=== PATIENT | female | born 1930 | race Caucasian/White ===

== ENCOUNTER 2017-12-13 14:42 | Inpatient (IN) | payer MEDICARE, OTHER ==
[2017-12-13 15:37] LABS: BASO % 0.2 % (0.0-2.0); EOS % 0.1 % (0.0-4.0); LYMPH # 0.7 K/uL (1.0-4.3); LYMPH % 7.9 % (20.0-40.0); MEAN CELL VOLUME 91.7 fL (81.0-99.0); MEAN CORPUSCULAR HGB CONC 33.8 g/dL (33.0-37.0); MEAN PLATELET VOLUME 10.2 fL (7.2-11.7); MONO # 0.4 K/uL (0.0-0.8); MONO % 4.3 % (0.0-10.0); NEUT # 7.2 K/uL (1.8-7.0); NEUT % 87.5 % (50.0-75.0); RBC 5.04 Mil/uL (3.80-5.20); RED CELL DISTRIBUTION WIDTH 15.4 % (11.5-14.5)
[2017-12-13 15:42] LABS: HEMOGLOBIN 15.6 g/dL (11.0-16.0); PLATELET COUNT 162 K/uL (130-400); WHITE BLOOD COUNT 8.3 K/uL (4.8-10.8)
[2017-12-13 16:01] LABS: ALB/GLOB RATIO 1.1 (1.0-2.1); ALBUMIN 4.6 g/dL (3.5-5.0); CALCIUM 11.2 mg/dl (8.6-10.4)
[2017-12-13 16:09] LABS: SQUAMOUS EPITHIAL 11 /hpf (0-5); URINE BACTERIA RARE (<OCC); URINE BILIRUBIN 1+ (NEGATIVE); URINE CLARITY Hazy (Clear); URINE COLOR Amber (YELLOW); URINE GLUCOSE (UA) NORMAL (Normal); URINE HYALINE CAST >20 /lpf (0-2); URINE LEUKOCYTE ESTERASE 3+ Leu/uL (Negative); URINE PROTEIN 1+ mg/dL (NEGATIVE)
[2017-12-13 16:10] LABS: URINE BLOOD 1+ (NEGATIVE)
--- NOTE | 2017-12-13 16:37 | C.PDOC ---
History Of Present Illness 87 y/o female presents to ED c/o abdominal pain, distention, nausea, and vomiting since last night. Notes she is not passing stool or gas. Denies fever or other complaints. Time Seen by Provider: 12/13/17 15:16 Chief Complaint (Nursing): Abdominal Pain History Per: Patient History/Exam Limitations: no limitations Past Medical History Reviewed: Historical Data, Nursing Documentation, Vital Signs Vital Signs: Last Vital Signs Temp 97.7 F 12/13/17 14:47 Pulse 80 12/13/17 14:47 Resp 20 12/13/17 14:47 BP 121/70 12/13/17 14:47 Pulse Ox 96 12/13/17 14:47 - Medical History PMH: Arthritis, Osteoporosis Family History: States: Unknown Family Hx - Social History Hx Tobacco Use: No Hx Alcohol Use: No Hx Substance Use: No - Immunization History Hx Tetanus Toxoid Vaccination: No Hx Influenza Vaccination: Yes Hx Pneumococcal Vaccination: Yes Review Of Systems Except As Marked, All Systems Reviewed And Found Negative. Constitutional: Negative for: Fever, Chills Gastrointestinal: Positive for: Nausea, Vomiting, Abdominal Pain. Negative for: Diarrhea Genitourinary: Negative for: Dysuria, Frequency, Hematuria Musculoskeletal: Negative for: Back Pain Physical Exam - Physical Exam Appears: Non-toxic, No Acute Distress Skin: Normal Color, Warm, Dry Head: Atraumatic, Normacephalic Eye(s): bilateral: Normal Inspection Oral Mucosa: Moist Neck: Supple Cardiovascular: Rhythm Regular Respiratory: Normal Breath Sounds, No Rales, No Rhonchi, No Wheezing Gastrointestinal/Abdominal: Soft, Tenderness (mild lower abdomen), Distention, No Guarding, No Rebound Back: No CVA Tenderness Extremity: Normal ROM, No Pedal Edema Neurological/Psych: Oriented x3, Normal Speech ED Course And Treatment - Laboratory Results Result Diagrams: 12/13/17 15:28 12/13/17 15:28 Lab Interpretation: Abnormal (UA 70 wbc's (dirty catch) increased creat) ECG: Interpreted By Me ECG Rhythm: Sinus Rhythm O2 Sat by Pulse Oximetry: 96 (RA) Pulse Ox Interpretation: Normal - Radiology CXR: Interpreted by Me CXR Interpretation: Yes: No Acute Disease - Other Rad abd x 2 X-Ray: Interpreted by Me (+ distended abd colonic loops) Interpretation: IMPRESSION: No evidence of mechanical bowel obstruction. - CT Scan/US CT A/P Other Rad Studies (CT/US): Read By Radiologist, Radiology Report Reviewed CT/US Interpretation: IMPRESSION: 1. Findings suggest mechanical distal small bowel obstruction with possible transition in the right lower quadrant from adhesion. Postoperative change identified involving bowel loops in the central and right lower quadrant abdomen. Limited pelvic ascites. No definite CT pattern to suggest bowel perforation at this time. 2. Left colonic diverticulosis without diverticulitis. 3. Possible complex cyst or soft tissue lesion exophytic at the upper midpole right kidney 1.6 cm. Follow-up right renal ultrasound advised as this may represent a mildly enlarging now complex cyst. 4. Questionable thickening of the distal esophagus may represent esophagitis or mass. Further clinical correlation advised. Other lesser findings as discussed above. Progress Note: Case discussed with Dr. George at 20:00. Understands CT A/P finding of small bowel obstruction. Case discussed with Dr. Choudhary in the ED at 18:00. Reevaluation Time: 17:22 Reassessment Condition: Improved (NGT placed by Gen Surg) Medical Decision Making Medical Decision Making: prob recurrent bowel obst- h/o same with bowel resection Disposition Doctor Will See Patient In The: Hospital Counseled Patient/Family Regarding: Studies Performed, Diagnosis - Disposition Disposition: HOSPITALIZED Disposition Time: 17:23 Condition: FAIR Forms: [facility] (Iranian) - Clinical Impression Clinical Impression: Bowel obstruction - Scribe Statement The provider has reviewed the documentation as recorded by the Scribe KP All medical record entries made by the Scribe were at my direction and personally dictated by me. I have reviewed the chart and agree that the record accurately reflects my personal performance of the history, physical exam, medical decision making, and the department course for this patient. I have also personally directed, reviewed, and agree with the discharge instructions and disposition.
[2017-12-13 17:18] LABS: BANDS 18 % (0-2); LYMPHOCYTE 5 % (20-40); MONOCYTE 7 % (0-10); NEUTROPHIL 70 % (50-75); PLATELET ESTIMATE NORMAL (NORMAL); TOTAL CELLS COUNTED 100
[2017-12-13] MEDS ORDERED: Sodium Chloride 0.9% 1,000 ML IV ONE (17:18)
[2017-12-13] MEDS ORDERED: Dextrose 5%/0.9% NS 1,000 ML IV STA (17:19)
--- NOTE | 2017-12-13 17:34 | CP.PCM.CON ---
History of Present Illness - History of Present Illness History of Present Illness: Surgery consult - Dr. Choudhary 87 y/o female with PSH of Exp lap for SBO and appendectomy and PMH of SBO, arthritis and osteoporosis, presented to the ED with nausea/vomiting, epigastric pain and abdominal distention. As per pt, the pain began last night and was followed by continuous episodes of vomiting throughout the night. The vomit was "dark green" in color. The pain is localized to the epigastric area and pt describes the pain as sharp, constant, and denies any radiation. She rates the pain today at a 10/10. Pt states that food aggravates the pain and denies that anything has helped relieve the pain. In addition to nausea, vomiting, and abdominal pain, she reports constipation (3 days since last BM). She denies fever, diarrhea, chest pain, palpitations, cough, SOB, dysuria, or headache. Reports this is 2nd time having these sxs. NGT placed in ED. 1 L bilious output. PMH: osteoporosis, arthritis PSH: appendectomy, ex-lap for SBO social: denies tobacco or alcohol use All: nkda Review of Systems - Constitutional Constitutional: absent: Fever - Cardiovascular Cardiovascular: Dyspnea. absent: Chest Pain, Palpitations - Respiratory Respiratory: absent: Cough, Dyspnea - Gastrointestinal Gastrointestinal: Constipation, Nausea, Vomiting. absent: Diarrhea - Genitourinary Genitourinary: absent: Dysuria - Musculoskeletal Musculoskeletal: Arthralgias - Neurological Neurological: absent: Headaches Past Patient History - Past Social History Smoking Status: Never Smoked - MUSCULOSKELETAL/RHEUMATOLOGICAL Hx Arthritis: Yes Hx Osteoporosis: Yes - PSYCHIATRIC Hx Substance Use: No Meds Allergies/Adverse Reactions: Allergies Allergy/AdvReac Type Severity Reaction Status Date / Time No Known Allergies Allergy Unverified 12/13/17 14:49 - Medications Medications: Current Medications Glycerin (Glycerin Adult Suppository) 1 sup AK ONCE ONE Stop: 12/13/17 17:26 Sodium Chloride (Sodium Chloride 0.9%) 1,000 mls @ 1,000 mls/hr IV .Q1H ONE Stop: 12/13/17 18:17 Dextrose/Sodium Chloride (Dextrose 5%/0.9% Ns 1000 Ml) 1,000 mls @ 100 mls/hr IV .Q10H STA Stop: 12/14/17 03:18 Sodium Chloride (Sodium Chloride 0.9%) 1,000 mls @ 110 mls/hr IV .Q9H6M [facility] Morphine Sulfate (Morphine) 2 mg IVP Q4 PRN PRN Reason: Pain, moderate (4-7) Ondansetron HCl (Zofran Inj) 4 mg IVP Q4 PRN PRN Reason: Nausea/Vomiting Physical Exam - Constitutional Appears: Non-toxic - Head Exam Head Exam: ATRAUMATIC, NORMAL INSPECTION, NORMOCEPHALIC - Eye Exam Eye Exam: EOMI, PERRL - ENT Exam ENT Exam: Mucous Membranes Dry - Respiratory Exam Respiratory Exam: NORMAL BREATHING PATTERN - Cardiovascular Exam Cardiovascular Exam: REGULAR RHYTHM, +S1, +S2 - GI/Abdominal Exam GI & Abdominal Exam: Distended, Guarding, Hyperactive Bowel Sounds, Soft, Tenderness Additional comments: large midline incisions x2. RLQ incision. well healed. - Rectal Exam Rectal Exam: Fecal Impaction. absent: Black Stool, Bloody Stool Additional comments: normal tone, no bleeding, hard stool in rectal vault - Exam Exam: NORMAL INSPECTION - Extremities Exam Extremities exam: Positive for: normal capillary refill. Negative for: pedal edema Additional comments: ulnar deviation - Neurological Exam Neurological exam: Alert, CN II-XII Intact, Oriented x3 - Psychiatric Exam Psychiatric exam: Normal Affect, Normal Mood - Skin Skin Exam: Dry, Intact, Normal Color, Warm Results - Vital Signs Recent Vital Signs: Last Vital Signs Temp 97.7 F 12/13/17 14:47 Pulse 80 12/13/17 14:47 Resp 20 12/13/17 14:47 BP 121/70 12/13/17 14:47 Pulse Ox 96 12/13/17 17:23 - Labs Result Diagrams: 12/13/17 15:28 12/13/17 15:28 Labs: Laboratory Results - last 24 hr 12/13/17 12/13/17 12/13/17 15:28 15:28 15:54 WBC 8.3 D RBC 5.04 Hgb 15.6 D Hct 46.2 MCV 91.7 MCH 31.0 MCHC 33.8 RDW 15.4 H Plt Count 162 D MPV 10.2 Neut % (Auto) 87.5 H Lymph % (Auto) 7.9 L [place] % (Auto) 4.3 Eos % (Auto) 0.1 Baso % (Auto) 0.2 Neut # (Auto) 7.2 H Lymph # (Auto) 0.7 L [place] # (Auto) 0.4 Eos # (Auto) 0.0 Baso # (Auto) 0.0 Neutrophils % (Manual) 70 Band Neutrophils % 18 H* Lymphocytes % (Manual) 5 L Monocytes % (Manual) 7 Platelet Estimate Normal Sodium 138 Potassium 4.2 Chloride 89 L Carbon Dioxide 33 H Anion Gap 20 BUN 31 H Creatinine 2.0 H Est GFR ( Amer) 28 Est GFR (Non-Af Amer) 23 Random Glucose 140 H Calcium 11.2 H Total Bilirubin 1.1 AST 41 H ALT 21 Alkaline Phosphatase 91 Total Protein 8.9 H Albumin 4.6 Globulin 4.2 H Albumin/Globulin Ratio 1.1 Lipase 41 Urine Color Archana Urine Clarity Hazy Urine pH 5.0 Ur Specific [place] 1.023 Urine Protein 1+ H Urine Glucose (UA) Normal Urine Ketones Trace Urine Blood 1+ H Urine Nitrate Negative Urine Bilirubin 1+ H Urine Urobilinogen 2.0 H Ur Leukocyte Esterase 3+ H Urine WBC (Auto) 70 H Urine RBC (Auto) 22 H Ur Squamous Epith Cells 11 H Urine Bacteria Rare Hyaline Casts >20 H Assessment & Plan - Assessment and Plan (Free Text) Assessment: 87 y/o female with acute SBO. Plan: - f/u CT abdomen with PO contrast - NPO - IVF - pain medications - anti-nausea medications - enema for constipation relief - if no improvement of symptoms or bowel becomes strangulated, possible surgical rescection small bowel with Dr. Choudhary Case discussed with Dr. Choudhary
[2017-12-13] MEDS ORDERED: Iohexol 240 (50 ml) ONE (17:41)
[2017-12-13] MEDS ORDERED: Iohexol 240 (50 ml) PO ONE (17:44)
[2017-12-13] MEDS ORDERED: Sodium Chloride 0.9% 1,000 ML ONE (18:39)
--- NOTE | 2017-12-13 18:50 | RAD ---
Date of service: 12/13/2017 PROCEDURE: Radiographs of the chest and abdomen (obstructive series) HISTORY: Abdominal pain COMPARISON: No prior. TECHNIQUE: AP radiograph of the chest, with upright and supine radiographs of the abdomen. FINDINGS: CHEST: Lungs: Clear. Cardiovascular: Normal size heart. No pulmonary vascular congestion. Pleura: No pleural fluid. No pneumothorax. Other findings: None. ABDOMEN AND PELVIS: Bowel: Dilated stomach with air-fluid level. No evidence of mechanical obstruction or free air. Free air: None. Bones: Unremarkable. Other findings: None. IMPRESSION: . No evidence of mechanical bowel obstruction.
--- NOTE | 2017-12-13 19:10 | CT ---
Date of service: 12/13/2017 PROCEDURE: CT Abdomen and Pelvis with contrast HISTORY: SBO COMPARISON: Abdomen obstructive series 12/13/2017. TECHNIQUE: Helical CT of the abdomen and pelvis was performed following oral contrast administration only. Intravenous contrast was not administered as per referring physician request. Coronal and sagittal reformats were generated. contrast dose: None Radiation dose: Total exam DLP = 342.07 mGy-cm. This CT exam was performed using one or more of the following dose reduction techniques: Automated exposure control, adjustment of the mA and/or kV according to patient size, and/or use of iterative reconstruction technique. FINDINGS: LOWER THORAX: Fibrotic changes are favored over linear atelectasis at the bilateral bases as volume loss at the left lower lobe is identified. Dense pleural plaque calcification is identified at the left lower lobe pleura posteriorly. Cardiomegaly is noted with nasogastric tube identified terminating in the stomach. Hiatal hernia is identified versus thickened distal esophagus. Clinically correlate. LIVER: Unremarkable. No gross lesion or ductal dilatation. GALLBLADDER AND BILE DUCTS: Unremarkable. PANCREAS: Unremarkable. No gross lesion or ductal dilatation. SPLEEN: Unremarkable. ADRENALS: Unremarkable. No mass. KIDNEYS AND URETERS: 1.6 cm lesion is exophytic related to the upper to mid pole right kidney potentially corresponding to previously demonstrated in ultrasound exam 03/14/2015 as a simple cyst. This may represent interval increase in size of a now complex right renal cyst may however follow-up renal ultrasound is advised electively to further evaluate. No obstructive uropathy bilaterally. Nonspecific bilateral streaky perinephric changes are identified bilaterally. VASCULATURE: Aneurysmal atherosclerotic abdominal aorta identified with limited dilatation identified distally without significant aneurysm. Similar dilatation is identified at the right common iliac artery with bilateral heavy atherosclerosis affecting the bilateral iliac arterial systems. BOWEL: Oral contrast distends the stomach with distention of numerous small bowel loops identified with oral contrast retained fluid and air transitioning to collapsed small bowel at the right lower quadrant region suggesting mechanical distal small bowel obstruction. Multiple chain sutures are identified involving mid and distal small bowel and an adhesion is a possible etiology. Clinically correlate further. No CT evidence of bowel perforation at this time. Moderate fecal loading is seen at the right hemicolon and distal rectosigmoid. Left colonic diverticular changes are appreciated without definite diverticulitis pattern. APPENDIX: No CT evidence to suggest appendicitis at this time. PERITONEUM: Limited pelvic ascites. LYMPH NODES: Unremarkable. No enlarged lymph nodes. BLADDER: Unremarkable. REPRODUCTIVE: Unremarkable. BONES: No acute fracture. OTHER FINDINGS: None. IMPRESSION: 1. Findings suggest mechanical distal small bowel obstruction with possible transition in the right lower quadrant from adhesion. Postoperative change identified involving bowel loops in the central and right lower quadrant abdomen. Limited pelvic ascites. No definite CT pattern to suggest bowel perforation at this time. 2. Left colonic diverticulosis without diverticulitis. 3. Possible complex cyst or soft tissue lesion exophytic at the upper midpole right kidney 1.6 cm. Follow-up right renal ultrasound advised as this may represent a mildly enlarging now complex cyst. 4. Questionable thickening of the distal esophagus may represent esophagitis or mass. Further clinical correlation advised. Other lesser findings as discussed above.
[2017-12-13] MEDS: Sodium Chloride 0.9% 1,000 ML IV SCH (19:28)
--- NOTE | 2017-12-13 22:37 | CP.PCM.HP ---
History of Present Illness - History of Present Illness History of Present Illness: 87 year old female with abdominal pain, abdominal sistension, nausea, and vomiting for the past 24 hours, comes to the [facility] ER for evaluation. CT scan of the abdomen reveals small bowel obstruction. Admission advised and consultation requested with Dr Choudhary requested. Present on Admission - Present on Admission Any Indicators Present on Admission: No History of DVT/PE: No History of Uncontrolled Diabetes: No Urinary Catheter: No Decubitus Ulcer Present: No History Surgical Site Infection Following: None Review of Systems - Constitutional Constitutional: Weakness - Gastrointestinal Gastrointestinal: Abdominal Pain, Nausea, Vomiting - Reproductive: Female Reproductive:Female: Post Menopausal - Musculoskeletal Musculoskeletal: Arthralgias - Integumentary Integumentary: Dry Skin Past Patient History - Tetanus Immunizations Tetanus Immunization: Up to Date - Past Medical History & Family History Past Medical History?: Yes - Past Social History Smoking Status: Never Smoked Chewing Tobacco Use: No Cigar Use: No Alcohol: None Drugs: Denies Home Situation {Lives}: Alone Domestic Violence: Negative - CARDIAC Hx Hypertension: Yes - HEMATOLOGICAL/ONCOLOGICAL Hx Anemia: Yes - MUSCULOSKELETAL/RHEUMATOLOGICAL Hx Arthritis: Yes Hx Osteoporosis: Yes - GENITOURINARY/GYNECOLOGICAL Hx Hematuria: No Hx Incontinence: No Hx Ovarian Cancer: No Hx Postmenopausal Bleeding: No - PSYCHIATRIC Hx Substance Use: No Meds Allergies/Adverse Reactions: Allergies Allergy/AdvReac Type Severity Reaction Status Date / Time No Known Allergies Allergy Unverified 12/13/17 14:49 Physical Exam - Constitutional Appears: No Acute Distress - Head Exam Head Exam: NORMOCEPHALIC - Eye Exam Pupil Exam: NORMAL ACCOMODATION - ENT Exam ENT Exam: Normal Exam - Neck Exam Neck exam: Positive for: Normal Inspection - Respiratory Exam Respiratory Exam: NORMAL BREATHING PATTERN - Cardiovascular Exam Cardiovascular Exam: REGULAR RHYTHM - GI/Abdominal Exam GI & Abdominal Exam: Distended, Tenderness - Exam External exam: NORMAL EXTERNAL EXAM - Back Exam Back exam: NORMAL INSPECTION - Neurological Exam Neurological exam: Oriented x3 - Psychiatric Exam Psychiatric exam: Anxious - Skin Skin Exam: Dry Results - Vital Signs Recent Vital Signs: Last Vital Signs Temp 97.5 F L 12/13/17 22:21 Pulse 88 12/13/17 22:21 Resp 20 12/13/17 22:21 BP 144/75 12/13/17 22:21 Pulse Ox 96 12/13/17 22:21 - Labs Result Diagrams: 12/13/17 15:28 12/13/17 15:28 Labs: Laboratory Results - last 24 hr 12/13/17 12/13/17 12/13/17 15:28 15:28 15:54 WBC 8.3 D RBC 5.04 Hgb 15.6 D Hct 46.2 MCV 91.7 MCH 31.0 MCHC 33.8 RDW 15.4 H Plt Count 162 D MPV 10.2 Neut % (Auto) 87.5 H Lymph % (Auto) 7.9 L [place] % (Auto) 4.3 Eos % (Auto) 0.1 Baso % (Auto) 0.2 Neut # (Auto) 7.2 H Lymph # (Auto) 0.7 L [place] # (Auto) 0.4 Eos # (Auto) 0.0 Baso # (Auto) 0.0 Neutrophils % (Manual) 70 Band Neutrophils % 18 H* Lymphocytes % (Manual) 5 L Monocytes % (Manual) 7 Platelet Estimate Normal Sodium 138 Potassium 4.2 Chloride 89 L Carbon Dioxide 33 H Anion Gap 20 BUN 31 H Creatinine 2.0 H Est GFR ( Amer) 28 Est GFR (Non-Af Amer) 23 Random Glucose 140 H Calcium 11.2 H Total Bilirubin 1.1 AST 41 H ALT 21 Alkaline Phosphatase 91 Total Protein 8.9 H Albumin 4.6 Globulin 4.2 H Albumin/Globulin Ratio 1.1 Lipase 41 Urine Color Archana Urine Clarity Hazy Urine pH 5.0 Ur Specific [place] 1.023 Urine Protein 1+ H Urine Glucose (UA) Normal Urine Ketones Trace Urine Blood 1+ H Urine Nitrate Negative Urine Bilirubin 1+ H Urine Urobilinogen 2.0 H Ur Leukocyte Esterase 3+ H Urine WBC (Auto) 70 H Urine RBC (Auto) 22 H Ur Squamous Epith Cells 11 H Urine Bacteria Rare Hyaline Casts >20 H Assessment & Plan (1) Small bowel obstruction Status: Acute (2) Rheumatoid arthritis Status: Acute (3) Vomiting Status: Acute
[2017-12-14] MEDS: Sodium Chloride 0.9% 1,000 ML IV SCH ×2 (03:00→12:18)
[2017-12-14 07:45] LABS: INR 1.1
--- NOTE | 2017-12-14 11:05 | CP.PCM.PN ---
Subjective - Date & Time of Evaluation Date of Evaluation: 12/14/17 Time of Evaluation: 07:20 - Subjective Subjective: General surgery progress note for Dr. Choudhary Pt seen and examined at bedside. pt had 1250cc's of bilious fluid since NGT insertion. patient denies any nausea at this time, and states abdominal pain is improved. Objective - Vital Signs/Intake and Output Vital Signs (last 24 hours): Temp Pulse Resp BP Pulse Ox 97.4 F L 68 20 145/73 95 12/14/17 08:03 12/14/17 08:03 12/14/17 08:03 12/14/17 08:03 12/14/17 08:03 Intake and Output: 12/14/17 12/14/17 06:59 18:59 Intake Total 930 Output Total 550 Balance 380 - Medications Medications: Current Medications Sodium Chloride (Sodium Chloride 0.9%) 1,000 mls @ 110 mls/hr IV .Q9H6M [facility] Last Admin: 12/14/17 03:00 Dose: Not Given Morphine Sulfate (Morphine) 2 mg IVP Q4 PRN PRN Reason: Pain, moderate (4-7) Ondansetron HCl (Zofran Inj) 4 mg IVP Q4 PRN PRN Reason: Nausea/Vomiting - Labs Labs: 12/13/17 15:28 12/13/17 15:28 PT 12.0 SECONDS (9.7-12.2) 12/14/17 07:32 INR 1.1 12/14/17 07:32 - Constitutional Appears: Well, Non-toxic, No Acute Distress - Head Exam Head Exam: ATRAUMATIC, NORMOCEPHALIC - Eye Exam Eye Exam: Normal appearance. absent: Conjunctival injection, Scleral icterus - ENT Exam ENT Exam: Mucous Membranes Moist Additional comments: NGT in place - Respiratory Exam Respiratory Exam: NORMAL BREATHING PATTERN. absent: Accessory Muscle Use, Respiratory Distress - Cardiovascular Exam Cardiovascular Exam: RRR - GI/Abdominal Exam GI & Abdominal Exam: Distended (mild), Soft. absent: Tenderness, Rebound - Extremities Exam Extremities Exam: absent: Calf Tenderness, Pedal Edema, Tenderness - Neurological Exam Neurological Exam: Alert, Awake, Oriented x3 - Psychiatric Exam Psychiatric exam: Normal Affect, Normal Mood - Skin Skin Exam: Dry, Normal Color, Warm Assessment and Plan - Assessment and Plan (Free Text) Assessment: 87F with SBO vs obstipation with small bowel ileus Plan: Continue NGT to wall suction Monitor NGT output and urine output NPO IVF PRN pain and nausea medication Encourage activity as tolerated Continue conservative management at this time--may consider OR only if patient worsens Discussed and examined with Dr. Funmi Jimenez PGY2
[2017-12-14 11:47] LABS: BASO % 0.3 % (0.0-2.0); EOS # 0.1 K/uL (0.0-0.7); EOS % 1.2 % (0.0-4.0); LYMPH # 1.3 K/uL (1.0-4.3); LYMPH % 19.3 % (20.0-40.0); MEAN CELL VOLUME 92.3 fL (81.0-99.0); MEAN CORPUSCULAR HEMOGLOBIN 30.6 pg (27.0-31.0); MEAN CORPUSCULAR HGB CONC 33.2 g/dL (33.0-37.0); MEAN PLATELET VOLUME 10.1 fL (7.2-11.7); MONO # 0.5 K/uL (0.0-0.8); MONO % 7.7 % (0.0-10.0); NEUT # 4.8 K/uL (1.8-7.0); NEUT % 71.5 % (50.0-75.0); NRBC % 0.1 % (0.0-2.0); RBC 4.33 Mil/uL (3.80-5.20); RED CELL DISTRIBUTION WIDTH 15.6 % (11.5-14.5); WHITE BLOOD COUNT 6.7 K/uL (4.8-10.8)
[2017-12-14 11:56] LABS: HEMOGLOBIN 13.3 g/dL (11.0-16.0)
[2017-12-14 12:00] LABS: CALCIUM 8.7 mg/dl (8.6-10.4)
[2017-12-14 17:34] LABS: HEMOGLOBIN 13.2 g/dL (11.0-16.0); MEAN CELL VOLUME 92.5 fL (81.0-99.0); MEAN CORPUSCULAR HEMOGLOBIN 31.4 pg (27.0-31.0); MEAN CORPUSCULAR HGB CONC 33.9 g/dL (33.0-37.0); MEAN PLATELET VOLUME 10.2 fL (7.2-11.7); RBC 4.22 Mil/uL (3.80-5.20); RED CELL DISTRIBUTION WIDTH 15.1 % (11.5-14.5); WHITE BLOOD COUNT 7.1 K/uL (4.8-10.8)
--- NOTE | 2017-12-14 19:42 | CP.PCM.PN ---
Subjective - Date & Time of Evaluation Date of Evaluation: 12/14/17 Time of Evaluation: 16:20 - Subjective Subjective: Patient is alert and responsive. Abdomen less distended and less tender. Patient was evaluated by neurosurgical nurse. Continue all present supportive measures. Objective - Vital Signs/Intake and Output Vital Signs (last 24 hours): Temp Pulse Resp BP Pulse Ox 98.1 F 65 20 149/63 95 12/14/17 15:00 12/14/17 18:11 12/14/17 15:00 12/14/17 18:11 12/14/17 15:00 Intake and Output: 12/14/17 12/15/17 18:59 06:59 Intake Total 880 Output Total 620 Balance 260 - Medications Medications: Current Medications Sodium Chloride (Sodium Chloride 0.9%) 1,000 mls @ 110 mls/hr IV .Q9H6M [facility] Last Admin: 12/14/17 12:18 Dose: Not Given Morphine Sulfate (Morphine) 2 mg IVP Q4 PRN PRN Reason: Pain, moderate (4-7) Ondansetron HCl (Zofran Inj) 4 mg IVP Q4 PRN PRN Reason: Nausea/Vomiting - Labs Labs: 12/14/17 17:10 12/14/17 11:37 PT 12.0 SECONDS (9.7-12.2) 12/14/17 07:32 INR 1.1 12/14/17 07:32 - Constitutional Appears: No Acute Distress - Head Exam Head Exam: ATRAUMATIC - Eye Exam Eye Exam: Normal appearance Pupil Exam: NORMAL ACCOMODATION - ENT Exam ENT Exam: Normal Exam - Neck Exam Neck Exam: Normal Inspection - Respiratory Exam Respiratory Exam: NORMAL BREATHING PATTERN - Cardiovascular Exam Cardiovascular Exam: RRR - GI/Abdominal Exam GI & Abdominal Exam: Tenderness - Rectal Exam Rectal Exam: Deferred - Exam External exam: NORMAL EXTERNAL EXAM - Extremities Exam Extremities Exam: Normal Inspection - Back Exam Back Exam: NORMAL INSPECTION - Neurological Exam Neurological Exam: Oriented x3 - Psychiatric Exam Psychiatric exam: Normal Affect - Skin Skin Exam: Dry Assessment and Plan (1) Small bowel obstruction Status: Acute (2) Rheumatoid arthritis Status: Acute (3) Vomiting Status: Acute
[2017-12-15] MEDS: Sodium Chloride 0.9% 1,000 ML IV SCH ×3 (01:35→14:33)
[2017-12-15 08:00] LABS: HEMOGLOBIN 13.4 g/dL (11.0-16.0); MEAN CELL VOLUME 93.9 fL (81.0-99.0); MEAN CORPUSCULAR HEMOGLOBIN 31.4 pg (27.0-31.0); MEAN CORPUSCULAR HGB CONC 33.5 g/dL (33.0-37.0); RBC 4.25 Mil/uL (3.80-5.20); RED CELL DISTRIBUTION WIDTH 15.3 % (11.5-14.5); WHITE BLOOD COUNT 6.4 K/uL (4.8-10.8)
[2017-12-15 08:01] LABS: BASO % 0.5 % (0.0-2.0); EOS # 0.1 K/uL (0.0-0.7); EOS % 0.9 % (0.0-4.0); MONO # 0.5 K/uL (0.0-0.8); MONO % 7.6 % (0.0-10.0); NEUT # 4.8 K/uL (1.8-7.0)
[2017-12-15 08:26] LABS: ALB/GLOB RATIO 1.1 (1.0-2.1); ALBUMIN 3.6 g/dL (3.5-5.0); ALT/SGPT 30 U/L (9-52); AST/SGOT 31 U/L (14-36); BLOOD UREA NITROGEN 21 mg/dL (7-17); CALCIUM 8.5 mg/dl (8.6-10.4); GFR NON-AFRICAN AMERICAN 59
--- NOTE | 2017-12-15 10:00 | CP.PCM.PN ---
Subjective - Date & Time of Evaluation Date of Evaluation: 12/15/17 Time of Evaluation: 07:10 - Subjective Subjective: general surgery progress note for Dr. Choudhary Pt seen and examined at bedside. Patient states pain is improved with no nausea, but has not had any flatus or bowel movement. 1800cc's like green gastric/bilious output in NGT/24 hours. Objective - Vital Signs/Intake and Output Vital Signs (last 24 hours): Temp Pulse Resp BP Pulse Ox 98.1 F 65 20 178/78 H 95 12/15/17 07:43 12/15/17 07:43 12/15/17 07:43 12/15/17 07:43 12/15/17 07:43 Intake and Output: 12/15/17 12/15/17 06:59 18:59 Intake Total 880 800 Output Total 650 900 Balance 230 -100 - Medications Medications: Current Medications Sodium Chloride (Sodium Chloride 0.9%) 1,000 mls @ 110 mls/hr IV .Q9H6M [facility] Last Admin: 12/15/17 06:23 Dose: Not Given Mineral Oil (Fleet Mineral Oil Enema) 135 ml RC ONCE ONE Stop: 12/15/17 12:01 Morphine Sulfate (Morphine) 2 mg IVP Q4 PRN PRN Reason: Pain, moderate (4-7) Ondansetron HCl (Zofran Inj) 4 mg IVP Q4 PRN PRN Reason: Nausea/Vomiting - Labs Labs: 12/15/17 07:48 12/15/17 07:48 PT 12.0 SECONDS (9.7-12.2) 12/14/17 07:32 INR 1.1 12/14/17 07:32 - Constitutional Appears: Well, Non-toxic, No Acute Distress - Head Exam Head Exam: ATRAUMATIC, NORMOCEPHALIC - Eye Exam Eye Exam: Normal appearance. absent: Conjunctival injection, Scleral icterus - ENT Exam ENT Exam: Mucous Membranes Moist, Normal Oropharynx - Respiratory Exam Respiratory Exam: NORMAL BREATHING PATTERN. absent: Accessory Muscle Use, Respiratory Distress - Cardiovascular Exam Cardiovascular Exam: RRR - GI/Abdominal Exam GI & Abdominal Exam: Distended (mild), Soft, Tenderness (mild epigastric tenderness) - Extremities Exam Extremities Exam: absent: Calf Tenderness, Pedal Edema, Tenderness - Neurological Exam Neurological Exam: Alert, Awake, Oriented x3 - Psychiatric Exam Psychiatric exam: Normal Affect, Normal Mood - Skin Skin Exam: Dry, Intact, Normal Color, Warm Assessment and Plan - Assessment and Plan (Free Text) Assessment: 87F with SBO vs ileus/obstipation Plan: Continue NGT to wall suction, monitor output Continue IVF Continue PRN nausea and pain medication Administer enema Continue to trend CBC/bmp/MG/Phos--replete electrolytes as needed out of bed to chair and ambulate--may clamp tube to ambulate Possible OR if not having return of bowel function Discussed withDr. Choudhary--further recs per him Arlen Jimenez, PGY2
[2017-12-15] MEDS ORDERED: Sodium Chloride 0.9% 1,000 ML IV SCH (10:29)
[2017-12-15] MEDS ORDERED: Phenol Topical 1.4% Throat Spray (180 ml) MT PRN (10:36)
[2017-12-15] MEDS ORDERED: Nitroglycerin 2% Ointment Foilpak UD TOP SCH (12:00)
[2017-12-15] MEDS ORDERED: Nitroglycerin 2% Ointment Foilpak UD TOP PRN (12:00)
[2017-12-15] MEDS ORDERED: Mineral Oil Enema 135 ml RC ONE ×2 (12:00→21:28)
[2017-12-15] MEDS: Nitroglycerin 2% Ointment Foilpak UD TOP PRN ×2 (12:02→19:08)
[2017-12-15] MEDS ORDERED: Albuterol-Ipratrop 3 mg / 0.5 (3 ml) UD INH STA (14:06)
[2017-12-15 14:39] LABS: ABG ALLEN TEST POS; ARTERIAL BLOOD GAS HCO3 25.3 mmol/L (21-28); ARTERIAL BLOOD GAS O2 SAT 99.1 % (95-98); ARTERIAL BLOOD GAS PCO2 37 mm/Hg (35-45); ARTERIAL BLOOD GAS PH 7.43 (7.35-7.45); ARTERIAL BLOOD GAS PO2 102 mm/Hg (80-100); ARTERIAL BLOOD GAS TCO2 25.7 mmol/L (22-28)
--- NOTE | 2017-12-15 14:44 | RAD ---
Date of service: 12/15/2017 PROCEDURE: Radiographs of the chest and abdomen (obstructive series) HISTORY: upright. SBO, SOB COMPARISON: Comparison made with CT scan abdomen and pelvis dated 12/13/2017 TECHNIQUE: AP radiograph of the chest, with upright and supine radiographs of the abdomen. FINDINGS: In situ NGT the the, tip of which lies just to the right of midline upper abdomen likely within the distal stomach. CHEST: Lungs: Pleural based calcification and parenchymal scarring left mid to lower lung field of. The minor scarring changes right medial lung base. Note that these findings are seen to better advantage on prior CT scan of the abdomen which image both lung bases. Cardiovascular: Cardiomegaly.. No pulmonary vascular congestion. Pleura: As above. No effusion or pneumothorax. Other findings: None. ABDOMEN AND PELVIS: Bowel: Unremarkable bowel gas pattern. No evidence of mechanical obstruction with oral contrast material from prior CT scan now opacifying the large bowel.. Free air: None. Bones: Unremarkable. Other findings: None. IMPRESSION: Chronic scarring/fibrotic changes and pleural based calcifications left lung base. Minor atelectasis or scarring right lung base. Cardiomegaly. In situ NGT.. No evidence of free intraperitoneal air. No evidence of acute mechanical bowel obstruction.
[2017-12-15] MEDS: Albuterol-Ipratrop 3 mg / 0.5 (3 ml) UD INH SCH (20:44)
--- NOTE | 2017-12-15 22:08 | CP.PCM.PN ---
Subjective - Date & Time of Evaluation Date of Evaluation: 12/15/17 Time of Evaluation: 17:25 - Subjective Subjective: Patient in no distress. Oriented in all 3 spheres. Abdomen less distended and tender. K level 3.1. Supplemental K ordered. Patient given lasix IV for an episode of shortness of breath. Objective - Vital Signs/Intake and Output Vital Signs (last 24 hours): Temp Pulse Resp BP Pulse Ox 98.4 F 74 18 159/69 H 97 12/15/17 16:51 12/15/17 16:51 12/15/17 16:51 12/15/17 19:03 12/15/17 16:51 Intake and Output: 12/15/17 12/16/17 18:59 06:59 Intake Total 1250 400 Output Total 1500 200 Balance -250 200 - Medications Medications: Current Medications Albuterol/Ipratropium (Duoneb 3 Mg/0.5 Mg (3 Ml) Ud) 3 ml INH RBID [facility] Last Admin: 12/15/17 20:44 Dose: 3 ml Sodium Chloride (Sodium Chloride 0.9%) 1,000 mls @ 30 mls/hr IV .Q24H [facility] Last Admin: 12/15/17 14:33 Dose: 30 mls/hr Ceftriaxone Sodium 1 gm/ (Sodium Chloride) 100 mls @ 100 mls/hr IVPB DAILY [facility]; Protocol Last Admin: 12/15/17 18:37 Dose: 100 mls/hr Morphine Sulfate (Morphine) 2 mg IVP Q4 PRN PRN Reason: Pain, moderate (4-7) Last Admin: 12/15/17 10:48 Dose: 2 mg Nitroglycerin (Nitro-Bid 2% Oint) 1 ea TOP Q6H PRN Last Admin: 12/15/17 19:08 Dose: 1 ea Ondansetron HCl (Zofran Inj) 4 mg IVP Q4 PRN PRN Reason: Nausea/Vomiting Pantoprazole Sodium (Protonix Inj) 40 mg IVP DAILY [facility] Last Admin: 12/15/17 14:32 Dose: 40 mg Phenol/Menthol (Phenaseptic 1.4% Throat [place]) 1 ml MT Q4H PRN PRN Reason: Pain, moderate (4-7) - Labs Labs: 12/15/17 07:48 12/15/17 07:48 PT 12.0 SECONDS (9.7-12.2) 12/14/17 07:32 INR 1.1 12/14/17 07:32 - Constitutional Appears: No Acute Distress - Head Exam Head Exam: NORMOCEPHALIC - Eye Exam Eye Exam: Normal appearance Pupil Exam: NORMAL ACCOMODATION - ENT Exam ENT Exam: Normal Exam - Neck Exam Neck Exam: Normal Inspection - Respiratory Exam Respiratory Exam: Decreased Breath Sounds - Cardiovascular Exam Cardiovascular Exam: REGULAR RHYTHM - GI/Abdominal Exam GI & Abdominal Exam: Hypoactive Bowel Sounds - Rectal Exam Rectal Exam: Deferred - Exam External exam: NORMAL EXTERNAL EXAM - Extremities Exam Extremities Exam: Normal Inspection - Neurological Exam Neurological Exam: Oriented x3 - Psychiatric Exam Psychiatric exam: Normal Affect - Skin Skin Exam: Dry Assessment and Plan (1) Small bowel obstruction Status: Acute (2) Rheumatoid arthritis Status: Acute (3) Vomiting Status: Acute (4) Hypokalemia Status: Acute
[2017-12-15 23:06] LABS: CALCIUM 8.4 mg/dl (8.6-10.4)
[2017-12-16] MEDS: Nitroglycerin 2% Ointment Foilpak UD TOP PRN ×2 (00:59→10:08)
[2017-12-16 07:16] LABS: BASO % 0.4 % (0.0-2.0); EOS % 0.7 % (0.0-4.0); HEMOGLOBIN 12.6 g/dL (11.0-16.0); LYMPH # 0.9 K/uL (1.0-4.3); LYMPH % 14.9 % (20.0-40.0); MEAN CELL VOLUME 94.2 fL (81.0-99.0); MEAN CORPUSCULAR HEMOGLOBIN 31.4 pg (27.0-31.0); MEAN CORPUSCULAR HGB CONC 33.4 g/dL (33.0-37.0); MONO # 0.5 K/uL (0.0-0.8); MONO % 8.7 % (0.0-10.0); NEUT # 4.7 K/uL (1.8-7.0); NEUT % 75.3 % (50.0-75.0); NRBC % 0.1 % (0.0-2.0); RBC 4.01 Mil/uL (3.80-5.20); RED CELL DISTRIBUTION WIDTH 15.5 % (11.5-14.5); WHITE BLOOD COUNT 6.2 K/uL (4.8-10.8)
--- NOTE | 2017-12-16 07:29 | CP.PCM.PN ---
Subjective - Date & Time of Evaluation Date of Evaluation: 12/16/17 Time of Evaluation: 07:00 - Subjective Subjective: General surgery progress note for Dr. Choudhary Pt seen and examined at bedside. patient denies any pain, nausea or vomiting Objective - Vital Signs/Intake and Output Vital Signs (last 24 hours): Temp Pulse Resp BP Pulse Ox 98.6 F 64 20 171/68 H 96 12/16/17 00:00 12/16/17 00:00 12/16/17 00:00 12/16/17 05:00 12/16/17 00:00 Intake and Output: 12/16/17 12/16/17 06:59 18:59 Intake Total 400 Output Total 400 Balance 0 - Medications Medications: Current Medications Albuterol/Ipratropium (Duoneb 3 Mg/0.5 Mg (3 Ml) Ud) 3 ml INH RBID [facility] Last Admin: 12/15/17 20:44 Dose: 3 ml Sodium Chloride (Sodium Chloride 0.9%) 1,000 mls @ 30 mls/hr IV .Q24H [facility] Last Admin: 12/15/17 14:33 Dose: 30 mls/hr Ceftriaxone Sodium 1 gm/ (Sodium Chloride) 100 mls @ 100 mls/hr IVPB DAILY [facility]; Protocol Last Admin: 12/15/17 18:37 Dose: 100 mls/hr Morphine Sulfate (Morphine) 2 mg IVP Q4 PRN PRN Reason: Pain, moderate (4-7) Last Admin: 12/16/17 05:38 Dose: 2 mg Nitroglycerin (Nitro-Bid 2% Oint) 1 ea TOP Q6H PRN Last Admin: 12/16/17 00:59 Dose: 1 ea Ondansetron HCl (Zofran Inj) 4 mg IVP Q4 PRN PRN Reason: Nausea/Vomiting Pantoprazole Sodium (Protonix Inj) 40 mg IVP DAILY [facility] Last Admin: 12/15/17 14:32 Dose: 40 mg Phenol/Menthol (Phenaseptic 1.4% Throat [place]) 1 ml MT Q4H PRN PRN Reason: Pain, moderate (4-7) - Labs Labs: 12/15/17 07:48 12/15/17 22:51 PT 12.0 SECONDS (9.7-12.2) 12/14/17 07:32 INR 1.1 12/14/17 07:32
[2017-12-16 07:37] LABS: B-TYPE NATRIURETIC PEPTIDE 878 pg/mL (0-900); BLOOD UREA NITROGEN 22 mg/dL (7-17); CALCIUM 8.6 mg/dl (8.6-10.4); GFR NON-AFRICAN AMERICAN 59
[2017-12-16] MEDS: Albuterol-Ipratrop 3 mg / 0.5 (3 ml) UD INH SCH ×2 (08:08→20:19)
[2017-12-16] MEDS ORDERED: Succinylcholine Chloride 20 mg/ml Syr (5 ml) IV ONE (10:24)
[2017-12-16] MEDS ORDERED: Propofol 10 mg/ml Inj (20 ML) ONE (10:24)
[2017-12-16] MEDS ORDERED: Rocuronium 10 mg/ml (10 ml) ONE (10:24)
[2017-12-16] MEDS ORDERED: ePHEDrine 50 mg/ml Inj ONE ×2 (10:25→15:12)
[2017-12-16] MEDS ORDERED: Phenylephrine 10 mg/ml Inj ONE (10:25)
[2017-12-16] MEDS ORDERED: Rocuronium 10 mg/ml (5 ml) ONE (10:27)
[2017-12-16] MEDS ORDERED: metroNIDAZOLE IV 500 mg/100 ml 500 MG/100 ML BAG ONE (10:28)
[2017-12-16] MEDS: Sodium Chloride 0.9% 1,000 ML IV SCH (14:47)
[2017-12-16] MEDS ORDERED: Neostigmine Methylsulfate 3mg/3ml Syringe IV ONE (15:33)
[2017-12-16] MEDS ORDERED: HYDROmorphone 0.5 mg/0.5 ml ISec IVP PRN (15:53)
[2017-12-16] MEDS ORDERED: Dexamethasone 4 mg/1 ml IVP PRN (15:53)
--- NOTE | 2017-12-16 15:55 | PCM.SURG1 ---
Surgeon's Initial Post Op Note - Surgeon's Notes Surgeon: Dr Choudhary Doors Prefitter: Dr Landeros PGY4, Cecille MS3 Type of Anesthesia: General Endo Pre-Operative Diagnosis: small bowel obstruction Operative Findings: extensive adhesions. inspisated stool in rectum and sigmoid colon Post-Operative Diagnosis: as above Operation Performed: exploratory laparotomy. lysis of adhesions. small bowel resection w/ primary anastamosis Specimen/Specimens Removed: small bowel Estimated Blood Loss: EBL {In ML}: 300 Blood Products Given: N/A Drains Used: Anselmo Post-Op Condition: Good Date of Surgery/Procedure: 12/16/17 Time of Surgery/Procedure: 15:55
[2017-12-16] MEDS ORDERED: Sodium Chloride 0.9% 1,000 ML IV SCH ×2 (16:00→22:40)
--- NOTE | 2017-12-16 18:59 | CP.PCM.PN ---
Subjective - Date & Time of Evaluation Date of Evaluation: 12/16/17 Time of Evaluation: 16:35 - Subjective Subjective: patient underwent laparotomy for adhesions and bowel resection. She tolerated the procedure well. Follow-up lab studies were requested. Objective - Vital Signs/Intake and Output Vital Signs (last 24 hours): Temp Pulse Resp BP Pulse Ox 97.6 F 95 H 18 104/69 96 12/16/17 18:06 12/16/17 18:06 12/16/17 18:06 12/16/17 18:06 12/16/17 18:06 Intake and Output: 12/16/17 12/16/17 06:59 18:59 Intake Total 400 3490 Output Total 400 730 Balance 0 2760 - Medications Medications: Current Medications Albuterol/Ipratropium (Duoneb 3 Mg/0.5 Mg (3 Ml) Ud) 3 ml INH RBID [facility] Last Admin: 12/16/17 08:08 Dose: Not Given Ceftriaxone Sodium 1 gm/ (Sodium Chloride) 100 mls @ 100 mls/hr IVPB DAILY [facility]; Protocol Last Admin: 12/16/17 10:30 Dose: Not Given Sodium Chloride (Sodium Chloride 0.9%) 1,000 mls @ 100 mls/hr IV .Q10H [facility] Morphine Sulfate (Morphine) 2 mg IVP Q4 PRN PRN Reason: Pain, moderate (4-7) Last Admin: 12/16/17 05:38 Dose: 2 mg Nitroglycerin (Nitro-Bid 2% Oint) 1 ea TOP Q6H PRN Last Admin: 12/16/17 10:08 Dose: 1 ea Ondansetron HCl (Zofran Inj) 4 mg IVP Q4 PRN PRN Reason: Nausea/Vomiting Pantoprazole Sodium (Protonix Inj) 40 mg IVP DAILY [facility] Last Admin: 12/16/17 10:08 Dose: 40 mg Phenol/Menthol (Phenaseptic 1.4% Throat [place]) 1 ml MT Q4H PRN PRN Reason: Pain, moderate (4-7) - Labs Labs: 12/16/17 06:59 12/16/17 06:59 PT 12.0 SECONDS (9.7-12.2) 12/14/17 07:32 INR 1.1 12/14/17 07:32 - Constitutional Appears: Chronically Ill - Head Exam Head Exam: NORMOCEPHALIC - Eye Exam Eye Exam: Normal appearance Pupil Exam: NORMAL ACCOMODATION - ENT Exam ENT Exam: Normal Exam - Neck Exam Neck Exam: Normal Inspection - Respiratory Exam Respiratory Exam: Decreased Breath Sounds - Cardiovascular Exam Cardiovascular Exam: REGULAR RHYTHM - Exam External exam: NORMAL EXTERNAL EXAM - Extremities Exam Extremities Exam: Normal Inspection - Back Exam Back Exam: NORMAL INSPECTION - Skin Skin Exam: Dry Assessment and Plan (1) Small bowel obstruction Status: Acute (2) Rheumatoid arthritis Status: Acute (3) Vomiting Status: Acute (4) Hypokalemia Status: Acute
--- NOTE | 2017-12-16 21:06 | CARD ---
APPROVED REPORT Date of service: 12/14/2017 EKG Measurement Heart [id number] <Conclusion> Normal sinus rhythm ST & T wave abnormality, consider anterolateral ischemia Abnormal ECG
[2017-12-16] MEDS: metroNIDAZOLE IV 500 mg/100 ml 500 MG/100 ML BAG IVPB SCH (21:56)
--- NOTE | 2017-12-17 02:32 | OP ---
PROCEDURE DATE: 12/16/2017 PREOPERATIVE DIAGNOSIS: Intestinal obstruction. POSTOPERATIVE DIAGNOSIS: Intestinal obstruction. PROCEDURE: Exploratory laparotomy, lysis of adhesions, and small bowel resection with anastomosis. SURGEON: Igor Choudhary Jr., MD CANDY COUNTER CLERK: Dr. Landeros. ANESTHESIOLOGIST: Dr. Patino. INDICATIONS: The patient is an 87-year-old woman with a history of previous appendectomy, two previous laparotomies for intestinal obstruction. OPERATIVE FINDINGS: This is a frozen abdomen. On entering the abdomen, we were in the bowel and there were numerous rents in the midsection of small bowel. At the end of the procedure, we had approximately 22 to 24 inches of viable small bowel that was left. The entire colon was left and was intact. The operation was much more difficult than usual due to the frozen abdomen. DESCRIPTION OF PROCEDURE: The patient was given general anesthesia, intravenous antibiotics, Venodyne boots were applied. The right paramedian incision was previously placed and this was open. There were extensive adhesions throughout the abdomen which made entry into the abdomen difficult. After we had finally obtained access and traced out the entire small bowel, which took hours, we then resected the area which had multiple holes in it and was non-salvageable. We then created a stapled [id number] anastomosis using a ADEOLA device. We left it to drain in the right lower quadrant. We then closed the abdomen with running suture of Novafil and PDS. We washed out the abdomen appropriately with the appropriate irrigant solution. The major difficulty during the operation was that all the bowel were simply melted together and it was difficult to dissect this way. This took hours and hours. After it had been done, as I said, we carefully inspected the bowel before above and every segment and no additional rents were left behind and then we carried out the anastomosis as mentioned. Blood loss to the procedure was 300 mL. Operation carried out, exploratory laparotomy, lysis of adhesions which was exceptionally difficult and small bowel resection with anastomosis. Igor Choudhary Jr., MD
[2017-12-17] MEDS: metroNIDAZOLE IV 500 mg/100 ml 500 MG/100 ML BAG IVPB SCH ×3 (05:04→20:45)
[2017-12-17 08:11] LABS: BASO % 0.1 % (0.0-2.0); LYMPH # 0.8 K/uL (1.0-4.3); LYMPH % 9.7 % (20.0-40.0); MEAN CELL VOLUME 94.8 fL (81.0-99.0); MEAN CORPUSCULAR HEMOGLOBIN 31.3 pg (27.0-31.0); MEAN PLATELET VOLUME 10.6 fL (7.2-11.7); MONO # 0.9 K/uL (0.0-0.8); MONO % 10.5 % (0.0-10.0); NEUT # 6.5 K/uL (1.8-7.0); NEUT % 79.7 % (50.0-75.0); NRBC % 0.1 % (0.0-2.0); PLATELET COUNT 97 K/uL (130-400); RBC 3.37 Mil/uL (3.80-5.20); RED CELL DISTRIBUTION WIDTH 15.2 % (11.5-14.5); WHITE BLOOD COUNT 8.1 K/uL (4.8-10.8)
[2017-12-17 08:25] LABS: HEMOGLOBIN 10.6 g/dL (11.0-16.0)
[2017-12-17 08:32] LABS: ALB/GLOB RATIO 0.9 (1.0-2.1); ALBUMIN 2.6 g/dL (3.5-5.0); ALT/SGPT 22 U/L (9-52); AST/SGOT 39 U/L (14-36); BLOOD UREA NITROGEN 23 mg/dL (7-17); CALCIUM 7.5 mg/dl (8.6-10.4); GFR NON-AFRICAN AMERICAN 52
[2017-12-17] MEDS: Albuterol-Ipratrop 3 mg / 0.5 (3 ml) UD INH SCH ×3 (08:39→16:35)
--- NOTE | 2017-12-17 08:51 | CP.PCM.PN ---
Subjective - Date & Time of Evaluation Date of Evaluation: 12/17/17 Time of Evaluation: 08:49 - Subjective Subjective: General Surgery: Dr Choudhary Pt S&E. POD#1 s/p ex-lap w/ lysis of adhesions. Passing flatus. NGT in place w. 105cc output non-billous. Not yet OOB,. Using IS. Denies pain Objective - Vital Signs/Intake and Output Vital Signs (last 24 hours): Temp Pulse Resp BP Pulse Ox 98.6 F 91 H 20 147/77 99 12/17/17 07:50 12/17/17 07:50 12/17/17 07:50 12/17/17 07:50 12/17/17 07:50 Intake and Output: 12/17/17 12/17/17 06:59 18:59 Intake Total 400 Output Total 385 Balance 15 - Medications Medications: Current Medications Albuterol/Ipratropium (Duoneb 3 Mg/0.5 Mg (3 Ml) Ud) 3 ml INH RBID [facility] Last Admin: 12/17/17 08:39 Dose: Not Given Ceftriaxone Sodium 1 gm/ (Sodium Chloride) 100 mls @ 100 mls/hr IVPB DAILY [facility]; Protocol Last Admin: 12/16/17 10:30 Dose: Not Given Metronidazole (Flagyl) 500 mg in 100 mls @ 100 mls/hr IVPB Q8H [facility]; Protocol Last Admin: 12/17/17 05:04 Dose: 100 mls/hr Sodium Chloride (Sodium Chloride 0.9%) 1,000 mls @ 75 mls/hr IV .[id number] [facility] Morphine Sulfate (Morphine) 2 mg IVP Q4 PRN PRN Reason: Pain, moderate (4-7) Last Admin: 12/16/17 23:56 Dose: 2 mg Nitroglycerin (Nitro-Bid 2% Oint) 1 ea TOP Q6H PRN Last Admin: 12/16/17 10:08 Dose: 1 ea Ondansetron HCl (Zofran Inj) 4 mg IVP Q4 PRN PRN Reason: Nausea/Vomiting Pantoprazole Sodium (Protonix Inj) 40 mg IVP DAILY [facility] Last Admin: 12/16/17 10:08 Dose: 40 mg Phenol/Menthol (Phenaseptic 1.4% Throat [place]) 1 ml MT Q4H PRN PRN Reason: Pain, moderate (4-7) - Labs Labs: 12/17/17 08:01 12/17/17 08:01 PT 12.0 SECONDS (9.7-12.2) 12/14/17 07:32 INR 1.1 12/14/17 07:32 - Constitutional Appears: Non-toxic, No Acute Distress - ENT Exam ENT Exam: Mucous Membranes Dry - Respiratory Exam Respiratory Exam: absent: Accessory Muscle Use, Respiratory Distress - Cardiovascular Exam Cardiovascular Exam: REGULAR RHYTHM. absent: Tachycardia - GI/Abdominal Exam GI & Abdominal Exam: Soft, Tenderness (midline but appropriate). absent: Disten ded, Firm Additional comments: incision c/d/i - Neurological Exam Neurological Exam: Alert, Awake, Oriented x3 Assessment and Plan - Assessment and Plan (Free Text) Assessment: 87F POD#1 s/p ex lap w/ lysis of adhesions Plan: cont NGt cont abx cont NPO reduced IVF to 75/hr OOB and ambulate w/ PT d/w Dr Funmi Landeros PGY4
[2017-12-17] MEDS: Sodium Chloride 0.9% 1,000 ML IV SCH ×2 (08:58→21:21)
[2017-12-17 09:55] LABS: BANDS 5 % (0-2); MONOCYTE 9 % (0-10); TOTAL CELLS COUNTED 100
[2017-12-17 09:56] LABS: ANISOCYTOSIS SLIGHT; HYPOCHROMIC SLIGHT; LYMPHOCYTE 10 % (20-40); NEUTROPHIL 76 % (50-75); PLATELET ESTIMATE DECREASED (NORMAL); POIKILOCYTOSIS SLIGHT; TARGET CELLS SLIGHT
[2017-12-17] MEDS ORDERED: Potassium Phosphate 30 MMOLE in Sodium Chloride 0.9% 250 ML IV ONE (11:30)
[2017-12-17] MEDS: Piperacillin/Tazobact 3.375 GM in Sodium Chloride 100 ML IVPB SCH ×2 (16:40→23:44)
--- NOTE | 2017-12-17 20:29 | CON ---
DATE: 12/17/2017 HISTORY OF PRESENT ILLNESS: This 87-year-old lady, a nonsmoker with a history of diabetes, chronic arthritis, osteoporosis and aches and pains. She was now admitted with abdominal pain, constipation, not passing gas. She also had vomiting, but no hemoptysis. She felt weak. She also had cough without any phlegm coming up and there was no hemoptysis. There was no vomiting of blood. She did not complain of fever or seizures. PAST MEDICAL HISTORY: Significant for arthritis, diabetes mellitus, osteoporosis, bronchitis. SOCIAL HISTORY: She is a nonsmoker, does not drink alcohol. ALLERGIES: THERE IS NO REPORTED ALLERGIES. SYSTEMIC REVIEW: As reported above. CENTRAL NERVOUS SYSTEM: No seizures. CARDIORESPIRATORY: Cough. No chest pain. GASTROINTESTINAL: Abdominal pain and vomiting, constipation and not being able to pass gas.. RENAL: Unremarkable. MUSCULOSKELETAL: Arthritic pains and general body aches and pains. PHYSICAL EXAMINATION: GENERAL: She was seen by surgeon on admission, and yesterday she was operated upon for intestinal obstruction and she had bowel resection and lysis of adhesions. She is now alert, oriented. She is not in acute distress. She is lying in bed with abdominal dressing. VITAL SIGNS: Afebrile, blood pressure 146/76, pulse 90, respirations 20, hemoglobin oxygen saturation of 99% on O2 via nasal cannula at 2 L per minute. HEART: Regular. No gallop rhythm. ABDOMEN: Status postop. EXTREMITIES: Legs, no edema. LABORATORY DATA: Her white count now is 8100, hemoglobin 10.6, platelet count 97,000. Sodium 145, potassium 3.9, chloride 111, BUN 23, creatinine 1. Blood sugar 129. ABGs on FiO2 of 32% showed pH of 7.43, pCO2 of 37, pO2 102, bicarb 25 and hemoglobin oxygen saturation of 99%. Chest x-ray shows pleural calcification more on the left side with dominant reticular markings bilaterally with hyperinflation. IMPRESSION: Respiratory insufficiency, bronchitis, bowel obstruction now status postoperative, history of rheumatoid arthritis for a long time, osteoporosis, diabetes mellitus. PLAN: To continue with the current management. Discussed with the surgeon and MD. The patient is currently on oxygen, bronchodilator, incentive spirometry and . Postoperatively, she is doing fine at this stage, to continue with current measures. Faisal MD Donnie Robley [facility] # [id number]
--- NOTE | 2017-12-17 22:44 | CP.PCM.PN ---
Subjective - Date & Time of Evaluation Date of Evaluation: 12/17/17 Time of Evaluation: 13:35 - Subjective Subjective: patient is alert and responsive. Denies pain. Abdomen much less distended and lung rodas clear. Patient scheduled for physical therapy at the bedside. Continue supportive measures. Objective - Vital Signs/Intake and Output Vital Signs (last 24 hours): Temp Pulse Resp BP Pulse Ox 99.1 F 87 20 162/74 H 97 12/17/17 20:21 12/17/17 20:21 12/17/17 20:21 12/17/17 20:21 12/17/17 20:21 Intake and Output: 12/17/17 12/18/17 18:59 06:59 Intake Total 600 Output Total 610 Balance -10 - Medications Medications: Current Medications Albuterol/Ipratropium (Duoneb 3 Mg/0.5 Mg (3 Ml) Ud) 3 ml INH RQ8 [facility] Last Admin: 12/17/17 16:35 Dose: 3 ml Metronidazole (Flagyl) 500 mg in 100 mls @ 100 mls/hr IVPB Q8H [facility]; Protocol Last Admin: 12/17/17 20:45 Dose: 100 mls/hr Sodium Chloride (Sodium Chloride 0.9%) 1,000 mls @ 75 mls/hr IV .[id number] [facility] Last Admin: 12/17/17 21:21 Dose: Not Given Piperacillin Sod/Tazobactam (Sod 3.375 gm/ Sodium Chloride) 100 mls @ 200 mls/hr IVPB Q8H [facility]; Protocol Last Admin: 12/17/17 16:40 Dose: 200 mls/hr Morphine Sulfate (Morphine) 2 mg IVP Q4 PRN PRN Reason: Pain, moderate (4-7) Last Admin: 12/16/17 23:56 Dose: 2 mg Nitroglycerin (Nitro-Bid 2% Oint) 1 ea TOP Q6H [facility]N Last Admin: 12/16/17 10:08 Dose: 1 ea Ondansetron HCl (Zofran Inj) 4 mg IVP Q4 PRN PRN Reason: Nausea/Vomiting Pantoprazole Sodium (Protonix Inj) 40 mg IVP DAILY [facility] Last Admin: 12/17/17 10:38 Dose: 40 mg Phenol/Menthol (Phenaseptic 1.4% Throat [place]) 1 ml MT Q4H PRN PRN Reason: Pain, moderate (4-7) - Labs Labs: 12/17/17 08:01 12/17/17 08:01 PT 12.0 SECONDS (9.7-12.2) 12/14/17 07:32 INR 1.1 12/14/17 07:32 - Constitutional Appears: Chronically Ill - Head Exam Head Exam: NORMOCEPHALIC - Eye Exam Eye Exam: Normal appearance Pupil Exam: NORMAL ACCOMODATION - ENT Exam ENT Exam: Normal Exam - Neck Exam Neck Exam: Normal Inspection - Respiratory Exam Respiratory Exam: Clear to Ausculation Bilateral - Cardiovascular Exam Cardiovascular Exam: REGULAR RHYTHM - GI/Abdominal Exam GI & Abdominal Exam: Normal Bowel Sounds - Rectal Exam Rectal Exam: Deferred - Exam External exam: NORMAL EXTERNAL EXAM - Extremities Exam Extremities Exam: Normal Inspection - Back Exam Back Exam: NORMAL INSPECTION - Neurological Exam Neurological Exam: Oriented x3 - Psychiatric Exam Psychiatric exam: Normal Affect - Skin Skin Exam: Dry Assessment and Plan (1) Small bowel obstruction Status: Acute (2) Rheumatoid arthritis Status: Acute (3) Vomiting Status: Acute (4) Hypokalemia Status: Acute
[2017-12-18] MEDS: metroNIDAZOLE IV 500 mg/100 ml 500 MG/100 ML BAG IVPB SCH ×3 (05:54→21:47)
[2017-12-18 07:05] LABS: BASO % 0.2 % (0.0-2.0); HEMOGLOBIN 9.5 g/dL (11.0-16.0); LYMPH # 0.7 K/uL (1.0-4.3); LYMPH % 7.6 % (20.0-40.0); MEAN CELL VOLUME 94.6 fL (81.0-99.0); MEAN CORPUSCULAR HEMOGLOBIN 31.4 pg (27.0-31.0); MEAN CORPUSCULAR HGB CONC 33.3 g/dL (33.0-37.0); MEAN PLATELET VOLUME 10.2 fL (7.2-11.7); MONO % 10.1 % (0.0-10.0); NEUT # 7.9 K/uL (1.8-7.0); NEUT % 82.1 % (50.0-75.0); PLATELET COUNT 82 K/uL (130-400); RBC 3.03 Mil/uL (3.80-5.20); RED CELL DISTRIBUTION WIDTH 15.6 % (11.5-14.5); WHITE BLOOD COUNT 9.6 K/uL (4.8-10.8)
[2017-12-18 07:30] LABS: ALB/GLOB RATIO 0.9 (1.0-2.1); ALBUMIN 2.7 g/dL (3.5-5.0); ALT/SGPT 28 U/L (9-52); AST/SGOT 39 U/L (14-36); BLOOD UREA NITROGEN 16 mg/dL (7-17); CALCIUM 7.8 mg/dl (8.6-10.4); GFR NON-AFRICAN AMERICAN 59
[2017-12-18] MEDS: Albuterol-Ipratrop 3 mg / 0.5 (3 ml) UD INH SCH ×2 (07:40→15:58)
[2017-12-18 09:08] LABS: ANISOCYTOSIS SLIGHT; BANDS 3 % (0-2); HYPOCHROMIC SLIGHT; LYMPHOCYTE 4 % (20-40); MONOCYTE 4 % (0-10); NEUTROPHIL 89 % (50-75); PLATELET ESTIMATE DECREASED (NORMAL); TOTAL CELLS COUNTED 100
[2017-12-18 09:09] LABS: POLYCHROMIC SLIGHT
[2017-12-18] MEDS: Nitroglycerin 2% Ointment Foilpak UD TOP PRN (10:54)
[2017-12-18] MEDS: Piperacillin/Tazobact 3.375 GM in Sodium Chloride 100 ML IVPB SCH ×3 (10:55→23:58)
--- NOTE | 2017-12-18 11:39 | CP.PCM.PN ---
Subjective - Date & Time of Evaluation Date of Evaluation: 12/18/17 Time of Evaluation: 11:36 - Subjective Subjective: General Surgery: Dr Choudhary Pt S&E. NAEO. Resting comfortably. NGT with 180cc output over 24 hours. Making adequate urine. HAs been OOB to chair. Using incentive spirometer. Objective - Vital Signs/Intake and Output Vital Signs (last 24 hours): Temp Pulse Resp BP Pulse Ox 98.1 F 83 20 177/75 H 96 12/18/17 08:00 12/18/17 08:00 12/18/17 08:00 12/18/17 08:00 12/18/17 08:00 Intake and Output: 12/18/17 12/18/17 06:59 18:59 Intake Total 600 700 Output Total 710 200 Balance -110 500 - Medications Medications: Current Medications Albuterol/Ipratropium (Duoneb 3 Mg/0.5 Mg (3 Ml) Ud) 3 ml INH RQ8 [facility] Last Admin: 12/18/17 07:40 Dose: Not Given Metronidazole (Flagyl) 500 mg in 100 mls @ 100 mls/hr IVPB Q8H [facility]; Protocol Last Admin: 12/18/17 05:54 Dose: 100 mls/hr Sodium Chloride (Sodium Chloride 0.9%) 1,000 mls @ 75 mls/hr IV .[id number] [facility] Last Admin: 12/17/17 21:21 Dose: Not Given Piperacillin Sod/Tazobactam (Sod 3.375 gm/ Sodium Chloride) 100 mls @ 200 mls/hr IVPB Q8H [facility]; Protocol Last Admin: 12/18/17 10:55 Dose: 200 mls/hr Potassium Chloride (Potassium Chloride 20 Meq/100 Ml) 20 meq in 100 mls @ 50 mls/hr IVPB Q2 [facility] Stop: 12/18/17 15:59 Morphine Sulfate (Morphine) 2 mg IVP Q4 PRN PRN Reason: Pain, moderate (4-7) Last Admin: 12/16/17 23:56 Dose: 2 mg Nitroglycerin (Nitro-Bid 2% Oint) 1 ea TOP Q6H PRN Last Admin: 12/18/17 10:54 Dose: 1 ea Ondansetron HCl (Zofran Inj) 4 mg IVP Q4 PRN PRN Reason: Nausea/Vomiting Pantoprazole Sodium (Protonix Inj) 40 mg IVP DAILY [facility] Last Admin: 12/18/17 09:41 Dose: 40 mg Phenol/Menthol (Phenaseptic 1.4% Throat [place]) 1 ml MT Q4H PRN PRN Reason: Pain, moderate (4-7) - Labs Labs: 12/18/17 06:27 12/18/17 06:27 PT 12.0 SECONDS (9.7-12.2) 12/14/17 07:32 INR 1.1 12/14/17 07:32 - Constitutional Appears: Non-toxic - ENT Exam ENT Exam: Mucous Membranes Dry - Respiratory Exam Respiratory Exam: NORMAL BREATHING PATTERN. absent: Accessory Muscle Use, Respiratory Distress - Cardiovascular Exam Cardiovascular Exam: REGULAR RHYTHM. absent: Tachycardia - GI/Abdominal Exam GI & Abdominal Exam: Soft. absent: Distended, Firm, Tenderness Additional comments: incision c/d/i drain with minimal output - serosanguinous - Rectal Exam Rectal Exam: Deferred - Extremities Exam Extremities Exam: absent: Pedal Edema - Neurological Exam Neurological Exam: Alert, Awake, Oriented x3 Assessment and Plan - Assessment and Plan (Free Text) Assessment: 87F POD#2 s/p ex-lap w/ ADELINE and SBR for SBO Plan: d/c bales d/c NGT OOB AND AMBULATE cont incentive spirometer electrolytes replaced ok for ice chips - await flatus for CLD will d/w Dr Funmi Landeros, PGY4
[2017-12-18] MEDS: Sodium Chloride 0.9% 1,000 ML IV SCH (12:49)
--- NOTE | 2017-12-18 22:02 | CP.PCM.PN ---
Subjective - Date & Time of Evaluation Date of Evaluation: 12/18/17 Time of Evaluation: 13:30 - Subjective Subjective: patient alert and responsive. Denies having any pain.She has been out of and in a chair. Continue supportive measures Objective - Vital Signs/Intake and Output Vital Signs (last 24 hours): Temp Pulse Resp BP Pulse Ox 98.6 F 77 20 160/70 H 96 12/18/17 16:38 12/18/17 16:38 12/18/17 16:38 12/18/17 16:38 12/18/17 16:38 Intake and Output: 12/18/17 12/19/17 18:59 06:59 Intake Total 700 Output Total 200 Balance 500 - Medications Medications: Current Medications Acetaminophen (Tylenol 325mg Tab) 650 mg PO Q6 PRN PRN Reason: Pain, moderate (4-7) Albuterol/Ipratropium (Duoneb 3 Mg/0.5 Mg (3 Ml) Ud) 3 ml INH RQ8 [facility] Last Admin: 12/18/17 15:58 Dose: 3 ml Metronidazole (Flagyl) 500 mg in 100 mls @ 100 mls/hr IVPB Q8H [facility]; Protocol Last Admin: 12/18/17 21:47 Dose: 100 mls/hr Piperacillin Sod/Tazobactam (Sod 3.375 gm/ Sodium Chloride) 100 mls @ 200 mls/hr IVPB Q8H [facility]; Protocol Last Admin: 12/18/17 17:25 Dose: 200 mls/hr Nitroglycerin (Nitro-Bid 2% Oint) 1 ea TOP Q6H PRN Last Admin: 12/18/17 10:54 Dose: 1 ea Ondansetron HCl (Zofran Inj) 4 mg IVP Q4 PRN PRN Reason: Nausea/Vomiting Pantoprazole Sodium (Protonix Inj) 40 mg IVP DAILY [facility] Last Admin: 12/18/17 09:41 Dose: 40 mg Phenol/Menthol (Phenaseptic 1.4% Throat [place]) 1 ml MT Q4H PRN PRN Reason: Pain, moderate (4-7) - Labs Labs: 12/18/17 06:27 12/18/17 06:27 PT 12.0 SECONDS (9.7-12.2) 12/14/17 07:32 INR 1.1 12/14/17 07:32 - Constitutional Appears: No Acute Distress - Head Exam Head Exam: NORMOCEPHALIC - Eye Exam Eye Exam: Normal appearance Pupil Exam: NORMAL ACCOMODATION - ENT Exam ENT Exam: Normal Exam - Neck Exam Neck Exam: Normal Inspection - Respiratory Exam Respiratory Exam: Decreased Breath Sounds - Cardiovascular Exam Cardiovascular Exam: REGULAR RHYTHM - GI/Abdominal Exam GI & Abdominal Exam: Soft - Rectal Exam Rectal Exam: Deferred - Exam External exam: NORMAL EXTERNAL EXAM - Extremities Exam Extremities Exam: Tenderness - Back Exam Back Exam: NORMAL INSPECTION - Neurological Exam Neurological Exam: Oriented x3 - Psychiatric Exam Psychiatric exam: Normal Mood - Skin Skin Exam: Dry Assessment and Plan (1) Small bowel obstruction Status: Acute (2) Rheumatoid arthritis Status: Acute (3) Vomiting Status: Acute (4) Hypokalemia Status: Acute
[2017-12-18 22:40] LABS: BLOOD UREA NITROGEN 18 mg/dL (7-17); CALCIUM 8.1 mg/dl (8.6-10.4); GFR NON-AFRICAN AMERICAN 59
[2017-12-19] MEDS: Albuterol-Ipratrop 3 mg / 0.5 (3 ml) UD INH SCH ×4 (00:05→23:58)
[2017-12-19] MEDS: Nitroglycerin 2% Ointment Foilpak UD TOP PRN ×2 (01:30→09:17)
[2017-12-19] MEDS: metroNIDAZOLE IV 500 mg/100 ml 500 MG/100 ML BAG IVPB SCH ×3 (05:50→21:51)
--- NOTE | 2017-12-19 06:49 | PN ---
DATE: 12/18/2017 SUBJECTIVE: The patient is alert, oriented, She is sitting in the chair. Family is by her bedside. PHYSICAL EXAMINATION: VITAL SIGNS: The patient is afebrile. Her blood pressure is 176/74, pulse 83, respirations 20, hemoglobin-oxygen saturation of 96%, oxygen of 2 liters via nasal cannula. GENERAL: The patient is not in distress, but feels uncomfortable since she has abdominal ascites yesterday and is not sitting up in the chair. HEART: Regular. There is no gallop present. LUNGS: Diminished breath sounds over the lung bases. Rhonchi occasional. ABDOMEN: Status post soft. EXTREMITIES: Legs, no edema. LABORATORY DATA: White count is 9600, hemoglobin 9.5, and platelet count 82,000. Sodium 148, potassium 3.4, chloride 115, BUN 16, creatinine 0.9, blood sugar 99. IMPRESSION: Respiratory insufficiency, bronchitis, intestinal obstruction status post postop day 2, osteoporosis, and rheumatoid arthritis of longstanding duration. PLAN: To continue with her current medication and . Faisal Fields MD
[2017-12-19] MEDS: Piperacillin/Tazobact 3.375 GM in Sodium Chloride 100 ML IVPB SCH ×3 (09:17→23:54)
[2017-12-19 11:03] LABS: BASO % 0.3 % (0.0-2.0); EOS % 0.2 % (0.0-4.0); HEMOGLOBIN 9.6 g/dL (11.0-16.0); LYMPH # 0.7 K/uL (1.0-4.3); LYMPH % 8.5 % (20.0-40.0); MEAN CELL VOLUME 94.8 fL (81.0-99.0); MEAN CORPUSCULAR HEMOGLOBIN 31.3 pg (27.0-31.0); MEAN CORPUSCULAR HGB CONC 33.1 g/dL (33.0-37.0); MEAN PLATELET VOLUME 10.3 fL (7.2-11.7); MONO # 0.6 K/uL (0.0-0.8); PLATELET COUNT 108 K/uL (130-400); RBC 3.07 Mil/uL (3.80-5.20); RED CELL DISTRIBUTION WIDTH 15.6 % (11.5-14.5); WHITE BLOOD COUNT 8.4 K/uL (4.8-10.8)
[2017-12-19 11:18] LABS: BLOOD UREA NITROGEN 15 mg/dL (7-17); CALCIUM 8.3 mg/dl (8.6-10.4); GFR NON-AFRICAN AMERICAN 59
[2017-12-19] MEDS ORDERED: Potassium Chloride 20 mEq/15 ml LIQ UD PO ONE (11:45)
[2017-12-19 11:53] LABS: ANISOCYTOSIS SLIGHT; HYPOCHROMIC SLIGHT; LYMPHOCYTE 10 % (20-40); MONOCYTE 4 % (0-10); NEUTROPHIL 86 % (50-75); PLATELET ESTIMATE SLIGHTLY DECREASED (NORMAL); POIKILOCYTOSIS SLIGHT; TOTAL CELLS COUNTED 100
[2017-12-19 11:54] LABS: LARGE PLATELETS PRESENT; TARGET CELLS SLIGHT
[2017-12-19 13:35] LABS: BASO % 0.2 % (0.0-2.0); EOS % 0.2 % (0.0-4.0); HEMOGLOBIN 9.3 g/dL (11.0-16.0); LYMPH # 0.8 K/uL (1.0-4.3); LYMPH % 9.9 % (20.0-40.0); MEAN CELL VOLUME 94.1 fL (81.0-99.0); MEAN CORPUSCULAR HEMOGLOBIN 31.4 pg (27.0-31.0); MEAN CORPUSCULAR HGB CONC 33.4 g/dL (33.0-37.0); MEAN PLATELET VOLUME 9.5 fL (7.2-11.7); MONO # 0.6 K/uL (0.0-0.8); NEUT # 6.9 K/uL (1.8-7.0); NEUT % 82.7 % (50.0-75.0); RBC 2.97 Mil/uL (3.80-5.20); RED CELL DISTRIBUTION WIDTH 15.6 % (11.5-14.5); WHITE BLOOD COUNT 8.3 K/uL (4.8-10.8)
[2017-12-19 13:47] LABS: ALT/SGPT 26 U/L (9-52); AST/SGOT 34 U/L (14-36); BLOOD UREA NITROGEN 17 mg/dL (7-17); CALCIUM 8.4 mg/dl (8.6-10.4); GFR NON-AFRICAN AMERICAN 59
[2017-12-19 13:51] LABS: ABG ALLEN TEST POS; ARTERIAL BLOOD GAS HCO3 24.5 mmol/L (21-28); ARTERIAL BLOOD GAS O2 SAT 99.3 % (95-98); ARTERIAL BLOOD GAS PCO2 35 mm/Hg (35-45); ARTERIAL BLOOD GAS PH 7.43 (7.35-7.45); ARTERIAL BLOOD GAS PO2 111 mm/Hg (80-100); ARTERIAL BLOOD GAS TCO2 24.3 mmol/L (22-28)
[2017-12-19] MEDS: Enoxaparin 30 mg Syringe SC SCH (14:17)
--- NOTE | 2017-12-19 14:22 | RAD ---
Date of service: 12/19/2017 HISTORY: Shortness of breath COMPARISON: CT chest without contrast from 02/17/2013 FINDINGS: LUNGS: The lungs are clear. PLEURA: No significant pleural effusion identified, no pneumothorax apparent. There is a large curvilinear calcified pleural plaque in mid left pleura. CARDIOVASCULAR: The heart is normal in size. Macro arge OSSEOUS STRUCTURES: Within normal limits for the patient's age. VISUALIZED UPPER ABDOMEN: Normal. OTHER FINDINGS: None. IMPRESSION: No active pulmonary disease. No change.
[2017-12-19] MEDS ORDERED: Iodixanol 320 mg/ml 150 ml Bottle IV ONE (14:52)
--- NOTE | 2017-12-19 14:52 | CP.PCM.PN ---
Subjective - Date & Time of Evaluation Date of Evaluation: 12/19/17 Time of Evaluation: 06:55 - Subjective Subjective: General Surgery Pt seen and examined, did well overnight. No BM/flatus, tolerated minimal CLD. 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 Awaiting, CT chest. Pulling 750cc on IS. Working with PT, getting OOB. Objective - Vital Signs/Intake and Output Vital Signs (last 24 hours): Temp Pulse Resp BP Pulse Ox 98.4 F 73 20 137/80 97 12/19/17 08:00 12/19/17 08:00 12/19/17 08:00 12/19/17 10:55 12/19/17 08:00 Intake and Output: 12/19/17 12/19/17 06:59 18:59 Intake Total 250 Output Total 20 Balance 230 - Medications Medications: Current Medications Acetaminophen (Tylenol 325mg Tab) 650 mg PO Q6 PRN PRN Reason: Pain, moderate (4-7) Albuterol/Ipratropium (Duoneb 3 Mg/0.5 Mg (3 Ml) Ud) 3 ml INH RQ8 [facility] Last Admin: 12/19/17 08:36 Dose: 3 ml Enoxaparin Sodium (Lovenox) 30 mg SC DAILY [facility] Last Admin: 12/19/17 14:17 Dose: 30 mg Metronidazole (Flagyl) 500 mg in 100 mls @ 100 mls/hr IVPB Q8H [facility]; Protocol Last Admin: 12/19/17 13:44 Dose: 100 mls/hr Piperacillin Sod/Tazobactam (Sod 3.375 gm/ Sodium Chloride) 100 mls @ 200 mls/hr IVPB Q8H [facility]; Protocol Last Admin: 12/19/17 09:17 Dose: 200 mls/hr Nitroglycerin (Nitro-Bid 2% Oint) 1 ea TOP Q6H PRN Last Admin: 12/19/17 09:17 Dose: 1 ea Ondansetron HCl (Zofran Inj) 4 mg IVP Q4 PRN PRN Reason: Nausea/Vomiting Pantoprazole Sodium (Protonix Inj) 40 mg IVP DAILY [facility] Last Admin: 12/19/17 09:17 Dose: 40 mg Phenol/Menthol (Phenaseptic 1.4% Throat [place]) 1 ml MT Q4H PRN PRN Reason: Pain, moderate (4-7) - Labs Labs: 12/19/17 13:27 12/19/17 13:27 PT 12.0 SECONDS (9.7-12.2) 12/14/17 07:32 INR 1.1 12/14/17 07:32 - Constitutional Appears: Non-toxic, No Acute Distress - Head Exam Head Exam: ATRAUMATIC, NORMOCEPHALIC - Eye Exam Eye Exam: EOMI. absent: Scleral icterus - Respiratory Exam Respiratory Exam: NORMAL BREATHING PATTERN. absent: Respiratory Distress - GI/Abdominal Exam GI & Abdominal Exam: Distended (mild), Soft. absent: Firm, Guarding, Rigid, [place] derness, Rebound Additional comments: dressings C/D/I - Neurological Exam Neurological Exam: Alert, Awake, Oriented x3 - Skin Skin Exam: Dry, Warm Assessment and Plan - Assessment and Plan (Free Text) Assessment: 87F POD#3 s/p ex-lap w/ ADELINE and SBR for SBO Plan: OOB AND AMBULATE F/U CTA cont incentive spirometer electrolytes replaced Continue CLD D/W Dr Funmi Delatorre PGY4
--- NOTE | 2017-12-19 15:56 | PCM.RRT ---
<Artur Caraballo - Last Filed: 12/19/17 23:24> SURGICAL SERVICES DIRECTOR Nurses Assessment - Situation Date: 12/19/17 Time SURGICAL SERVICES DIRECTOR was called: 13:02 SURGICAL SERVICES DIRECTOR Responder Arrival Time:: 13:05 SURGICAL SERVICES DIRECTOR Location:: Med/Surg Room Number: 563 B SURGICAL SERVICES DIRECTOR Reason for Call: O2 Saturation below 90% (Pt was transferring from seat to bed, when pt complained of lower energy than usual. Pt was given KCL 10 meq IV and KDur 40 meq PO, when she developed sob, diaphoresis and reported that she couldn't breathe.) SURGICAL SERVICES DIRECTOR Called By: RN - IV IV Inserted during SURGICAL SERVICES DIRECTOR?: No - Respiratory SURGICAL SERVICES DIRECTOR Delivery Method: Nasal Cannula @L/min Oxygen Flow Rate: 4 Received Nebulizer Treatments: No Was the Patient Ventilated with Bag/Mask 100% O2?: No Secretions Suctioned?: No Was the Patient Intubated?: No Was the Patient Placed on a Ventilator?: No - Medication Medications Administered During SURGICAL SERVICES DIRECTOR: MOTRIN 600 MG PO - Diagnostic Test Ordered EKG: Yes (NSR) Chest X-Ray: Yes CT Scan: Yes - Stat Labs Ordered SURGICAL SERVICES DIRECTOR Stat Labs Ordered: CBC, BMP, TROPONIN, ABG CPR started during SURGICAL SERVICES DIRECTOR?: No - Vital Signs Vital Signs: Rapid Response Vital Sign Blood Pressure 106/57 Pulse Rate 64 Respiratory Rate 22 Temperature 97.7 F Oxygen Saturation 80 - Jamarcus Coma Scale Coma Scale Eye Opening: Spontaneous Coma Scale Motor: Obeys Commands Movement Coma Scale Verbal: Oriented Coma Scale Total: 15 - Time SURGICAL SERVICES DIRECTOR Ended Time SURGICAL SERVICES DIRECTOR Ended: 13:32 - Vital Signs at end of SURGICAL SERVICES DIRECTOR Vital Signs at end of SURGICAL SERVICES DIRECTOR: Rapid Response End Vital Sign Blood Pressure 129/67 Pulse Rate 68 Respiratory Rate 22 Temperature 97.7 F O2 Sat by Pulse Oximetry 98 - Recommendations 5) SURGICAL SERVICES DIRECTOR Level of Care Recommendations: Remain in current setting Notifications: Attending Physician - Respiratory Oxygen Delivery Method: Nasal Cannula @L/min Oxygen Flow Rate: 4 <Dorian Amezquita - Last Filed: 12/20/17 07:32> SURGICAL SERVICES DIRECTOR Nurses Assessment - Vital Signs Vital Signs: Rapid Response Vital Sign Blood Pressure 106/57 Pulse Rate 64 Respiratory Rate 22 Temperature 97.7 F Oxygen Saturation 80 - Vital Signs at end of SURGICAL SERVICES DIRECTOR Vital Signs at end of SURGICAL SERVICES DIRECTOR: Rapid Response End Vital Sign Blood Pressure 129/67 Pulse Rate 68 Respiratory Rate 22 Temperature 97.7 F O2 Sat by Pulse Oximetry 98 Attending/Attestation - Attestation I have personally seen and examined this patient.: Yes I have fully participated in the care of the patient.: Yes I have reviewed all pertinent clinical information, including history, physical exam and plan: Yes Notes (Text): Seen and examined 12/20/17 07:31
--- NOTE | 2017-12-19 15:56 | CT ---
Date of service: 12/19/2017 CTA chest PE protocol Indication: Dyspnea, rule out PE Technique: Contiguous axial images were obtained through the chest with intravenous contrast enhancement. Sagittal and coronal reconstructions were generated and reviewed. This CT exam was performed using 1 or more of the following dose reduction techniques: Automated exposure control, adjustment of the MAA and/or kV according to patient size, and/or use of iterative reconstruction technique. IV contrast: 100 mL Visipaque 320 Radiation dose (DLP): 445.07 MGy-cm. Comparison: Chest x-ray performed 12/19/17, CT chest without contrast performed 02/17/13 Findings: Visualized portions of the inferior thyroid gland appear heterogeneous. The mediastinal and hilar vascular structures appear within normal limits. Cardiomegaly. Sub cm prevascular lymph nodes. Atherosclerotic calcifications of the aorta and branches. No large central or segmental pulmonary embolus evident. Bibasilar atelectasis. Trace bilateral pleural effusions. No pneumothorax. 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 No suspicious pulmonary nodules measuring greater than 5 mm. Fluid within the mid to distal esophagus consistent with gastroesophageal reflux. Small hiatal hernia. Limited visualized portions of the upper abdomen: Partially imaged gastric distension of the stomach. Osseous demineralization. Degenerative changes. Impression: No large central or segmental pulmonary embolus identified. 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 Bibasilar atelectasis. Trace pleural effusions bilaterally. Heterogeneous appearance of the included portions of the inferior thyroid gland. Fluid within the mid to distal esophagus consistent with gastroesophageal reflux. Small hiatal hernia. Partially imaged gastric distension of the stomach.
--- NOTE | 2017-12-19 16:33 | PN ---
DATE: 12/19/2017 SUBJECTIVE: The patient is alert and oriented, afebrile, sitting in a chair. PHYSICAL EXAMINATION: VITAL SIGNS: Her blood pressure is 186/80, pulse 72, respirations 20, and hemoglobin-oxygen saturation 97%. HEART: Regular. No gallop rhythm. LUNGS: Diminished breath sounds over the lung bases. Rhonchi decreased. ABDOMEN: Soft, status post . EXTREMITIES: Legs, no edema. LABORATORY DATA: Her white count is 8400, hemoglobin 9.6, and platelet count 108,000. Serum sodium 148, potassium 3, chloride 111, BUN 15, creatinine 0.9, and blood glucose 164. IMPRESSION: Respiratory insufficiency, bronchitis, arthritis, abdominal pain, bowel obstruction, status post surgery. PLAN: To continue with the current measures and surgical followup. Continue with the medications including bronchodilators, vasodilators and oxygen therapy. Faisal Fields MD
--- NOTE | 2017-12-19 22:27 | CP.PCM.PN ---
Subjective - Date & Time of Evaluation Date of Evaluation: 12/19/17 Time of Evaluation: 17:40 - Subjective Subjective: patient is presently alert and responsive. About one p.m. today patient had a rapid response called because of sudden shortness of breath caused by desaturation. patient recovered quickly with oxygen. A CT scan of the chest was ordered to rule out pulmonary embolus. The study was negative. Objective - Vital Signs/Intake and Output Vital Signs (last 24 hours): Temp Pulse Resp BP Pulse Ox 97.3 F L 69 62 H 137/89 100 12/19/17 15:22 12/19/17 16:00 12/19/17 16:20 12/19/17 16:20 12/19/17 15:22 Intake and Output: 12/19/17 12/20/17 18:59 06:59 Intake Total 650 Output Total 10 Balance 640 - Medications Medications: Current Medications Acetaminophen (Tylenol 325mg Tab) 650 mg PO Q6 PRN PRN Reason: Pain, moderate (4-7) Albuterol/Ipratropium (Duoneb 3 Mg/0.5 Mg (3 Ml) Ud) 3 ml INH RQ8 [facility] Last Admin: 12/19/17 19:46 Dose: Not Given Enoxaparin Sodium (Lovenox) 30 mg SC DAILY [facility] Last Admin: 12/19/17 14:17 Dose: 30 mg Metronidazole (Flagyl) 500 mg in 100 mls @ 100 mls/hr IVPB Q8H [facility]; Protocol Last Admin: 12/19/17 21:51 Dose: 100 mls/hr Piperacillin Sod/Tazobactam (Sod 3.375 gm/ Sodium Chloride) 100 mls @ 200 mls/hr IVPB Q8H [facility]; Protocol Last Admin: 12/19/17 17:00 Dose: 200 mls/hr Nitroglycerin (Nitro-Bid 2% Oint) 1 ea TOP Q6H PRN Last Admin: 12/19/17 09:17 Dose: 1 ea Ondansetron HCl (Zofran Inj) 4 mg IVP Q4 PRN PRN Reason: Nausea/Vomiting Pantoprazole Sodium (Protonix Inj) 40 mg IVP DAILY [facility] Last Admin: 12/19/17 09:17 Dose: 40 mg Phenol/Menthol (Phenaseptic 1.4% Throat [place]) 1 ml MT Q4H PRN PRN Reason: Pain, moderate (4-7) Potassium Phos/Sodium Phos (Neutra-Phos) 1 pkt PO DAILY [facility] - Labs Labs: 12/19/17 13:27 12/19/17 13:27 PT 12.0 SECONDS (9.7-12.2) 12/14/17 07:32 INR 1.1 12/14/17 07:32 - Constitutional Appears: Chronically Ill - Head Exam Head Exam: NORMOCEPHALIC - Eye Exam Eye Exam: Nystagmus Pupil Exam: NORMAL ACCOMODATION - ENT Exam ENT Exam: Normal Oropharynx - Neck Exam Neck Exam: Normal Inspection - Respiratory Exam Respiratory Exam: Decreased Breath Sounds - Cardiovascular Exam Cardiovascular Exam: REGULAR RHYTHM - GI/Abdominal Exam GI & Abdominal Exam: Normal Bowel Sounds - Rectal Exam Rectal Exam: Deferred - Exam External exam: NORMAL EXTERNAL EXAM - Extremities Exam Extremities Exam: Normal Inspection - Back Exam Back Exam: NORMAL INSPECTION - Neurological Exam Neurological Exam: Oriented x3 - Psychiatric Exam Psychiatric exam: Anxious - Skin Skin Exam: Dry Assessment and Plan (1) Small bowel obstruction Status: Acute (2) Rheumatoid arthritis Status: Acute (3) Vomiting Status: Acute (4) Hypokalemia Status: Acute
[2017-12-20] MEDS: Nitroglycerin 2% Ointment Foilpak UD TOP PRN ×3 (01:20→17:23)
[2017-12-20] MEDS: metroNIDAZOLE IV 500 mg/100 ml 500 MG/100 ML BAG IVPB SCH ×3 (06:04→21:51)
[2017-12-20] MEDS: Albuterol-Ipratrop 3 mg / 0.5 (3 ml) UD INH SCH ×2 (07:12→18:55)
--- NOTE | 2017-12-20 08:13 | CP.PCM.PN ---
Subjective - Date & Time of Evaluation Date of Evaluation: 12/20/17 Time of Evaluation: 08:11 - Subjective Subjective: General Surgery: Dr Choudhary Pt S&E. 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 CT chest shows no PE. 100% O2 sat throughout the night on 4L NC. Tolerating liquids. Still no flatus or BM. Has been OOB to chair, but with minimal ambulation. Denies N/V, F/C, SOB or chest pain. Objective - Vital Signs/Intake and Output Vital Signs (last 24 hours): Temp Pulse Resp BP Pulse Ox 97.8 F 66 20 150/73 98 12/20/17 08:01 12/20/17 08:01 12/20/17 08:01 12/20/17 08:01 12/20/17 08:01 Intake and Output: 12/20/17 12/20/17 06:59 18:59 Output Total 20 Balance -20 - Medications Medications: Current Medications Acetaminophen (Tylenol 325mg Tab) 650 mg PO Q6 PRN PRN Reason: Pain, moderate (4-7) Albuterol/Ipratropium (Duoneb 3 Mg/0.5 Mg (3 Ml) Ud) 3 ml INH RQ8 [facility] Last Admin: 12/20/17 07:12 Dose: 3 ml Enoxaparin Sodium (Lovenox) 30 mg SC DAILY [facility] Last Admin: 12/19/17 14:17 Dose: 30 mg Metronidazole (Flagyl) 500 mg in 100 mls @ 100 mls/hr IVPB Q8H [facility]; Protocol Last Admin: 12/20/17 06:04 Dose: 100 mls/hr Piperacillin Sod/Tazobactam (Sod 3.375 gm/ Sodium Chloride) 100 mls @ 200 mls/hr IVPB Q8H [facility]; Protocol Last Admin: 12/19/17 23:54 Dose: 200 mls/hr Nitroglycerin (Nitro-Bid 2% Oint) 1 ea TOP Q6H PRN Last Admin: 12/20/17 01:20 Dose: 1 ea Ondansetron HCl (Zofran Inj) 4 mg IVP Q4 PRN PRN Reason: Nausea/Vomiting Pantoprazole Sodium (Protonix Inj) 40 mg IVP DAILY [facility] Last Admin: 12/19/17 09:17 Dose: 40 mg Phenol/Menthol (Phenaseptic 1.4% Throat [place]) 1 ml MT Q4H PRN PRN Reason: Pain, moderate (4-7) Potassium Phos/Sodium Phos (Neutra-Phos) 1 pkt PO DAILY [facility] - Labs Labs: 12/19/17 13:27 12/19/17 13:27 PT 12.0 SECONDS (9.7-12.2) 12/14/17 07:32 INR 1.1 12/14/17 07:32 - Constitutional Appears: Non-toxic, No Acute Distress - ENT Exam ENT Exam: Mucous Membranes Moist - Respiratory Exam Respiratory Exam: Rhonchi (RLL). absent: Accessory Muscle Use, Respiratory Distress - Cardiovascular Exam Cardiovascular Exam: REGULAR RHYTHM. absent: Tachycardia - GI/Abdominal Exam GI & Abdominal Exam: Distended, Soft. absent: Firm, Guarding, Tenderness Additional comments: tympanic, midline incision c/d/i - Extremities Exam Extremities Exam: absent: Pedal Edema - Neurological Exam Neurological Exam: Alert, Awake, Oriented x3 - Psychiatric Exam Psychiatric exam: Normal Affect, Normal Mood - Skin Skin Exam: Normal Color, Warm Assessment and Plan - Assessment and Plan (Free Text) Assessment: 87F POD#4 s/p exlap with extensive ADELINE Plan: continue to monitor for bowel function oob and AMBULATE pt should remain out of bed as much as possible will await flatus before advancing diet labs ordered for today - replace electrolytes PRN will d/w Dr Funmi Landeros, PGY4
[2017-12-20] MEDS: Piperacillin/Tazobact 3.375 GM in Sodium Chloride 100 ML IVPB SCH ×3 (08:30→23:51)
[2017-12-20 10:09] LABS: HEMOGLOBIN 8.7 g/dL (11.0-16.0); MEAN CELL VOLUME 94.3 fL (81.0-99.0); MEAN CORPUSCULAR HEMOGLOBIN 31.2 pg (27.0-31.0); MEAN CORPUSCULAR HGB CONC 33.1 g/dL (33.0-37.0); MEAN PLATELET VOLUME 10.7 fL (7.2-11.7); RBC 2.8 Mil/uL (3.80-5.20); RED CELL DISTRIBUTION WIDTH 15.4 % (11.5-14.5); WHITE BLOOD COUNT 5.4 K/uL (4.8-10.8)
[2017-12-20 10:19] LABS: BLOOD UREA NITROGEN 15 mg/dL (7-17); CALCIUM 7.7 mg/dl (8.6-10.4); GFR NON-AFRICAN AMERICAN > 60
[2017-12-20] MEDS: Vitamins A & D Oint UD Foilpak TOP PRN (10:51)
[2017-12-20] MEDS: Potassium & Sodium Phosphate PO SCH (10:52)
[2017-12-20] MEDS: Enoxaparin 30 mg Syringe SC SCH (10:53)
--- NOTE | 2017-12-20 15:44 | CARD ---
APPROVED REPORT Date of service: 12/19/2017 EKG Measurement Heart [id number] <Conclusion> Normal sinus rhythm Normal ECG
--- NOTE | 2017-12-20 22:49 | CP.PCM.PN ---
Subjective - Date & Time of Evaluation Date of Evaluation: 12/20/17 Time of Evaluation: 19:30 - Subjective Subjective: patient had an episode of vomiting at about 7 PM. She was also found to be hypertensive. she denies chest pain or abdominal pain. Patient given Lasix 20 mg IV . We'll repeat laboratory studies in a.m. Objective - Vital Signs/Intake and Output Vital Signs (last 24 hours): Temp Pulse Resp BP Pulse Ox 97.7 F 71 20 162/73 H 100 12/20/17 16:00 12/20/17 18:58 12/20/17 18:58 12/20/17 19:30 12/20/17 16:00 Intake and Output: 12/20/17 12/21/17 18:59 06:59 Output Total 10 Balance -10 - Medications Medications: Current Medications Acetaminophen (Tylenol 325mg Tab) 650 mg PO Q6 PRN PRN Reason: Pain, moderate (4-7) Albuterol/Ipratropium (Duoneb 3 Mg/0.5 Mg (3 Ml) Ud) 3 ml INH RQ8 [facility] Last Admin: 12/20/17 18:55 Dose: Not Given Enoxaparin Sodium (Lovenox) 30 mg SC DAILY [facility] Last Admin: 12/20/17 10:53 Dose: 30 mg Metronidazole (Flagyl) 500 mg in 100 mls @ 100 mls/hr IVPB Q8H [facility]; Protocol Last Admin: 12/20/17 21:51 Dose: 100 mls/hr Piperacillin Sod/Tazobactam (Sod 3.375 gm/ Sodium Chloride) 100 mls @ 200 mls/hr IVPB Q8H [facility]; Protocol Last Admin: 12/20/17 17:23 Dose: 200 mls/hr Nitroglycerin (Nitro-Bid 2% Oint) 1 ea TOP Q6H PRN Last Admin: 12/20/17 17:23 Dose: 1 ea Ondansetron HCl (Zofran Inj) 4 mg IVP Q4 PRN PRN Reason: Nausea/Vomiting Last Admin: 12/20/17 19:46 Dose: 4 mg Pantoprazole Sodium (Protonix Inj) 40 mg IVP DAILY [facility] Last Admin: 12/20/17 10:52 Dose: 40 mg Phenol/Menthol (Phenaseptic 1.4% Throat [place]) 1 ml MT Q4H PRN PRN Reason: Pain, moderate (4-7) Potassium Phos/Sodium Phos (Neutra-Phos) 1 pkt PO DAILY [facility] Last Admin: 12/20/17 10:52 Dose: 1 pkt Vitamin A (Vitamin A & D Oint Ud Foilpak) 1 ea TOP DAILY PRN PRN Reason: Other Last Admin: 12/20/17 10:51 Dose: 1 ea - Labs Labs: 12/20/17 10:03 12/20/17 10:03 PT 12.0 SECONDS (9.7-12.2) 12/14/17 07:32 INR 1.1 12/14/17 07:32 - Constitutional Appears: No Acute Distress - Head Exam Head Exam: NORMOCEPHALIC - Eye Exam Eye Exam: Normal appearance Pupil Exam: NORMAL ACCOMODATION - ENT Exam ENT Exam: Normal Oropharynx - Neck Exam Neck Exam: Normal Inspection - Respiratory Exam Respiratory Exam: Decreased Breath Sounds - Cardiovascular Exam Cardiovascular Exam: REGULAR RHYTHM - Rectal Exam Rectal Exam: Deferred - Exam External exam: NORMAL EXTERNAL EXAM - Extremities Exam Extremities Exam: Normal Inspection - Back Exam Back Exam: NORMAL INSPECTION - Neurological Exam Neurological Exam: Oriented x3 - Psychiatric Exam Psychiatric exam: Anxious - Skin Skin Exam: Dry Assessment and Plan (1) Small bowel obstruction Status: Acute (2) Rheumatoid arthritis Status: Acute (3) Vomiting Status: Acute (4) Hypokalemia Status: Acute
[2017-12-21] MEDS: Albuterol-Ipratrop 3 mg / 0.5 (3 ml) UD INH SCH ×3 (00:04→18:17)
[2017-12-21] MEDS: Nitroglycerin 2% Ointment Foilpak UD TOP PRN ×2 (00:56→08:17)
[2017-12-21] MEDS: metroNIDAZOLE IV 500 mg/100 ml 500 MG/100 ML BAG IVPB SCH ×3 (05:23→21:24)
[2017-12-21] MEDS: Piperacillin/Tazobact 3.375 GM in Sodium Chloride 100 ML IVPB SCH ×3 (08:15→23:28)
[2017-12-21 08:32] LABS: BASO % 0.3 % (0.0-2.0); EOS # 0.1 K/uL (0.0-0.7); EOS % 1.5 % (0.0-4.0); HEMOGLOBIN 9.1 g/dL (11.0-16.0); LYMPH # 0.6 K/uL (1.0-4.3); LYMPH % 11.4 % (20.0-40.0); MEAN CELL VOLUME 92.8 fL (81.0-99.0); MEAN CORPUSCULAR HEMOGLOBIN 31.7 pg (27.0-31.0); MEAN CORPUSCULAR HGB CONC 34.2 g/dL (33.0-37.0); MEAN PLATELET VOLUME 10.5 fL (7.2-11.7); MONO # 0.4 K/uL (0.0-0.8); MONO % 6.8 % (0.0-10.0); NEUT # 4.5 K/uL (1.8-7.0); NRBC % 0.1 % (0.0-2.0); RBC 2.86 Mil/uL (3.80-5.20); RED CELL DISTRIBUTION WIDTH 15.3 % (11.5-14.5); WHITE BLOOD COUNT 5.6 K/uL (4.8-10.8)
[2017-12-21] MEDS: Enoxaparin 30 mg Syringe SC SCH (11:00)
[2017-12-21] MEDS: Potassium & Sodium Phosphate PO SCH (11:01)
[2017-12-21] MEDS ORDERED: Oxycodone/Acetaminophen 5/325 mg Tab PO PRN (15:21)
--- NOTE | 2017-12-21 15:34 | CP.PCM.PN ---
Subjective - Date & Time of Evaluation Date of Evaluation: 12/21/17 Time of Evaluation: 15:32 - Subjective Subjective: Surgery Pt seen and examined w Dr. Nayak . No acute events. Denies fever, vomiting. TOlerating CLD. Had BM. AMbulating. Objective - Vital Signs/Intake and Output Vital Signs (last 24 hours): Temp Pulse Resp BP Pulse Ox 97.9 F 68 20 168/69 H 100 12/21/17 08:08 12/21/17 08:16 12/21/17 08:08 12/21/17 08:16 12/21/17 08:08 Intake and Output: 12/21/17 12/21/17 06:59 18:59 Output Total 10 Balance -10 - Medications Medications: Current Medications Acetaminophen (Tylenol 325mg Tab) 650 mg PO Q6 PRN PRN Reason: Pain, moderate (4-7) Albuterol/Ipratropium (Duoneb 3 Mg/0.5 Mg (3 Ml) Ud) 3 ml INH RQ8 [facility] Last Admin: 12/21/17 09:19 Dose: 3 ml Enoxaparin Sodium (Lovenox) 30 mg SC DAILY [facility] Last Admin: 12/21/17 11:00 Dose: 30 mg Metronidazole (Flagyl) 500 mg in 100 mls @ 100 mls/hr IVPB Q8H [facility]; Protocol Last Admin: 12/21/17 12:54 Dose: 100 mls/hr Piperacillin Sod/Tazobactam (Sod 3.375 gm/ Sodium Chloride) 100 mls @ 200 mls/hr IVPB Q8H [facility]; Protocol Last Admin: 12/21/17 08:15 Dose: 200 mls/hr Ketorolac Tromethamine (Toradol) 15 mg IVP Q6 PRN PRN Reason: Pain, severe (8-10) Nitroglycerin (Nitro-Bid 2% Oint) 1 ea TOP Q6H PRN Last Admin: 12/21/17 08:17 Dose: 1 ea Ondansetron HCl (Zofran Inj) 4 mg IVP Q4 PRN PRN Reason: Nausea/Vomiting Last Admin: 12/20/17 19:46 Dose: 4 mg Oxycodone/Acetaminophen (Percocet 5/325 Mg Tab) 2 tab PO Q4H PRN PRN Reason: Pain, moderate (4-7) Stop: 12/24/17 15:22 Pantoprazole Sodium (Protonix Inj) 40 mg IVP DAILY [facility] Last Admin: 12/21/17 11:00 Dose: 40 mg Phenol/Menthol (Phenaseptic 1.4% Throat [place]) 1 ml MT Q4H PRN PRN Reason: Pain, moderate (4-7) Potassium Phos/Sodium Phos (Neutra-Phos) 1 pkt PO DAILY [facility] Last Admin: 12/21/17 11:01 Dose: 1 pkt Vitamin A (Vitamin A & D Oint Ud Foilpak) 1 ea TOP DAILY PRN PRN Reason: Other Last Admin: 12/20/17 10:51 Dose: 1 ea - Labs Labs: 12/21/17 08:27 12/21/17 08:27 PT 12.0 SECONDS (9.7-12.2) 12/14/17 07:32 INR 1.1 12/14/17 07:32 - Constitutional Appears: No Acute Distress - Head Exam Head Exam: ATRAUMATIC, NORMAL INSPECTION, NORMOCEPHALIC - Eye Exam Eye Exam: EOMI, Normal appearance, PERRL Pupil Exam: NORMAL ACCOMODATION, PERRL - ENT Exam ENT Exam: Mucous Membranes Moist, Normal Exam - Neck Exam Neck Exam: Full ROM, Normal Inspection. absent: Lymphadenopathy - Respiratory Exam Respiratory Exam: NORMAL BREATHING PATTERN - Cardiovascular Exam Cardiovascular Exam: REGULAR RHYTHM, +S1, +S2. absent: Murmur - GI/Abdominal Exam GI & Abdominal Exam: Soft. absent: Distended, Tenderness Additional comments: Incision C/D/I. - Extremities Exam Extremities Exam: Full ROM, Normal Capillary Refill, Normal Inspection. absent: Joint Swelling, Pedal Edema - Back Exam Back Exam: NORMAL INSPECTION - Neurological Exam Neurological Exam: Alert, Awake, CN II-XII Intact, Normal Gait, Oriented x3 - Psychiatric Exam Psychiatric exam: Normal Affect, Normal Mood - Skin Skin Exam: Dry, Intact, Normal Color, Warm Assessment and Plan - Assessment and Plan (Free Text) Assessment: 87F POD#5 s/p exlap with extensive ADELINE Plan: oob and AMBULATE pt should remain out of bed as much as possible Advance diet as tolerated replace electrolytes PRN d/w Dr Nayak
--- NOTE | 2017-12-21 20:02 | CP.PCM.PN ---
Subjective - Date & Time of Evaluation Date of Evaluation: 12/21/17 Time of Evaluation: 15:55 - Subjective Subjective: patient is alert and responsive. She still complain discomfort and recurrent nausea. Blood pressure is still elevated. Potassium level today is 3.7. Will begin oral hypertensive medication. patient encouraged to stay out of bed in a chair Objective - Vital Signs/Intake and Output Vital Signs (last 24 hours): Temp Pulse Resp BP Pulse Ox 97.7 F 68 20 190/80 H 100 12/21/17 15:00 12/21/17 15:00 12/21/17 15:00 12/21/17 15:00 12/21/17 15:00 Intake and Output: 12/21/17 12/22/17 18:59 06:59 Output Total 40 Balance -40 - Medications Medications: Current Medications Acetaminophen (Tylenol 325mg Tab) 650 mg PO Q6 PRN PRN Reason: Pain, moderate (4-7) Albuterol/Ipratropium (Duoneb 3 Mg/0.5 Mg (3 Ml) Ud) 3 ml INH RQ8 [facility] Last Admin: 12/21/17 18:17 Dose: 3 ml Enoxaparin Sodium (Lovenox) 30 mg SC DAILY [facility] Last Admin: 12/21/17 11:00 Dose: 30 mg Metronidazole (Flagyl) 500 mg in 100 mls @ 100 mls/hr IVPB Q8H [facility]; Protocol Last Admin: 12/21/17 12:54 Dose: 100 mls/hr Piperacillin Sod/Tazobactam (Sod 3.375 gm/ Sodium Chloride) 100 mls @ 200 mls/hr IVPB Q8H [facility]; Protocol Last Admin: 12/21/17 16:53 Dose: 200 mls/hr Ketorolac Tromethamine (Toradol) 15 mg IVP Q6 PRN PRN Reason: Pain, severe (8-10) Nitroglycerin (Nitro-Bid 2% Oint) 1 ea TOP Q6H PRN Last Admin: 12/21/17 08:17 Dose: 1 ea Ondansetron HCl (Zofran Inj) 4 mg IVP Q4 PRN PRN Reason: Nausea/Vomiting Last Admin: 12/20/17 19:46 Dose: 4 mg Oxycodone/Acetaminophen (Percocet 5/325 Mg Tab) 2 tab PO Q4H PRN PRN Reason: Pain, moderate (4-7) Stop: 12/24/17 15:22 Pantoprazole Sodium (Protonix Inj) 40 mg IVP DAILY [facility] Last Admin: 12/21/17 11:00 Dose: 40 mg Phenol/Menthol (Phenaseptic 1.4% Throat [place]) 1 ml MT Q4H PRN PRN Reason: Pain, moderate (4-7) Potassium Phos/Sodium Phos (Neutra-Phos) 1 pkt PO DAILY [facility] Last Admin: 12/21/17 11:01 Dose: 1 pkt Vitamin A (Vitamin A & D Oint Ud Foilpak) 1 ea TOP DAILY PRN PRN Reason: Other Last Admin: 12/20/17 10:51 Dose: 1 ea - Labs Labs: 12/21/17 08:27 12/21/17 08:27 PT 12.0 SECONDS (9.7-12.2) 12/14/17 07:32 INR 1.1 12/14/17 07:32 - Constitutional Appears: Chronically Ill - Head Exam Head Exam: NORMAL INSPECTION - Eye Exam Eye Exam: Normal appearance Pupil Exam: NORMAL ACCOMODATION - ENT Exam ENT Exam: Normal Exam - Neck Exam Neck Exam: Normal Inspection - Respiratory Exam Respiratory Exam: Decreased Breath Sounds - GI/Abdominal Exam GI & Abdominal Exam: Normal Bowel Sounds - Rectal Exam Rectal Exam: Deferred - Exam External exam: NORMAL EXTERNAL EXAM - Back Exam Back Exam: NORMAL INSPECTION - Neurological Exam Neurological Exam: Oriented x3 - Psychiatric Exam Psychiatric exam: Anxious - Skin Skin Exam: Dry Assessment and Plan (1) Small bowel obstruction Status: Acute (2) Rheumatoid arthritis Status: Acute (3) Vomiting Status: Acute (4) Hypokalemia Status: Acute
[2017-12-22] MEDS: Albuterol-Ipratrop 3 mg / 0.5 (3 ml) UD INH SCH ×3 (00:38→15:48)
[2017-12-22] MEDS: metroNIDAZOLE IV 500 mg/100 ml 500 MG/100 ML BAG IVPB SCH ×2 (05:35→13:31)
[2017-12-22] MEDS: Piperacillin/Tazobact 3.375 GM in Sodium Chloride 100 ML IVPB SCH ×2 (08:27→16:18)
[2017-12-22] MEDS: Enoxaparin 30 mg Syringe SC SCH (09:41)
[2017-12-22] MEDS: Potassium & Sodium Phosphate PO SCH (09:41)
--- NOTE | 2017-12-22 16:07 | CP.PCM.PN ---
Subjective - Date & Time of Evaluation Date of Evaluation: 12/22/17 Time of Evaluation: 16:06 - Subjective Subjective: General Surgery: Dr Choudhary Pt S&E. Resting comfortably. No complaints. Having BMs. OOB and ambulating. Tolerating FLD. DeniesN/v, F/c, sob Objective - Vital Signs/Intake and Output Vital Signs (last 24 hours): Temp Pulse Resp BP Pulse Ox 98.1 F 67 20 144/66 100 12/22/17 08:09 12/22/17 09:40 12/22/17 08:09 12/22/17 09:41 12/22/17 08:09 - Medications Medications: Current Medications Acetaminophen (Tylenol 325mg Tab) 650 mg PO Q6 PRN PRN Reason: Pain, moderate (4-7) Albuterol/Ipratropium (Duoneb 3 Mg/0.5 Mg (3 Ml) Ud) 3 ml INH RQ8 [facility] Last Admin: 12/22/17 15:48 Dose: 3 ml Enalapril Maleate (Vasotec) 5 mg PO DAILY [facility] Last Admin: 12/22/17 09:41 Dose: 5 mg Enoxaparin Sodium (Lovenox) 30 mg SC DAILY [facility] Last Admin: 12/22/17 09:41 Dose: 30 mg Metronidazole (Flagyl) 500 mg in 100 mls @ 100 mls/hr IVPB Q8H [facility]; Protocol Last Admin: 12/22/17 13:31 Dose: 100 mls/hr Piperacillin Sod/Tazobactam (Sod 3.375 gm/ Sodium Chloride) 100 mls @ 200 mls/hr IVPB Q8H [facility]; Protocol Last Admin: 12/22/17 08:27 Dose: 200 mls/hr Ketorolac Tromethamine (Toradol) 15 mg IVP Q6 PRN PRN Reason: Pain, severe (8-10) Nitroglycerin (Nitro-Bid 2% Oint) 1 ea TOP Q6H PRN Last Admin: 12/21/17 08:17 Dose: 1 ea Ondansetron HCl (Zofran Inj) 4 mg IVP Q4 PRN PRN Reason: Nausea/Vomiting Last Admin: 12/20/17 19:46 Dose: 4 mg Oxycodone/Acetaminophen (Percocet 5/325 Mg Tab) 2 tab PO Q4H PRN PRN Reason: Pain, moderate (4-7) Stop: 12/24/17 15:22 Pantoprazole Sodium (Protonix Inj) 40 mg IVP DAILY [facility] Last Admin: 12/22/17 09:41 Dose: 40 mg Phenol/Menthol (Phenaseptic 1.4% Throat [place]) 1 ml MT Q4H PRN PRN Reason: Pain, moderate (4-7) Potassium Phos/Sodium Phos (Neutra-Phos) 1 pkt PO DAILY [facility] Last Admin: 12/22/17 09:41 Dose: 1 pkt Vitamin A (Vitamin A & D Oint Ud Foilpak) 1 ea TOP DAILY PRN PRN Reason: Other Last Admin: 12/20/17 10:51 Dose: 1 ea - Labs Labs: 12/21/17 08:27 12/21/17 08:27 PT 12.0 SECONDS (9.7-12.2) 12/14/17 07:32 INR 1.1 12/14/17 07:32 - Constitutional Appears: Non-toxic, No Acute Distress - Respiratory Exam Respiratory Exam: absent: Respiratory Distress - Cardiovascular Exam Cardiovascular Exam: REGULAR RHYTHM - GI/Abdominal Exam GI & Abdominal Exam: Soft. absent: Distended, Tenderness Assessment and Plan - Assessment and Plan (Free Text) Assessment: 87F s/p Ex-lap w/ ADELINE Plan: adv to regular diet ok to being d/c planning - may need WILLIAM will remove drain prior to d/c d/w Dr Deborah Landeros, PGY4
[2017-12-23] MEDS: Albuterol-Ipratrop 3 mg / 0.5 (3 ml) UD INH SCH ×3 (00:28→19:23)
[2017-12-23] MEDS: Nitroglycerin 2% Ointment Foilpak UD TOP PRN ×2 (01:36→09:17)
--- NOTE | 2017-12-23 07:32 | PN ---
DATE: 12/20/2017 SUBJECTIVE: The patient is alert and oriented. The patient's family is by her bedside. The patient is not in acute distress at rest. PHYSICAL EXAMINATION: VITAL SIGNS: Afebrile. Her blood pressure is 130/78, pulse 64, respirations 20, hemoglobin-oxygen saturation of 99%. HEART: Regular. There is no gallop rhythm. LUNGS: Diminished breath sounds over the lung bases. Rhonchi decreased. ABDOMEN: Soft status postop. EXTREMITIES: Legs, no ankle edema. LABORATORY DATA: White count is 5400, hemoglobin 8.7, platelet count of 97,000. Serum sodium 145, potassium 3.7, chloride 113, BUN 15, creatinine 0.8, and blood glucose is 99. IMPRESSION: Respiratory insufficiency, bronchitis, abdominal pain, bowel obstruction, status postoperative bowel surgery. PLAN: To continue the current measures including antibiotics, bronchodilators, incentive spirometry, and surgical followup. Faisal Fields MD
[2017-12-23 07:36] LABS: BASO % 0.1 % (0.0-2.0); EOS # 0.1 K/uL (0.0-0.7); EOS % 1.3 % (0.0-4.0); HEMOGLOBIN 9.1 g/dL (11.0-16.0); LYMPH # 1.1 K/uL (1.0-4.3); LYMPH % 11.8 % (20.0-40.0); MEAN PLATELET VOLUME 10.5 fL (7.2-11.7); MONO # 0.5 K/uL (0.0-0.8); MONO % 5.9 % (0.0-10.0); NEUT # 7.2 K/uL (1.8-7.0); NEUT % 80.9 % (50.0-75.0); RBC 2.94 Mil/uL (3.80-5.20); RED CELL DISTRIBUTION WIDTH 15.4 % (11.5-14.5)
[2017-12-23 07:39] LABS: WHITE BLOOD COUNT 8.9 K/uL (4.8-10.8)
--- NOTE | 2017-12-23 07:46 | CP.PCM.PN ---
Subjective - Date & Time of Evaluation Date of Evaluation: 12/23/17 Time of Evaluation: 07:45 - Subjective Subjective: Surgery Pt seen and examined. Denies fever, nausa, vomiting. BM + . Toelrting diet. ambulating. voiding. Objective - Vital Signs/Intake and Output Vital Signs (last 24 hours): Temp Pulse Resp BP Pulse Ox 98.3 F 65 20 165/71 H 100 12/23/17 00:00 12/23/17 00:00 12/23/17 00:00 12/23/17 00:00 12/23/17 00:00 Intake and Output: 12/23/17 12/23/17 06:59 18:59 Output Total 5 Balance -5 - Medications Medications: Current Medications Acetaminophen (Tylenol 325mg Tab) 650 mg PO Q6 PRN PRN Reason: Pain, moderate (4-7) Last Admin: 12/23/17 00:23 Dose: 650 mg Albuterol/Ipratropium (Duoneb 3 Mg/0.5 Mg (3 Ml) Ud) 3 ml INH RQ8 [facility] Last Admin: 12/23/17 00:28 Dose: Not Given Enalapril Maleate (Vasotec) 5 mg PO DAILY [facility] Last Admin: 12/22/17 09:41 Dose: 5 mg Enoxaparin Sodium (Lovenox) 30 mg SC DAILY [facility] Last Admin: 12/22/17 09:41 Dose: 30 mg Metronidazole (Flagyl) 500 mg in 100 mls @ 100 mls/hr IVPB Q8H [facility]; Protocol Last Admin: 12/22/17 13:31 Dose: 100 mls/hr Piperacillin Sod/Tazobactam (Sod 3.375 gm/ Sodium Chloride) 100 mls @ 200 mls/hr IVPB Q8H [facility]; Protocol Last Admin: 12/22/17 16:18 Dose: Not Given Ketorolac Tromethamine (Toradol) 15 mg IVP Q6 PRN PRN Reason: Pain, severe (8-10) Ketorolac Tromethamine (Toradol) 10 mg PO Q6 PRN PRN Reason: Pain, Mild (1-3) Loperamide HCl (Imodium) 2 mg PO Q6H PRN PRN Reason: Diarrhea Nitroglycerin (Nitro-Bid 2% Oint) 1 ea TOP Q6H PRN Last Admin: 12/23/17 01:36 Dose: 1 ea Ondansetron HCl (Zofran Inj) 4 mg IVP Q4 PRN PRN Reason: Nausea/Vomiting Last Admin: 12/20/17 19:46 Dose: 4 mg Oxycodone/Acetaminophen (Percocet 5/325 Mg Tab) 2 tab PO Q4H PRN PRN Reason: Pain, moderate (4-7) Stop: 12/24/17 15:22 Pantoprazole Sodium (Protonix Inj) 40 mg IVP DAILY [facility] Last Admin: 12/22/17 09:41 Dose: 40 mg Phenol/Menthol (Phenaseptic 1.4% Throat [place]) 1 ml MT Q4H PRN PRN Reason: Pain, moderate (4-7) Potassium Phos/Sodium Phos (Neutra-Phos) 1 pkt PO DAILY [facility] Last Admin: 12/22/17 09:41 Dose: 1 pkt Vitamin A (Vitamin A & D Oint Ud Foilpak) 1 ea TOP DAILY PRN PRN Reason: Other Last Admin: 12/20/17 10:51 Dose: 1 ea - Labs Labs: 12/23/17 07:21 12/21/17 08:27 PT 12.0 SECONDS (9.7-12.2) 12/14/17 07:32 INR 1.1 12/14/17 07:32 - Constitutional Appears: No Acute Distress - Head Exam Head Exam: ATRAUMATIC, NORMAL INSPECTION, NORMOCEPHALIC - Eye Exam Eye Exam: EOMI, Normal appearance, PERRL Pupil Exam: NORMAL ACCOMODATION, PERRL - ENT Exam ENT Exam: Mucous Membranes Moist, Normal Exam - Neck Exam Neck Exam: Full ROM, Normal Inspection. absent: Lymphadenopathy - Respiratory Exam Respiratory Exam: NORMAL BREATHING PATTERN - Cardiovascular Exam Cardiovascular Exam: REGULAR RHYTHM - GI/Abdominal Exam GI & Abdominal Exam: Soft. absent: Distended, Tenderness Additional comments: Incision intact. stapled. - Exam Exam: NORMAL INSPECTION - Extremities Exam Extremities Exam: Full ROM, Normal Capillary Refill, Normal Inspection. absent: Joint Swelling, Pedal Edema - Back Exam Back Exam: NORMAL INSPECTION - Neurological Exam Neurological Exam: Alert, Awake, CN II-XII Intact, Normal Gait, Oriented x3 - Psychiatric Exam Psychiatric exam: Normal Affect, Normal Mood - Skin Skin Exam: Dry, Intact, Normal Color, Warm Assessment and Plan - Assessment and Plan (Free Text) Assessment: 87F s/p Ex-lap w/ ADELINE Plan: regular diet Clear for DC for surgical standpoint. Drain removed. Will d/w Dr Cabrera
[2017-12-23 08:08] LABS: ALB/GLOB RATIO 0.9 (1.0-2.1); ALBUMIN 2.6 g/dL (3.5-5.0); ALT/SGPT 29 U/L (9-52); AST/SGOT 28 U/L (14-36); BLOOD UREA NITROGEN 7 mg/dL (7-17); CALCIUM 8.2 mg/dl (8.6-10.4); GFR NON-AFRICAN AMERICAN > 60
[2017-12-23] MEDS: Enoxaparin 30 mg Syringe SC SCH (09:17)
[2017-12-23] MEDS: Potassium & Sodium Phosphate PO SCH (11:07)
[2017-12-23] MEDS ORDERED: Heparin25000 units/250ml 1/2NS 25,000 UNITS/250 ML BAG IV PRN (11:49)
[2017-12-23] MEDS ORDERED: Digoxin 500 mcg/2ml (0.5 mg/2ml) Inj IVP ONE (12:15)
[2017-12-23] MEDS ORDERED: Potassium Chloride 20 mEq ER Tab PO STA (12:50)
[2017-12-23 12:52] LABS: CK-MB 1.95 ng/mL (0.0-3.38); TROPONIN I 0.056 ng/mL (0.00-0.120)
[2017-12-23 13:09] VITALS: PULSE 132
[2017-12-23] MEDS: Sodium Chloride 0.9% 1,000 ML IV SCH (13:20)
--- NOTE | 2017-12-23 13:49 | PCM.RRT ---
<Aldair Thompson - Last Filed: 12/24/17 00:10> [facility] Nurses Assessment - Situation Date: 12/23/17 Time [facility] was called: 11:33 [facility] Responder Arrival Time:: 11:34 [facility] Location:: Med/Surg Room Number: 5[address] [facility] Reason for Call: Chest Pain [facility] Called By: RN - IV IV Inserted during [facility]?: No New IV Insertion Tolerance: Fair - Respiratory [facility] Delivery Method: Room Air Oxygen Flow Rate: 4 Received Nebulizer Treatments: No Was the Patient Ventilated with Bag/Mask 100% O2?: No Secretions Suctioned?: No Was the Patient Intubated?: No Was the Patient Placed on a Ventilator?: No - Medication Medications Administered During [facility]: Heparin drip, plavix 75 mg po, digozxin .25 IV, Cardizem 30mg PO BID, NS @100, potassium 40meq PO x 2 doses - Diagnostic Test Ordered EKG: Yes (afib with RVR) Chest X-Ray: Yes CT Scan: Yes - Stat Labs Ordered [facility] Stat Labs Ordered: CBC, BMP, TROPONIN CPR started during [facility]?: No - Vital Signs Vital Signs: Rapid Response Vital Sign Blood Pressure 96/60 Pulse Rate 132 Respiratory Rate 20 Temperature 97.5 F Oxygen Saturation 100 - [place] Coma Scale Coma Scale Eye Opening: Spontaneous Coma Scale Motor: Obeys Commands Movement Coma Scale Verbal: Oriented Coma Scale Total: 15 - Time [facility] Ended Time [facility] Ended: 12:30 - Vital Signs at end of [facility] Vital Signs at end of [facility]: Rapid Response End Vital Sign Blood Pressure 104/65 Pulse Rate 101 Respiratory Rate 20 Temperature 97.8 F O2 Sat by Pulse Oximetry 100 - Recommendations 5) [facility] Level of Care Recommendations: Remain in current setting Notifications: Attending Physician, Consultations I.Reason for [facility] - A) Acute Change in Patient: (Select all that apply): Staff member or family is worried about patient - Respiratory Oxygen Delivery Method: Room Air Oxygen Flow Rate: 4 - Constitutional Appears: Non-toxic, No Acute Distress - Head Head Exam: ATRAUMATIC, NORMOCEPHALIC - Eyes Eye Exam: EOMI, Normal appearance - Respiratory Exam Respiratory Exam: NORMAL BREATHING PATTERN. absent: Accessory Muscle Use, Respiratory Distress - Cardiovascular Exam Cardiovascular Exam: Irregular Rhythm - GI/Abdominal Exam GI & Abdominal Exam: Distended, Soft, Tenderness, Normal Bowel Sounds - Neurological Exam Neurological Exam: Alert, Awake, Oriented x3 - Extremities Exam Extremities Exam: Full ROM, Normal Inspection. absent: Tenderness Plan - Assessment of Findings&Treatment Plan [facility] note Rapid response was called at 11:33 am on room 563B, on Patient Yocasta Redman, 87 yo female who is admitted to the hospital for SBO s/p exlap with extensive ADELINE POD #7. Patient complained of chest pain. Upon arrival to rapid response, the vitals were the following T: 97.5, HR: 132, BP: 96/60, RR: 20, O2 sat 100%. Upon encounter, Patient complained of feeling bloated and generalized weakness, and headache. Patient stated she did not have too much of a chest pain, but complained of right sided pain, and having a dry mouth. On monitor, strip showed ST depression and Irregular rhythm. Stat 12 lead ECG and portable chest xray were ordered. 12 lead ecg showed new onset atrial fibrillation with RVR and ST and T wave abnormalities. chest xray was unremarkable. heparin drip and plavix were ordered. Digoxin .25 IV and Cardizem 30mg PO BID were ordered. Potassium was noted to be 2.9 this morning. Patient was placed on Potassium chloride 40 meq PO x 2 doses. Cardiology consult for Dr Rosales was initially placed. stat labs were ordered. ROMIx3 and repeat chest xray was ordered. Surgery team was also contacted for a need for central line access due to poor peripheral access. CT abdomen and pelvis PO and IV contrast was ordered. Dr George was contacted, and asked for a cardiology consult to be switched to Dr Edmondson. DR Edmondson ordered echo and thyroid panel. Critical care consult was placed for Dr Landrum to evaluate patient for possible transfer to ICU. Patient converted to normal sinus rhythm. as Per Dr Edmondson, will continue with cardizem. Patient will remain in telemetry floor. HASMUKH x 1 came negative. We will follow HASMUKH x 2, repeat chest xray and repeat vitals. <Neel Winter - Last Filed: 12/24/17 07:27> [facility] Nurses Assessment - Vital Signs Vital Signs: Rapid Response Vital Sign Blood Pressure 96/60 Pulse Rate 132 Respiratory Rate 20 Temperature 97.5 F Oxygen Saturation 98 - Vital Signs at end of [facility] Vital Signs at end of [facility]: Rapid Response End Vital Sign Blood Pressure 104/65 Pulse Rate 108 Respiratory Rate 20 Temperature 97.8 F O2 Sat by Pulse Oximetry 98 Attending/Attestation - Attestation I have personally seen and examined this patient.: Yes I have fully participated in the care of the patient.: Yes I have reviewed all pertinent clinical information, including history, physical exam and plan: Yes Notes (Text): 12/24/17 07:18 Hospitalist Note: the patient was seen and examined by me. Reviewed the above note by the resident. The patient is S/P surgery recently. The [facility] was called due to chest pain and when we came and examined she was AAOx3 - she reported the chest pain was in the right upper chest - it was also reproducible on exam as well. That being said the 12 lead EKG as well as the rthym strip was suggestive of atrial fibrillation and so we ordered cardiac enzymes as well as ordering digoxin x 1 dose. We were reluctant to order IV cardizem due to blood pressure systolic in the mid 100s and this was a patient whom I did not daniel know her medical history and EF. The patient first cardiac enzyme was negative and later was in NSR again. Intially we did start a heparin ggt (without bolus) for the time being until further lab work could be returned. Neel Winter
[2017-12-23] MEDS: Magnesium Sulfate 1 gm in D5W 1 GM/100 ML BAG IVPB SCH ×2 (14:10→16:05)
[2017-12-23] MEDS ORDERED: Potassium Chloride 20 mEq ER Tab PO ONE ×2 (14:30→16:00)
--- NOTE | 2017-12-23 14:54 | CP.PCM.CON ---
History of Present Illness - History of Present Illness History of Present Illness: 87 y/o female with PSH of Exp lap for SBO and appendectomy and PMH of SBO, arthritis and osteoporosis, presented to the ED with nausea/vomiting, epigastric pain and abdominal distention. Pt states that food aggravates the pain and de nies that anything has helped relieve the pain. Pt is s/p ex lap w/ Dr Choudhary on 12/16. showing lysis of adhesions with small bowel resection w/ primary anastamosis She denies fever, diarrhea, chest pain, palpitations, cough, SOB, dysuria, or headache. PMH: osteoporosis, arthritis PSH: appendectomy, ex-lap for SBO social: denies tobacco or alcohol use All: nkda Review of Systems - Review of Systems All systems: reviewed and no additional remarkable complaints except (as per HPI) Past Patient History - Tetanus Immunizations Tetanus Immunization: Up to Date - Past Medical History & Family History Past Medical History?: Yes - Past Social History Smoking Status: Never Smoked - CARDIAC Hx Cardiac Disorders: Yes Hx Hypertension: Yes - PULMONARY Hx Respiratory Disorders: No - NEUROLOGICAL Hx Neurological Disorder: No - HEENT Hx HEENT Problems: No - RENAL Hx Chronic Kidney Disease: No - ENDOCRINE/METABOLIC Hx Endocrine Disorders: No - HEMATOLOGICAL/ONCOLOGICAL Hx Blood Disorders: Yes Hx Anemia: Yes - INTEGUMENTARY Hx Dermatological Problems: No - MUSCULOSKELETAL/RHEUMATOLOGICAL Hx Arthritis: Yes - GASTROINTESTINAL Hx Gastrointestinal Disorders: No - GENITOURINARY/GYNECOLOGICAL Hx Genitourinary Disorders: No Hx Hematuria: No Hx Incontinence: No Hx Ovarian Cancer: No Hx Postmenopausal Bleeding: No - PSYCHIATRIC Hx Psychophysiologic Disorder: No Hx Substance Use: No - SURGICAL HISTORY Hx Surgeries: Yes Hx Appendectomy: Yes - ANESTHESIA Hx Anesthesia: Yes Hx Anesthesia Reactions: No Hx Malignant Hyperthermia: No Has any member of the family had a problem w/ anesthesia?: No Meds Allergies/Adverse Reactions: Allergies Allergy/AdvReac Type Severity Reaction Status Date / Time No Known Allergies Allergy Unverified 12/13/17 14:49 - Medications Medications: Current Medications Acetaminophen (Tylenol 325mg Tab) 650 mg PO Q6 PRN PRN Reason: Pain, moderate (4-7) Last Admin: 12/23/17 00:23 Dose: 650 mg Albuterol/Ipratropium (Duoneb 3 Mg/0.5 Mg (3 Ml) Ud) 3 ml INH RQ8 [facility] Last Admin: 12/23/17 07:40 Dose: 3 ml Diltiazem HCl (Cardizem) 30 mg PO BID [facility] Enalapril Maleate (Vasotec) 5 mg PO DAILY [facility] Last Admin: 12/23/17 09:16 Dose: 5 mg Enoxaparin Sodium (Lovenox) 30 mg SC DAILY [facility] Last Admin: 12/23/17 09:17 Dose: 30 mg Metronidazole (Flagyl) 500 mg in 100 mls @ 100 mls/hr IVPB Q8H [facility]; Protocol Last Admin: 12/22/17 13:31 Dose: 100 mls/hr Piperacillin Sod/Tazobactam (Sod 3.375 gm/ Sodium Chloride) 100 mls @ 200 mls/hr IVPB Q8H [facility]; Protocol Last Admin: 12/22/17 16:18 Dose: Not Given Heparin Sodium/Sodium Chloride (Heparin 32625 Units/250ml 1/2 Normal Saline) 25,000 units in 250 mls @ 7.62 mls/hr IV .Q24H PRN; Protocol PRN Reason: PROTOCOL Sodium Chloride (Sodium Chloride 0.9%) 1,000 mls @ 75 mls/hr IV .[id number] [facility] Last Admin: 12/23/17 13:20 Dose: 75 mls/hr Magnesium Sulfate/Dextrose (Magnesium Sulfate 1 Gm/100 Ml D5w) 1 gm in 100 mls @ 100 mls/hr IVPB Q1H [facility] Stop: 12/23/17 15:29 Last Admin: 12/23/17 14:10 Dose: 100 mls/hr Ketorolac Tromethamine (Toradol) 15 mg IVP Q6 PRN PRN Reason: Pain, severe (8-10) Ketorolac Tromethamine (Toradol) 10 mg PO Q6 PRN PRN Reason: Pain, Mild (1-3) Loperamide HCl (Imodium) 2 mg PO Q6H PRN PRN Reason: Diarrhea Nitroglycerin (Nitro-Bid 2% Oint) 1 ea TOP Q6H PRN Last Admin: 12/23/17 09:17 Dose: 1 ea Ondansetron HCl (Zofran Inj) 4 mg IVP Q4 PRN PRN Reason: Nausea/Vomiting Last Admin: 12/20/17 19:46 Dose: 4 mg Oxycodone/Acetaminophen (Percocet 5/325 Mg Tab) 2 tab PO Q4H PRN PRN Reason: Pain, moderate (4-7) Stop: 12/24/17 15:22 Pantoprazole Sodium (Protonix Inj) 40 mg IVP DAILY [facility] Last Admin: 12/23/17 09:16 Dose: 40 mg Phenol/Menthol (Phenaseptic 1.4% Throat [place]) 1 ml MT Q4H PRN PRN Reason: Pain, moderate (4-7) Potassium Phos/Sodium Phos (Neutra-Phos) 1 pkt PO DAILY [facility] Last Admin: 12/23/17 11:07 Dose: 1 pkt Vitamin A (Vitamin A & D Oint Ud Foilpak) 1 ea TOP DAILY PRN PRN Reason: Other Last Admin: 12/20/17 10:51 Dose: 1 ea Physical Exam - Constitutional Appears: Well, Non-toxic, No Acute Distress - Head Exam Head Exam: ATRAUMATIC, NORMOCEPHALIC - Eye Exam Eye Exam: EOMI, Normal appearance. absent: Scleral icterus Pupil Exam: NORMAL ACCOMODATION, PERRL - ENT Exam ENT Exam: Mucous Membranes Moist - Respiratory Exam Respiratory Exam: NORMAL BREATHING PATTERN. absent: Respiratory Distress - Cardiovascular Exam Cardiovascular Exam: RRR, +S1, +S2 - GI/Abdominal Exam GI & Abdominal Exam: Soft. absent: Tenderness - Neurological Exam Neurological exam: Alert, CN II-XII Intact, Oriented x3 - Psychiatric Exam Psychiatric exam: Normal Affect, Normal Mood - Skin Skin Exam: Normal Color Results - Vital Signs Recent Vital Signs: Last Vital Signs Temp 98.2 F 12/23/17 08:00 Pulse 70 12/23/17 08:00 Resp 20 12/23/17 08:00 BP 173/66 H 12/23/17 09:16 Pulse Ox 100 12/23/17 08:00 - Labs Result Diagrams: 12/23/17 07:21 12/23/17 07:21 Labs: Laboratory Results - last 24 hr 12/23/17 12/23/17 12/23/17 06:47 07:21 07:21 WBC 8.9 D RBC 2.94 L Hgb 9.1 L Hct 27.6 L MCV 94.0 MCH 31.0 MCHC 33.0 RDW 15.4 H Plt Count 187 MPV 10.5 Neut % (Auto) 80.9 H Lymph % (Auto) 11.8 L [place] % (Auto) 5.9 Eos % (Auto) 1.3 Baso % (Auto) 0.1 Neut # (Auto) 7.2 H Lymph # (Auto) 1.1 [place] # (Auto) 0.5 Eos # (Auto) 0.1 Baso # (Auto) 0.0 Sodium 142 Potassium 2.9 L Chloride 106 Carbon Dioxide 28 Anion Gap 12 BUN 7 Creatinine 0.7 Est GFR ( Amer) > 60 Est GFR (Non-Af Amer) > 60 POC Glucose (mg/dL) 118 H Random Glucose 126 H Calcium 8.2 L Magnesium Total Bilirubin 0.4 AST 28 ALT 29 Alkaline Phosphatase 53 Total Creatine Kinase CK-MB (Mass) Troponin I Total Protein 5.5 L Albumin 2.6 L Globulin 2.9 Albumin/Globulin Ratio 0.9 L 12/23/17 12/23/17 11:37 12:15 WBC RBC Hgb Hct MCV MCH MCHC RDW Plt Count MPV Neut % (Auto) Lymph % (Auto) [place] % (Auto) Eos % (Auto) Baso % (Auto) Neut # (Auto) Lymph # (Auto) [place] # (Auto) Eos # (Auto) Baso # (Auto) Sodium Potassium Chloride Carbon Dioxide Anion Gap BUN Creatinine Est GFR ( Amer) Est GFR (Non-Af Amer) POC Glucose (mg/dL) 125 H Random Glucose Calcium Magnesium 1.3 L Total Bilirubin AST ALT Alkaline Phosphatase Total Creatine Kinase 91 CK-MB (Mass) 1.95 Troponin I 0.0560 Total Protein Albumin Globulin Albumin/Globulin Ratio Assessment & Plan - Assessment and Plan (Free Text) Assessment: 87 yo F s/p ex lap 12/16 and [employer] called this morning 12 lead ecg showed new onset atrial fibrillation with RVR and ST and T wave abnormalities. chest xray was non significant. heparin drip and plavix were ordered. Digoxin .25 IV and Cardizem 30mg PO BID were ordered. Potassium was noted to be 2.9 this morning. Patient was placed on Potassium chloride 40 meq PO x 2 doses. Cardiology consult for Dr Rosales PLAN: Pt sitting comfortably in bed HR in 80s Normal sinus rhythm follow up with Cardiology recs maintain HR <120 consult again if condition worsens.
[2017-12-23 15:07] LABS: INR 1.2; PROTHROMBIN TIME 13.5 SECONDS (9.7-12.2)
[2017-12-23] MEDS ORDERED: Magnesium Sulfate 1 gm in D5W 1 GM/100 ML BAG IVPB SCH (16:00)
[2017-12-23] MEDS: Heparin25000 units/250ml 1/2NS 25,000 UNITS/250 ML BAG IV PRN (16:09)
--- NOTE | 2017-12-23 16:13 | RAD ---
Date of service: 12/23/2017 HISTORY: Chest pain. COMPARISON: 12/19/2017 single-view chest. 12/19/2017 CT pulmonary angiogram FINDINGS: LUNGS: Atelectatic changes/volume loss the lung bases PLEURA: No significant pleural effusion identified, no pneumothorax apparent. CARDIOVASCULAR: No radiographic findings to suggest acute or significant cardiovascular disease. OSSEOUS STRUCTURES: No significant abnormalities. VISUALIZED UPPER ABDOMEN: Normal. OTHER FINDINGS: None. IMPRESSION: No active disease. No significant interval change compared to the prior examination(s).
--- NOTE | 2017-12-23 17:18 | PN ---
DATE: 12/23/2017 SUBJECTIVE: The patient is in bed, feels tired and weak and complains of headache and general aches and chest pain with shortness of breath and has had frequent bowel movements earlier on. No vomiting, no hemoptysis, no cough, and no seizures. PHYSICAL EXAMINATION: GENERAL: She is alert, feels weak and tired. VITAL SIGNS: She is afebrile. Blood pressure 172/66, pulse 70, respirations 20, and hemoglobin-oxygen saturation of 100% on O2 via nasal cannula. CARDIOPULMONARY: Her heart is regular. No gallop rhythm. LUNGS: Diminished breath sounds over lung bases. ABDOMEN: Soft. EXTREMITIES: No edema. LABORATORY DATA: Her white count is 8900, hemoglobin 9.1, and platelet count 187,000. Serum sodium 142, potassium 2.9, BUN 7, creatinine 0.7, and glucose 126. Albumin 2.6. IMPRESSION: Respiratory insufficiency and abdominal pain, status post surgery for bowel obstruction five days ago. PLAN: Give potassium supplement. Continue with oxygen and venous leg Doppler. Continue with the current medication and chest x-ray and stat ABGs. Continue with followup. Faisal Fields MD
[2017-12-23] MEDS ORDERED: Iohexol 240 (50 ml) PO ONE (18:45)
[2017-12-23 19:51] LABS: TROPONIN I 1.69 ng/mL (0.00-0.120)
[2017-12-23 19:52] LABS: CK-MB 6.57 ng/mL (0.0-3.38)
[2017-12-23 20:17] LABS: FREE T4 1.32 ng/dL (0.78-2.19)
--- NOTE | 2017-12-23 22:01 | CP.PCM.PN ---
Subjective - Date & Time of Evaluation Date of Evaluation: 12/23/17 Time of Evaluation: 17:30 - Subjective Subjective: about 11:30 AM patient developed nausea, vomiting and chest discomfort. rapid response was called and patient responded favorably to treatment. Patient was given IV fluids and supplemental potassium. Crepitus on 30 mg twice a day was started. consultation was requested with Dr Edmondson. Objective - Vital Signs/Intake and Output Vital Signs (last 24 hours): Temp Pulse Resp BP Pulse Ox 98.3 F 70 20 151/70 H 100 12/23/17 17:15 12/23/17 17:15 12/23/17 17:15 12/23/17 17:15 12/23/17 17:15 Intake and Output: 12/23/17 12/24/17 18:59 06:59 Intake Total 200 Balance 200 - Medications Medications: Current Medications Acetaminophen (Tylenol 325mg Tab) 650 mg PO Q6 PRN PRN Reason: Pain, moderate (4-7) Last Admin: 12/23/17 00:23 Dose: 650 mg Albuterol/Ipratropium (Duoneb 3 Mg/0.5 Mg (3 Ml) Ud) 3 ml INH RQ8 [facility] Last Admin: 12/23/17 19:23 Dose: 3 ml Diltiazem HCl (Cardizem) 30 mg PO BID [facility] Last Admin: 12/23/17 17:33 Dose: 30 mg Enalapril Maleate (Vasotec) 5 mg PO DAILY [facility] Last Admin: 12/23/17 09:16 Dose: 5 mg Enoxaparin Sodium (Lovenox) 30 mg SC DAILY [facility] Last Admin: 12/23/17 09:17 Dose: 30 mg Metronidazole (Flagyl) 500 mg in 100 mls @ 100 mls/hr IVPB Q8H [facility]; Protocol Last Admin: 12/22/17 13:31 Dose: 100 mls/hr Piperacillin Sod/Tazobactam (Sod 3.375 gm/ Sodium Chloride) 100 mls @ 200 mls/hr IVPB Q8H [facility]; Protocol Last Admin: 12/22/17 16:18 Dose: Not Given Heparin Sodium/Sodium Chloride (Heparin 70601 Units/250ml 1/2 Normal Saline) 25,000 units in 250 mls @ 7.62 mls/hr IV .Q24H [facility]; Protocol PRN Reason: PROTOCOL Last Admin: 12/23/17 16:09 Dose: 12 units/kg/hr, 7.62 mls/hr Sodium Chloride (Sodium Chloride 0.9%) 1,000 mls @ 75 mls/hr IV .[id number] COUNT [facility]CLUDES [facility] Last Admin: 12/23/17 13:20 Dose: 75 mls/hr Ketorolac Tromethamine (Toradol) 15 mg IVP Q6 PRN PRN Reason: Pain, severe (8-10) Ketorolac Tromethamine (Toradol) 10 mg PO Q6 PRN PRN Reason: Pain, Mild (1-3) Loperamide HCl (Imodium) 2 mg PO Q6H PRN PRN Reason: Diarrhea Last Admin: 12/23/17 16:16 Dose: 2 mg Nitroglycerin (Nitro-Bid 2% Oint) 1 ea TOP Q6H [facility] Last Admin: 12/23/17 09:17 Dose: 1 ea Ondansetron HCl (Zofran Inj) 4 mg IVP Q4 PRN PRN Reason: Nausea/Vomiting Last Admin: 12/20/17 19:46 Dose: 4 mg Oxycodone/Acetaminophen (Percocet 5/325 Mg Tab) 2 tab PO Q4H PRN PRN Reason: Pain, moderate (4-7) Stop: 12/24/17 15:22 Pantoprazole Sodium (Protonix Inj) 40 mg IVP DAILY [facility] Last Admin: 12/23/17 09:16 Dose: 40 mg Phenol/Menthol (Phenaseptic 1.4% Throat [place]) 1 ml MT Q4H PRN PRN Reason: Pain, moderate (4-7) Potassium Phos/Sodium Phos (Neutra-Phos) 1 pkt PO DAILY [facility] Last Admin: 12/23/17 11:07 Dose: 1 pkt Vitamin A (Vitamin A & D Oint Ud Foilpak) 1 ea TOP DAILY PRN PRN Reason: Other Last Admin: 12/20/17 10:51 Dose: 1 ea - Labs Labs: 12/23/17 07:21 12/23/17 07:21 PT 13.5 SECONDS (9.7-12.2) H 12/23/17 14:27 INR 1.2 12/23/17 14:27 APTT 34 SECONDS (21-34) 12/23/17 14:27 - Constitutional Appears: Chronically Ill - Head Exam Head Exam: NORMOCEPHALIC - Eye Exam Eye Exam: Normal appearance Pupil Exam: NORMAL ACCOMODATION - ENT Exam ENT Exam: Normal Exam - Neck Exam Neck Exam: Normal Inspection - Respiratory Exam Respiratory Exam: Decreased Breath Sounds - Cardiovascular Exam Cardiovascular Exam: Irregular Rhythm - GI/Abdominal Exam GI & Abdominal Exam: Diminished Bowel Sounds - Rectal Exam Rectal Exam: Deferred - Exam External exam: NORMAL EXTERNAL EXAM - Extremities Exam Extremities Exam: Tenderness - Back Exam Back Exam: NORMAL INSPECTION - Neurological Exam Neurological Exam: Oriented x3 - Psychiatric Exam Psychiatric exam: Depressed - Skin Skin Exam: Dry Assessment and Plan (1) Small bowel obstruction Status: Acute (2) Rheumatoid arthritis Status: Acute (3) Vomiting Status: Acute (4) Hypokalemia Status: Acute
--- NOTE | 2017-12-23 23:33 | CP.PCM.CON ---
History of Present Illness - History of Present Illness History of Present Illness: 87 years old female underwent an exploratory laparotomy for an acute small bowel obstruction on 12/18/2017 with adhesion lysis and small bowel resection and end-to-end primary anastomosis. The following day she developed shortness of b reath with O2 desaturation. A CTA of the chest revealed no pulmonary embolism, but mild bibasilar atelectasis. Today, she was complaining of SOB, palpitation and chest pain. ECG revealed an atrial fibrillation with rapid ventricular response, and mild ST depression in the [place]-septal leads. A CXR showed right lower lobe atelectasis and venous doppler of the extremities was negative for DVT. But her Hb.1, K+ : 2.9 Mg++: 1.2. Serum TNI: 1.699. The patient given Digoxin, Diltiazem and IV Heparin, and KCl and Magnesium replacement. She spontaneously converted to RSR. Her medications include Zosyn, Flagyl, Diltiazem, Enalapril, IV Heparin, Loperamide, Oxycodone. At the time of this examination, she denies any chest pain, any shortness of breath, any palpitation. She is known to have a rheumatoid arthritis, on Enbrel, Methotrexate, Folic acid and hypertension, on Enalapril. Review of Systems - Constitutional Constitutional: Anorexia, Fatigue, Weakness - Cardiovascular Cardiovascular: Chest Pain, Dyspnea, Palpitations - Respiratory Respiratory: Dyspnea Past Patient History - Tetanus Immunizations Tetanus Immunization: Up to Date - Past Medical History & Family History Past Medical History?: Yes - Past Social History Smoking Status: Never Smoked Alcohol: None Drugs: Denies Home Situation {Lives}: Alone - CARDIAC Hx Cardiac Disorders: Yes Hx Atrial Fibrillation: Yes Hx Hypertension: Yes - PULMONARY Hx Respiratory Disorders: No - NEUROLOGICAL Hx Neurological Disorder: No - HEENT Hx HEENT Problems: No - RENAL Hx Chronic Kidney Disease: No - ENDOCRINE/METABOLIC Hx Endocrine Disorders: No - HEMATOLOGICAL/ONCOLOGICAL Hx Blood Disorders: Yes Hx Anemia: Yes - INTEGUMENTARY Hx Dermatological Problems: No - MUSCULOSKELETAL/RHEUMATOLOGICAL Hx Arthritis: Yes - GASTROINTESTINAL Hx Gastrointestinal Disorders: No - GENITOURINARY/GYNECOLOGICAL Hx Genitourinary Disorders: No Hx Hematuria: No Hx Incontinence: No Hx Ovarian Cancer: No Hx Postmenopausal Bleeding: No - PSYCHIATRIC Hx Psychophysiologic Disorder: No Hx Substance Use: No - SURGICAL HISTORY Hx Surgeries: Yes (Exploratory laparotomy on 12/18/2017 with lysis of adhesions and SB resecti) Hx Appendectomy: Yes - ANESTHESIA Hx Anesthesia: Yes Hx Anesthesia Reactions: No Hx Malignant Hyperthermia: No Has any member of the family had a problem w/ anesthesia?: No Meds Allergies/Adverse Reactions: Allergies Allergy/AdvReac Type Severity Reaction Status Date / Time No Known Allergies Allergy Unverified 12/13/17 14:49 - Medications Medications: Current Medications Acetaminophen (Tylenol 325mg Tab) 650 mg PO Q6 PRN PRN Reason: Pain, moderate (4-7) Last Admin: 12/23/17 00:23 Dose: 650 mg Albuterol/Ipratropium (Duoneb 3 Mg/0.5 Mg (3 Ml) Ud) 3 ml INH RQ8 [facility] Last Admin: 12/23/17 19:23 Dose: 3 ml Diltiazem HCl (Cardizem) 30 mg PO BID [facility] Last Admin: 12/23/17 17:33 Dose: 30 mg Enalapril Maleate (Vasotec) 5 mg PO DAILY [facility] Last Admin: 12/23/17 09:16 Dose: 5 mg Enoxaparin Sodium (Lovenox) 30 mg SC DAILY [facility] Last Admin: 12/23/17 09:17 Dose: 30 mg Metronidazole (Flagyl) 500 mg in 100 mls @ 100 mls/hr IVPB Q8H [facility]; Protocol Last Admin: 12/22/17 13:31 Dose: 100 mls/hr Piperacillin Sod/Tazobactam (Sod 3.375 gm/ Sodium Chloride) 100 mls @ 200 mls/hr IVPB Q8H [facility]; Protocol Last Admin: 12/22/17 16:18 Dose: Not Given Heparin Sodium/Sodium Chloride (Heparin 65561 Units/250ml 1/2 Normal Saline) 25,000 units in 250 mls @ 7.62 mls/hr IV .Q24H [facility]N; Protocol PRN Reason: PROTOCOL Last Admin: 12/23/17 16:09 Dose: 12 units/kg/hr, 7.62 mls/hr Sodium Chloride (Sodium Chloride 0.9%) 1,000 mls @ 75 mls/hr IV .[id number] [facility] Last Admin: 12/23/17 13:20 Dose: 75 mls/hr Ketorolac Tromethamine (Toradol) 15 mg IVP Q6 PRN PRN Reason: Pain, severe (8-10) Last Admin: 12/23/17 22:28 Dose: 15 mg Ketorolac Tromethamine (Toradol) 10 mg PO Q6 PRN PRN Reason: Pain, Mild (1-3) Loperamide HCl (Imodium) 2 mg PO Q6H PRN PRN Reason: Diarrhea Last Admin: 12/23/17 16:16 Dose: 2 mg Nitroglycerin (Nitro-Bid 2% Oint) 1 ea TOP Q6H PRN Last Admin: 12/23/17 09:17 Dose: 1 ea Ondansetron HCl (Zofran Inj) 4 mg IVP Q4 PRN PRN Reason: Nausea/Vomiting Last Admin: 12/23/17 22:25 Dose: 4 mg Oxycodone/Acetaminophen (Percocet 5/325 Mg Tab) 2 tab PO Q4H PRN PRN Reason: Pain, moderate (4-7) Stop: 12/24/17 15:22 Pantoprazole Sodium (Protonix Inj) 40 mg IVP DAILY [facility] Last Admin: 12/23/17 09:16 Dose: 40 mg Phenol/Menthol (Phenaseptic 1.4% Throat [place]) 1 ml MT Q4H PRN PRN Reason: Pain, moderate (4-7) Potassium Phos/Sodium Phos (Neutra-Phos) 1 pkt PO DAILY [facility] Last Admin: 12/23/17 11:07 Dose: 1 pkt Vitamin A (Vitamin A & D Oint Ud Foilpak) 1 ea TOP DAILY PRN PRN Reason: Other Last Admin: 12/20/17 10:51 Dose: 1 ea Physical Exam - Constitutional Appears: No Acute Distress, Chronically Ill - Head Exam Head Exam: NORMAL INSPECTION - Eye Exam Eye Exam: Normal appearance - ENT Exam ENT Exam: Normal Exam - Neck Exam Neck exam: Positive for: Normal Inspection - Respiratory Exam Respiratory Exam: Rhonchi Additional comments: Few rhonchi right base. - Cardiovascular Exam Cardiovascular Exam: REGULAR RHYTHM - GI/Abdominal Exam GI & Abdominal Exam: Normal Bowel Sounds, Soft - Rectal Exam Rectal Exam: Deferred - Extremities Exam Extremities exam: Positive for: normal inspection - Back Exam Back exam: NORMAL INSPECTION - Neurological Exam Neurological exam: Alert, Oriented x3 - Psychiatric Exam Psychiatric exam: Anxious - Skin Skin Exam: Dry, Intact, Normal Color, Warm Results - Vital Signs Recent Vital Signs: Last Vital Signs Temp 98.3 F 12/23/17 17:15 Pulse 70 12/23/17 17:15 Resp 20 12/23/17 17:15 BP 151/70 H 12/23/17 17:15 Pulse Ox 100 12/23/17 17:15 - Labs Result Diagrams: 12/23/17 07:21 12/23/17 07:21 Labs: Laboratory Results - last 24 hr 12/23/17 12/23/17 12/23/17 06:47 07:21 07:21 WBC 8.9 D RBC 2.94 L Hgb 9.1 L Hct 27.6 L MCV 94.0 MCH 31.0 MCHC 33.0 RDW 15.4 H Plt Count 187 MPV 10.5 Neut % (Auto) 80.9 H Lymph % (Auto) 11.8 L [place] % (Auto) 5.9 Eos % (Auto) 1.3 Baso % (Auto) 0.1 Neut # (Auto) 7.2 H Lymph # (Auto) 1.1 [place] # (Auto) 0.5 Eos # (Auto) 0.1 Baso # (Auto) 0.0 PT INR APTT Sodium 142 Potassium 2.9 L Chloride 106 Carbon Dioxide 28 Anion Gap 12 BUN 7 Creatinine 0.7 Est GFR ( Amer) > 60 Est GFR (Non-Af Amer) > 60 POC Glucose (mg/dL) 118 H Random Glucose 126 H Calcium 8.2 L Magnesium Total Bilirubin 0.4 AST 28 ALT 29 Alkaline Phosphatase 53 Total Creatine Kinase CK-MB (Mass) Troponin I Total Protein 5.5 L Albumin 2.6 L Globulin 2.9 Albumin/Globulin Ratio 0.9 L Free T4 Free T3 pg/mL TSH 3rd Generation 12/23/17 12/23/17 12/23/17 11:37 12:15 14:27 WBC RBC Hgb Hct MCV MCH MCHC RDW Plt Count MPV Neut % (Auto) Lymph % (Auto) [place] % (Auto) Eos % (Auto) Baso % (Auto) Neut # (Auto) Lymph # (Auto) [place] # (Auto) Eos # (Auto) Baso # (Auto) PT 13.5 H INR 1.2 APTT 34 Sodium Potassium Chloride Carbon Dioxide Anion Gap BUN Creatinine Est GFR ( Amer) Est GFR (Non-Af Amer) POC Glucose (mg/dL) 125 H Random Glucose Calcium Magnesium 1.3 L Total Bilirubin AST ALT Alkaline Phosphatase Total Creatine Kinase 91 CK-MB (Mass) 1.95 Troponin I 0.0560 Total Protein Albumin Globulin Albumin/Globulin Ratio Free T4 Free T3 pg/mL TSH 3rd Generation 12/23/17 12/23/17 12/23/17 18:49 18:49 22:28 WBC RBC Hgb Hct MCV MCH MCHC RDW Plt Count MPV Neut % (Auto) Lymph % (Auto) [place] % (Auto) Eos % (Auto) Baso % (Auto) Neut # (Auto) Lymph # (Auto) [place] # (Auto) Eos # (Auto) Baso # (Auto) PT INR APTT 63 H D Sodium Potassium Chloride Carbon Dioxide Anion Gap BUN Creatinine Est GFR ( Amer) Est GFR (Non-Af Amer) POC Glucose (mg/dL) Random Glucose Calcium Magnesium Total Bilirubin AST ALT Alkaline Phosphatase Total Creatine Kinase 94 CK-MB (Mass) 6.57 H Troponin I 1.6900 H* Total Protein Albumin Globulin Albumin/Globulin Ratio Free T4 1.32 Free T3 pg/mL 1.94 L TSH 3rd Generation 3.27 Assessment & Plan (1) Paroxysmal atrial fibrillation with rapid ventricular response Assessment and Plan: Patient now in RSR with Digoxin and Diltiazem. Patient is on IV Heparin. Thyroid profile : WNL. Will order an echo to assess LV wall motion and cardiac valves ( Systolic murmur at the apex. Status: Acute (2) Acute non-ST elevation myocardial infarction (NSTEMI) Assessment and Plan: Serial ECG's and TNI's. To continue Heparin IV. Status: Acute (3) Small bowel obstruction Assessment and Plan: S/p exploratory laparotomy with lysis of adhesions and small bowel resection and end-to-end anastomosis POD#5. Status: Acute
[2017-12-24 01:05] LABS: CK-MB 6.44 ng/mL (0.0-3.38); TROPONIN I 1.47 ng/mL (0.00-0.120)
[2017-12-24] MEDS: Albuterol-Ipratrop 3 mg / 0.5 (3 ml) UD INH SCH ×3 (01:28→16:32)
[2017-12-24] MEDS: Nitroglycerin 2% Ointment Foilpak UD TOP PRN ×2 (02:02→11:20)
[2017-12-24] MEDS: Sodium Chloride 0.9% 1,000 ML IV SCH (04:27)
--- NOTE | 2017-12-24 07:20 | CP.PCM.PN ---
Subjective - Date & Time of Evaluation Date of Evaluation: 12/24/17 Time of Evaluation: 07:17 - Subjective Subjective: Gen Sx: Dr Choudhary Pt S&E. 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 Found to have NSTEMI. On hep drip. For ECHO today. Denies pain, but feels nauseous. Two episodes of emesis last night. Still passing flatus. Has not been OOB since POSITION CLASSIFICATION SPECIALIST. Objective - Vital Signs/Intake and Output Vital Signs (last 24 hours): Temp Pulse Resp BP Pulse Ox 98.0 F 65 20 169/77 H 100 12/24/17 00:00 12/24/17 00:00 12/24/17 00:00 12/24/17 00:00 12/24/17 00:00 - Medications Medications: Current Medications Acetaminophen (Tylenol 325mg Tab) 650 mg PO Q6 PRN PRN Reason: Pain, moderate (4-7) Last Admin: 12/23/17 00:23 Dose: 650 mg Albuterol/Ipratropium (Duoneb 3 Mg/0.5 Mg (3 Ml) Ud) 3 ml INH RQ8 [facility] Last Admin: 12/24/17 01:28 Dose: Not Given Diltiazem HCl (Cardizem) 30 mg PO BID [facility] Last Admin: 12/23/17 17:33 Dose: 30 mg Enalapril Maleate (Vasotec) 5 mg PO DAILY [facility] Last Admin: 12/23/17 09:16 Dose: 5 mg Enoxaparin Sodium (Lovenox) 30 mg SC DAILY [facility] Last Admin: 12/23/17 09:17 Dose: 30 mg Metronidazole (Flagyl) 500 mg in 100 mls @ 100 mls/hr IVPB Q8H [facility]; Protocol Last Admin: 12/22/17 13:31 Dose: 100 mls/hr Piperacillin Sod/Tazobactam (Sod 3.375 gm/ Sodium Chloride) 100 mls @ 200 mls/hr IVPB Q8H [facility]; Protocol Last Admin: 12/22/17 16:18 Dose: Not Given Heparin Sodium/Sodium Chloride (Heparin 05615 Units/250ml 1/2 Normal Saline) 25,000 units in 250 mls @ 7.62 mls/hr IV .Q24H PRN; Protocol PRN Reason: PROTOCOL Last Admin: 12/23/17 16:09 Dose: 12 units/kg/hr, 7.62 mls/hr Sodium Chloride (Sodium Chloride 0.9%) 1,000 mls @ 75 mls/hr IV .[id number] [facility] Last Admin: 12/24/17 04:27 Dose: 75 mls/hr Ketorolac Tromethamine (Toradol) 15 mg IVP Q6 PRN PRN Reason: Pain, severe (8-10) Last Admin: 12/24/17 04:23 Dose: 15 mg Ketorolac Tromethamine (Toradol) 10 mg PO Q6 PRN PRN Reason: Pain, Mild (1-3) Loperamide HCl (Imodium) 2 mg PO Q6H PRN PRN Reason: Diarrhea Last Admin: 12/23/17 16:16 Dose: 2 mg Nitroglycerin (Nitro-Bid 2% Oint) 1 ea TOP Q6H PRN Last Admin: 12/24/17 02:02 Dose: 1 ea Ondansetron HCl (Zofran Inj) 4 mg IVP Q4 PRN PRN Reason: Nausea/Vomiting Last Admin: 12/24/17 04:19 Dose: 4 mg Oxycodone/Acetaminophen (Percocet 5/325 Mg Tab) 2 tab PO Q4H PRN PRN Reason: Pain, moderate (4-7) Stop: 12/24/17 15:22 Pantoprazole Sodium (Protonix Ec Tab) 40 mg PO DAILY [facility] Phenol/Menthol (Phenaseptic 1.4% Throat [place]) 1 ml MT Q4H PRN PRN Reason: Pain, moderate (4-7) Potassium Phos/Sodium Phos (Neutra-Phos) 1 pkt PO DAILY [facility] Last Admin: 12/23/17 11:07 Dose: 1 pkt Vitamin A (Vitamin A & D Oint Ud Foilpak) 1 ea TOP DAILY PRN PRN Reason: Other Last Admin: 12/20/17 10:51 Dose: 1 ea - Labs Labs: 12/23/17 07:21 12/23/17 07:21 PT 13.5 SECONDS (9.7-12.2) H 12/23/17 14:27 INR 1.2 12/23/17 14:27 APTT 67 SECONDS (21-34) H 12/24/17 04:08 - Constitutional Appears: Non-toxic - ENT Exam ENT Exam: Mucous Membranes Dry - Respiratory Exam Respiratory Exam: absent: Respiratory Distress - Cardiovascular Exam Cardiovascular Exam: absent: Tachycardia - GI/Abdominal Exam GI & Abdominal Exam: Distended, Soft. absent: Tenderness Assessment and Plan - Assessment and Plan (Free Text) Assessment: 87F s/p exlap w/ ADELINE; now with NSTEMI Plan: ECHO pending on hep drip mgmt per cardio and medical team will make NPO for now given distension/nausea and wait for cardio work-up will follow closely d/w Dr Funmi Landeros, PGY4
[2017-12-24 07:25] LABS: BASO % 0.4 % (0.0-2.0); EOS # 0.1 K/uL (0.0-0.7); EOS % 1.5 % (0.0-4.0); HEMOGLOBIN 8.9 g/dL (11.0-16.0); LYMPH % 12.9 % (20.0-40.0); MEAN CELL VOLUME 93.7 fL (81.0-99.0); MEAN CORPUSCULAR HEMOGLOBIN 31.6 pg (27.0-31.0); MEAN CORPUSCULAR HGB CONC 33.8 g/dL (33.0-37.0); MEAN PLATELET VOLUME 11.2 fL (7.2-11.7); MONO # 0.6 K/uL (0.0-0.8); MONO % 7.4 % (0.0-10.0); NEUT # 6.2 K/uL (1.8-7.0); NEUT % 77.8 % (50.0-75.0); NRBC % 0.1 % (0.0-2.0); RBC 2.81 Mil/uL (3.80-5.20); RED CELL DISTRIBUTION WIDTH 15.7 % (11.5-14.5); WHITE BLOOD COUNT 7.9 K/uL (4.8-10.8)
[2017-12-24 07:38] LABS: BLOOD UREA NITROGEN 6 mg/dL (7-17); CALCIUM 8.2 mg/dl (8.6-10.4); GFR NON-AFRICAN AMERICAN > 60
[2017-12-24] MEDS: Potassium & Sodium Phosphate PO SCH (11:04)
[2017-12-24] MEDS: Pantoprazole 40 mg EC Tab PO SCH (11:05)
--- NOTE | 2017-12-24 11:11 | RAD ---
Date of service: 12/23/2017 HISTORY: chest pain COMPARISON: 12/19/2017 CT ANGIO FINDINGS: LUNGS: The bilateral strandy opacities with pleural continuity are compatible with bilateral calcified pleural plaques. PLEURA: No significant pleural effusion identified, no pneumothorax apparent. Calcified pleural plaques some of these pleural plaques have nodularity configurations associated with them on radiographs. The current chest x-ray is similar to the family intervention specialist from the 12/19/2017 study. Please note that CT report CARDIOVASCULAR: Minimal cardiomegaly. Pulmonary vasculature probably edk-[id number]-[id number]-appearing Atherosclerotic vascular calcifications present. OSSEOUS STRUCTURES: Thoracic spondylosis. Bilateral shoulder arthrosis. VISUALIZED UPPER ABDOMEN: Stable asymmetrically elevated right hemidiaphragm. OTHER FINDINGS: None. IMPRESSION: Bilateral calcified pleural plaques a compatible with the multiple mostly linear and lesser nodular radiographic opacities present Compared to the 12/19/2017 CT family intervention specialist image no interval worrisome changes appreciated.
--- NOTE | 2017-12-24 12:38 | VASCLAB ---
Date of service: 12/23/2017 PROCEDURE: Lower Extremity Venous Duplex Exam. HISTORY: Bilateral leg swelling. PRIORS: None. TECHNIQUE: Bilateral common femoral, femoral, popliteal and posterior tibial, peroneal and great saphenous veins were evaluated. Flow was assessed with color Doppler, compressibility, assessment of phasic flow and augmentation response. Report prepared by Ajith Pineda, BS, RVT FINDINGS: RIGHT: 1. Common Femoral Vein: 1.1. Compressibility - Fully compressible: Thrombus - None : Flow - Phasic: Augmentation -Normal: Reflux - None. 2. Femoral Vein: 2.1. Compressibility - Fully compressible: Thrombus - None : Flow - Phasic: Augmentation -Normal: Reflux - None. 3. Popliteal Vein: 3.1. Compressibility - Fully compressible: Thrombus - None : Flow - Phasic: Augmentation -Normal: Reflux - None. 4. Posterior Tibial Vein: 4.1. Compressibility - Fully compressible: Thrombus - None: Flow - Phasic: Augmentation -Normal: Reflux - None. 5. Peroneal Vein: 5.1. Compressibility - Fully compressible: Thrombus - None: Flow - Phasic: Augmentation -Normal: Reflux - None. 6. Great Saphenous Vein: 6.1. Compressibility - Fully compressible: Thrombus - None: Flow - Phasic: Augmentation - Normal: Reflux - None. LEFT: 1. Common Femoral Vein: 1.1. Compressibility - Fully compressible: Thrombus - None: Flow - Phasic: Augmentation -Normal: Reflux - None. 2. Femoral Vein: 2.1. Compressibility - Fully compressible: Thrombus - None: Flow - Phasic: Augmentation -Normal: Reflux - None. 3. Popliteal Vein: 3.1. Compressibility - Fully compressible: Thrombus - None : Flow - Phasic: Augmentation -Normal: Reflux - YES. 4. Posterior Tibial Vein: 4.1. Compressibility - Fully compressible: Thrombus - None: Flow - Phasic: Augmentation -Normal: Reflux - None. 5. Peroneal Vein: 5.1. Compressibility - Fully compressible: Thrombus - None: Flow - Phasic: Augmentation -Normal: Reflux - None. 6. Great Saphenous Vein: 6.1. Compressibility - Fully compressible: Thrombus - None: Flow - Phasic: Augmentation - Normal: Reflux - None. OTHER FINDINGS: Right: None significant. Left: None significant. IMPRESSION: Right: No evidence of deep or superficial vein thrombosis of the right lower extremity. Normal valve function noted of the right side. Left: No evidence of deep or superficial vein thrombosis of the left lower extremity. 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
--- NOTE | 2017-12-24 14:36 | CP.PCM.PN ---
Subjective - Date & Time of Evaluation Date of Evaluation: 12/24/17 Time of Evaluation: 14:34 - Subjective Subjective: Patient nauseous with abdominal distention, requiring NGT placement to low- intermittent suction. No chest pain. Telemetry reveals RSR. Serum TNI's: 1.69-1.47-1.09. Hgb: 9.8 K+: 4.1 Mg++: 2.0. ECG not done today yet. Echo: LVH with normal systolic wall motion, and grade I diastolic dysfunction. Sclerotic AV with minimal AI and mild (FELIPE= 1.2-1.3 cm2 ). Sclerotic MV annulus with mild MR and slightly enlarged LA. Mild TR with mild pulmonary hypertension. Objective - Vital Signs/Intake and Output Vital Signs (last 24 hours): Temp Pulse Resp BP Pulse Ox 98.2 F 64 20 196/94 H 98 12/24/17 08:00 12/24/17 09:09 12/24/17 08:00 12/24/17 11:04 12/24/17 08:00 - Medications Medications: Current Medications Acetaminophen (Tylenol 325mg Tab) 650 mg PO Q6 PRN PRN Reason: Pain, moderate (4-7) Last Admin: 12/23/17 00:23 Dose: 650 mg Albuterol/Ipratropium (Duoneb 3 Mg/0.5 Mg (3 Ml) Ud) 3 ml INH RQ8 [facility] Last Admin: 12/24/17 01:28 Dose: Not Given Diltiazem HCl (Cardizem) 30 mg PO BID [facility] Last Admin: 12/24/17 11:05 Dose: 30 mg Enalapril Maleate (Vasotec) 5 mg PO DAILY [facility] Last Admin: 12/24/17 11:04 Dose: 5 mg Enoxaparin Sodium (Lovenox) 30 mg SC DAILY [facility] Last Admin: 12/23/17 09:17 Dose: 30 mg Metronidazole (Flagyl) 500 mg in 100 mls @ 100 mls/hr IVPB Q8H [facility]; Protocol Last Admin: 12/22/17 13:31 Dose: 100 mls/hr Piperacillin Sod/Tazobactam (Sod 3.375 gm/ Sodium Chloride) 100 mls @ 200 mls/hr IVPB Q8H [facility]; Protocol Last Admin: 10/14/18 16:18 Dose: Not Given Heparin Sodium/Sodium Chloride (Heparin 89533 Units/250ml 1/2 Normal Saline) 25,000 units in 250 mls @ 7.62 mls/hr IV .Q24H PRN; Protocol PRN Reason: PROTOCOL Last Admin: 12/23/17 16:09 Dose: 12 units/kg/hr, 7.62 mls/hr Sodium Chloride (Sodium Chloride 0.9%) 1,000 mls @ 75 mls/hr IV .[id number] [facility] Last Admin: 12/24/17 04:27 Dose: 75 mls/hr Loperamide HCl (Imodium) 2 mg PO Q6H PRN PRN Reason: Diarrhea Last Admin: 12/23/17 16:16 Dose: 2 mg Nitroglycerin (Nitro-Bid 2% Oint) 1 ea TOP Q6H PRN Last Admin: 12/24/17 11:20 Dose: 1 ea Ondansetron HCl (Zofran Inj) 4 mg IVP Q4 PRN PRN Reason: Nausea/Vomiting Last Admin: 12/24/17 11:20 Dose: 4 mg Oxycodone/Acetaminophen (Percocet 5/325 Mg Tab) 2 tab PO Q4H PRN PRN Reason: Pain, moderate (4-7) Stop: 12/24/17 15:22 Pantoprazole Sodium (Protonix Ec Tab) 40 mg PO DAILY [facility] Last Admin: 12/24/17 11:05 Dose: 40 mg Phenol/Menthol (Phenaseptic 1.4% Throat [place]) 1 ml MT Q4H PRN PRN Reason: Pain, moderate (4-7) Potassium Phos/Sodium Phos (Neutra-Phos) 1 pkt PO DAILY [facility] Last Admin: 12/24/17 11:04 Dose: 1 pkt Vitamin A (Vitamin A & D Oint Ud Foilpak) 1 ea TOP DAILY PRN PRN Reason: Other Last Admin: 12/20/17 10:51 Dose: 1 ea - Labs Labs: 12/24/17 07:01 12/24/17 07:01 PT 13.5 SECONDS (9.7-12.2) H 12/23/17 14:27 INR 1.2 12/23/17 14:27 APTT 67 SECONDS (21-34) H 12/24/17 04:08 - Constitutional Appears: No Acute Distress, Chronically Ill - Head Exam Head Exam: NORMOCEPHALIC - Eye Exam Eye Exam: Normal appearance - ENT Exam ENT Exam: Normal Exam - Neck Exam Neck Exam: Normal Inspection - Respiratory Exam Additional comments: Rhonchi heard at both bases. - Cardiovascular Exam Cardiovascular Exam: REGULAR RHYTHM, Murmur - GI/Abdominal Exam GI & Abdominal Exam: Soft, Diminished Bowel Sounds, Normal Bowel Sounds - Rectal Exam Rectal Exam: Deferred - Extremities Exam Extremities Exam: Normal Inspection - Back Exam Back Exam: NORMAL INSPECTION - Neurological Exam Neurological Exam: Alert, Awake, Oriented x3 - Psychiatric Exam Psychiatric exam: Anxious - Skin Skin Exam: Dry, Intact, Normal Color, Warm Assessment and Plan (1) Paroxysmal atrial fibrillation with rapid ventricular response Assessment & Plan: Patient is still in RSR. To continue Diltiazem, IV Heparin. Status: Acute (2) Acute non-ST elevation myocardial infarction (NSTEMI) Status: Acute (3) Small bowel obstruction Assessment & Plan: S/p small bowel resection POD# 6. Status: Acute
--- NOTE | 2017-12-24 15:31 | RAD ---
Date of service: 12/24/2017 HISTORY: NGT placement COMPARISON: 12/23/2017 FINDINGS: LUNGS: Minimal linear scar/atelectasis at right base. PLEURA: No pleural effusion. Suspect calcified plaque along left lateral chest wall. CARDIOVASCULAR: Normal heart size. Nasogastric tube extends to central upper abdomen. OSSEOUS STRUCTURES: No significant abnormalities. VISUALIZED UPPER ABDOMEN: Normal. OTHER FINDINGS: None. IMPRESSION: NG tube in grossly appropriate position.
--- NOTE | 2017-12-24 20:01 | CARD ---
APPROVED REPORT Date of service: 12/24/2017 EXAM: Two-dimensional and M-mode echocardiogram with Doppler and color Doppler. Other Information Quality : GoodRhythm : INDICATION Atrial Fibrillation Chest Pain 2D DIMENSIONS IVSd1.8 (0.7-1.1cm)LVDd3.7 (3.9-5.9cm) LVOT Diameter1.8 (1.8-2.4cm)PWd1.5 (0.7-1.1cm) LA Qemcge90 (18-58mL)LVDs2.0 (2.5-4.0cm) FS (%) 47.1 %LVEF (%)73.0 (>50%) LVEF (Sanchez's)63.67 % M-Mode DIMENSIONS Left Atrium (MM)4.17 (2.5-4.0cm)IVSd1.73 (0.7-1.1cm) Aortic Root3.26 (2.2-3.7cm)LVDd4.58 (4.0-5.6cm) Aortic Cusp Exc.1.46 (1.5-2.0cm)PWd1.53 (0.7-1.1cm) FS (%) 37 %LVDs2.87 (2.0-3.8cm) LVEF (%)67 (>50%) Aortic Valve AoV Peak Bmpbhrlh929.7cm/sAoV VTI70.5cmAO Peak GR.46mmHg LVOT Peak Hjbialks661.2cm/sLVOT VTI36.47cmAO Mean GR.28mmHg FELIPE (VMAX)1.45fg4GDN (VTI)1.95qp4JV P 1/2 Ronv823uj Mitral Valve MV E Erhmjfeq230.7cm/sMV A Ooyznrdu486.3cm/sE/A ratio0.8 TDI Lateral E' Peak V5.06cm/sMedial E' Peak V4.54cm/sE/Lateral E'20.7 E/Medial E'23.1 Tricuspid Valve TR Peak Ijlozdps270ob/sTR Peak Gr.66qnZxSDOI26heYo LEFT VENTRICLE The left ventricle is normal size. There is moderate to severe concentric left ventricular hypertrophy. The Ejection Fraction is >70%. There is normal LV segmental wall motion. Transmitral Doppler flow pattern is Grade I-abnormal relaxation pattern. The left atrial pressure is mildly elevated.mildly elevated la volume index of 44 mm/m2. RIGHT VENTRICLE The right ventricle is normal size. The right ventricular systolic function is normal. ATRIA The left atrium size is normal. The right atrium size is normal. The interatrial septum is intact with no evidence for an atrial septal defect. AORTIC VALVE The aortic valve is trileaflet. The aortic valve is severely sclerotic. There is mild aortic regurgitation. There is moderate valvular aortic stenosis. Calculated aortic valve area is 1.2 cm2 with maximum pressure gradient of 56 mmHg and mean pressure gradient of 31 mmHg. MITRAL VALVE The mitral valve is moderately thickened. Mitral annular calcification is moderate. Mitral regurgitation is mild. TRICUSPID VALVE The tricuspid valve is normal in structure. There is mild tricuspid regurgitation. Right ventricular systolic pressure is estimated at 45 mmHg. There is moderate pulmonary hypertension. PULMONIC VALVE The pulmonary valve is normal in structure. There is mild pulmonic valvular regurgitation. GREAT VESSELS The aortic root is normal size. The aortic root displays moderate sclerocalcific changes of the aortic root. The IVC is normal in size and collapses >50% with inspiration. PERICARDIAL EFFUSION There is no pericardial effusion. <Conclusion> The left ventricle is normal size. There is moderate to severe concentric left ventricular hypertrophy. The Ejection Fraction is >70%. Transmitral Doppler flow pattern is Grade I-abnormal relaxation pattern. The left atrial pressure is mildly elevated.mildly elevated la volume index of 44 mm/m2. The left atrium size is normal. The aortic valve is trileaflet. The aortic valve is severely sclerotic. There is mild aortic regurgitation. There is moderate valvular aortic stenosis. Calculated aortic valve area is 1.2 cm2 with maximum pressure gradient of 56 mmHg and mean pressure gradient of 31 mmHg. Mitral regurgitation is mild. There is mild tricuspid regurgitation. Right ventricular systolic pressure is estimated at 45 mmHg. There is moderate pulmonary hypertension. The aortic root is normal size. The aortic root displays moderate sclerocalcific changes of the aortic root. The IVC is normal in size and collapses >50% with inspiration. There is no pericardial effusion.
--- NOTE | 2017-12-24 20:22 | CARD ---
APPROVED REPORT Date of service: 12/23/2017 EKG Measurement Heart [id number] <Conclusion> Atrial fibrillation with rapid ventricular response Posterior infarct, possibly acute Marked ST abnormality, inferolateral ischemia Abnormal ECG
--- NOTE | 2017-12-24 22:28 | CP.PCM.PN ---
Subjective - Date & Time of Evaluation Date of Evaluation: 12/24/17 Time of Evaluation: 19:05 - Subjective Subjective: patient was very nauseous this morning. An NG tube was inserted and connected to intermittent suction. Patient is more comfortable. She denies chest pain or palpitations. Patient presently in sinus rhythm. MRSA cultures requested. Continue present supportive measures Objective - Vital Signs/Intake and Output Vital Signs (last 24 hours): Temp Pulse Resp BP Pulse Ox 97.9 F 69 20 148/74 100 12/24/17 16:00 12/24/17 16:00 12/24/17 16:00 12/24/17 16:00 12/24/17 16:00 Intake and Output: 12/24/17 12/25/17 18:59 06:59 Intake Total 610 Output Total 1500 Balance -890 - Medications Medications: Current Medications Acetaminophen (Tylenol 325mg Tab) 650 mg PO Q6 PRN PRN Reason: Pain, moderate (4-7) Last Admin: 12/23/17 00:23 Dose: 650 mg Albuterol/Ipratropium (Duoneb 3 Mg/0.5 Mg (3 Ml) Ud) 3 ml INH RQ8 [facility] Last Admin: 12/24/17 16:32 Dose: 3 ml Diltiazem HCl (Cardizem) 30 mg PO BID [facility] Last Admin: 12/24/17 18:00 Dose: Not Given Enalapril Maleate (Vasotec) 5 mg PO DAILY [facility] Last Admin: 12/24/17 11:04 Dose: 5 mg Enoxaparin Sodium (Lovenox) 30 mg SC DAILY [facility] Last Admin: 12/23/17 09:17 Dose: 30 mg Metronidazole (Flagyl) 500 mg in 100 mls @ 100 mls/hr IVPB Q8H [facility]; Protocol Last Admin: 12/22/17 13:31 Dose: 100 mls/hr Piperacillin Sod/Tazobactam (Sod 3.375 gm/ Sodium Chloride) 100 mls @ 200 mls/hr IVPB Q8H [facility]; Protocol Last Admin: 12/22/17 16:18 Dose: Not Given Heparin Sodium/Sodium Chloride (Heparin 04553 Units/250ml 1/2 Normal Saline) 25,000 units in 250 mls @ 7.62 mls/hr IV .Q24H PRN; Protocol PRN Reason: PROTOCOL Last Admin: 12/23/17 16:09 Dose: 12 units/kg/hr, 7.62 mls/hr Sodium Chloride (Sodium Chloride 0.9%) 1,000 mls @ 75 mls/hr IV .[id number] [facility] Last Admin: 12/24/17 04:27 Dose: 75 mls/hr Loperamide HCl (Imodium) 2 mg PO Q6H PRN PRN Reason: Diarrhea Last Admin: 12/23/17 16:16 Dose: 2 mg Nitroglycerin (Nitro-Bid 2% Oint) 1 ea TOP Q6H PRN Last Admin: 12/24/17 11:20 Dose: 1 ea Ondansetron HCl (Zofran Inj) 4 mg IVP Q4 PRN PRN Reason: Nausea/Vomiting Last Admin: 12/24/17 11:20 Dose: 4 mg Pantoprazole Sodium (Protonix Ec Tab) 40 mg PO DAILY [facility] Last Admin: 12/24/17 11:05 Dose: 40 mg Phenol/Menthol (Phenaseptic 1.4% Throat [place]) 1 ml MT Q4H PRN PRN Reason: Pain, moderate (4-7) Potassium Phos/Sodium Phos (Neutra-Phos) 1 pkt PO DAILY [facility] Last Admin: 12/24/17 11:04 Dose: 1 pkt Vitamin A (Vitamin A & D Oint Ud Foilpak) 1 ea TOP DAILY PRN PRN Reason: Other Last Admin: 12/20/17 10:51 Dose: 1 ea - Labs Labs: 12/24/17 07:01 12/24/17 07:01 PT 13.5 SECONDS (9.7-12.2) H 12/23/17 14:27 INR 1.2 12/23/17 14:27 APTT 67 SECONDS (21-34) H 12/24/17 04:08 - Constitutional Appears: Chronically Ill - Head Exam Head Exam: NORMOCEPHALIC - Eye Exam Eye Exam: Normal appearance Pupil Exam: NORMAL ACCOMODATION - ENT Exam ENT Exam: Normal Exam - Neck Exam Neck Exam: Normal Inspection - Respiratory Exam Respiratory Exam: Decreased Breath Sounds - Cardiovascular Exam Cardiovascular Exam: REGULAR RHYTHM - GI/Abdominal Exam GI & Abdominal Exam: Normal Bowel Sounds - Rectal Exam Rectal Exam: Deferred - Exam External exam: NORMAL EXTERNAL EXAM - Extremities Exam Extremities Exam: Normal Inspection - Back Exam Back Exam: NORMAL INSPECTION - Neurological Exam Neurological Exam: Oriented x3 - Psychiatric Exam Psychiatric exam: Depressed - Skin Skin Exam: Dry Assessment and Plan (1) Small bowel obstruction Status: Acute (2) Rheumatoid arthritis Status: Acute (3) Vomiting Status: Acute (4) Hypokalemia Status: Acute
[2017-12-25] MEDS: Heparin25000 units/250ml 1/2NS 25,000 UNITS/250 ML BAG IV PRN (00:40)
[2017-12-25] MEDS: Acetaminophen 650mg/20.3ml solution UD PO PRN (07:05)
[2017-12-25] MEDS: Nitroglycerin 2% Ointment Foilpak UD TOP PRN (07:57)
--- NOTE | 2017-12-25 07:58 | PN ---
DATE: 12/24/2017 SUBJECTIVE: The patient is alert and oriented. She complained of vomiting, which increases the pain in the abdomen. She has had abdominal surgery about five days ago. There has been no blood in the vomiting and she does not complain of chills. PHYSICAL EXAMINATION: VITAL SIGNS: Blood pressure 196/94, pulse 64, she is afebrile, respirations 20, and hemoglobin-oxygen saturation of 98% on nasal cannula with FiO2 of 2 L per minute. HEART: Regular 64 per minute with no gallop rhythm. LUNGS: Diminished breath sounds over the lung bases, rhonchi decreased. ABDOMEN: Soft, status postop. EXTREMITIES: Legs, no edema. LABORATORY DATA: Her white count is 7900, hemoglobin 8.9, platelet count 207,000, INR 1.1, serum sodium 140, potassium 4.1, chloride 105, CO2 of 28, BUN 6, and creatinine 0.6. Chest x-ray shows no pleural effusion and no pneumothorax, calcified pleural plaques remained the same as before. IMPRESSION: Respiratory insufficiency, bronchitis, status post surgery for bowel obstruction, arthritis, hypertension, and hypertensive cardiovascular disease. Her bilateral leg Doppler studies done to rule out deep vein thrombosis is reported as negative study. PLAN: To continue with the current medications and therapy. Her electrolytes status is improving with the administration of potassium chloride, which was low. To continue with her current medications and current measures and followup with Surgery. Faisal Fields MD
[2017-12-25 08:24] LABS: BASO % 0.6 % (0.0-2.0); EOS # 0.1 K/uL (0.0-0.7); EOS % 1.5 % (0.0-4.0); HEMOGLOBIN 8.6 g/dL (11.0-16.0); LYMPH % 16.1 % (20.0-40.0); MEAN CELL VOLUME 93.9 fL (81.0-99.0); MEAN PLATELET VOLUME 10.5 fL (7.2-11.7); MONO # 0.5 K/uL (0.0-0.8); NEUT # 4.7 K/uL (1.8-7.0); NEUT % 73.8 % (50.0-75.0); RBC 2.78 Mil/uL (3.80-5.20); RED CELL DISTRIBUTION WIDTH 16.2 % (11.5-14.5); WHITE BLOOD COUNT 6.4 K/uL (4.8-10.8)
[2017-12-25] MEDS: Albuterol-Ipratrop 3 mg / 0.5 (3 ml) UD INH SCH ×3 (08:27→16:00)
[2017-12-25 08:34] LABS: BLOOD UREA NITROGEN 8 mg/dL (7-17); GFR NON-AFRICAN AMERICAN > 60
[2017-12-25] MEDS: Sodium Chloride 0.9% 1,000 ML IV SCH (10:08)
[2017-12-25] MEDS: Pantoprazole 40 mg EC Tab PO SCH (10:08)
[2017-12-25] MEDS: Potassium & Sodium Phosphate PO SCH (10:08)
[2017-12-25] MEDS: Vitamins A & D Oint UD Foilpak TOP PRN (10:27)
--- NOTE | 2017-12-25 15:54 | CP.PCM.PN ---
Subjective - Date & Time of Evaluation Date of Evaluation: 12/25/17 Time of Evaluation: 10:00 - Subjective Subjective: General Surgery Pt S&E. On hep drip. Denies pain, but feels "swollen" in her abdomen. Passing flatus. Has not been OOB recently 2/2 orthostatic hypotension. Objective - Vital Signs/Intake and Output Vital Signs (last 24 hours): Temp Pulse Resp BP Pulse Ox 97.1 F L 73 20 173/83 H 96 12/25/17 08:04 12/25/17 10:06 12/25/17 08:04 12/25/17 10:06 12/25/17 10:06 Intake and Output: 12/25/17 12/25/17 06:59 18:59 Intake Total 1510.8 Output Total 600 Balance 910.8 - Medications Medications: Current Medications Acetaminophen (Tylenol 650mg/20.3ml Solution Ud) 650 mg PO Q6 PRN PRN Reason: Pain, moderate (4-7) Last Admin: 12/25/17 07:05 Dose: 650 mg Albuterol/Ipratropium (Duoneb 3 Mg/0.5 Mg (3 Ml) Ud) 3 ml INH RQ8 [facility] Last Admin: 12/25/17 08:27 Dose: 3 ml Diltiazem HCl (Cardizem) 30 mg PO BID [facility] Last Admin: 12/25/17 10:08 Dose: 30 mg Enalapril Maleate (Vasotec) 5 mg PO DAILY [facility] Last Admin: 12/25/17 09:19 Dose: Not Given Enoxaparin Sodium (Lovenox) 30 mg SC DAILY [facility] Last Admin: 12/23/17 09:17 Dose: 30 mg Metronidazole (Flagyl) 500 mg in 100 mls @ 100 mls/hr IVPB Q8H [facility]; Protocol Last Admin: 12/22/17 13:31 Dose: 100 mls/hr Piperacillin Sod/Tazobactam (Sod 3.375 gm/ Sodium Chloride) 100 mls @ 200 mls/hr IVPB Q8H [facility]; Protocol Last Admin: 12/22/17 16:18 Dose: Not Given Heparin Sodium/Sodium Chloride (Heparin 82644 Units/250ml 1/2 Normal Saline) 25,000 units in 250 mls @ 7.62 mls/hr IV .Q24H PRN; Protocol PRN Reason: PROTOCOL Last Admin: 12/25/17 00:40 Dose: 12 units/kg/hr, 7.62 mls/hr Sodium Chloride (Sodium Chloride 0.9%) 1,000 mls @ 75 mls/hr IV .[id number] [facility] Last Admin: 12/25/17 10:08 Dose: 75 mls/hr Loperamide HCl (Imodium) 2 mg PO Q6H PRN PRN Reason: Diarrhea Last Admin: 12/23/17 16:16 Dose: 2 mg Nitroglycerin (Nitro-Bid 2% Oint) 1 ea TOP Q6H PRN Last Admin: 12/25/17 07:57 Dose: 1 ea Ondansetron HCl (Zofran Inj) 4 mg IVP Q4 PRN PRN Reason: Nausea/Vomiting Last Admin: 12/24/17 11:20 Dose: 4 mg Pantoprazole Sodium (Protonix Ec Tab) 40 mg PO DAILY [facility] Last Admin: 12/25/17 10:08 Dose: 40 mg Phenol/Menthol (Phenaseptic 1.4% Throat [place]) 1 ml MT Q4H PRN PRN Reason: Pain, moderate (4-7) Potassium Phos/Sodium Phos (Neutra-Phos) 1 pkt PO DAILY [facility] Last Admin: 12/25/17 10:08 Dose: 1 pkt Vitamin A (Vitamin A & D Oint Ud Foilpak) 1 ea TOP DAILY PRN PRN Reason: Other Last Admin: 12/25/17 10:27 Dose: 1 ea - Labs Labs: 12/25/17 08:07 12/25/17 08:07 PT 13.5 SECONDS (9.7-12.2) H 12/23/17 14:27 INR 1.2 12/23/17 14:27 APTT 75 SECONDS (21-34) H D 12/25/17 08:07 - Constitutional Appears: Non-toxic, No Acute Distress - Head Exam Head Exam: ATRAUMATIC, NORMOCEPHALIC - Eye Exam Eye Exam: EOMI. absent: Scleral icterus - Respiratory Exam Respiratory Exam: NORMAL BREATHING PATTERN. absent: Respiratory Distress - Cardiovascular Exam Cardiovascular Exam: +S1, +S2. absent: Tachycardia - GI/Abdominal Exam GI & Abdominal Exam: Distended (mild), Soft. absent: Firm, Guarding, Rigid, Tenderness Additional comments: incisions C/D/I - Neurological Exam Neurological Exam: Alert, Awake, Oriented x3 - Skin Skin Exam: Dry, Warm Assessment and Plan - Assessment and Plan (Free Text) Assessment: 87F s/p exlap w/ ADELINE; now with NSTEMI Plan: Cont hep drip Mgmt per cardio and medical team Continue NPO for now given distension/nausea Suppository D/W Dr Funmi Delatorre PGY4
--- NOTE | 2017-12-25 19:53 | PN ---
DATE: 12/25/2017 SUBJECTIVE: The patient is alert, oriented, afebrile. PHYSICAL EXAMINATION: GENERAL: The patient is in no distress, does not complain of pain or shortness of breath while sitting in a chair. Her family is present at bedside. VITAL SIGNS: Blood pressure 144/83, pulse 72, respirations 20, hemoglobin-oxygen saturation of 93%. HEART: Regular with no gallop rhythm. LUNGS: Diminished breath sounds. Rhonchi decreased. ABDOMEN: Soft postop. EXTREMITIES: Legs, no edema. IMPRESSION: Respiratory insufficiency, chronic obstructive pulmonary disease, pneumonitis, hypertension, hypertensive cardiovascular disease, intestinal obstruction with symptoms of vomiting and abdominal pain. PLAN: To continue the current medications including bronchodilators, oxygen, and surgical followup and antibiotics. Faisal Fields MD
--- NOTE | 2017-12-25 22:33 | CP.PCM.PN ---
Subjective - Date & Time of Evaluation Date of Evaluation: 12/25/17 Time of Evaluation: 19:40 - Subjective Subjective: patient is alert and responsive. She still has naso gastric tube in place. She complains of weakness and abdominal fullness. Will continue heparin drip. Objective - Vital Signs/Intake and Output Vital Signs (last 24 hours): Temp Pulse Resp BP Pulse Ox 98.1 F 69 20 144/65 100 12/25/17 16:00 12/25/17 18:00 12/25/17 16:00 12/25/17 16:00 12/25/17 16:00 Intake and Output: 12/25/17 12/26/17 18:59 06:59 Intake Total 600 600 Output Total 710 700 Balance -110 -100 - Medications Medications: Current Medications Acetaminophen (Tylenol 650mg/20.3ml Solution Ud) 650 mg PO Q6 PRN PRN Reason: Pain, moderate (4-7) Last Admin: 12/25/17 07:05 Dose: 650 mg Albuterol/Ipratropium (Duoneb 3 Mg/0.5 Mg (3 Ml) Ud) 3 ml INH RQ8 [facility] Last Admin: 12/25/17 16:00 Dose: 3 ml Diltiazem HCl (Cardizem) 30 mg PO BID [facility] Last Admin: 12/25/17 17:40 Dose: 30 mg Enalapril Maleate (Vasotec) 5 mg PO DAILY [facility] Last Admin: 12/25/17 09:19 Dose: Not Given Enoxaparin Sodium (Lovenox) 30 mg SC DAILY [facility] Last Admin: 12/23/17 09:17 Dose: 30 mg Metronidazole (Flagyl) 500 mg in 100 mls @ 100 mls/hr IVPB Q8H [facility]; Protocol Last Admin: 12/22/17 13:31 Dose: 100 mls/hr Piperacillin Sod/Tazobactam (Sod 3.375 gm/ Sodium Chloride) 100 mls @ 200 mls/hr IVPB Q8H [facility]; Protocol Last Admin: 12/22/17 16:18 Dose: Not Given Heparin Sodium/Sodium Chloride (Heparin 38876 Units/250ml 1/2 Normal Saline) 25,000 units in 250 mls @ 7.62 mls/hr IV .Q24H PRN; Protocol PRN Reason: PROTOCOL Last Admin: 12/25/17 00:40 Dose: 12 units/kg/hr, 7.62 mls/hr Sodium Chloride (Sodium Chloride 0.9%) 1,000 mls @ 75 mls/hr IV .[id number] [facility] Last Admin: 12/25/17 10:08 Dose: 75 mls/hr Loperamide HCl (Imodium) 2 mg PO Q6H PRN PRN Reason: Diarrhea Last Admin: 12/23/17 16:16 Dose: 2 mg Nitroglycerin (Nitro-Bid 2% Oint) 1 ea TOP Q6H PRN Last Admin: 12/25/17 07:57 Dose: 1 ea Ondansetron HCl (Zofran Inj) 4 mg IVP Q4 PRN PRN Reason: Nausea/Vomiting Last Admin: 12/24/17 11:20 Dose: 4 mg Pantoprazole Sodium (Protonix Ec Tab) 40 mg PO DAILY [facility] Last Admin: 12/25/17 10:08 Dose: 40 mg Phenol/Menthol (Phenaseptic 1.4% Throat [place]) 1 ml MT Q4H PRN PRN Reason: Pain, moderate (4-7) Potassium Phos/Sodium Phos (Neutra-Phos) 1 pkt PO DAILY [facility] Last Admin: 12/25/17 10:08 Dose: 1 pkt Vitamin A (Vitamin A & D Oint Ud Foilpak) 1 ea TOP DAILY PRN PRN Reason: Other Last Admin: 12/25/17 10:27 Dose: 1 ea - Labs Labs: 12/25/17 08:07 12/25/17 08:07 PT 13.5 SECONDS (9.7-12.2) H 12/23/17 14:27 INR 1.2 12/23/17 14:27 APTT 75 SECONDS (21-34) H D 12/25/17 08:07 - Constitutional Appears: Chronically Ill - Head Exam Head Exam: NORMOCEPHALIC - Eye Exam Eye Exam: PERRL Pupil Exam: NORMAL ACCOMODATION - ENT Exam ENT Exam: Normal Exam - Neck Exam Neck Exam: Normal Inspection - Respiratory Exam Respiratory Exam: Decreased Breath Sounds - Cardiovascular Exam Cardiovascular Exam: REGULAR RHYTHM - GI/Abdominal Exam GI & Abdominal Exam: Tenderness - Rectal Exam Rectal Exam: Deferred - Exam External exam: NORMAL EXTERNAL EXAM - Extremities Exam Extremities Exam: Normal Inspection - Back Exam Back Exam: NORMAL INSPECTION - Neurological Exam Neurological Exam: Oriented x3 - Psychiatric Exam Psychiatric exam: Normal Affect - Skin Skin Exam: Dry Assessment and Plan (1) Small bowel obstruction Status: Acute (2) Rheumatoid arthritis Status: Acute (3) Vomiting Status: Acute (4) Hypokalemia Status: Acute
[2017-12-26] MEDS: Albuterol-Ipratrop 3 mg / 0.5 (3 ml) UD INH SCH ×3 (00:55→15:47)
[2017-12-26] MEDS: Nitroglycerin 2% Ointment Foilpak UD TOP PRN ×2 (06:03)
[2017-12-26] MEDS: Sodium Chloride 0.9% 1,000 ML IV SCH (06:03)
[2017-12-26 07:55] LABS: BASO % 0.2 % (0.0-2.0); EOS # 0.1 K/uL (0.0-0.7); EOS % 1.3 % (0.0-4.0); HEMOGLOBIN 8.6 g/dL (11.0-16.0); LYMPH # 0.9 K/uL (1.0-4.3); LYMPH % 13.6 % (20.0-40.0); MEAN CELL VOLUME 94.2 fL (81.0-99.0); MEAN CORPUSCULAR HEMOGLOBIN 30.9 pg (27.0-31.0); MEAN CORPUSCULAR HGB CONC 32.8 g/dL (33.0-37.0); MEAN PLATELET VOLUME 10.7 fL (7.2-11.7); MONO # 0.5 K/uL (0.0-0.8); MONO % 7.9 % (0.0-10.0); NEUT # 5.3 K/uL (1.8-7.0); RBC 2.78 Mil/uL (3.80-5.20); RED CELL DISTRIBUTION WIDTH 16.2 % (11.5-14.5); WHITE BLOOD COUNT 6.9 K/uL (4.8-10.8)
[2017-12-26 08:22] LABS: BLOOD UREA NITROGEN 9 mg/dL (7-17); CALCIUM 7.8 mg/dl (8.6-10.4); GFR NON-AFRICAN AMERICAN > 60
[2017-12-26] MEDS ORDERED: Potassium Phosphate 15 MMOLE in Sodium Chloride 0.9% 250 ML IVPB ONE (10:00)
[2017-12-26] MEDS: Potassium & Sodium Phosphate PO SCH (10:21)
[2017-12-26] MEDS: Pantoprazole 40 mg EC Tab PO SCH (10:22)
[2017-12-26] MEDS ORDERED: Enalaprilat 2.5 MG/2 ML IV SCH (10:30)
--- NOTE | 2017-12-26 14:55 | CP.PCM.PN ---
Subjective - Date & Time of Evaluation Date of Evaluation: 12/26/17 Time of Evaluation: 11:30 - Subjective Subjective: Surgery progress note for Dr. Choudhary 87 y/o female was seen and examined at bedside. Patient is on hep drip. Patient states watery diarrhea x2 after Dulcolax last night. Patient reports pain with urination today. Patient was unable to ambulate for past 3 days due to orthostatic hypotension but patient states that she walked today. Patient initially refused Dulcolax today but later agreed and will be given today. C. Diff is negative. Patient denies any fever, orthostatic symptoms, N/V, chest pain and SOB. Objective - Vital Signs/Intake and Output Vital Signs (last 24 hours): Temp Pulse Resp BP Pulse Ox 98 F 69 18 153/67 H 100 12/26/17 08:44 12/26/17 11:06 12/26/17 08:44 12/26/17 11:25 12/26/17 08:44 Intake and Output: 12/26/17 12/26/17 06:59 18:59 Intake Total 1100 Output Total 1300 Balance -200 - Medications Medications: Current Medications Acetaminophen (Tylenol 650mg/20.3ml Solution Ud) 650 mg PO Q6 PRN PRN Reason: Pain, moderate (4-7) Last Admin: 12/25/17 07:05 Dose: 650 mg Albuterol/Ipratropium (Duoneb 3 Mg/0.5 Mg (3 Ml) Ud) 3 ml INH RQ8 [facility] Last Admin: 12/26/17 07:22 Dose: 3 ml Diltiazem HCl (Cardizem) 30 mg PO BID [facility] Last Admin: 12/26/17 10:21 Dose: Not Given Enalapril Maleate (Vasotec) 5 mg PO DAILY [facility] Last Admin: 12/26/17 10:22 Dose: Not Given Metronidazole (Flagyl) 500 mg in 100 mls @ 100 mls/hr IVPB Q8H [facility]; Protocol Last Admin: 12/22/17 13:31 Dose: 100 mls/hr Piperacillin Sod/Tazobactam (Sod 3.375 gm/ Sodium Chloride) 100 mls @ 200 mls/hr IVPB Q8H [facility]; Protocol Last Admin: 12/22/17 16:18 Dose: Not Given Potassium Phosphate 15 mmole/ (Sodium Chloride) 255 mls @ 42.5 mls/hr IVPB ONCE ONE Stop: 12/26/17 15:59 Last Admin: 12/26/17 10:08 Dose: 42.5 mls/hr Enalaprilat 2.5 mg/ Sodium (Chloride) 52 mls @ 104 mls/hr IV Q12 [facility] Last Admin: 12/26/17 11:25 Dose: 104 mls/hr Heparin Sodium/Sodium Chloride (Heparin 70524 Units/250ml 1/2 Normal Saline) 25,000 units in 250 mls @ 7.62 mls/hr IV .Q24H PRN; Protocol PRN Reason: PROTOCOL Loperamide HCl (Imodium) 2 mg PO Q6H PRN PRN Reason: Diarrhea Last Admin: 12/23/17 16:16 Dose: 2 mg Nitroglycerin (Nitro-Bid 2% Oint) 1 ea TOP Q6H PRN Last Admin: 12/26/17 06:03 Dose: 1 ea Ondansetron HCl (Zofran Inj) 4 mg IVP Q4 PRN PRN Reason: Nausea/Vomiting Last Admin: 12/24/17 11:20 Dose: 4 mg Pantoprazole Sodium (Protonix Ec Tab) 40 mg PO DAILY [facility] Last Admin: 12/26/17 10:22 Dose: Not Given Phenol/Menthol (Phenaseptic 1.4% Throat [place]) 1 ml MT Q4H PRN PRN Reason: Pain, moderate (4-7) Potassium Phos/Sodium Phos (Neutra-Phos) 1 pkt PO DAILY [facility] Last Admin: 12/26/17 10:21 Dose: Not Given Vitamin A (Vitamin A & D Oint Ud Foilpak) 1 ea TOP DAILY PRN PRN Reason: Other Last Admin: 12/25/17 10:27 Dose: 1 ea - Labs Labs: 12/26/17 07:49 12/26/17 07:49 PT 13.5 SECONDS (9.7-12.2) H 12/23/17 14:27 INR 1.2 12/23/17 14:27 APTT 70 SECONDS (21-34) H D 12/26/17 07:49 - Constitutional Appears: Well, No Acute Distress - Head Exam Head Exam: ATRAUMATIC, NORMAL INSPECTION, NORMOCEPHALIC - Eye Exam Eye Exam: EOMI, Normal appearance Pupil Exam: NORMAL ACCOMODATION - ENT Exam ENT Exam: Mucous Membranes Moist, Normal Exam - Neck Exam Neck Exam: Normal Inspection - Respiratory Exam Respiratory Exam: NORMAL BREATHING PATTERN. absent: Accessory Muscle Use Assessment and Plan - Assessment and Plan (Free Text) Assessment: 87 y/o female s/p exlap w/ ADELINE ; now with NSTEMI Plan: Cont. Hep Drip Management per cardio/primary Continue NPO No Meds per NGT PT consult Continue to keep OOB/ambulate UA/culture for possible UTI D/W Dr. Choudhary
[2017-12-26] MEDS: Heparin25000 units/250ml 1/2NS 25,000 UNITS/250 ML BAG IV PRN (14:57)
[2017-12-26 17:22] LABS: SQUAMOUS EPITHIAL 2 /hpf (0-5); URINE BILIRUBIN NEGATIVE (NEGATIVE); URINE BLOOD NEGATIVE (NEGATIVE); URINE CLARITY Clear (Clear); URINE COLOR Yellow (YELLOW); URINE GLUCOSE (UA) NORMAL (Normal); URINE HYALINE CAST 0-2 /lpf (0-2); URINE LEUKOCYTE ESTERASE NEG Leu/uL (Negative); URINE PROTEIN 1+ mg/dL (NEGATIVE); URINE UROBILINOGEN NORMAL mg/dL (0.2-1.0)
--- NOTE | 2017-12-26 18:52 | CP.PCM.CON ---
History of Present Illness - History of Present Illness History of Present Illness: 87 y/o female is s/p Exp lap for SBO requiring resection / anastomosis ID consulted for antibiotic management presented to the ED with nausea/vomiting, epigastric pain and abdominal distention. Pt is s/p ex lap w/ Dr Choudhary on 12/16. showing lysis of adhesions with small bowel resection w/ primary anastamosis PMH: osteoporosis, arthritis PSH: appendectomy, ex-lap for SBO social: denies tobacco or alcohol use All: nkda Review of Systems - Review of Systems All systems: reviewed and no additional remarkable complaints except - Constitutional Constitutional: As Per HPI - EENT Eyes: absent: As Per HPI, Blind Spots, Blurred Vision, Change in Vision, Decreased Night Vision, Diplopia, Discharge, Dry Eye, Exophthalmos, Floaters, Irritation, Itchy Eyes, Loss of Peripheral Vision, Pain, Photophobia, Requires Corrective Lenses, Sees Flashes, Spots in Vision, Tunnel Vision, Other Visual Disturbances, Loss of Vision, Other Ears: absent: As Per HPI, Decreased Hearing, Ear Discharge, Ear Pain, Tinnitus, Abnormal Hearing, Disequilibrium, Dizziness, Other Nose/Mouth/Throat: absent: As Per HPI, Epistaxis, Nasal Congestion, Nasal Discharge, Nasal Obstruction, Nasal Trauma, Nose Pain, Post Nasal Drip, Sinus Pain, Sinus Pressure, Bleeding Gums, Change in Voice, Dental Pain, Dry Mouth, Dysphagia, Halitosis, Hoarsness, Lip Swelling, Mouth Lesions, Mouth Pain, Odynophagia, Sore Throat, Throat Swelling, Tongue Swelling, Facial Pain, Neck Pain, Neck Mass, Other - Breasts Breasts: absent: As Per HPI, Change in Shape, Mass, Pain, Nipple Discharge, Nipple Inversion, Skin Changes, Swelling, Other - Cardiovascular Cardiovascular: As Per HPI - Respiratory Respiratory: As Per HPI. absent: Cough, Dyspnea, Hemoptysis, Dyspnea on Exertion, Wheezing, Snoring, Stridor, Pain on Inspiration, Chest Congestion, Ex cessive Mucous Production, Change in Mucous Color, Pain with Coughing, Other - Gastrointestinal Gastrointestinal: As Per HPI. absent: Abdominal Pain, Belching, Bloating, Change in Bowel Habits, Change in Stool Character, Coffee Ground Emesis, Constipation, Cramping, Diarrhea, Dyspepsia, Dysphagia, Early Satiety, Excessive Flatus, Fecal Incontinence, Heartburn, Hematemesis, Hematochezia, Loose Stools, Melena, Nausea, Odynophagia, Temesmus, Vomiting, Other - Genitourinary Genitourinary: absent: As Per HPI, Change in Urinary Stream, Difficulty Urinating, Dysuria, Flank Pain, Hematuria, Pyuria, Nocturia, Urinary Incon tinence, Urinary Frequency, Urinary Hesitance, Urinary Urgency, Voiding Freq/Small Amts, Freq UTI, Hx Renal/Bladder Calculi, Hx /Renal Surgery, Bladder Distension, Other - Reproductive: Female Reproductive:Female: absent: As Per HPI, Amenorrhea, Amenorrhea/ Control, Currently Menstual, Cycle <21 Days, Cycle >35 Days, Cycle Variable, Menses 1-7 Days, Menses >/= 8 Days, Menses Variable, Cycle > 4 Weeks Between, No Menses for 6 Months, Heavy Menses, Light Menses, Normal Menses, Spotting Between Cycles, S/P Hysterectomy, Menopausal, Post Menopausal, Premenarche, Abnormal Vaginal Bleeding, Dysmenorrhea, Dyspareunia, Genital Lesions, Genital Pruritis, Pelvic Pain, Prolapse Symptoms, Sexual Dysfunction, Vaginal Discharge, Vaginal Dryness, Vaginal Odor, Vaginal Pruritis, Other - Menstruation Menstruation: absent: As Per HPI, Amenorrhea, Amenorrhea/ Control, Currently Menstual, Cycle <21 Days, Cycle >35 Days, Cycle Variable, Menses 1-7 Days, Menses >/= 8 Days, Menses Variable, Cycle > 4 Weeks Between, No Menses for 6 Months, Heavy Menses, Light Menses, Normal Menses, Spotting Between Cycles, S/P Hysterectomy, Menopausal, Post Menopausal, Premenarche, Abnormal Vaginal Bleeding, Dysmenorrhea, Other - Musculoskeletal Musculoskeletal: As Per HPI - Integumentary Integumentary: As Per HPI. absent: Acne, Alopecia, Bleeding Lesions, Change in Hair, Change in Nails, Change in Pigmentation, Changing Lesions, Dry Skin, Erythema, Furuncle, Hirsutism, Lesions, New Lesions, Non-Healing Lesions, Photosensitivity, Pruritus, Rash, Skin Pain, Skin Ulcer, Sores, Striae, Swelling, Unusual Bruising, Wounds, Jaundice, Other - Neurological Neurological: absent: As Per HPI, Abnormal Gait, Abnormal Hearing, Abnormal Movements, Abnormal Speech, Behavioral Changes, Burning Sensations, Confusion, C onvulsions, Disequilibrium, Dizziness, Numbness, Focal Weakness, Frequent Falls, Headaches, Lack of Coordination, Loss of Vision, Memory Loss, Paresthesias, Radicular Pain, Restless Legs, Sensory Deficit, Syncope, Tingling, Tremor, Vertigo, Weakness, Other Visual Disturbances, Other - Psychiatric Psychiatric: absent: As Per HPI, Abnormal Sleep Pattern, Anhedonia, Anxiety, Auditory Hallucinations, Behavioral Changes, Change in Appetite, Change in Libido, Confusion, Depression, Difficulty Concentrating, Hallucinations, Homicidal Ideation, Hopelessness, Irritability, Memory Loss, Mood Swings, Panic Attacks, Paranoia, Suicidal Ideation, Visual Hallucinations, Tactile Hallucinations, Other - Endocrine Endocrine: absent: As Per HPI, Change in Body Appearance, Change in Libido, Cold Intolorance, Deepening of Voice, Excessive Sweating, Fatigue, Flushing, Heat Intolorance, Increase in Ring/Shoe/Hat Size, Palpitations, Polydipsia, Polyphagia, Polyuria, Other - Hematologic/Lymphatic Hematologic: absent: As Per HPI, Easy Bleeding, Easy Bruising, Lymphadenopathy, Other Past Patient History - Tetanus Immunizations Tetanus Immunization: Up to Date - Past Medical History & Family History Past Medical History?: Yes - Past Social History Smoking Status: Never Smoked Alcohol: None Drugs: Denies Home Situation {Lives}: Alone - CARDIAC Hx Cardiac Disorders: Yes Hx Atrial Fibrillation: Yes Hx Hypertension: Yes - PULMONARY Hx Respiratory Disorders: No - NEUROLOGICAL Hx Neurological Disorder: No - HEENT Hx HEENT Problems: No - RENAL Hx Chronic Kidney Disease: No - ENDOCRINE/METABOLIC Hx Endocrine Disorders: No - HEMATOLOGICAL/ONCOLOGICAL Hx Blood Disorders: Yes Hx Anemia: Yes - INTEGUMENTARY Hx Dermatological Problems: No - MUSCULOSKELETAL/RHEUMATOLOGICAL Hx Arthritis: Yes - GASTROINTESTINAL Hx Gastrointestinal Disorders: No - GENITOURINARY/GYNECOLOGICAL Hx Genitourinary Disorders: No Hx Hematuria: No Hx Incontinence: No Hx Ovarian Cancer: No Hx Postmenopausal Bleeding: No - PSYCHIATRIC Hx Psychophysiologic Disorder: No Hx Substance Use: No - SURGICAL HISTORY Hx Surgeries: Yes (Exploratory laparotomy on 12/18/2017 with lysis of adhesions and SB resecti) Hx Appendectomy: Yes - ANESTHESIA Hx Anesthesia: Yes Hx Anesthesia Reactions: No Hx Malignant Hyperthermia: No Has any member of the family had a problem w/ anesthesia?: No Meds Allergies/Adverse Reactions: Allergies Allergy/AdvReac Type Severity Reaction Status Date / Time No Known Allergies Allergy Unverified 12/13/17 14:49 - Medications Medications: Current Medications Acetaminophen (Tylenol 650mg/20.3ml Solution Ud) 650 mg PO Q6 PRN PRN Reason: Pain, moderate (4-7) Last Admin: 12/25/17 07:05 Dose: 650 mg Diltiazem HCl (Cardizem) 30 mg PO BID [facility] Last Admin: 12/26/17 17:59 Dose: Not Given Enalapril Maleate (Vasotec) 5 mg PO DAILY [facility] Last Admin: 12/26/17 10:22 Dose: Not Given Metronidazole (Flagyl) 500 mg in 100 mls @ 100 mls/hr IVPB Q8H [facility]; Protocol Last Admin: 12/22/17 13:31 Dose: 100 mls/hr Piperacillin Sod/Tazobactam (Sod 3.375 gm/ Sodium Chloride) 100 mls @ 200 mls/hr IVPB Q8H [facility]; Protocol Last Admin: 12/22/17 16:18 Dose: Not Given Enalaprilat 2.5 mg/ Sodium (Chloride) 52 mls @ 104 mls/hr IV Q12 [facility] Last Admin: 12/26/17 11:25 Dose: 104 mls/hr Heparin Sodium/Sodium Chloride (Heparin 62337 Units/250ml 1/2 Normal Saline) 25,000 units in 250 mls @ 7.62 mls/hr IV .Q24H PRN; Protocol PRN Reason: PROTOCOL Last Admin: 12/26/17 14:57 Dose: 12 units/kg/hr, 7.62 mls/hr Loperamide HCl (Imodium) 2 mg PO Q6H PRN PRN Reason: Diarrhea Last Admin: 12/23/17 16:16 Dose: 2 mg Nitroglycerin (Nitro-Bid 2% Oint) 1 ea TOP Q6H PRN Last Admin: 12/26/17 06:03 Dose: 1 ea Ondansetron HCl (Zofran Inj) 4 mg IVP Q4 PRN PRN Reason: Nausea/Vomiting Last Admin: 12/24/17 11:20 Dose: 4 mg Pantoprazole Sodium (Protonix Ec Tab) 40 mg PO DAILY [facility] Last Admin: 10/18/18 10:22 Dose: Not Given Phenol/Menthol (Phenaseptic 1.4% Throat [place]) 1 ml MT Q4H PRN PRN Reason: Pain, moderate (4-7) Potassium Phos/Sodium Phos (Neutra-Phos) 1 pkt PO DAILY [facility] Last Admin: 12/26/17 10:21 Dose: Not Given Vitamin A (Vitamin A & D Oint Ud Foilpak) 1 ea TOP DAILY PRN PRN Reason: Other Last Admin: 12/25/17 10:27 Dose: 1 ea Physical Exam - Constitutional Appears: Non-toxic, Cachectic, Chronically Ill - Head Exam Head Exam: ATRAUMATIC, NORMAL INSPECTION, NORMOCEPHALIC - Eye Exam Eye Exam: PERRL. absent: Scleral icterus - ENT Exam ENT Exam: Mucous Membranes Dry, Normal External Ear Exam - Neck Exam Neck exam: Negative for: Lymphadenopathy - Respiratory Exam Respiratory Exam: Decreased Breath Sounds, Prolonged Expiratory Phase, Rhonchi - Cardiovascular Exam Cardiovascular Exam: REGULAR RHYTHM, +S1, +S2 - GI/Abdominal Exam GI & Abdominal Exam: Diminished Bowel Sounds, Distended, Soft, Tenderness. absent: Organomegaly, Rebound, Rigid Additional comments: midline incucision with scant serosanguinous dranage - Rectal Exam Rectal Exam: Deferred - Exam Exam: NORMAL INSPECTION - Extremities Exam Extremities exam: Negative for: pedal edema - Back Exam Back exam: absent: CVA tenderness (L), CVA tenderness (R) - Neurological Exam Neurological exam: Alert, CN II-XII Intact, Oriented x3, Reflexes Normal - Psychiatric Exam Psychiatric exam: Normal Mood - Skin Skin Exam: Dry Results - Vital Signs Recent Vital Signs: Last Vital Signs Temp 98.0 F 12/26/17 15:22 Pulse 89 12/26/17 15:22 Resp 18 12/26/17 15:22 BP 153/68 H 12/26/17 15:22 Pulse Ox 100 12/26/17 15:22 - Labs Result Diagrams: 12/26/17 07:49 12/26/17 07:49 Labs: Laboratory Results - last 24 hr 12/26/17 12/26/17 12/26/17 07:49 07:49 07:49 WBC 6.9 RBC 2.78 L Hgb 8.6 L Hct 26.2 L MCV 94.2 MCH 30.9 MCHC 32.8 L RDW 16.2 H Plt Count 278 MPV 10.7 Neut % (Auto) 77.0 H Lymph % (Auto) 13.6 L [place] % (Auto) 7.9 Eos % (Auto) 1.3 Baso % (Auto) 0.2 Neut # (Auto) 5.3 Lymph # (Auto) 0.9 L [place] # (Auto) 0.5 Eos # (Auto) 0.1 Baso # (Auto) 0.0 APTT 70 H D Sodium 139 Potassium 3.4 L Chloride 104 Carbon Dioxide 27 Anion Gap 12 BUN 9 Creatinine 0.7 Est GFR ( Amer) > 60 Est GFR (Non-Af Amer) > 60 Random Glucose 81 Calcium 7.8 L Phosphorus 2.7 Magnesium 2.0 Urine Color Urine Clarity Urine pH Ur Specific [place] Urine Protein Urine Glucose (UA) Urine Ketones Urine Blood Urine Nitrate Urine Bilirubin Urine Urobilinogen Ur Leukocyte Esterase Urine WBC (Auto) Urine RBC (Auto) Ur Squamous Epith Cells Hyaline Casts C. difficile Ag & Toxin 12/26/17 12/26/17 08:23 16:57 WBC RBC Hgb Hct MCV MCH MCHC RDW Plt Count MPV Neut % (Auto) Lymph % (Auto) [place] % (Auto) Eos % (Auto) Baso % (Auto) Neut # (Auto) Lymph # (Auto) [place] # (Auto) Eos # (Auto) Baso # (Auto) APTT Sodium Potassium Chloride Carbon Dioxide Anion Gap BUN Creatinine Est GFR ( Amer) Est GFR (Non-Af Amer) Random Glucose Calcium Phosphorus Magnesium Urine Color Yellow Urine Clarity Clear Urine pH 5.0 Ur Specific [place] 1.017 Urine Protein 1+ H Urine Glucose (UA) Normal Urine Ketones 1+ H Urine Blood Negative Urine Nitrate Negative Urine Bilirubin Negative Urine Urobilinogen Normal Ur Leukocyte Esterase Neg Urine WBC (Auto) 4 Urine RBC (Auto) < 1 Ur Squamous Epith Cells 2 Hyaline Casts 0-2 C. difficile Ag & Toxin Negative Assessment & Plan (1) Acute non-ST elevation myocardial infarction (NSTEMI) Status: Acute (2) Bowel obstruction Status: Acute (3) Paroxysmal atrial fibrillation with rapid ventricular response Status: Acute (4) Rheumatoid arthritis Status: Acute (5) Small bowel obstruction Status: Acute - Assessment and Plan (Free Text) Assessment: cultures neg NGT in place wound clean CXR improving cont iv rx and wound care
--- NOTE | 2017-12-26 22:35 | CP.PCM.PN ---
Subjective - Date & Time of Evaluation Date of Evaluation: 12/26/17 Time of Evaluation: 19:35 - Subjective Subjective: patient is alert and responsive. She still feels very weak. Nasogastric tube in place with less abdominal distention. Patient evaluated by Dr. MANUEL. Continue present antibiotic therapy Objective - Vital Signs/Intake and Output Vital Signs (last 24 hours): Temp Pulse Resp BP Pulse Ox 98.0 F 55 L 18 135/55 L 100 12/26/17 15:22 12/26/17 21:06 12/26/17 15:22 12/26/17 21:11 12/26/17 15:22 Intake and Output: 12/26/17 12/27/17 18:59 06:59 Intake Total 225 Output Total 410 Balance -185 - Medications Medications: Current Medications Acetaminophen (Tylenol 650mg/20.3ml Solution Ud) 650 mg PO Q6 PRN PRN Reason: Pain, moderate (4-7) Last Admin: 12/25/17 07:05 Dose: 650 mg Diltiazem HCl (Cardizem) 30 mg PO BID [facility] Last Admin: 12/26/17 17:59 Dose: Not Given Enalapril Maleate (Vasotec) 5 mg PO DAILY [facility] Last Admin: 12/26/17 10:22 Dose: Not Given Metronidazole (Flagyl) 500 mg in 100 mls @ 100 mls/hr IVPB Q8H [facility]; Protocol Last Admin: 12/22/17 13:31 Dose: 100 mls/hr Piperacillin Sod/Tazobactam (Sod 3.375 gm/ Sodium Chloride) 100 mls @ 200 mls/hr IVPB Q8H [facility]; Protocol Last Admin: 12/22/17 16:18 Dose: Not Given Enalaprilat 2.5 mg/ Sodium (Chloride) 52 mls @ 104 mls/hr IV Q12 [facility] Last Admin: 12/26/17 21:11 Dose: 104 mls/hr Heparin Sodium/Sodium Chloride (Heparin 54577 Units/250ml 1/2 Normal Saline) 25,000 units in 250 mls @ 7.62 mls/hr IV .Q24H PRN; Protocol PRN Reason: PROTOCOL Last Admin: 12/26/17 14:57 Dose: 12 units/kg/hr, 7.62 mls/hr Loperamide HCl (Imodium) 2 mg PO Q6H PRN PRN Reason: Diarrhea Last Admin: 12/23/17 16:16 Dose: 2 mg Nitroglycerin (Nitro-Bid 2% Oint) 1 ea TOP Q6H PRN Last Admin: 12/26/17 06:03 Dose: 1 ea Ondansetron HCl (Zofran Inj) 4 mg IVP Q4 PRN PRN Reason: Nausea/Vomiting Last Admin: 12/24/17 11:20 Dose: 4 mg Pantoprazole Sodium (Protonix Ec Tab) 40 mg PO DAILY [facility] Last Admin: 12/26/17 10:22 Dose: Not Given Phenol/Menthol (Phenaseptic 1.4% Throat [place]) 1 ml MT Q4H PRN PRN Reason: Pain, moderate (4-7) Potassium Phos/Sodium Phos (Neutra-Phos) 1 pkt PO DAILY [facility] Last Admin: 12/26/17 10:21 Dose: Not Given Vitamin A (Vitamin A & D Oint Ud Foilpak) 1 ea TOP DAILY PRN PRN Reason: Other Last Admin: 12/25/17 10:27 Dose: 1 ea - Labs Labs: 12/26/17 07:49 12/26/17 07:49 PT 13.5 SECONDS (9.7-12.2) H 12/23/17 14:27 INR 1.2 12/23/17 14:27 APTT 70 SECONDS (21-34) H D 12/26/17 07:49 - Constitutional Appears: Chronically Ill - Head Exam Head Exam: NORMOCEPHALIC - Eye Exam Eye Exam: Normal appearance Pupil Exam: NORMAL ACCOMODATION - ENT Exam ENT Exam: Mucous Membranes Dry - Neck Exam Neck Exam: Normal Inspection - Respiratory Exam Respiratory Exam: Decreased Breath Sounds - Cardiovascular Exam Cardiovascular Exam: REGULAR RHYTHM - Rectal Exam Rectal Exam: Deferred - Exam External exam: NORMAL EXTERNAL EXAM - Extremities Exam Extremities Exam: Tenderness - Back Exam Back Exam: NORMAL INSPECTION - Neurological Exam Neurological Exam: Oriented x3 - Psychiatric Exam Psychiatric exam: Depressed - Skin Skin Exam: Dry Assessment and Plan (1) Small bowel obstruction Status: Acute (2) Rheumatoid arthritis Status: Acute (3) Vomiting Status: Acute (4) Hypokalemia Status: Acute
[2017-12-27 07:23] LABS: BASO % 0.3 % (0.0-2.0); EOS # 0.1 K/uL (0.0-0.7); EOS % 0.8 % (0.0-4.0); LYMPH # 0.8 K/uL (1.0-4.3); LYMPH % 12.3 % (20.0-40.0); MEAN CELL VOLUME 94.6 fL (81.0-99.0); MEAN CORPUSCULAR HEMOGLOBIN 31.5 pg (27.0-31.0); MEAN CORPUSCULAR HGB CONC 33.3 g/dL (33.0-37.0); MEAN PLATELET VOLUME 10.5 fL (7.2-11.7); MONO # 0.5 K/uL (0.0-0.8); NEUT # 5.5 K/uL (1.8-7.0); NEUT % 79.6 % (50.0-75.0); RBC 2.55 Mil/uL (3.80-5.20); RED CELL DISTRIBUTION WIDTH 16.7 % (11.5-14.5); WHITE BLOOD COUNT 6.9 K/uL (4.8-10.8)
[2017-12-27] MEDS ORDERED: Potassium Phosphate 30 MMOLE in Dextrose 5% In Water 250 ML IVPB ONE (07:50)
--- NOTE | 2017-12-27 07:55 | CP.PCM.PN ---
Subjective - Date & Time of Evaluation Date of Evaluation: 12/27/17 Time of Evaluation: 06:40 - Subjective Subjective: Surgery progress note for Dr. Choudhary Pt seen and examined this AM. No adverse events overnight. Patient denies any flatus or bowel movement, but denies nausea or vomiting or abdominal pain. patient complains of pain in her feet but no calf pain of SOB Objective - Vital Signs/Intake and Output Vital Signs (last 24 hours): Temp Pulse Resp BP Pulse Ox 98.0 F 71 20 154/66 H 100 12/27/17 07:00 12/27/17 07:00 12/27/17 07:00 12/27/17 07:00 12/27/17 07:00 Intake and Output: 12/27/17 12/27/17 06:59 18:59 Intake Total 500 Output Total 450 Balance 50 - Medications Medications: Current Medications Acetaminophen (Tylenol 650mg/20.3ml Solution Ud) 650 mg PO Q6 PRN PRN Reason: Pain, moderate (4-7) Last Admin: 12/25/17 07:05 Dose: 650 mg Diltiazem HCl (Cardizem) 30 mg PO BID [facility] Last Admin: 12/26/17 17:59 Dose: Not Given Enalapril Maleate (Vasotec) 5 mg PO DAILY [facility] Last Admin: 12/26/17 10:22 Dose: Not Given Metronidazole (Flagyl) 500 mg in 100 mls @ 100 mls/hr IVPB Q8H [facility]; Protocol Last Admin: 12/22/17 13:31 Dose: 100 mls/hr Piperacillin Sod/Tazobactam (Sod 3.375 gm/ Sodium Chloride) 100 mls @ 200 mls/hr IVPB Q8H [facility]; Protocol Last Admin: 12/22/17 16:18 Dose: Not Given Enalaprilat 2.5 mg/ Sodium (Chloride) 52 mls @ 104 mls/hr IV Q12 [facility] Last Admin: 12/26/17 21:11 Dose: 104 mls/hr Heparin Sodium/Sodium Chloride (Heparin 46781 Units/250ml 1/2 Normal Saline) 25,000 units in 250 mls @ 7.62 mls/hr IV .Q24H PRN; Protocol PRN Reason: PROTOCOL Last Admin: 12/26/17 14:57 Dose: 12 units/kg/hr, 7.62 mls/hr Potassium Phosphate 30 mmole/ (Dextrose) 260 mls @ 42.5 mls/hr IVPB ONCE ONE Stop: 12/27/17 13:57 Loperamide HCl (Imodium) 2 mg PO Q6H PRN PRN Reason: Diarrhea Last Admin: 12/23/17 16:16 Dose: 2 mg Nitroglycerin (Nitro-Bid 2% Oint) 1 ea TOP Q6H PRN Last Admin: 12/26/17 06:03 Dose: 1 ea Ondansetron HCl (Zofran Inj) 4 mg IVP Q4 PRN PRN Reason: Nausea/Vomiting Last Admin: 12/24/17 11:20 Dose: 4 mg Pantoprazole Sodium (Protonix Ec Tab) 40 mg PO DAILY [facility] Last Admin: 12/26/17 10:22 Dose: Not Given Phenol/Menthol (Phenaseptic 1.4% Throat [place]) 1 ml MT Q4H PRN PRN Reason: Pain, moderate (4-7) Potassium Phos/Sodium Phos (Neutra-Phos) 1 pkt PO DAILY [facility] Last Admin: 12/26/17 10:21 Dose: Not Given Vitamin A (Vitamin A & D Oint Ud Foilpak) 1 ea TOP DAILY PRN PRN Reason: Other Last Admin: 12/25/17 10:27 Dose: 1 ea - Labs Labs: 12/27/17 07:12 12/26/17 07:49 PT 13.5 SECONDS (9.7-12.2) H 12/23/17 14:27 INR 1.2 12/23/17 14:27 APTT 75 SECONDS (21-34) H D 12/27/17 07:12 - Constitutional Appears: Well, Non-toxic, No Acute Distress - Head Exam Head Exam: ATRAUMATIC, NORMOCEPHALIC - Eye Exam Eye Exam: Normal appearance. absent: Conjunctival injection, Scleral icterus - ENT Exam ENT Exam: Mucous Membranes Moist, Normal Oropharynx Additional comments: NGT in the nares with dark brown/red output - Respiratory Exam Respiratory Exam: NORMAL BREATHING PATTERN. absent: Accessory Muscle Use, Respiratory Distress - GI/Abdominal Exam GI & Abdominal Exam: Soft. absent: Distended, Tenderness Additional comments: midline incision well approximated with miguel angel, no erythema, dressing C/D/I - Extremities Exam Extremities Exam: Normal Capillary Refill. absent: Calf Tenderness, Pedal Edema, Tenderness Additional comments: normal pedal pulses BL, gross motor function intact - Neurological Exam Neurological Exam: Alert, Awake, Oriented x3 - Psychiatric Exam Psychiatric exam: Normal Affect, Normal Mood - Skin Skin Exam: Dry, Normal Color, Warm Assessment and Plan - Assessment and Plan (Free Text) Assessment: 87F with SOB POD# 11 s/p exploratory laparotomy with lysis of adhesions and small bowel resection Plan: Continue NGT to wall suction, monitoring output Continue trending CBC, CMP, MAG, PHOS May consider starting TPN/PPN Continue dulcolax suppository Encourage ambulation Discussed with Dr. Funmi Jimenez, PGY2
[2017-12-27 10:59] LABS: ALB/GLOB RATIO 0.9 (1.0-2.1); ALBUMIN 2.6 g/dL (3.5-5.0); ALT/SGPT 42 U/L (9-52); AST/SGOT 32 U/L (14-36); BLOOD UREA NITROGEN 11 mg/dL (7-17); CALCIUM 7.8 mg/dl (8.6-10.4); GFR NON-AFRICAN AMERICAN > 60; HDL CHOLESTEROL 33 mg/dL (30-70)
[2017-12-27 11:01] LABS: LDL CHOLESTEROL 59 mg/dL (0-129)
[2017-12-27] MEDS: Pantoprazole 40 mg EC Tab PO SCH (12:11)
[2017-12-27] MEDS: Potassium & Sodium Phosphate PO SCH (12:11)
--- NOTE | 2017-12-27 12:53 | RAD ---
Date of service: 12/27/2017 HISTORY: verify left PICC COMPARISON: 12/24/2017 FINDINGS: LUNGS: No active pulmonary disease. PLEURA: Focal pleural thickening upper left lateral chest wall, unchanged. No pleural effusion or pneumothorax appreciated. CARDIOVASCULAR: Normal heart size. New left PICC catheter terminating in the region of the brachiocephalic vein/SVC junction. Nasogastric tube grossly unchanged. Atherosclerotic calcification of the aortic arch is noted. OSSEOUS STRUCTURES: No significant abnormalities. VISUALIZED UPPER ABDOMEN: Normal. OTHER FINDINGS: None. IMPRESSION: New left PICC catheter terminating in the region of the junction of the brachiocephalic vein and superior vena cava.
--- NOTE | 2017-12-27 17:13 | CP.PCM.PN ---
Subjective - Date & Time of Evaluation Date of Evaluation: 12/27/17 Time of Evaluation: 09:00 - Subjective Subjective: awake arousable in NAD NGT in place denies fever Objective - Vital Signs/Intake and Output Vital Signs (last 24 hours): Temp Pulse Resp BP Pulse Ox 97.8 F 70 20 138/70 96 12/27/17 15:00 12/27/17 16:00 12/27/17 15:00 12/27/17 15:00 12/27/17 15:00 Intake and Output: 12/27/17 12/27/17 06:59 18:59 Intake Total 500 Output Total 450 Balance 50 - Medications Medications: Current Medications Acetaminophen (Tylenol 650mg/20.3ml Solution Ud) 650 mg PO Q6 PRN PRN Reason: Pain, moderate (4-7) Last Admin: 12/25/17 07:05 Dose: 650 mg Diltiazem HCl (Cardizem) 30 mg PO BID [facility] Last Admin: 12/27/17 12:11 Dose: Not Given Enalapril Maleate (Vasotec) 5 mg PO DAILY [facility] Last Admin: 12/27/17 12:12 Dose: Not Given Metronidazole (Flagyl) 500 mg in 100 mls @ 100 mls/hr IVPB Q8H [facility]; Protocol Last Admin: 12/22/17 13:31 Dose: 100 mls/hr Piperacillin Sod/Tazobactam (Sod 3.375 gm/ Sodium Chloride) 100 mls @ 200 mls/hr IVPB Q8H [facility]; Protocol Last Admin: 12/22/17 16:18 Dose: Not Given Enalaprilat 2.5 mg/ Sodium (Chloride) 52 mls @ 104 mls/hr IV Q12 [facility] Last Admin: 12/27/17 14:34 Dose: Not Given Heparin Sodium/Sodium Chloride (Heparin 46550 Units/250ml 1/2 Normal Saline) 25,000 units in 250 mls @ 7.62 mls/hr IV .Q24H PRN; Protocol PRN Reason: PROTOCOL Last Admin: 12/26/17 14:57 Dose: 12 units/kg/hr, 7.62 mls/hr Multivitamins/Vitamin C 10 ml/Chromium/Copper/Manganese/Zinc 1 ml/ Amino Acids/Electrolytes/Dextrose 1,011 mls @ 83 mls/hr IV .[id number] ONE Stop: 12/28/17 06:10 Amino Acids/Electrolytes/Dextrose (Clinimix 5/20 % "E" (1000 Ml)) 1,000 mls @ 83 mls/hr IV .Q12H3M [facility] Stop: 12/28/17 17:59 Fat Emulsion Intravenous (Intralipid 20%) 500 mls @ 42 mls/hr IV ONCE ONE Stop: 12/28/17 05:54 Loperamide HCl (Imodium) 2 mg PO Q6H PRN PRN Reason: Diarrhea Last Admin: 12/23/17 16:16 Dose: 2 mg Nitroglycerin (Nitro-Bid 2% Oint) 1 ea TOP Q6H PRN Last Admin: 12/26/17 06:03 Dose: 1 ea Ondansetron HCl (Zofran Inj) 4 mg IVP Q4 PRN PRN Reason: Nausea/Vomiting Last Admin: 12/24/17 11:20 Dose: 4 mg Pantoprazole Sodium (Protonix Ec Tab) 40 mg PO DAILY [facility] Last Admin: 12/27/17 12:11 Dose: Not Given Phenol/Menthol (Phenaseptic 1.4% Throat [place]) 1 ml MT Q4H PRN PRN Reason: Pain, moderate (4-7) Potassium Phos/Sodium Phos (Neutra-Phos) 1 pkt PO DAILY [facility] Last Admin: 12/27/17 12:11 Dose: Not Given Vitamin A (Vitamin A & D Oint Ud Foilpak) 1 ea TOP DAILY PRN PRN Reason: Other Last Admin: 12/25/17 10:27 Dose: 1 ea - Labs Labs: 12/27/17 07:12 12/27/17 07:12 PT 13.5 SECONDS (9.7-12.2) H 12/23/17 14:27 INR 1.2 12/23/17 14:27 APTT 75 SECONDS (21-34) H D 12/27/17 07:12 - Constitutional Appears: Non-toxic, Chronically Ill - Head Exam Head Exam: NORMOCEPHALIC - Eye Exam Eye Exam: PERRL - ENT Exam ENT Exam: Mucous Membranes Dry - Neck Exam Neck Exam: absent: Lymphadenopathy - Respiratory Exam Respiratory Exam: Decreased Breath Sounds, Clear to Ausculation Bilateral - Cardiovascular Exam Cardiovascular Exam: REGULAR RHYTHM, +S1, +S2 - GI/Abdominal Exam GI & Abdominal Exam: Distended, Soft Additional comments: wound healing - Rectal Exam Rectal Exam: Deferred - Exam Exam: NORMAL INSPECTION - Extremities Exam Extremities Exam: absent: Pedal Edema - Back Exam Back Exam: absent: CVA tenderness (L), CVA tenderness (R) - Neurological Exam Neurological Exam: Alert, Awake, Oriented x3 Assessment and Plan (1) Acute non-ST elevation myocardial infarction (NSTEMI) Status: Acute (2) Bowel obstruction Status: Acute (3) Paroxysmal atrial fibrillation with rapid ventricular response Status: Acute (4) Rheumatoid arthritis Status: Acute (5) Small bowel obstruction Status: Acute - Assessment and Plan (Free Text) Assessment: cont iv rx Dr Fields for follow up
[2017-12-27] MEDS ORDERED: Fat Emulsion 20% IV 500 ML IV ONE (18:00)
[2017-12-27] MEDS ORDERED: TPN CENTRAL LINE ONLY IV ONE (18:00)
--- NOTE | 2017-12-27 22:27 | CP.PCM.PN ---
Subjective - Date & Time of Evaluation Date of Evaluation: 12/27/17 Time of Evaluation: 19:20 - Subjective Subjective: patient is alert and responsive. She complains of weakness. Face hemoglobin was 8. Patient may need transfusion. Will monitor tomorrow's labs. Continue antibiot therapy. Objective - Vital Signs/Intake and Output Vital Signs (last 24 hours): Temp Pulse Resp BP Pulse Ox 97.8 F 70 20 170/74 H 96 12/27/17 15:00 12/27/17 16:00 12/27/17 15:00 12/27/17 21:42 12/27/17 15:00 - Medications Medications: Current Medications Acetaminophen (Tylenol 650mg/20.3ml Solution Ud) 650 mg PO Q6 PRN PRN Reason: Pain, moderate (4-7) Last Admin: 12/25/17 07:05 Dose: 650 mg Diltiazem HCl (Cardizem) 30 mg PO BID [facility] Last Admin: 12/27/17 12:11 Dose: Not Given Enalapril Maleate (Vasotec) 5 mg PO DAILY [facility] Last Admin: 12/27/17 12:12 Dose: Not Given Metronidazole (Flagyl) 500 mg in 100 mls @ 100 mls/hr IVPB Q8H [facility]; Protocol Last Admin: 12/22/17 13:31 Dose: 100 mls/hr Piperacillin Sod/Tazobactam (Sod 3.375 gm/ Sodium Chloride) 100 mls @ 200 mls/hr IVPB Q8H [facility]; Protocol Last Admin: 12/22/17 16:18 Dose: Not Given Enalaprilat 2.5 mg/ Sodium (Chloride) 52 mls @ 104 mls/hr IV Q12 [facility] Last Admin: 12/27/17 21:42 Dose: 104 mls/hr Heparin Sodium/Sodium Chloride (Heparin 92773 Units/250ml 1/2 Normal Saline) 25,000 units in 250 mls @ 7.62 mls/hr IV .Q24H PRN; Protocol PRN Reason: PROTOCOL Last Admin: 12/26/17 14:57 Dose: 12 units/kg/hr, 7.62 mls/hr Multivitamins/Vitamin C 10 ml/Chromium/Copper/Manganese/Zinc 1 ml/ Amino Acids/Electrolytes/Dextrose 1,011 mls @ 83 mls/hr IV .[id number] ONE Stop: 12/28/17 06:10 Last Admin: 12/27/17 17:57 Dose: 83 mls/hr Amino Acids/Electrolytes/Dextrose (Clinimix 5/20 % "E" (1000 Ml)) 1,000 mls @ 83 mls/hr IV .Q12H3M [facility] Stop: 12/28/17 17:59 Fat Emulsion Intravenous (Intralipid 20%) 500 mls @ 42 mls/hr IV ONCE ONE Stop: 12/28/17 05:54 Last Admin: 12/27/17 17:56 Dose: 42 mls/hr Loperamide HCl (Imodium) 2 mg PO Q6H PRN PRN Reason: Diarrhea Last Admin: 12/23/17 16:16 Dose: 2 mg Nitroglycerin (Nitro-Bid 2% Oint) 1 ea TOP Q6H PRN Last Admin: 12/26/17 06:03 Dose: 1 ea Ondansetron HCl (Zofran Inj) 4 mg IVP Q4 PRN PRN Reason: Nausea/Vomiting Last Admin: 12/24/17 11:20 Dose: 4 mg Pantoprazole Sodium (Protonix Ec Tab) 40 mg PO DAILY [facility] Last Admin: 12/27/17 12:11 Dose: Not Given Phenol/Menthol (Phenaseptic 1.4% Throat [place]) 1 ml MT Q4H PRN PRN Reason: Pain, moderate (4-7) Potassium Phos/Sodium Phos (Neutra-Phos) 1 pkt PO DAILY [facility] Last Admin: 12/27/17 12:11 Dose: Not Given Vitamin A (Vitamin A & D Oint Ud Foilpak) 1 ea TOP DAILY PRN PRN Reason: Other Last Admin: 12/25/17 10:27 Dose: 1 ea - Labs Labs: 12/27/17 07:12 12/27/17 07:12 PT 13.5 SECONDS (9.7-12.2) H 12/23/17 14:27 INR 1.2 12/23/17 14:27 APTT 75 SECONDS (21-34) H D 12/27/17 07:12 - Constitutional Appears: Chronically Ill - Head Exam Head Exam: NORMOCEPHALIC - Eye Exam Eye Exam: Normal appearance Pupil Exam: NORMAL ACCOMODATION - ENT Exam ENT Exam: Normal Exam - Neck Exam Neck Exam: Normal Inspection - Respiratory Exam Respiratory Exam: Decreased Breath Sounds - Cardiovascular Exam Cardiovascular Exam: REGULAR RHYTHM - GI/Abdominal Exam GI & Abdominal Exam: Soft - Rectal Exam Rectal Exam: Deferred - Exam Exam: NORMAL INSPECTION - Extremities Exam Extremities Exam: Normal Inspection - Back Exam Back Exam: NORMAL INSPECTION - Neurological Exam Neurological Exam: Oriented x3 - Psychiatric Exam Psychiatric exam: Depressed - Skin Skin Exam: Dry Assessment and Plan (1) Small bowel obstruction Status: Acute (2) Rheumatoid arthritis Status: Acute (3) Vomiting Status: Acute (4) Hypokalemia Status: Acute
--- NOTE | 2017-12-27 23:52 | CP.PCM.PN ---
Subjective - Date & Time of Evaluation Date of Evaluation: 12/27/17 Time of Evaluation: 13:30 - Subjective Subjective: Patient has an NGT with low intermittent suction. Has no chest pain, palpitation. Telemetry reveals RSR. ECG reveals an RSR, WNL. Objective - Vital Signs/Intake and Output Vital Signs (last 24 hours): Temp Pulse Resp BP Pulse Ox 97.8 F 70 20 170/74 H 96 12/27/17 15:00 12/27/17 16:00 12/27/17 15:00 12/27/17 21:42 12/27/17 15:00 - Medications Medications: Current Medications Acetaminophen (Tylenol 650mg/20.3ml Solution Ud) 650 mg PO Q6 PRN PRN Reason: Pain, moderate (4-7) Last Admin: 12/25/17 07:05 Dose: 650 mg Diltiazem HCl (Cardizem) 30 mg PO BID [facility] Last Admin: 12/27/17 17:50 Dose: Not Given Enalapril Maleate (Vasotec) 5 mg PO DAILY [facility] Last Admin: 12/27/17 12:12 Dose: Not Given Metronidazole (Flagyl) 500 mg in 100 mls @ 100 mls/hr IVPB Q8H [facility]; Protocol Last Admin: 12/22/17 13:31 Dose: 100 mls/hr Piperacillin Sod/Tazobactam (Sod 3.375 gm/ Sodium Chloride) 100 mls @ 200 mls/ hr IVPB Q8H [facility]; Protocol Last Admin: 12/22/17 16:18 Dose: Not Given Enalaprilat 2.5 mg/ Sodium (Chloride) 52 mls @ 104 mls/hr IV Q12 [facility] Last Admin: 12/27/17 21:42 Dose: 104 mls/hr Heparin Sodium/Sodium Chloride (Heparin 58553 Units/250ml 1/2 Normal Saline) 25,000 units in 250 mls @ 7.62 mls/hr IV .Q24H PRN; Protocol PRN Reason: PROTOCOL Last Admin: 12/26/17 14:57 Dose: 12 units/kg/hr, 7.62 mls/hr Multivitamins/Vitamin C 10 ml/Chromium/Copper/Manganese/Zinc 1 ml/ Amino Acids/Electrolytes/Dextrose 1,011 mls @ 83 mls/hr IV .[id number] ONE Stop: 10/20/18 06:10 Last Admin: 12/27/17 17:57 Dose: 83 mls/hr Amino Acids/Electrolytes/Dextrose (Clinimix 5/20 % "E" (1000 Ml)) 1,000 mls @ 83 mls/hr IV .Q12H3M [facility] Stop: 12/28/17 17:59 Fat Emulsion Intravenous (Intralipid 20%) 500 mls @ 42 mls/hr IV ONCE ONE Stop: 12/28/17 05:54 Last Admin: 12/27/17 17:56 Dose: 42 mls/hr Loperamide HCl (Imodium) 2 mg PO Q6H PRN PRN Reason: Diarrhea Last Admin: 12/23/17 16:16 Dose: 2 mg Nitroglycerin (Nitro-Bid 2% Oint) 1 ea TOP Q6H PRN Last Admin: 12/26/17 06:03 Dose: 1 ea Ondansetron HCl (Zofran Inj) 4 mg IVP Q4 PRN PRN Reason: Nausea/Vomiting Last Admin: 12/24/17 11:20 Dose: 4 mg Pantoprazole Sodium (Protonix Ec Tab) 40 mg PO DAILY [facility] Last Admin: 12/27/17 12:11 Dose: Not Given Phenol/Menthol (Phenaseptic 1.4% Throat [place]) 1 ml MT Q4H PRN PRN Reason: Pain, moderate (4-7) Potassium Phos/Sodium Phos (Neutra-Phos) 1 pkt PO DAILY [facility] Last Admin: 12/27/17 12:11 Dose: Not Given Vitamin A (Vitamin A & D Oint Ud Foilpak) 1 ea TOP DAILY PRN PRN Reason: Other Last Admin: 12/25/17 10:27 Dose: 1 ea - Labs Labs: 12/27/17 07:12 12/27/17 07:12 PT 13.5 SECONDS (9.7-12.2) H 12/23/17 14:27 INR 1.2 12/23/17 14:27 APTT 75 SECONDS (21-34) H D 12/27/17 07:12 - Constitutional Appears: Well, No Acute Distress - Head Exam Head Exam: NORMAL INSPECTION - Eye Exam Eye Exam: Normal appearance - ENT Exam ENT Exam: Normal Exam - Neck Exam Neck Exam: Normal Inspection - Respiratory Exam Respiratory Exam: Clear to Ausculation Bilateral, NORMAL BREATHING PATTERN - Cardiovascular Exam Cardiovascular Exam: REGULAR RHYTHM - GI/Abdominal Exam GI & Abdominal Exam: Soft, Diminished Bowel Sounds, Hypoactive Bowel Sounds - Rectal Exam Rectal Exam: Deferred - Extremities Exam Extremities Exam: Normal Inspection - Back Exam Back Exam: NORMAL INSPECTION - Neurological Exam Neurological Exam: Alert, Awake, Oriented x3 - Psychiatric Exam Psychiatric exam: Anxious - Skin Skin Exam: Dry, Intact, Warm Assessment and Plan (1) Paroxysmal atrial fibrillation with rapid ventricular response Assessment & Plan: To continue IV Heparin. Status: Resolved (2) Acute non-ST elevation myocardial infarction (NSTEMI) Status: Acute (3) Small bowel obstruction Status: Acute
[2017-12-28] MEDS: Heparin25000 units/250ml 1/2NS 25,000 UNITS/250 ML BAG IV PRN (04:31)
[2017-12-28] MEDS ORDERED: TPN CENTRAL LINE ONLY IV SCH ×2 (06:10→18:00)
--- NOTE | 2017-12-28 06:41 | CARD ---
APPROVED REPORT Date of service: 12/24/2017 EKG Measurement Heart [id number] <Conclusion> Normal sinus rhythm Normal ECG
--- NOTE | 2017-12-28 06:41 | CARD ---
APPROVED REPORT Date of service: 12/23/2017 EKG Measurement Heart [id number] <Conclusion> Atrial fibrillation with rapid ventricular response Posterior infarct, age undetermined Marked ST abnormality, possible lateral subendocardial injury Abnormal ECG
[2017-12-28 07:53] LABS: BASO % 0.3 % (0.0-2.0); EOS # 0.1 K/uL (0.0-0.7); EOS % 1.5 % (0.0-4.0); HEMOGLOBIN 7.7 g/dL (11.0-16.0); LYMPH # 1.2 K/uL (1.0-4.3); LYMPH % 16.5 % (20.0-40.0); MEAN CELL VOLUME 94.7 fL (81.0-99.0); MEAN CORPUSCULAR HEMOGLOBIN 30.8 pg (27.0-31.0); MEAN CORPUSCULAR HGB CONC 32.6 g/dL (33.0-37.0); MEAN PLATELET VOLUME 10.4 fL (7.2-11.7); MONO # 0.4 K/uL (0.0-0.8); NEUT # 5.4 K/uL (1.8-7.0); NEUT % 75.7 % (50.0-75.0); NRBC % 0.1 % (0.0-2.0); RBC 2.5 Mil/uL (3.80-5.20); RED CELL DISTRIBUTION WIDTH 16.8 % (11.5-14.5); WHITE BLOOD COUNT 7.1 K/uL (4.8-10.8)
--- NOTE | 2017-12-28 08:08 | CP.PCM.PN ---
Addendum entered and electronically signed by Moisés Hollingsworth DO 12/29/17 08:20: - Constitutional Appears: No Acute Distress - Head Exam Head Exam: ATRAUMATIC, NORMOCEPHALIC - Eye Exam Eye Exam: EOMI, Normal appearance Pupil Exam: PERRL - ENT Exam ENT Exam: Mucous Membranes Moist Additional comments: NGT in place - Respiratory Exam Respiratory Exam: NORMAL BREATHING PATTERN - Cardiovascular Exam Cardiovascular Exam: REGULAR RHYTHM - GI/Abdominal Exam GI & Abdominal Exam: Soft, Normal Bowel Sounds. absent: Distended, Guarding, Rigid, Tenderness, Rebound - Neurological Exam Neurological Exam: Alert, Awake - Psychiatric Exam Psychiatric exam: Normal Affect, Normal Mood - Skin Skin Exam: Dry, Intact, Warm Original Note: Subjective - Date & Time of Evaluation Date of Evaluation: 12/28/17 Time of Evaluation: 14:05 - Subjective Subjective: General Surgery Note for Dr. Choudhary Patient seen and examined at bedside. No acute events overnight. She denies nausea/vomiting or abdominal pain. Patient also denies any flatus or bowel movement. She continues to be NPO. NGT with 600cc of output. Patient's family reports BM today with blood but did not show nurse. No other complaints at this time. Objective - Vital Signs/Intake and Output Vital Signs (last 24 hours): Temp Pulse Resp BP Pulse Ox 98.2 F 74 18 152/66 H 99 12/28/17 07:00 12/28/17 07:40 12/28/17 07:00 12/28/17 07:00 12/28/17 07:00 Intake and Output: 12/28/17 12/28/17 06:59 18:59 Intake Total 1400 Output Total 1000 Balance 400 - Medications Medications: Current Medications Acetaminophen (Tylenol 650mg/20.3ml Solution Ud) 650 mg PO Q6 PRN PRN Reason: Pain, moderate (4-7) Last Admin: 12/25/17 07:05 Dose: 650 mg Diltiazem HCl (Cardizem) 30 mg PO BID [facility] Last Admin: 12/27/17 17:50 Dose: Not Given Enalapril Maleate (Vasotec) 5 mg PO DAILY [facility] Last Admin: 12/27/17 12:12 Dose: Not Given Metronidazole (Flagyl) 500 mg in 100 mls @ 100 mls/hr IVPB Q8H [facility]; Protocol Last Admin: 12/22/17 13:31 Dose: 100 mls/hr Piperacillin Sod/Tazobactam (Sod 3.375 gm/ Sodium Chloride) 100 mls @ 200 mls/hr IVPB Q8H [facility]; Protocol Last Admin: 12/22/17 16:18 Dose: Not Given Enalaprilat 2.5 mg/ Sodium (Chloride) 52 mls @ 104 mls/hr IV Q12 [facility] Last Admin: 12/27/17 21:42 Dose: 104 mls/hr Heparin Sodium/Sodium Chloride (Heparin 43316 Units/250ml 1/2 Normal Saline) 25,000 units in 250 mls @ 7.62 mls/hr IV .Q24H [facility]; Protocol PRN Reason: PROTOCOL Last Admin: 12/28/17 04:31 Dose: 12 units/kg/hr, 7.62 mls/hr Amino Acids/Electrolytes/Dextrose (Clinimix 5/20 % "E" (1000 Ml)) 1,000 mls @ 83 mls/hr IV .Q12H3M [facility] Stop: 12/28/17 17:59 Loperamide HCl (Imodium) 2 mg PO Q6H PRN PRN Reason: Diarrhea Last Admin: 12/23/17 16:16 Dose: 2 mg Nitroglycerin (Nitro-Bid 2% Oint) 1 ea TOP Q6H PRN Last Admin: 12/26/17 06:03 Dose: 1 ea Ondansetron HCl (Zofran Inj) 4 mg IVP Q4 PRN PRN Reason: Nausea/Vomiting Last Admin: 12/24/17 11:20 Dose: 4 mg Pantoprazole Sodium (Protonix Ec Tab) 40 mg PO DAILY [facility] Last Admin: 12/27/17 12:11 Dose: Not Given Phenol/Menthol (Phenaseptic 1.4% Throat [place]) 1 ml MT Q4H PRN PRN Reason: Pain, moderate (4-7) Potassium Phos/Sodium Phos (Neutra-Phos) 1 pkt PO DAILY [facility] Last Admin: 12/27/17 12:11 Dose: Not Given Vitamin A (Vitamin A & D Oint Ud Foilpak) 1 ea TOP DAILY PRN PRN Reason: Other Last Admin: 12/25/17 10:27 Dose: 1 ea - Labs Labs: 12/27/17 07:12 12/27/17 07:12 PT 13.5 SECONDS (9.7-12.2) H 12/23/17 14:27 INR 1.2 12/23/17 14:27 APTT 75 SECONDS (21-34) H D 12/27/17 07:12 Assessment and Plan - Assessment and Plan (Free Text) Assessment: 87F with SBO, s/p exploratory laparotomy with lysis of adhesions and small bowel resection POD# 12 Plan: NPO Continue NGT to wall suction, monitoring output Strict I's & O's TPN Encourage ambulation Monitor for bowel function Serial abd exams Discussed with Dr. Funmi Hollingsworth PGY2
[2017-12-28 08:41] LABS: ALB/GLOB RATIO 0.9 (1.0-2.1); ALBUMIN 2.6 g/dL (3.5-5.0); ALT/SGPT 28 U/L (9-52); AST/SGOT 25 U/L (14-36); BLOOD UREA NITROGEN 12 mg/dL (7-17); CALCIUM 7.7 mg/dl (8.6-10.4); GFR NON-AFRICAN AMERICAN > 60
[2017-12-28 09:11] LABS: SQUAMOUS EPITHIAL 1 /hpf (0-5); URINE BACTERIA RARE (<OCC); URINE BILIRUBIN NEGATIVE (NEGATIVE); URINE BLOOD NEGATIVE (NEGATIVE); URINE CLARITY Clear (Clear); URINE COLOR Yellow (YELLOW); URINE GLUCOSE (UA) 2+ mg/dL (Normal); URINE LEUKOCYTE ESTERASE NEG Leu/uL (Negative); URINE PROTEIN NEGATIVE (NEGATIVE); URINE UROBILINOGEN NORMAL mg/dL (0.2-1.0)
[2017-12-28] MEDS: Pantoprazole 40 mg EC Tab PO SCH (09:30)
[2017-12-28] MEDS: Potassium & Sodium Phosphate PO SCH (09:30)
--- NOTE | 2017-12-28 23:32 | CP.PCM.PN ---
Subjective - Date & Time of Evaluation Date of Evaluation: 12/28/17 Time of Evaluation: 16:30 - Subjective Subjective: Patient has no complaint of SOB, chest pain, abdominal pain. NGT still draining a fair amount of coffee ground materials. Telemetry: RSR. Hgb: 7.7 Will discontinue IV Heparin, Objective - Vital Signs/Intake and Output Vital Signs (last 24 hours): Temp Pulse Resp BP Pulse Ox 98 F 71 20 136/64 100 12/28/17 23:12 12/28/17 23:12 12/28/17 23:12 12/28/17 23:12 12/28/17 15:00 Intake and Output: 12/28/17 12/29/17 18:59 06:59 Intake Total 664 325 Output Total 900 Balance -236 325 - Medications Medications: Current Medications Acetaminophen (Tylenol 650mg/20.3ml Solution Ud) 650 mg PO Q6 PRN PRN Reason: Pain, moderate (4-7) Last Admin: 12/25/17 07:05 Dose: 650 mg Diltiazem HCl (Cardizem) 30 mg PO BID [facility] Last Admin: 12/28/17 17:39 Dose: Not Given Enalapril Maleate (Vasotec) 5 mg PO DAILY [facility] Last Admin: 12/28/17 09:31 Dose: Not Given Piperacillin Sod/Tazobactam (Sod 3.375 gm/ Sodium Chloride) 100 mls @ 200 mls/hr IVPB Q8H [facility]; Protocol Last Admin: 12/22/17 16:18 Dose: Not Given Enalaprilat 2.5 mg/ Sodium (Chloride) 52 mls @ 104 mls/hr IV Q12 [facility] Last Admin: 12/28/17 23:02 Dose: 104 mls/hr Multivitamins/Vitamin C 10 ml/Chromium/Copper/Manganese/Zinc 1 ml/ Amino Acids/Electrolytes/Dextrose 1,011 mls @ 83 mls/hr IV .[id number] [facility] Stop: 12/29/17 06:10 Last Admin: 12/28/17 18:44 Dose: 83 mls/hr Amino Acids/Electrolytes/Dextrose (Clinimix 5/20 % "E" (1000 Ml)) 1,000 mls @ 83 mls/hr IV .Q12H3M [facility] Stop: 12/29/17 17:59 Loperamide HCl (Imodium) 2 mg PO Q6H PRN PRN Reason: Diarrhea Last Admin: 12/23/17 16:16 Dose: 2 mg Nitroglycerin (Nitro-Bid 2% Oint) 1 ea TOP Q6H PRN Last Admin: 12/26/17 06:03 Dose: 1 ea Pantoprazole Sodium (Protonix Ec Tab) 40 mg PO DAILY [facility] Last Admin: 12/28/17 09:30 Dose: Not Given Phenol/Menthol (Phenaseptic 1.4% Throat [place]) 1 ml MT Q4H PRN PRN Reason: Pain, moderate (4-7) Potassium Phos/Sodium Phos (Neutra-Phos) 1 pkt PO DAILY [facility] Last Admin: 12/28/17 09:30 Dose: Not Given Vitamin A (Vitamin A & D Oint Ud Foilpak) 1 ea TOP DAILY PRN PRN Reason: Other Last Admin: 12/25/17 10:27 Dose: 1 ea - Labs Labs: 12/28/17 07:42 12/28/17 07:42 PT 13.5 SECONDS (9.7-12.2) H 12/23/17 14:27 INR 1.2 12/23/17 14:27 APTT 59 SECONDS (21-34) H D 12/28/17 07:42 - Constitutional Appears: Well, No Acute Distress - Head Exam Head Exam: NORMAL INSPECTION - Eye Exam Eye Exam: Normal appearance - ENT Exam ENT Exam: Normal Exam - Neck Exam Neck Exam: Normal Inspection - Respiratory Exam Respiratory Exam: Clear to Ausculation Bilateral - Cardiovascular Exam Cardiovascular Exam: REGULAR RHYTHM, Murmur - GI/Abdominal Exam GI & Abdominal Exam: Soft, Hypoactive Bowel Sounds - Rectal Exam Rectal Exam: Deferred - Extremities Exam Extremities Exam: Normal Inspection - Back Exam Back Exam: NORMAL INSPECTION - Neurological Exam Neurological Exam: Alert, Awake, Oriented x3 - Psychiatric Exam Psychiatric exam: Anxious - Skin Skin Exam: Dry, Normal Color, Warm Assessment and Plan (1) Paroxysmal atrial fibrillation with rapid ventricular response Assessment & Plan: Will discontinue IV Heparin because of dropping Hgb and because the patient remains in RSR. Status: Resolved (2) Acute non-ST elevation myocardial infarction (NSTEMI) Assessment & Plan: Stable. Status: Acute (3) Small bowel obstruction Assessment & Plan: S/p small bowel resection and lysis of adhesions. Still with severe ileus paralysis. Status: Acute
[2017-12-29] MEDS ORDERED: TPN CENTRAL LINE ONLY IV SCH ×2 (06:11→18:00)
[2017-12-29 07:23] LABS: MEAN CORPUSCULAR HEMOGLOBIN 31.2 pg (27.0-31.0); MEAN CORPUSCULAR HGB CONC 33.8 g/dL (33.0-37.0); MEAN PLATELET VOLUME 10.4 fL (7.2-11.7); RBC 3.48 Mil/uL (3.80-5.20); RED CELL DISTRIBUTION WIDTH 16.7 % (11.5-14.5); WHITE BLOOD COUNT 6.6 K/uL (4.8-10.8)
[2017-12-29 07:37] LABS: HEMOGLOBIN 10.8 g/dL (11.0-16.0); MEAN CELL VOLUME 92.2 fL (81.0-99.0)
--- NOTE | 2017-12-29 08:10 | CP.PCM.PN ---
Subjective - Date & Time of Evaluation Date of Evaluation: 12/29/17 Time of Evaluation: 08:16 - Subjective Subjective: General Surgery Note for Dr. Choudhary Patient seen and examined at bedside. No acute events overnight. She denies nausea/vomiting or abdominal pain. She continues to be NPO. NGT with 2100cc of output. Patient's had 2 bloody BM yesterday. She received 2 units PRBC. Heparin drip was stopped. No other complaints at this time. Objective - Vital Signs/Intake and Output Vital Signs (last 24 hours): Temp Pulse Resp BP Pulse Ox 97.8 F 82 20 133/71 100 12/29/17 03:53 12/29/17 07:59 12/29/17 03:53 12/29/17 03:53 12/28/17 15:00 Intake and Output: 12/29/17 12/29/17 06:59 18:59 Intake Total 2280 Output Total 1600 Balance 680 - Medications Medications: Current Medications Acetaminophen (Tylenol 650mg/20.3ml Solution Ud) 650 mg PO Q6 PRN PRN Reason: Pain, moderate (4-7) Last Admin: 12/25/17 07:05 Dose: 650 mg Diltiazem HCl (Cardizem) 30 mg PO BID [facility] Last Admin: 12/28/17 17:39 Dose: Not Given Enalapril Maleate (Vasotec) 5 mg PO DAILY [facility] Last Admin: 12/28/17 09:31 Dose: Not Given Piperacillin Sod/Tazobactam (Sod 3.375 gm/ Sodium Chloride) 100 mls @ 200 mls/hr IVPB Q8H [facility]; Protocol Last Admin: 12/22/17 16:18 Dose: Not Given Enalaprilat 2.5 mg/ Sodium (Chloride) 52 mls @ 104 mls/hr IV Q12 [facility] Last Admin: 12/28/17 23:02 Dose: 104 mls/hr Amino Acids/Electrolytes/Dextrose (Clinimix 5/20 % "E" (1000 Ml)) 1,000 mls @ 83 mls/hr IV .Q12H3M [facility] Stop: 12/29/17 17:59 Loperamide HCl (Imodium) 2 mg PO Q6H PRN PRN Reason: Diarrhea Last Admin: 12/23/17 16:16 Dose: 2 mg Nitroglycerin (Nitro-Bid 2% Oint) 1 ea TOP Q6H PRN Last Admin: 12/26/17 06:03 Dose: 1 ea Pantoprazole Sodium (Protonix Ec Tab) 40 mg PO DAILY [facility] Last Admin: 12/28/17 09:30 Dose: Not Given Phenol/Menthol (Phenaseptic 1.4% Throat [place]) 1 ml MT Q4H PRN PRN Reason: Pain, moderate (4-7) Potassium Phos/Sodium Phos (Neutra-Phos) 1 pkt PO DAILY [facility] Last Admin: 12/28/17 09:30 Dose: Not Given Vitamin A (Vitamin A & D Oint Ud Foilpak) 1 ea TOP DAILY PRN PRN Reason: Other Last Admin: 12/25/17 10:27 Dose: 1 ea - Labs Labs: 12/29/17 06:45 12/28/17 07:42 PT 13.5 SECONDS (9.7-12.2) H 12/23/17 14:27 INR 1.2 12/23/17 14:27 APTT 31 SECONDS (21-34) D 12/29/17 06:45 - Constitutional Appears: No Acute Distress - Head Exam Head Exam: ATRAUMATIC, NORMOCEPHALIC - Eye Exam Eye Exam: EOMI, Normal appearance Pupil Exam: PERRL - ENT Exam ENT Exam: Mucous Membranes Moist Additional comments: NGT in place - Respiratory Exam Respiratory Exam: NORMAL BREATHING PATTERN - Cardiovascular Exam Cardiovascular Exam: REGULAR RHYTHM - GI/Abdominal Exam GI & Abdominal Exam: Soft, Normal Bowel Sounds. absent: Distended, Guarding, Rigid, Tenderness, Rebound - Neurological Exam Neurological Exam: Alert, Awake - Psychiatric Exam Psychiatric exam: Normal Affect, Normal Mood - Skin Skin Exam: Dry, Intact, Warm Assessment and Plan - Assessment and Plan (Free Text) Assessment: 87F with SBO, s/p exploratory laparotomy with lysis of adhesions and small bowel resection POD#13 Plan: NPO Continue NGT to wall suction, monitoring output Strict I's & O's TPN Monitor H/H, transfuse as necessary GI on board Encourage ambulation Discussed with Dr. Funmi Hollingsworth PGY2
[2017-12-29] MEDS: Pantoprazole 40 mg EC Tab PO SCH (09:10)
[2017-12-29] MEDS: Potassium & Sodium Phosphate PO SCH (09:10)
[2017-12-29 09:36] LABS: BLOOD UREA NITROGEN 18 mg/dL (7-17); GFR NON-AFRICAN AMERICAN > 60
[2017-12-29 09:37] LABS: ALBUMIN 2.8 g/dL (3.5-5.0); CALCIUM 8.2 mg/dl (8.6-10.4)
[2017-12-29 09:38] LABS: ALB/GLOB RATIO 0.9 (1.0-2.1); ALT/SGPT 27 U/L (9-52); AST/SGOT 31 U/L (14-36)
--- NOTE | 2017-12-29 12:39 | CP.PCM.PN ---
Subjective - Date & Time of Evaluation Date of Evaluation: 12/28/17 Time of Evaluation: 15:45 - Subjective Subjective: patient visited and examined with nurse practitioner. She complains of weakness and fatigue. Patient's hemoglobin fell to 7.7. It was decided that she be transfused 2 units of packed cells. Patient has had 2 episodes of rectal blee ding. Consultation requested with Dr. Morales. Will repeat CBC after transfusion completed. Objective - Vital Signs/Intake and Output Vital Signs (last 24 hours): Temp Pulse Resp BP Pulse Ox 98.8 F 74 18 140/79 97 12/29/17 07:10 12/29/17 12:15 12/29/17 07:10 12/29/17 09:04 12/29/17 07:10 Intake and Output: 12/29/17 12/29/17 06:59 18:59 Intake Total 2280 Output Total 1600 Balance 680 - Medications Medications: Current Medications Acetaminophen (Tylenol 650mg/20.3ml Solution Ud) 650 mg PO Q6 PRN PRN Reason: Pain, moderate (4-7) Last Admin: 12/25/17 07:05 Dose: 650 mg Diltiazem HCl (Cardizem) 30 mg PO BID [facility] Last Admin: 12/29/17 09:10 Dose: Not Given Enalapril Maleate (Vasotec) 5 mg PO DAILY [facility] Last Admin: 12/29/17 09:10 Dose: Not Given Piperacillin Sod/Tazobactam (Sod 3.375 gm/ Sodium Chloride) 100 mls @ 200 mls/hr IVPB Q8H [facility]; Protocol Last Admin: 12/22/17 16:18 Dose: Not Given Enalaprilat 2.5 mg/ Sodium (Chloride) 52 mls @ 104 mls/hr IV Q12 [facility] Last Admin: 12/29/17 09:04 Dose: 104 mls/hr Amino Acids/Electrolytes/Dextrose (Clinimix 5/20 % "E" (1000 Ml)) 1,000 mls @ 83 mls/hr IV .Q12H3M [facility] Stop: 12/29/17 17:59 Last Admin: 12/29/17 09:07 Dose: 83 mls/hr Multivitamins/Vitamin C 10 ml/Chromium/Copper/Manganese/Zinc 1 ml/ Potassium Phosphate 15 mmole/ Potassium Chloride 20 meq/ Amino Acids/Electrolytes/Dextrose 1,026 mls @ 83 mls/hr IV .[id number] [facility] Stop: 12/30/17 06:21 Potassium Phosphate 15 mmole/Potassium Chloride 20 meq/Amino Acids/Electrolytes/Dextrose 1,015 mls @ 83 mls/hr IV .[id number] [facility] Stop: 12/30/17 17:59 Fat Emulsion Intravenous (Intralipid 20%) 500 mls @ 42 mls/hr IV ONCE ONE Stop: 12/30/17 05:54 Loperamide HCl (Imodium) 2 mg PO Q6H PRN PRN Reason: Diarrhea Last Admin: 12/23/17 16:16 Dose: 2 mg Nitroglycerin (Nitro-Bid 2% Oint) 1 ea TOP Q6H PRN Last Admin: 12/26/17 06:03 Dose: 1 ea Pantoprazole Sodium (Protonix Ec Tab) 40 mg PO DAILY [facility] Last Admin: 12/29/17 09:10 Dose: Not Given Phenol/Menthol (Phenaseptic 1.4% Throat [place]) 1 ml MT Q4H PRN PRN Reason: Pain, moderate (4-7) Potassium Phos/Sodium Phos (Neutra-Phos) 1 pkt PO DAILY [facility] Last Admin: 12/29/17 09:10 Dose: Not Given Vitamin A (Vitamin A & D Oint Ud Foilpak) 1 ea TOP DAILY PRN PRN Reason: Other Last Admin: 12/25/17 10:27 Dose: 1 ea - Labs Labs: 12/29/17 06:45 12/29/17 06:45 PT 13.5 SECONDS (9.7-12.2) H 12/23/17 14:27 INR 1.2 12/23/17 14:27 APTT 31 SECONDS (21-34) D 12/29/17 06:45 - Constitutional Appears: Chronically Ill - Head Exam Head Exam: NORMOCEPHALIC - Eye Exam Eye Exam: Normal appearance Pupil Exam: NORMAL ACCOMODATION - ENT Exam ENT Exam: Mucous Membranes Moist - Neck Exam Neck Exam: Normal Inspection - Respiratory Exam Respiratory Exam: Decreased Breath Sounds - Cardiovascular Exam Cardiovascular Exam: REGULAR RHYTHM - GI/Abdominal Exam GI & Abdominal Exam: Normal Bowel Sounds - Rectal Exam Rectal Exam: Deferred - Exam External exam: NORMAL EXTERNAL EXAM - Back Exam Back Exam: NORMAL INSPECTION - Neurological Exam Neurological Exam: Oriented x3 - Psychiatric Exam Psychiatric exam: Anxious - Skin Skin Exam: Dry Assessment and Plan (1) Small bowel obstruction Status: Acute (2) Rheumatoid arthritis Status: Acute (3) Vomiting Status: Acute (4) Hypokalemia Status: Acute
--- NOTE | 2017-12-29 15:15 | CP.PCM.PN ---
Subjective - Date & Time of Evaluation Date of Evaluation: 12/29/17 Time of Evaluation: 15:14 - Subjective Subjective: patient seen daily persistent sbo will order ct on tpn at present Objective - Vital Signs/Intake and Output Vital Signs (last 24 hours): Temp Pulse Resp BP Pulse Ox 98.8 F 74 18 140/79 97 12/29/17 07:10 12/29/17 12:15 12/29/17 07:10 12/29/17 09:04 12/29/17 07:10 Intake and Output: 12/29/17 12/29/17 06:59 18:59 Intake Total 2280 714 Output Total 1600 800 Balance 680 -86 - Medications Medications: Current Medications Acetaminophen (Tylenol 650mg/20.3ml Solution Ud) 650 mg PO Q6 PRN PRN Reason: Pain, moderate (4-7) Last Admin: 12/25/17 07:05 Dose: 650 mg Diltiazem HCl (Cardizem) 30 mg PO BID [facility] Last Admin: 12/29/17 09:10 Dose: Not Given Enalapril Maleate (Vasotec) 5 mg PO DAILY [facility] Last Admin: 12/29/17 09:10 Dose: Not Given Piperacillin Sod/Tazobactam (Sod 3.375 gm/ Sodium Chloride) 100 mls @ 200 mls/hr IVPB Q8H [facility]; Protocol Last Admin: 12/22/17 16:18 Dose: Not Given Enalaprilat 2.5 mg/ Sodium (Chloride) 52 mls @ 104 mls/hr IV Q12 [facility] Last Admin: 12/29/17 09:04 Dose: 104 mls/hr Amino Acids/Electrolytes/Dextrose (Clinimix 5/20 % "E" (1000 Ml)) 1,000 mls @ 83 mls/hr IV .Q12H3M [facility] Stop: 12/29/17 17:59 Last Admin: 12/29/17 09:07 Dose: 83 mls/hr Multivitamins/Vitamin C 10 ml/Chromium/Copper/Manganese/Zinc 1 ml/ Potassium Phosphate 15 mmole/ Potassium Chloride 20 meq/ Amino Acids/Electrolytes/Dextrose 1,026 mls @ 83 mls/hr IV .[id number] [facility] Stop: 12/30/17 06:21 Potassium Phosphate 15 mmole/Potassium Chloride 20 meq/Amino Acids/Electrolytes/Dextrose 1,015 mls @ 83 mls/hr IV .[id number] [facility] Stop: 12/30/17 17:59 Fat Emulsion Intravenous (Intralipid 20%) 500 mls @ 42 mls/hr IV ONCE ONE Stop: 12/30/17 05:54 Loperamide HCl (Imodium) 2 mg PO Q6H PRN PRN Reason: Diarrhea Last Admin: 12/23/17 16:16 Dose: 2 mg Nitroglycerin (Nitro-Bid 2% Oint) 1 ea TOP Q6H PRN Last Admin: 12/26/17 06:03 Dose: 1 ea Pantoprazole Sodium (Protonix Ec Tab) 40 mg PO DAILY [facility] Last Admin: 12/29/17 09:10 Dose: Not Given Pantoprazole Sodium (Protonix Inj) 40 mg IVP Q12 [facility] Last Admin: 12/29/17 13:42 Dose: 40 mg Phenol/Menthol (Phenaseptic 1.4% Throat [place]) 1 ml MT Q4H PRN PRN Reason: Pain, moderate (4-7) Potassium Phos/Sodium Phos (Neutra-Phos) 1 pkt PO DAILY [facility] Last Admin: 12/29/17 09:10 Dose: Not Given Vitamin A (Vitamin A & D Oint Ud Foilpak) 1 ea TOP DAILY PRN PRN Reason: Other Last Admin: 12/25/17 10:27 Dose: 1 ea - Labs Labs: 12/29/17 06:45 12/29/17 06:45 PT 13.5 SECONDS (9.7-12.2) H 12/23/17 14:27 INR 1.2 12/23/17 14:27 APTT 31 SECONDS (21-34) D 12/29/17 06:45
--- NOTE | 2017-12-29 15:18 | CP.PCM.PN ---
Subjective - Date & Time of Evaluation Date of Evaluation: 12/29/17 Time of Evaluation: 08:00 - Subjective Subjective: afeb oob to chair ngt in place Objective - Vital Signs/Intake and Output Vital Signs (last 24 hours): Temp Pulse Resp BP Pulse Ox 98.8 F 74 18 140/79 97 12/29/17 07:10 12/29/17 12:15 12/29/17 07:10 12/29/17 09:04 12/29/17 07:10 Intake and Output: 12/29/17 12/29/17 06:59 18:59 Intake Total 2280 714 Output Total 1600 800 Balance 680 -86 - Medications Medications: Current Medications Acetaminophen (Tylenol 650mg/20.3ml Solution Ud) 650 mg PO Q6 PRN PRN Reason: Pain, moderate (4-7) Last Admin: 12/25/17 07:05 Dose: 650 mg Diltiazem HCl (Cardizem) 30 mg PO BID [facility] Last Admin: 12/29/17 09:10 Dose: Not Given Enalapril Maleate (Vasotec) 5 mg PO DAILY [facility] Last Admin: 12/29/17 09:10 Dose: Not Given Piperacillin Sod/Tazobactam (Sod 3.375 gm/ Sodium Chloride) 100 mls @ 200 mls/hr IVPB Q8H [facility]; Protocol Last Admin: 12/22/17 16:18 Dose: Not Given Enalaprilat 2.5 mg/ Sodium (Chloride) 52 mls @ 104 mls/hr IV Q12 [facility] Last Admin: 12/29/17 09:04 Dose: 104 mls/hr Amino Acids/Electrolytes/Dextrose (Clinimix 5/20 % "E" (1000 Ml)) 1,000 mls @ 83 mls/hr IV .Q12H3M [facility] Stop: 12/29/17 17:59 Last Admin: 12/29/17 09:07 Dose: 83 mls/hr Multivitamins/Vitamin C 10 ml/Chromium/Copper/Manganese/Zinc 1 ml/ Potassium Phosphate 15 mmole/ Potassium Chloride 20 meq/ Amino Acids/Electrolytes/Dextrose 1,026 mls @ 83 mls/hr IV .[id number] [facility] Stop: 12/30/17 06:21 Potassium Phosphate 15 mmole/Potassium Chloride 20 meq/Amino Acids/Electrolytes/Dextrose 1,015 mls @ 83 mls/hr IV .[id number] [facility] Stop: 12/30/17 17:59 Fat Emulsion Intravenous (Intralipid 20%) 500 mls @ 42 mls/hr IV ONCE ONE Stop: 12/30/17 05:54 Loperamide HCl (Imodium) 2 mg PO Q6H PRN PRN Reason: Diarrhea Last Admin: 12/23/17 16:16 Dose: 2 mg Nitroglycerin (Nitro-Bid 2% Oint) 1 ea TOP Q6H PRN Last Admin: 12/26/17 06:03 Dose: 1 ea Pantoprazole Sodium (Protonix Ec Tab) 40 mg PO DAILY [facility] Last Admin: 12/29/17 09:10 Dose: Not Given Pantoprazole Sodium (Protonix Inj) 40 mg IVP Q12 [facility] Last Admin: 12/29/17 13:42 Dose: 40 mg Phenol/Menthol (Phenaseptic 1.4% Throat [place]) 1 ml MT Q4H PRN PRN Reason: Pain, moderate (4-7) Potassium Phos/Sodium Phos (Neutra-Phos) 1 pkt PO DAILY [facility] Last Admin: 12/29/17 09:10 Dose: Not Given Vitamin A (Vitamin A & D Oint Ud Foilpak) 1 ea TOP DAILY PRN PRN Reason: Other Last Admin: 12/25/17 10:27 Dose: 1 ea - Labs Labs: 12/29/17 06:45 12/29/17 06:45 PT 13.5 SECONDS (9.7-12.2) H 12/23/17 14:27 INR 1.2 12/23/17 14:27 APTT 31 SECONDS (21-34) D 12/29/17 06:45 - Constitutional Appears: Non-toxic, Chronically Ill - Head Exam Head Exam: NORMOCEPHALIC - Eye Exam Eye Exam: PERRL - ENT Exam ENT Exam: Mucous Membranes Dry - Neck Exam Neck Exam: absent: Lymphadenopathy - Respiratory Exam Respiratory Exam: Decreased Breath Sounds - Cardiovascular Exam Cardiovascular Exam: REGULAR RHYTHM - GI/Abdominal Exam GI & Abdominal Exam: Distended Assessment and Plan (1) Acute non-ST elevation myocardial infarction (NSTEMI) Status: Acute (2) Bowel obstruction Status: Acute (3) Paroxysmal atrial fibrillation with rapid ventricular response Status: Resolved (4) Rheumatoid arthritis Status: Acute (5) Small bowel obstruction Status: Acute
[2017-12-29] MEDS ORDERED: Iohexol 240 (50 ml) PO ONE ×2 (15:54→16:45)
[2017-12-29 17:47] LABS: BLOOD UREA NITROGEN 22 mg/dL (7-17); CALCIUM 8.5 mg/dl (8.6-10.4); GFR NON-AFRICAN AMERICAN > 60
[2017-12-29] MEDS ORDERED: Fat Emulsion 20% IV 500 ML IV ONE (18:00)
--- NOTE | 2017-12-29 21:36 | CP.PCM.PN ---
Subjective - Date & Time of Evaluation Date of Evaluation: 12/29/17 Time of Evaluation: 17:15 - Subjective Subjective: patient resting comfortably. Hemoglobin today was 10.2 following 2 units of packed cels. Patient evaluated by Dr. Choudhary and CT scan of the abdomen requested. Will repeat labs in am. Objective - Vital Signs/Intake and Output Vital Signs (last 24 hours): Temp Pulse Resp BP Pulse Ox 97.7 F 75 18 131/64 100 12/29/17 15:00 12/29/17 15:00 12/29/17 15:00 12/29/17 15:00 12/29/17 15:00 Intake and Output: 12/29/17 12/30/17 18:59 06:59 Intake Total 714 Output Total 800 Balance -86 - Medications Medications: Current Medications Acetaminophen (Tylenol 650mg/20.3ml Solution Ud) 650 mg PO Q6 PRN PRN Reason: Pain, moderate (4-7) Last Admin: 12/25/17 07:05 Dose: 650 mg Diltiazem HCl (Cardizem) 30 mg PO BID [facility] Last Admin: 12/29/17 18:21 Dose: Not Given Enalapril Maleate (Vasotec) 5 mg PO DAILY [facility] Last Admin: 12/29/17 09:10 Dose: Not Given Piperacillin Sod/Tazobactam (Sod 3.375 gm/ Sodium Chloride) 100 mls @ 200 mls/hr IVPB Q8H [facility]; Protocol Last Admin: 12/22/17 16:18 Dose: Not Given Enalaprilat 2.5 mg/ Sodium (Chloride) 52 mls @ 104 mls/hr IV Q12 [facility] Last Admin: 12/29/17 09:04 Dose: 104 mls/hr Multivitamins/Vitamin C 10 ml/Chromium/Copper/Manganese/Zinc 1 ml/ Potassium Phosphate 15 mmole/ Potassium Chloride 20 meq/ Amino Acids/Electrolytes/Dextrose 1,026 mls @ 83 mls/hr IV .[id number] [facility] Stop: 12/30/17 06:21 Last Admin: 12/29/17 18:20 Dose: 83 mls/hr Potassium Phosphate 15 mmole/Potassium Chloride 20 meq/Amino Acids/E lectrolytes/Dextrose 1,015 mls @ 83 mls/hr IV .[id number] [facility] Stop: 12/30/17 17:59 Fat Emulsion Intravenous (Intralipid 20%) 500 mls @ 42 mls/hr IV ONCE ONE Stop: 12/30/17 05:54 Last Admin: 12/29/17 18:21 Dose: 42 mls/hr Loperamide HCl (Imodium) 2 mg PO Q6H PRN PRN Reason: Diarrhea Last Admin: 12/23/17 16:16 Dose: 2 mg Nitroglycerin (Nitro-Bid 2% Oint) 1 ea TOP Q6H PRN Last Admin: 12/26/17 06:03 Dose: 1 ea Pantoprazole Sodium (Protonix Ec Tab) 40 mg PO DAILY [facility] Last Admin: 12/29/17 09:10 Dose: Not Given Pantoprazole Sodium (Protonix Inj) 40 mg IVP Q12 [facility] Last Admin: 12/29/17 13:42 Dose: 40 mg Phenol/Menthol (Phenaseptic 1.4% Throat [place]) 1 ml MT Q4H PRN PRN Reason: Pain, moderate (4-7) Potassium Phos/Sodium Phos (Neutra-Phos) 1 pkt PO DAILY [facility] Last Admin: 12/29/17 09:10 Dose: Not Given Vitamin A (Vitamin A & D Oint Ud Foilpak) 1 ea TOP DAILY PRN PRN Reason: Other Last Admin: 12/25/17 10:27 Dose: 1 ea - Labs Labs: 12/29/17 06:45 12/29/17 17:22 PT 13.5 SECONDS (9.7-12.2) H 12/23/17 14:27 INR 1.2 12/23/17 14:27 APTT 31 SECONDS (21-34) D 12/29/17 06:45 - Constitutional Appears: Chronically Ill - Head Exam Head Exam: ATRAUMATIC - Eye Exam Eye Exam: Normal appearance Pupil Exam: NORMAL ACCOMODATION - ENT Exam ENT Exam: Mucous Membranes Dry - Neck Exam Neck Exam: Normal Inspection - Respiratory Exam Respiratory Exam: Decreased Breath Sounds - Cardiovascular Exam Cardiovascular Exam: REGULAR RHYTHM - GI/Abdominal Exam GI & Abdominal Exam: Tenderness - Rectal Exam Rectal Exam: Deferred - Exam External exam: NORMAL EXTERNAL EXAM - Extremities Exam Extremities Exam: Normal Inspection - Back Exam Back Exam: NORMAL INSPECTION - Neurological Exam Neurological Exam: Oriented x3 - Psychiatric Exam Psychiatric exam: Anxious - Skin Skin Exam: Dry Assessment and Plan (1) Small bowel obstruction Status: Acute (2) Rheumatoid arthritis Status: Acute (3) Vomiting Status: Acute (4) Hypokalemia Status: Acute
[2017-12-30 06:00] LABS: BASO % 0.5 % (0.0-2.0); EOS # 0.1 K/uL (0.0-0.7); EOS % 1.8 % (0.0-4.0); HEMOGLOBIN 10.7 g/dL (11.0-16.0); LYMPH # 0.9 K/uL (1.0-4.3); LYMPH % 14.7 % (20.0-40.0); MEAN CELL VOLUME 92.4 fL (81.0-99.0); MEAN CORPUSCULAR HEMOGLOBIN 30.9 pg (27.0-31.0); MEAN CORPUSCULAR HGB CONC 33.4 g/dL (33.0-37.0); MEAN PLATELET VOLUME 10.4 fL (7.2-11.7); MONO # 0.6 K/uL (0.0-0.8); MONO % 8.6 % (0.0-10.0); NEUT # 4.8 K/uL (1.8-7.0); NEUT % 74.4 % (50.0-75.0); NRBC % 0.1 % (0.0-2.0); RBC 3.46 Mil/uL (3.80-5.20); RED CELL DISTRIBUTION WIDTH 16.5 % (11.5-14.5); WHITE BLOOD COUNT 6.4 K/uL (4.8-10.8)
[2017-12-30] MEDS ORDERED: TPN CENTRAL LINE ONLY IV SCH (06:22)
[2017-12-30 06:25] LABS: ALB/GLOB RATIO 0.9 (1.0-2.1); ALBUMIN 2.7 g/dL (3.5-5.0); ALT/SGPT 30 U/L (9-52); AST/SGOT 35 U/L (14-36); BLOOD UREA NITROGEN 21 mg/dL (7-17); CALCIUM 8.1 mg/dl (8.6-10.4); GFR NON-AFRICAN AMERICAN > 60
--- NOTE | 2017-12-30 07:01 | PN ---
DATE: 12/27/2017 SUBJECTIVE: The patient is alert, oriented, afebrile. PHYSICAL EXAMINATION: VITAL SIGNS: Blood pressure . GENERAL: The patient is sitting in a chair with no acute distress. HEART: Regular with no gallop rhythm. LUNGS: Diminished breath sounds. Rhonchi decreased. ABDOMEN: Soft. EXTREMITIES: Legs, no edema. LABORATORY DATA: . IMPRESSION: Respiratory insufficiency, chronic obstructive pulmonary disease, hypertensive cardiovascular disease, abdominal pain status post surgery for bowel obstruction, arthritis, . PLAN: Continue with the current measures with surgical followup. Faisal Fields MD
--- NOTE | 2017-12-30 07:51 | CON ---
LOCATION: 3, bed B. HISTORY OF PRESENT ILLNESS: This is an 87-year-old female who was admitted initially with underlying diagnosis of small polyps , had surgery, reported to have upper GI blood loss. NG tube was placed , reported to have some rectal bleeding before. The entire chart is reviewed including but not limited to the most recent lab and radiology study results, current and the previous medication list, current and the previous medical events. The patient had subsequent drop of hemoglobin and hematocrit after which he had blood transfusion with hemoglobin today of 10.8, hematocrit 32.1. Rest of the lab results are still pending. IMPRESSION: 1. Gastrointestinal bleeding. 2. Status post partial small bowel resection due to obstructive phenomenon. SUGGESTIONS: 1. Continue current management. 2. Bleeding scan. 3. Consultation to follow as well as further recommendation. Kelly Lindquist MD
[2017-12-30] MEDS: Potassium & Sodium Phosphate PO SCH (09:50)
--- NOTE | 2017-12-30 12:16 | PN ---
DATE: 12/26/2017 SUBJECTIVE: The patient 87-year-old lady. She is alert, oriented, afebrile. PHYSICAL EXAMINATION: VITAL SIGNS: Blood pressure 152/66, pulse 77, respirations 18, hemoglobin-oxygen saturation of 100%. GENERAL: The patient is sitting in the chair, her family is by her side. The patient is not in acute distress. There is no chest pain, no vomiting, and no cough at this moment. HEART: Regular. No gallop rhythm. LUNGS: Diminished breath sounds. Rhonchi decreased. ABDOMEN: Soft. EXTREMITIES: Legs, no edema. IMPRESSION: Respiratory insufficiency, bronchitis, arthritis, abdominal pain status post surgery for bowel obstruction. PLAN: To continue with current management including surgical followup. Faisal Fields MD
--- NOTE | 2017-12-30 13:03 | CT ---
PROCEDURE: CT Abdomen and Pelvis without IV contrast. HISTORY: persistent sbo COMPARISON: CT abdomen and pelvis without IV contrast performed 12/13/17 TECHNIQUE: Contiguous axial images of the abdomen and pelvis. Oral contrast was administered. No IV contrast given. Coronal and Sagittal reformats generated and reviewed. Radiation dose: Total exam DLP = 620.33 mGy-cm. This CT exam was performed using one or more of the following dose reduction techniques: Automated exposure control, adjustment of the mA and/or kV according to patient size, and/or use of iterative reconstruction technique. FINDINGS: There is limited evaluation of the solid organs without the administration of IV contrast. LOWER THORAX: Bibasilar atelectasis/infiltrates. Left-sided pleural plaques. Dense coronary artery calcifications. Partially imaged cardiomegaly. Small hiatal hernia/distal esophageal wall thickening and moderate partially imaged gastroesophageal reflux. LIVER: Unremarkable unenhanced appearance. GALLBLADDER AND BILE DUCTS: Unremarkable unenhanced appearance. PANCREAS: Fatty atrophy of the pancreas. SPLEEN: 9 mm probable splenule. Otherwise unremarkable unenhanced appearance of the spleen. ADRENALS: Unremarkable unenhanced appearance. KIDNEYS AND URETERS: No hydronephrosis or obstructing renal calculus. Indeterminate 14 mm right upper pole lateral exophytic renal mass. BLADDER: Mildly thick-walled urinary bladder may be exaggerated by under distension. REPRODUCTIVE: Uterus is present. Heterogeneous soft tissue mass in the left pelvis lobe may represent an enlarged left ovary; recommend pelvic ultrasound for further evaluation. APPENDIX: The appendix is not identified. BOWEL: The stomach is nondistended. Oral contrast extends to the colon. Persistent but decreased small bowel distension. Small bowel wall thickening most prominent within the duodenum as well as the distal small bowel which may reflect enteritis, inflammatory/infectious etiologies. Postoperative changes noted along the anterior abdominal wall. Diverticulosis without CT evidence of acute diverticulitis. Colonic wall thickening markedly involving a short segment of the proximal transverse colon and to a lesser extent portions of the ascending and descending colon which is incompletely distended. Correlate clinically for possibility of colitis (i.e. Infectious, inflammatory, ischemic). PERITONEUM: Small to moderate pelvic free fluid. No definite free air. LYMPH NODES: No bulky lymphadenopathy identified. VASCULATURE: Infrarenal abdominal aortic aneurysm measures approximately 2.6 x 2.0 x 1.7 Cm (AP by transverse by cc). Dense atherosclerotic calcifications of the aorta and branches. BONES: Osseous demineralization. Degenerative changes. OTHER FINDINGS: None. IMPRESSION: Oral contrast extends to the colon. Persistent but decreased small bowel distension. Small bowel wall thickening most prominent within the duodenum as well as the distal small bowel which may reflect enteritis, inflammatory/infectious etiologies. Colonic wall thickening markedly involving a short segment of the proximal transverse colon and to a lesser extent portions of the ascending and descending colon which is incompletely distended. Correlate clinically for possibility of colitis (i.e. Infectious, inflammatory, ischemic). Recommend continued follow-up. Diverticulosis without CT evidence of acute diverticulitis. Heterogeneous soft tissue mass within the left pelvis may represent an enlarged left ovary; recommend pelvic ultrasound for further evaluation. Indeterminate 14 mm right upper pole lateral exophytic renal mass. Ultrasound follow-up recommended. Mildly thick-walled urinary bladder may be exaggerated by under distension. Recommend correlation with urinalysis. 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 Small hiatal hernia/distal esophageal wall thickening and moderate partially imaged gastroesophageal reflux. Additional findings as above. Preliminary impression was provided by [facility].
--- NOTE | 2017-12-30 13:40 | CP.PCM.PN ---
Subjective - Date & Time of Evaluation Date of Evaluation: 12/30/17 Time of Evaluation: 06:20 - Subjective Subjective: Surgery 87F was seen and examined at bedside. Patient's NGT is clamped and switched to CLD which patient is tolerating. Patient still complains of pain with urination. Patient denies any nausea/vomiting, abdominal pain or other associated symptoms. Patient had 2 bowel movement last night but none as of today. Pt had an episode of emesis after CLD and clamp trial. Back on suction. Objective - Vital Signs/Intake and Output Vital Signs (last 24 hours): Temp Pulse Resp BP Pulse Ox 97.8 F 73 20 150/65 98 12/30/17 08:00 12/30/17 08:13 12/30/17 08:00 12/30/17 09:50 12/30/17 08:00 Intake and Output: 12/30/17 12/30/17 06:59 18:59 Intake Total 2050 Output Total 1300 Balance 750 - Medications Medications: Current Medications Acetaminophen (Tylenol 650mg/20.3ml Solution Ud) 650 mg PO Q6 PRN PRN Reason: Pain, moderate (4-7) Last Admin: 12/25/17 07:05 Dose: 650 mg Albuterol Sulfate (Albuterol 0.042% Inhal Maria De Jesus (1.25mg/3ml) Ud) 1.25 mg INH Q8 [facility] Diltiazem HCl (Cardizem) 30 mg PO BID [facility] Last Admin: 12/30/17 09:50 Dose: 30 mg Enalapril Maleate (Vasotec) 5 mg PO DAILY [facility] Last Admin: 12/30/17 10:05 Dose: Not Given Piperacillin Sod/Tazobactam (Sod 3.375 gm/ Sodium Chloride) 100 mls @ 200 mls/hr IVPB Q8H [facility]; Protocol Last Admin: 12/22/17 16:18 Dose: Not Given Enalaprilat 2.5 mg/ Sodium (Chloride) 52 mls @ 104 mls/hr IV Q12 [facility] Last Admin: 12/30/17 09:50 Dose: 104 mls/hr Potassium Phosphate 15 mmole/Potassium Chloride 20 meq/Amino Acids/Electrolytes/Dextrose 1,015 mls @ 83 mls/hr IV .[id number] [facility] Stop: 12/30/17 17:59 Last Admin: 12/30/17 08:43 Dose: 83 mls/hr Multivitamins/Vitamin C 10 ml/Chromium/Copper/Manganese/Zinc 1 ml/ Amino Acids/Electrolytes/Dextrose 1,011 mls @ 83 mls/hr IV .[id number] ONE Stop: 12/31/17 06:10 Amino Acids/Electrolytes/Dextrose (Clinimix 5/20 % "E" (1000 Ml)) 1,000 mls @ 83 mls/hr IV .Q12H3M ONE Stop: 12/31/17 18:02 Fat Emulsion Intravenous (Intralipid 20%) 500 mls @ 42 mls/hr IV QOD ONE Stop: 12/31/17 05:54 Loperamide HCl (Imodium) 2 mg PO Q6H PRN PRN Reason: Diarrhea Last Admin: 12/23/17 16:16 Dose: 2 mg Nitroglycerin (Nitro-Bid 2% Oint) 1 ea TOP Q6H PRN Last Admin: 12/26/17 06:03 Dose: 1 ea Pantoprazole Sodium (Protonix Ec Tab) 40 mg PO DAILY [facility] Last Admin: 12/29/17 09:10 Dose: Not Given Pantoprazole Sodium (Protonix Inj) 40 mg IVP Q12 [facility] Last Admin: 12/30/17 10:05 Dose: 40 mg Phenol/Menthol (Phenaseptic 1.4% Throat [place]) 1 ml MT Q4H PRN PRN Reason: Pain, moderate (4-7) Potassium Phos/Sodium Phos (Neutra-Phos) 1 pkt PO DAILY [facility] Last Admin: 12/30/17 09:50 Dose: 1 pkt Vitamin A (Vitamin A & D Oint Ud Foilpak) 1 ea TOP DAILY PRN PRN Reason: Other Last Admin: 12/25/17 10:27 Dose: 1 ea - Labs Labs: 12/30/17 05:53 12/30/17 05:53 PT 13.5 SECONDS (9.7-12.2) H 12/23/17 14:27 INR 1.2 12/23/17 14:27 APTT 31 SECONDS (21-34) D 12/29/17 06:45 - Constitutional Appears: Well, Non-toxic, No Acute Distress - Head Exam Head Exam: ATRAUMATIC, NORMAL INSPECTION, NORMOCEPHALIC - ENT Exam ENT Exam: Mucous Membranes Moist, Normal Exam - Respiratory Exam Respiratory Exam: NORMAL BREATHING PATTERN. absent: Accessory Muscle Use - Cardiovascular Exam Cardiovascular Exam: REGULAR RHYTHM - GI/Abdominal Exam GI & Abdominal Exam: Soft - Exam Exam: NORMAL INSPECTION - Extremities Exam Extremities Exam: Full ROM, Normal Inspection. absent: Pedal Edema - Neurological Exam Neurological Exam: Alert, Awake, CN II-XII Intact, Normal Gait, Oriented x3 - Psychiatric Exam Psychiatric exam: Normal Affect, Normal Mood - Skin Skin Exam: Dry, Intact, Normal Color, Warm Assessment and Plan - Assessment and Plan (Free Text) Assessment: 87F with SBO s/p exp lap with lysis of adhesions and small bowel resection POD #14 Plan: NPO NGT to suction Continue to monitor her I's & O's Monitor her K+, Hgb Monitor bowel function Continue to ambulate TPN ROLY Edwards, Funmi
[2017-12-30] MEDS ORDERED: Albuterol 0.042% Inhal Sol (1.25 mg/3 mL) UD INH SCH (14:00)
--- NOTE | 2017-12-30 15:39 | PN ---
DATE: 12/30/2017 LOCATION: 563, bed B. SUBJECTIVE: This is an 87-year-old female seen and examined in rounds with NG tube is in place, clamped, and reported to have clear liquid diet without any reported active bleeding, chest pain or palpitation. The entire chart is reviewed including but not limited to the most recent lab and radiology study results, current and the previous medication list, current and the previous medical events. Case discussed with the staff at length. LABORATORY DATA: Today's lab showed hemoglobin 10.7, hematocrit 31.9 with normal platelet count and white blood cells with potassium 3.1, CO2 content 37 indicative of respiratory alkalosis, BUN 21, creatinine 0.5, glucose 132, calcium 8.1, and albumin 2.7 with total protein 5.9. The patient had a repeat CAT scan of the abdomen and pelvis yesterday, official report is still pending. PHYSICAL EXAMINATION: GENERAL: An 87-year-old female. VITAL SIGNS: Afebrile with pulse of 76, respiratory rate 20 to 22, blood pressure 144/62. HEENT: Showed pale, dry mucous membrane. Nonicteric sclerae. LUNGS: Few scattered crepitation. Decreased air entry at bases. HEART: Positive S1 and S2. ABDOMEN: Soft with mild distention. No mass or organomegaly. No rebound tenderness or guarding. Bowel sounds are absent. EXTREMITIES: Lower extremities with mild edematous changes. No clubbing or cyanosis. NEUROLOGICAL: No reported new neurological deficits, sensory or motor. IMPRESSION: 1. Small bowel obstruction. 2. Recent history of gastrointestinal blood loss. 3. Anemia, secondary to above. SUGGESTIONS: 1. Continue current management. 2. Surgical reevaluation. 3. Follow up in CAT scan report. Kelly Lindquist MD
[2017-12-30] MEDS ORDERED: Fat Emulsion 20% IV 500 ML IV ONE (18:00)
[2017-12-30] MEDS ORDERED: TPN CENTRAL LINE ONLY IV ONE (18:00)
--- NOTE | 2017-12-30 23:03 | CP.PCM.PN ---
Subjective - Date & Time of Evaluation Date of Evaluation: 12/30/17 Time of Evaluation: 17:40 - Subjective Subjective: patient had another episode of vomiting after taking liquids today. Hemoglobin was 10.2. CT of the abdomen report suggests ultrasound of the pelvis and ultrasound of the abdomen.Both studies were requested Objective - Vital Signs/Intake and Output Vital Signs (last 24 hours): Temp Pulse Resp BP Pulse Ox 98.6 F 78 20 156/76 H 98 12/30/17 15:45 12/30/17 17:26 12/30/17 15:45 12/30/17 21:48 12/30/17 15:45 Intake and Output: 12/30/17 12/31/17 18:59 06:59 Intake Total 1314 924 Output Total 80 300 Balance 1234 624 - Medications Medications: Current Medications Acetaminophen (Tylenol 650mg/20.3ml Solution Ud) 650 mg PO Q6 PRN PRN Reason: Pain, moderate (4-7) Last Admin: 12/25/17 07:05 Dose: 650 mg Albuterol Sulfate (Albuterol 0.042% Inhal Maria De Jesus (1.25mg/3ml) Ud) 1.25 mg INH RQ8 [facility] Diltiazem HCl (Cardizem) 30 mg PO BID [facility] Last Admin: 12/30/17 18:12 Dose: Not Given Enalapril Maleate (Vasotec) 5 mg PO DAILY [facility] Last Admin: 12/30/17 10:05 Dose: Not Given Enoxaparin Sodium (Lovenox) 40 mg SC DAILY [facility] Piperacillin Sod/Tazobactam (Sod 3.375 gm/ Sodium Chloride) 100 mls @ 200 mls/hr IVPB Q8H [facility]; Protocol Last Admin: 12/22/17 16:18 Dose: Not Given Enalaprilat 2.5 mg/ Sodium (Chloride) 52 mls @ 104 mls/hr IV Q12 [facility] Last Admin: 12/30/17 21:48 Dose: 104 mls/hr Multivitamins/Vitamin C 10 ml/Chromium/Copper/Manganese/Zinc 1 ml/ Amino A cids/Electrolytes/Dextrose 1,011 mls @ 83 mls/hr IV .[id number] ONE Stop: 12/31/17 06:10 Last Admin: 12/30/17 18:03 Dose: 83 mls/hr Amino Acids/Electrolytes/Dextrose (Clinimix 5/20 % "E" (1000 Ml)) 1,000 mls @ 83 mls/hr IV .Q12H3M ONE Stop: 12/31/17 18:02 Fat Emulsion Intravenous (Intralipid 20%) 500 mls @ 42 mls/hr IV QOD [facility] Stop: 12/31/17 05:54 Last Admin: 12/30/17 18:04 Dose: 42 mls/hr Loperamide HCl (Imodium) 2 mg PO Q6H PRN PRN Reason: Diarrhea Last Admin: 12/23/17 16:16 Dose: 2 mg Nitroglycerin (Nitro-Bid 2% Oint) 1 ea TOP Q6H PRN Last Admin: 12/26/17 06:03 Dose: 1 ea Pantoprazole Sodium (Protonix Ec Tab) 40 mg PO DAILY [facility] Last Admin: 12/29/17 09:10 Dose: Not Given Pantoprazole Sodium (Protonix Inj) 40 mg IVP Q12 [facility] Last Admin: 12/30/17 21:05 Dose: 40 mg Phenol/Menthol (Phenaseptic 1.4% Throat [place]) 1 ml MT Q4H PRN PRN Reason: Pain, moderate (4-7) Potassium Phos/Sodium Phos (Neutra-Phos) 1 pkt PO DAILY [facility] Last Admin: 12/30/17 09:50 Dose: 1 pkt Vitamin A (Vitamin A & D Oint Ud Foilpak) 1 ea TOP DAILY PRN PRN Reason: Other Last Admin: 12/25/17 10:27 Dose: 1 ea - Labs Labs: 12/30/17 05:53 12/30/17 05:53 PT 13.5 SECONDS (9.7-12.2) H 12/23/17 14:27 INR 1.2 12/23/17 14:27 APTT 31 SECONDS (21-34) D 12/29/17 06:45 - Constitutional Appears: Chronically Ill - Head Exam Head Exam: NORMOCEPHALIC - Eye Exam Eye Exam: Normal appearance Pupil Exam: NORMAL ACCOMODATION - ENT Exam ENT Exam: Normal Exam - Neck Exam Neck Exam: Normal Inspection - Respiratory Exam Respiratory Exam: Decreased Breath Sounds - Cardiovascular Exam Cardiovascular Exam: REGULAR RHYTHM - GI/Abdominal Exam GI & Abdominal Exam: Tenderness - Rectal Exam Rectal Exam: Deferred - Exam External exam: NORMAL EXTERNAL EXAM - Extremities Exam Extremities Exam: Normal Inspection - Back Exam Back Exam: NORMAL INSPECTION - Neurological Exam Neurological Exam: Oriented x3 - Psychiatric Exam Psychiatric exam: Anxious - Skin Skin Exam: Dry Assessment and Plan (1) Small bowel obstruction Status: Acute (2) Rheumatoid arthritis Status: Acute (3) Vomiting Status: Acute (4) Hypokalemia Status: Acute
[2017-12-30] MEDS: Albuterol 0.042% Inhal Sol (1.25 mg/3 mL) UD INH SCH (23:53)
[2017-12-31 03:59] LABS: URINE 24 HOUR UREA NITROGEN 11.79 g/24hr (12-20)
[2017-12-31] MEDS ORDERED: TPN CENTRAL LINE ONLY IV ONE (06:00)
[2017-12-31 07:00] LABS: BASO % 0.5 % (0.0-2.0); EOS # 0.2 K/uL (0.0-0.7); EOS % 2.5 % (0.0-4.0); HEMOGLOBIN 10.6 g/dL (11.0-16.0); LYMPH # 0.9 K/uL (1.0-4.3); LYMPH % 15.1 % (20.0-40.0); MEAN CELL VOLUME 94.1 fL (81.0-99.0); MEAN CORPUSCULAR HEMOGLOBIN 31.4 pg (27.0-31.0); MEAN CORPUSCULAR HGB CONC 33.3 g/dL (33.0-37.0); MEAN PLATELET VOLUME 10.9 fL (7.2-11.7); MONO # 0.6 K/uL (0.0-0.8); MONO % 9.6 % (0.0-10.0); NEUT # 4.5 K/uL (1.8-7.0); NEUT % 72.3 % (50.0-75.0); NRBC % 0.3 % (0.0-2.0); RBC 3.37 Mil/uL (3.80-5.20); RED CELL DISTRIBUTION WIDTH 16.8 % (11.5-14.5); WHITE BLOOD COUNT 6.2 K/uL (4.8-10.8)
[2017-12-31] MEDS: Albuterol 0.042% Inhal Sol (1.25 mg/3 mL) UD INH SCH ×2 (08:00→16:06)
--- NOTE | 2017-12-31 08:50 | CP.PCM.PN ---
Subjective - Date & Time of Evaluation Date of Evaluation: 12/31/17 Time of Evaluation: 06:10 Objective - Vital Signs/Intake and Output Vital Signs (last 24 hours): Temp Pulse Resp BP Pulse Ox 98.2 F 78 20 152/76 H 100 12/31/17 07:00 12/31/17 07:00 12/31/17 07:00 12/31/17 07:00 12/31/17 07:00 Intake and Output: 12/31/17 12/31/17 06:59 18:59 Intake Total 1924 Output Total 1000 Balance 924 - Medications Medications: Current Medications Acetaminophen (Tylenol 650mg/20.3ml Solution Ud) 650 mg PO Q6 PRN PRN Reason: Pain, moderate (4-7) Last Admin: 12/25/17 07:05 Dose: 650 mg Albuterol Sulfate (Albuterol 0.042% Inhal Maria De Jesus (1.25mg/3ml) Ud) 1.25 mg INH RQ8 [facility] Last Admin: 12/30/17 23:53 Dose: 1.25 mg Diltiazem HCl (Cardizem) 30 mg PO BID [facility] Last Admin: 12/30/17 18:12 Dose: Not Given Enalapril Maleate (Vasotec) 5 mg PO DAILY [facility] Last Admin: 12/30/17 10:05 Dose: Not Given Enoxaparin Sodium (Lovenox) 40 mg SC DAILY [facility] Piperacillin Sod/Tazobactam (Sod 3.375 gm/ Sodium Chloride) 100 mls @ 200 mls/h r IVPB Q8H [facility]; Protocol Last Admin: 12/22/17 16:18 Dose: Not Given Enalaprilat 2.5 mg/ Sodium (Chloride) 52 mls @ 104 mls/hr IV Q12 [facility] Last Admin: 12/30/17 21:48 Dose: 104 mls/hr Amino Acids/Electrolytes/Dextrose (Clinimix 5/20 % "E" (1000 Ml)) 1,000 mls @ 83 mls/hr IV .Q12H3M ONE Stop: 12/31/17 18:02 Last Admin: 12/31/17 06:26 Dose: 83 mls/hr Loperamide HCl (Imodium) 2 mg PO Q6H PRN PRN Reason: Diarrhea Last Admin: 12/23/17 16:16 Dose: 2 mg Nitroglycerin (Nitro-Bid 2% Oint) 1 ea TOP Q6H PRN Last Admin: 12/26/17 06:03 Dose: 1 ea Pantoprazole Sodium (Protonix Ec Tab) 40 mg PO DAILY [facility] Last Admin: 12/29/17 09:10 Dose: Not Given Pantoprazole Sodium (Protonix Inj) 40 mg IVP Q12 [facility] Last Admin: 12/30/17 21:05 Dose: 40 mg Phenol/Menthol (Phenaseptic 1.4% Throat [place]) 1 ml MT Q4H PRN PRN Reason: Pain, moderate (4-7) Potassium Phos/Sodium Phos (Neutra-Phos) 1 pkt PO DAILY [facility] Last Admin: 12/30/17 09:50 Dose: 1 pkt Vitamin A (Vitamin A & D Oint Ud Foilpak) 1 ea TOP DAILY PRN PRN Reason: Other Last Admin: 12/25/17 10:27 Dose: 1 ea - Labs Labs: 12/31/17 06:46 12/31/17 06:46 PT 13.5 SECONDS (9.7-12.2) H 12/23/17 14:27 INR 1.2 12/23/17 14:27 APTT 31 SECONDS (21-34) D 12/29/17 06:45
--- NOTE | 2017-12-31 09:00 | CP.PCM.PN ---
Subjective - Date & Time of Evaluation Date of Evaluation: 12/31/17 Time of Evaluation: 06:20 - Subjective Subjective: Surgery progress note for Dr. Choudhary pt seen and examined this AM. pt was trialed on NGT clamp and CLD but had an episode of emesis, so NGT was put back on suction. 580cc's per NGT per 24 hours. Pt denies any nausea, minimal pain, but no further BM's Objective - Vital Signs/Intake and Output Vital Signs (last 24 hours): Temp Pulse Resp BP Pulse Ox 98.2 F 78 20 152/76 H 100 12/31/17 07:00 12/31/17 07:00 12/31/17 07:00 12/31/17 07:00 12/31/17 07:00 Intake and Output: 12/31/17 12/31/17 06:59 18:59 Intake Total 1924 Output Total 1000 Balance 924 - Medications Medications: Current Medications Acetaminophen (Tylenol 650mg/20.3ml Solution Ud) 650 mg PO Q6 PRN PRN Reason: Pain, moderate (4-7) Last Admin: 12/25/17 07:05 Dose: 650 mg Albuterol Sulfate (Albuterol 0.042% Inhal Maria De Jesus (1.25mg/3ml) Ud) 1.25 mg INH RQ8 [facility] Last Admin: 12/30/17 23:53 Dose: 1.25 mg Diltiazem HCl (Cardizem) 30 mg PO BID [facility] Last Admin: 12/30/17 18:12 Dose: Not Given Enalapril Maleate (Vasotec) 5 mg PO DAILY [facility] Last Admin: 12/30/17 10:05 Dose: Not Given Enoxaparin Sodium (Lovenox) 40 mg SC DAILY [facility] Piperacillin Sod/Tazobactam (Sod 3.375 gm/ Sodium Chloride) 100 mls @ 200 mls/hr IVPB Q8H [facility]; Protocol Last Admin: 12/22/17 16:18 Dose: Not Given Enalaprilat 2.5 mg/ Sodium (Chloride) 52 mls @ 104 mls/hr IV Q12 [facility] Last Admin: 12/30/17 21:48 Dose: 104 mls/hr Amino Acids/Electrolytes/Dextrose (Clinimix 5/20 % "E" (1000 Ml)) 1,000 mls @ 83 mls/hr IV .Q12H3M ONE Stop: 12/31/17 18:02 Last Admin: 12/31/17 06:26 Dose: 83 mls/hr Loperamide HCl (Imodium) 2 mg PO Q6H PRN PRN Reason: Diarrhea Last Admin: 12/23/17 16:16 Dose: 2 mg Nitroglycerin (Nitro-Bid 2% Oint) 1 ea TOP Q6H PRN Last Admin: 12/26/17 06:03 Dose: 1 ea Pantoprazole Sodium (Protonix Ec Tab) 40 mg PO DAILY [facility] Last Admin: 12/29/17 09:10 Dose: Not Given Pantoprazole Sodium (Protonix Inj) 40 mg IVP Q12 [facility] Last Admin: 12/30/17 21:05 Dose: 40 mg Phenol/Menthol (Phenaseptic 1.4% Throat [place]) 1 ml MT Q4H PRN PRN Reason: Pain, moderate (4-7) Potassium Phos/Sodium Phos (Neutra-Phos) 1 pkt PO DAILY [facility] Last Admin: 12/30/17 09:50 Dose: 1 pkt Vitamin A (Vitamin A & D Oint Ud Foilpak) 1 ea TOP DAILY PRN PRN Reason: Other Last Admin: 12/25/17 10:27 Dose: 1 ea - Labs Labs: 12/31/17 06:46 12/31/17 06:46 PT 13.5 SECONDS (9.7-12.2) H 12/23/17 14:27 INR 1.2 12/23/17 14:27 APTT 31 SECONDS (21-34) D 12/29/17 06:45 - Constitutional Appears: Well, Non-toxic, No Acute Distress - Head Exam Head Exam: ATRAUMATIC, NORMOCEPHALIC - Eye Exam Eye Exam: Normal appearance. absent: Conjunctival injection, Scleral icterus - ENT Exam ENT Exam: Mucous Membranes Moist, Normal Oropharynx - Respiratory Exam Respiratory Exam: NORMAL BREATHING PATTERN. absent: Accessory Muscle Use, Respiratory Distress - Cardiovascular Exam Cardiovascular Exam: RRR - GI/Abdominal Exam GI & Abdominal Exam: Distended (mile), Soft, Tenderness (malcolm-incisional). absent: Rebound Additional comments: midline incision well approximated with miguel angel, healing well with minimal drainage in the inferior pole - Extremities Exam Extremities Exam: absent: Calf Tenderness, Pedal Edema, Tenderness - Neurological Exam Neurological Exam: Alert, Awake, Oriented x3 - Psychiatric Exam Psychiatric exam: Normal Affect, Normal Mood - Skin Skin Exam: Dry, Normal Color, Warm Assessment and Plan - Assessment and Plan (Free Text) Assessment: 87F POD#15 s/p ex lap with lysis of adhesion and Small bowel resection with persistent ileus vs SBO, now improved Plan: Clamp NGT, start on trial of CLD as tolerated if patient has return of nausea/vomiting, will restart NGT to suction Encourage ambulation Trend CBC/CMP Continue TPN until tolerating adequate PO intake Monitor urine output and bowel function Discussed with Dr. Funmi Jimenez, PGY2
--- NOTE | 2017-12-31 09:47 | PN ---
DATE: 12/30/2017 SUBJECTIVE: The patient is alert in bed. Her family is by her bedside. The patient feels tired. She has NG tube suction in place. The patient was admitted with abdominal pain. No flatus, vomiting and was found to have bowel obstruction and she has had abdominal surgery. Along the line, she has had possible aspiration pneumonia and bronchitis. She was seen by the Infectious Disease specialist, Gastroenterology, and surgeon. PHYSICAL EXAMINATION: VITAL SIGNS: She was afebrile. Blood pressure 150/65, pulse 73, respirations 20, hemoglobin-oxygen saturation of 98%. HEART: Regular. No gallop rhythm. LUNGS: Diminished breath sounds over lung bases, rhonchi decreased. ABDOMEN: Soft, status postop. EXTREMITIES: Legs no edema. LABORATORY DATA: Her white count is 6800, hemoglobin 10.7, platelet count 235,000. Sodium 139, potassium 3.1, BUN 21, creatinine 0.5, glucose 138, phosphorus 3.4, magnesium 2.1, albumin 2.7. Chest x-ray shows hyperinflation and old pleural calcification, mostly on the left side. IMPRESSION: 1. Respiratory insufficiency. 2. Chronic obstructive pulmonary disease. 3. Arthritis. 4. Intestinal obstruction, status post surgery and electrolyte imbalance. PLAN: To continue with the current medications including surgical, medical, and gastrointestinal followup and bronchodilators, vasodilator, oxygen,supportive therapy and correction of electrolyte imbalance. Faisal Fields MD
[2017-12-31] MEDS: Potassium & Sodium Phosphate PO SCH (10:13)
[2017-12-31] MEDS: Enoxaparin 40 mg Syringe SC SCH (10:13)
--- NOTE | 2017-12-31 12:20 | US ---
HISTORY: renal mass on ct COMPARISON: CT abdomen and pelvis without IV contrast performed 12/29/17 TECHNIQUE: Sonographic evaluation of the abdomen. FINDINGS: LIVER: Measures 17.8 cm in sagittal dimension. Echogenic liver may be seen in setting of hepatic parenchymal disease or fatty infiltration. No focal hepatic mass identified. The main portal vein appears patent with normal directional flow. No intrahepatic bile duct dilatation. GALLBLADDER: Gallbladder sludge. No gallstones. No gallbladder wall thickening. Negative sonographic Garcia's sign as assessed by the community nurse. COMMON BILE DUCT: Measures 4 mm. PANCREAS: Not well visualized. RIGHT KIDNEY: Measures 8.9 x 4.2 x 4.3 cm. 1.4 x 1.1 x 1.3 cm upper pole cyst. No hydronephrosis or obstructing calculus. LEFT KIDNEY: Measures 10.4 x 5.1 x 4.8 cm. 0.3 x 0.4 x 0.5 cm midpole echogenic focus, possibly angiomyolipoma. No hydronephrosis or obstructing calculus. SPLEEN: Measures approximately 7.9 cm. AORTA: Limited views appear unremarkable. IVC: Limited views appear unremarkable. OTHER FINDINGS: Trace free fluid. IMPRESSION: Echogenic liver may be seen in setting of hepatic parenchymal disease or fatty infiltration. 1.4 cm right upper pole cyst. 0.5 cm midpole left echogenic focus, possibly angiomyolipoma. Gallbladder sludge. Trace fluid. Preliminary impression was provided by [employer].
--- NOTE | 2017-12-31 12:47 | US ---
Date of service: 12/30/2017 HISTORY: left enlarged ovary COMPARISON: None available. TECHNIQUE: Real-time transabdominal pelvic ultrasound was performed. In addition a transvaginal pelvic ultrasound was necessary to better depict pelvic anatomy. FINDINGS: UTERUS: Measures 4.8 x 2.4 x 3.0 cm. Retroverted. Heterogeneous uterine echotexture. ENDOMETRIUM: Measures 6 mm in diameter. CERVIX: No cervical abnormality identified. RIGHT OVARY: Not visualized. LEFT OVARY: Measures 5.4 x 3.3 x 4.0 cm. Blood flow is demonstrated. 5.1 x 3.1 x 3.8 cm complex left cystic mass containing septations and nodularity. FREE FLUID: Small to moderate complex pelvic free fluid. OTHER FINDINGS: None. IMPRESSION: Limited study. Heterogeneous uterine echotexture. Left adnexal cystic mass measuring approximately 5.1 cm. Malignant ovarian neoplasm until proven otherwise. The right ovary was not visualized. Small to moderate complex pelvic free fluid. Upon review of CT performed 12/29/17, this fluid is higher density than expected and does not represent simple pelvic free fluid. Preliminary impression was provided by [employer].
--- NOTE | 2017-12-31 16:45 | PN ---
DATE: 12/31/2017 SUBJECTIVE: The patient is alert and oriented, sitting in chair. PHYSICAL EXAMINATION: GENERAL: Her family is sitting by her side. The patient is not in acute distress. She has NG tube in place. VITAL SIGNS: She is afebrile with blood pressure of 152/68, pulse 74, respirations 20, and hemoglobin-oxygen saturation of 100%. CARDIOPULMONARY: Her heart is regular. No gallop rhythm. LUNGS: Diminished breath sounds over the lung bases. ABDOMEN: Soft, status postop. EXTREMITIES: Legs, no edema. LABORATORY DATA: Her white count is 6200, hemoglobin 10.6, platelet count 224,000. Serum sodium 140, potassium 3.6, chloride 103, and BUN 18. IMPRESSION: Respiratory insufficiency, bronchitis, pneumonitis, abdominal pain with bowel obstruction with now status post surgery to treat bowel obstruction, arthritis, and electrolyte imbalance. PLAN: To continue with the current medications, serum potassium has come up and is now 3.6. To continue with the current measures including specialist care by Surgery, Infectious Disease, and GI. Faisal Fields MD
[2017-12-31] MEDS ORDERED: TPN #9 IV ONE (18:00)
--- NOTE | 2017-12-31 22:51 | CP.PCM.PN ---
Subjective - Date & Time of Evaluation Date of Evaluation: 12/31/17 Time of Evaluation: 19:10 - Subjective Subjective: Patient is more comfortable today. Patient passing stool. HCT 31 today. Abdominal ultrasound demonstrates no gross abnormaities. Continue supportive measures. Objective - Vital Signs/Intake and Output Vital Signs (last 24 hours): Temp Pulse Resp BP Pulse Ox 98.1 F 78 18 127/78 100 12/31/17 15:00 12/31/17 22:01 12/31/17 15:00 12/31/17 22:01 12/31/17 15:00 Intake and Output: 12/31/17 01/01/18 18:59 06:59 Intake Total 1214 Output Total 600 600 Balance 614 -600 - Medications Medications: Current Medications Acetaminophen (Tylenol 650mg/20.3ml Solution Ud) 650 mg PO Q6 PRN PRN Reason: Pain, moderate (4-7) Last Admin: 12/25/17 07:05 Dose: 650 mg Albuterol Sulfate (Albuterol 0.042% Inhal Maria De Jesus (1.25mg/3ml) Ud) 1.25 mg INH RQ8 [facility] Last Admin: 12/31/17 16:06 Dose: 1.25 mg Diltiazem HCl (Cardizem) 30 mg PO BID [facility] Last Admin: 12/31/17 17:37 Dose: 30 mg Enoxaparin Sodium (Lovenox) 40 mg SC DAILY [facility] Last Admin: 12/31/17 10:13 Dose: 40 mg Piperacillin Sod/Tazobactam (Sod 3.375 gm/ Sodium Chloride) 100 mls @ 200 mls/hr IVPB Q8H [facility]; Protocol Last Admin: 12/22/17 16:18 Dose: Not Given Enalaprilat 2.5 mg/ Sodium (Chloride) 52 mls @ 104 mls/hr IV Q12 [facility] Last Admin: 12/31/17 21:49 Dose: Not Given Multivitamins/Vitamin C 10 ml/Chromium/Copper/Manganese/Zinc 1 ml/ Amino Acids/Electrolytes/Dextrose 1,011 mls @ 83 mls/hr IV .[id number] ONE Stop: 01/01/18 06:10 Last Admin: 12/31/17 17:41 Dose: 83 mls/hr Amino Acids/Electrolytes/Dextrose (Clinimix 5/20 % "E" (1000 Ml)) 1,000 mls @ 83 mls/hr IV .Q12H3M ONE Stop: 01/01/18 18:02 Loperamide HCl (Imodium) 2 mg PO Q6H PRN PRN Reason: Diarrhea Last Admin: 12/23/17 16:16 Dose: 2 mg Nitroglycerin (Nitro-Bid 2% Oint) 1 ea TOP Q6H PRN Last Admin: 12/26/17 06:03 Dose: 1 ea Pantoprazole Sodium (Protonix Inj) 40 mg IVP Q12 [facility] Last Admin: 12/31/17 21:53 Dose: 40 mg Phenol/Menthol (Phenaseptic 1.4% Throat [place]) 1 ml MT Q4H PRN PRN Reason: Pain, moderate (4-7) Potassium Phos/Sodium Phos (Neutra-Phos) 1 pkt PO DAILY [facility] Last Admin: 12/31/17 10:13 Dose: 1 pkt Vitamin A (Vitamin A & D Oint Ud Foilpak) 1 ea TOP DAILY PRN PRN Reason: Other Last Admin: 12/25/17 10:27 Dose: 1 ea - Labs Labs: 12/31/17 06:46 12/31/17 06:46 PT 13.5 SECONDS (9.7-12.2) H 12/23/17 14:27 INR 1.2 12/23/17 14:27 APTT 31 SECONDS (21-34) D 12/29/17 06:45 - Constitutional Appears: Chronically Ill - Head Exam Head Exam: NORMOCEPHALIC - Eye Exam Eye Exam: Normal appearance Pupil Exam: NORMAL ACCOMODATION - ENT Exam ENT Exam: Normal Exam - Neck Exam Neck Exam: Normal Inspection - Respiratory Exam Respiratory Exam: Decreased Breath Sounds - Cardiovascular Exam Cardiovascular Exam: REGULAR RHYTHM - GI/Abdominal Exam GI & Abdominal Exam: Normal Bowel Sounds - Rectal Exam Rectal Exam: Deferred - Exam External exam: NORMAL EXTERNAL EXAM - Extremities Exam Extremities Exam: Normal Inspection - Back Exam Back Exam: NORMAL INSPECTION - Neurological Exam Neurological Exam: Oriented x3 - Psychiatric Exam Psychiatric exam: Anxious - Skin Skin Exam: Dry Assessment and Plan (1) Small bowel obstruction Status: Acute (2) Rheumatoid arthritis Status: Acute (3) Vomiting Status: Acute (4) Hypokalemia Status: Acute
[2018-01-01] MEDS: Albuterol 0.042% Inhal Sol (1.25 mg/3 mL) UD INH SCH ×4 (01:26→23:42)
[2018-01-01] MEDS ORDERED: TPN #10 IV ONE (06:00)
[2018-01-01 07:35] LABS: BASO % 0.6 % (0.0-2.0); EOS # 0.1 K/uL (0.0-0.7); EOS % 2.3 % (0.0-4.0); HEMOGLOBIN 10.1 g/dL (11.0-16.0); LYMPH # 0.9 K/uL (1.0-4.3); LYMPH % 16.1 % (20.0-40.0); MEAN CELL VOLUME 94.7 fL (81.0-99.0); MEAN CORPUSCULAR HEMOGLOBIN 31.2 pg (27.0-31.0); MONO # 0.7 K/uL (0.0-0.8); MONO % 12.3 % (0.0-10.0); NEUT # 3.9 K/uL (1.8-7.0); NEUT % 68.7 % (50.0-75.0); NRBC % 0.1 % (0.0-2.0); RBC 3.24 Mil/uL (3.80-5.20); RED CELL DISTRIBUTION WIDTH 16.4 % (11.5-14.5); WHITE BLOOD COUNT 5.6 K/uL (4.8-10.8)
[2018-01-01 08:29] LABS: ALB/GLOB RATIO 0.8 (1.0-2.1); ALBUMIN 2.7 g/dL (3.5-5.0); ALT/SGPT 36 U/L (9-52); AST/SGOT 48 U/L (14-36); BLOOD UREA NITROGEN 23 mg/dL (7-17); CALCIUM 8.1 mg/dl (8.6-10.4); GFR NON-AFRICAN AMERICAN > 60
[2018-01-01] MEDS: Potassium & Sodium Phosphate PO SCH (10:22)
[2018-01-01] MEDS: Enoxaparin 40 mg Syringe SC SCH (10:28)
--- NOTE | 2018-01-01 11:48 | CP.PCM.PN ---
Subjective - Date & Time of Evaluation Date of Evaluation: 01/01/18 Time of Evaluation: 11:15 - Subjective Subjective: General Surgery progress note for Dr. Choudhary 87F was seen and examined at bedside. Patient had one episode of emesis and bowel movement this morning. We D/C NGT and continue CLD. Patient denies any fever, chest pain, nausea, minimal pain or other associated symptoms. Objective - Vital Signs/Intake and Output Vital Signs (last 24 hours): Temp Pulse Resp BP Pulse Ox 98.3 F 80 20 128/64 100 01/01/18 07:30 01/01/18 08:03 01/01/18 07:30 01/01/18 10:23 01/01/18 07:30 Intake and Output: 01/01/18 01/01/18 06:59 18:59 Intake Total 664 Output Total 1000 Balance -336 - Medications Medications: Current Medications Acetaminophen (Tylenol 650mg/20.3ml Solution Ud) 650 mg PO Q6 PRN PRN Reason: Pain, moderate (4-7) Last Admin: 12/25/17 07:05 Dose: 650 mg Albuterol Sulfate (Albuterol 0.042% Inhal Maria De Jesus (1.25mg/3ml) Ud) 1.25 mg INH RQ8 [facility] Last Admin: 01/01/18 07:26 Dose: 1.25 mg Diltiazem HCl (Cardizem) 30 mg PO BID [facility] Last Admin: 01/01/18 10:23 Dose: 30 mg Enoxaparin Sodium (Lovenox) 40 mg SC DAILY [facility] Last Admin: 01/01/18 10:28 Dose: 40 mg Piperacillin Sod/Tazobactam (Sod 3.375 gm/ Sodium Chloride) 100 mls @ 200 mls/hr IVPB Q8H [facility]; Protocol Last Admin: 12/22/17 16:18 Dose: Not Given Enalaprilat 2.5 mg/ Sodium (Chloride) 52 mls @ 104 mls/hr IV Q12 [facility] Last Admin: 01/01/18 10:23 Dose: 104 mls/hr Amino Acids/Electrolytes/Dextrose (Clinimix 5/20 % "E" (1000 Ml)) 1,000 mls @ 83 mls/hr IV .Q12H3M ONE Stop: 01/01/18 18:02 Last Admin: 01/01/18 05:46 Dose: 83 mls/hr Loperamide HCl (Imodium) 2 mg PO Q6H PRN PRN Reason: Diarrhea Last Admin: 12/23/17 16:16 Dose: 2 mg Nitroglycerin (Nitro-Bid 2% Oint) 1 ea TOP Q6H PRN Last Admin: 12/26/17 06:03 Dose: 1 ea Pantoprazole Sodium (Protonix Inj) 40 mg IVP Q12 [facility] Last Admin: 01/01/18 10:22 Dose: 40 mg Phenol/Menthol (Phenaseptic 1.4% Throat [place]) 1 ml MT Q4H PRN PRN Reason: Pain, moderate (4-7) Potassium Phos/Sodium Phos (Neutra-Phos) 1 pkt PO DAILY [facility] Last Admin: 01/01/18 10:22 Dose: 1 pkt Vitamin A (Vitamin A & D Oint Ud Foilpak) 1 ea TOP DAILY PRN PRN Reason: Other Last Admin: 12/25/17 10:27 Dose: 1 ea - Labs Labs: 01/01/18 07:20 01/01/18 07:20 PT 13.5 SECONDS (9.7-12.2) H 12/23/17 14:27 INR 1.2 12/23/17 14:27 APTT 31 SECONDS (21-34) D 12/29/17 06:45 - Constitutional Appears: Well, No Acute Distress - Head Exam Head Exam: ATRAUMATIC, NORMAL INSPECTION, NORMOCEPHALIC - Respiratory Exam Respiratory Exam: NORMAL BREATHING PATTERN. absent: Accessory Muscle Use - GI/Abdominal Exam GI & Abdominal Exam: Soft, Normal Bowel Sounds - Extremities Exam Extremities Exam: Normal Inspection. absent: Pedal Edema - Psychiatric Exam Psychiatric exam: Normal Affect, Normal Mood - Skin Skin Exam: Dry, Normal Color, Warm Assessment and Plan - Assessment and Plan (Free Text) Assessment: 87F POD #16 s/p ex lap with lysis of adhesion and small bowel resection with persistent ileus vs SBO, now improved Plan: D/C NGT, continue CLD encourage ambulation continue TPN until tolerating adequate PO intake Monitor Bowel/urinary functions D/W Funmi
[2018-01-01] MEDS ORDERED: Fat Emulsion 20% IV 500 ML IV ONE (18:00)
[2018-01-01] MEDS ORDERED: TPN #11 IV ONE (18:00)
--- NOTE | 2018-01-01 18:34 | CP.PCM.PN ---
Subjective - Date & Time of Evaluation Date of Evaluation: 01/01/18 Time of Evaluation: 07:00 - Subjective Subjective: improving oob alert ngt out Objective - Vital Signs/Intake and Output Vital Signs (last 24 hours): Temp Pulse Resp BP Pulse Ox 98.3 F 81 20 112/71 100 01/01/18 07:30 01/01/18 18:32 01/01/18 07:30 01/01/18 18:32 01/01/18 07:30 Intake and Output: 01/01/18 01/01/18 06:59 18:59 Intake Total 664 Output Total 1000 Balance -336 - Medications Medications: Current Medications Acetaminophen (Tylenol 650mg/20.3ml Solution Ud) 650 mg PO Q6 PRN PRN Reason: Pain, moderate (4-7) Last Admin: 12/25/17 07:05 Dose: 650 mg Albuterol Sulfate (Albuterol 0.042% Inhal Maria De Jesus (1.25mg/3ml) Ud) 1.25 mg INH RQ8 [facility] Last Admin: 01/01/18 15:50 Dose: 1.25 mg Diltiazem HCl (Cardizem) 30 mg PO BID [facility] Last Admin: 01/01/18 18:29 Dose: 30 mg Enoxaparin Sodium (Lovenox) 40 mg SC DAILY [facility] Last Admin: 01/01/18 10:28 Dose: 40 mg Piperacillin Sod/Tazobactam (Sod 3.375 gm/ Sodium Chloride) 100 mls @ 200 mls/hr IVPB Q8H [facility]; Protocol Last Admin: 12/22/17 16:18 Dose: Not Given Enalaprilat 2.5 mg/ Sodium (Chloride) 52 mls @ 104 mls/hr IV Q12 [facility] Last Admin: 01/01/18 10:23 Dose: 104 mls/hr Multivitamins/Vitamin C 10 ml/Chromium/Copper/Manganese/Zinc 1 ml/ Amino A cids/Electrolytes/Dextrose 1,011 mls @ 83 mls/hr IV .[id number] ONE Stop: 01/02/18 06:10 Last Admin: 01/01/18 18:22 Dose: 83 mls/hr Amino Acids/Electrolytes/Dextrose (Clinimix 5/20 % "E" (1000 Ml)) 1,000 mls @ 83 mls/hr IV .Q12H3M [facility] Stop: 01/02/18 17:59 Fat Emulsion Intravenous (Intralipid 20%) 500 mls @ 42 mls/hr IV QOD ONE Stop: 01/02/18 05:54 Last Admin: 01/01/18 18:22 Dose: 42 mls/hr Loperamide HCl (Imodium) 2 mg PO Q6H PRN PRN Reason: Diarrhea Last Admin: 12/23/17 16:16 Dose: 2 mg Metoclopramide HCl (Reglan) 10 mg IVP Q6H PRN PRN Reason: Nausea/Vomiting Nitroglycerin (Nitro-Bid 2% Oint) 1 ea TOP Q6H PRN Last Admin: 12/26/17 06:03 Dose: 1 ea Pantoprazole Sodium (Protonix Inj) 40 mg IVP Q12 [facility] Last Admin: 01/01/18 10:22 Dose: 40 mg Phenol/Menthol (Phenaseptic 1.4% Throat [place]) 1 ml MT Q4H PRN PRN Reason: Pain, moderate (4-7) Potassium Phos/Sodium Phos (Neutra-Phos) 1 pkt PO DAILY [facility] Last Admin: 01/01/18 10:22 Dose: 1 pkt Vitamin A (Vitamin A & D Oint Ud Foilpak) 1 ea TOP DAILY PRN PRN Reason: Other Last Admin: 12/25/17 10:27 Dose: 1 ea - Labs Labs: 01/01/18 07:20 01/01/18 07:20 PT 13.5 SECONDS (9.7-12.2) H 12/23/17 14:27 INR 1.2 12/23/17 14:27 APTT 31 SECONDS (21-34) D 12/29/17 06:45 - Constitutional Appears: Well - Head Exam Head Exam: ATRAUMATIC, NORMAL INSPECTION, NORMOCEPHALIC - Eye Exam Eye Exam: EOMI, Normal appearance, PERRL Pupil Exam: NORMAL ACCOMODATION, PERRL - ENT Exam ENT Exam: Mucous Membranes Moist, Normal Exam - Neck Exam Neck Exam: Full ROM, Normal Inspection. absent: Lymphadenopathy - Respiratory Exam Respiratory Exam: Clear to Ausculation Bilateral, NORMAL BREATHING PATTERN - Cardiovascular Exam Cardiovascular Exam: REGULAR RHYTHM, +S1, +S2. absent: Murmur - GI/Abdominal Exam GI & Abdominal Exam: Soft, Normal Bowel Sounds. absent: Tenderness - Rectal Exam Rectal Exam: NORMAL INSPECTION - Extremities Exam Extremities Exam: Full ROM, Normal Capillary Refill, Normal Inspection. absent: Joint Swelling, Pedal Edema - Back Exam Back Exam: NORMAL INSPECTION - Neurological Exam Neurological Exam: Alert, Awake, CN II-XII Intact, Normal Gait, Oriented x3 - Psychiatric Exam Psychiatric exam: Normal Affect, Normal Mood - Skin Skin Exam: Dry, Intact, Normal Color, Warm Assessment and Plan (1) Acute non-ST elevation myocardial infarction (NSTEMI) Status: Acute (2) Bowel obstruction Status: Acute (3) Paroxysmal atrial fibrillation with rapid ventricular response Status: Resolved (4) Rheumatoid arthritis Status: Acute (5) Small bowel obstruction Status: Acute
--- NOTE | 2018-01-01 19:05 | PN ---
DATE: 01/01/2018 SUBJECTIVE: The patient is sitting in bed with the family by her side. The patient is alert and oriented, not in any acute distress. Her NG tube is out today. PHYSICAL EXAMINATION: VITAL SIGNS: She is afebrile with blood pressure 128/64, pulse 80, respirations 20, and hemoglobin-oxygen saturation is 100%. HEART: Regular. No gallop rhythm. LUNGS: Diminished breath sounds over the lung bases. No rhonchi. ABDOMEN: Soft, status postop. EXTREMITIES: Legs, no edema. LABORATORY DATA: Her white count is 5600, hemoglobin 10.1, platelet count 199,000. Serum sodium 141, potassium 3.7, chloride 102, BUN 23, creatinine 0.6, magnesium is 2.1, and albumin 2.7. Her electrolyte status has improved. IMPRESSION: Abdominal pain, operated for bowel obstruction, exacerbation of chronic bronchitis, rheumatoid arthritis, hypertension, and electrolyte imbalance. PLAN: To continue with the current medications including bronchodilators and vasodilators and analgesics as required. Oxygen and nutritional support. She is seen by surgeon, Infectious Disease and GI. Faisal Fields MD
--- NOTE | 2018-01-01 22:45 | CP.PCM.PN ---
Subjective - Date & Time of Evaluation Date of Evaluation: 01/01/18 Time of Evaluation: 19:10 - Subjective Subjective: Patient making slow progress. N/G tube out. Hgb 10.1 and potassium 3.7. Patient had one episode of emitus today. She encouraged to stay out of bed as much as possible. Objective - Vital Signs/Intake and Output Vital Signs (last 24 hours): Temp Pulse Resp BP Pulse Ox 98.1 F 82 20 116/69 99 01/01/18 15:00 01/01/18 22:01 01/01/18 15:00 01/01/18 22:01 01/01/18 15:00 - Medications Medications: Current Medications Acetaminophen (Tylenol 650mg/20.3ml Solution Ud) 650 mg PO Q6 PRN PRN Reason: Pain, moderate (4-7) Last Admin: 12/25/17 07:05 Dose: 650 mg Albuterol Sulfate (Albuterol 0.042% Inhal Maria De Jesus (1.25mg/3ml) Ud) 1.25 mg INH RQ8 [facility] Last Admin: 01/01/18 15:50 Dose: 1.25 mg Diltiazem HCl (Cardizem) 30 mg PO BID [facility] Last Admin: 01/01/18 18:29 Dose: 30 mg Enoxaparin Sodium (Lovenox) 40 mg SC DAILY [facility] Last Admin: 01/01/18 10:28 Dose: 40 mg Piperacillin Sod/Tazobactam (Sod 3.375 gm/ Sodium Chloride) 100 mls @ 200 mls/hr IVPB Q8H [facility]; Protocol Last Admin: 12/22/17 16:18 Dose: Not Given Enalaprilat 2.5 mg/ Sodium (Chloride) 52 mls @ 104 mls/hr IV Q12 [facility] Last Admin: 01/01/18 22:01 Dose: 104 mls/hr Multivitamins/Vitamin C 10 ml/Chromium/Copper/Manganese/Zinc 1 ml/ Amino A cids/Electrolytes/Dextrose 1,011 mls @ 83 mls/hr IV .[id number] ONE Stop: 01/02/18 06:10 Last Admin: 01/01/18 18:22 Dose: 83 mls/hr Amino Acids/Electrolytes/Dextrose (Clinimix 5/20 % "E" (1000 Ml)) 1,000 mls @ 83 mls/hr IV .Q12H3M [facility] Stop: 01/02/18 17:59 Fat Emulsion Intravenous (Intralipid 20%) 500 mls @ 42 mls/hr IV QOD ONE Stop: 01/02/18 05:54 Last Admin: 01/01/18 18:22 Dose: 42 mls/hr Loperamide HCl (Imodium) 2 mg PO Q6H PRN PRN Reason: Diarrhea Last Admin: 12/23/17 16:16 Dose: 2 mg Metoclopramide HCl (Reglan) 10 mg IVP Q6H PRN PRN Reason: Nausea/Vomiting Nitroglycerin (Nitro-Bid 2% Oint) 1 ea TOP Q6H PRN Last Admin: 12/26/17 06:03 Dose: 1 ea Pantoprazole Sodium (Protonix Inj) 40 mg IVP Q12 [facility] Last Admin: 01/01/18 10:22 Dose: 40 mg Phenol/Menthol (Phenaseptic 1.4% Throat [place]) 1 ml MT Q4H PRN PRN Reason: Pain, moderate (4-7) Potassium Phos/Sodium Phos (Neutra-Phos) 1 pkt PO DAILY [facility] Last Admin: 01/01/18 10:22 Dose: 1 pkt Vitamin A (Vitamin A & D Oint Ud Foilpak) 1 ea TOP DAILY PRN PRN Reason: Other Last Admin: 12/25/17 10:27 Dose: 1 ea - Labs Labs: 01/01/18 07:20 01/01/18 07:20 PT 13.5 SECONDS (9.7-12.2) H 12/23/17 14:27 INR 1.2 12/23/17 14:27 APTT 31 SECONDS (21-34) D 12/29/17 06:45 - Constitutional Appears: Chronically Ill - Head Exam Head Exam: NORMOCEPHALIC - Eye Exam Eye Exam: Normal appearance Pupil Exam: NORMAL ACCOMODATION - ENT Exam ENT Exam: Normal Exam - Neck Exam Neck Exam: Normal Inspection - Respiratory Exam Respiratory Exam: Decreased Breath Sounds - Cardiovascular Exam Cardiovascular Exam: REGULAR RHYTHM - GI/Abdominal Exam GI & Abdominal Exam: Soft - Rectal Exam Rectal Exam: Deferred - Exam External exam: NORMAL EXTERNAL EXAM - Extremities Exam Extremities Exam: Normal Inspection - Back Exam Back Exam: NORMAL INSPECTION - Neurological Exam Neurological Exam: Oriented x3 - Psychiatric Exam Psychiatric exam: Anxious - Skin Skin Exam: Dry Assessment and Plan (1) Small bowel obstruction Status: Acute (2) Rheumatoid arthritis Status: Acute (3) Vomiting Status: Acute (4) Hypokalemia Status: Acute
[2018-01-02] MEDS ORDERED: TPN #12 IV SCH (06:11)
[2018-01-02 07:18] LABS: BASO % 0.5 % (0.0-2.0); EOS # 0.2 K/uL (0.0-0.7); EOS % 3.3 % (0.0-4.0); LYMPH # 0.9 K/uL (1.0-4.3); LYMPH % 16.4 % (20.0-40.0); MEAN CELL VOLUME 94.2 fL (81.0-99.0); MEAN CORPUSCULAR HEMOGLOBIN 31.4 pg (27.0-31.0); MEAN CORPUSCULAR HGB CONC 33.3 g/dL (33.0-37.0); MEAN PLATELET VOLUME 10.8 fL (7.2-11.7); MONO # 0.7 K/uL (0.0-0.8); MONO % 12.8 % (0.0-10.0); NEUT # 3.6 K/uL (1.8-7.0); NRBC % 0.1 % (0.0-2.0); RBC 3.19 Mil/uL (3.80-5.20); RED CELL DISTRIBUTION WIDTH 16.3 % (11.5-14.5); WHITE BLOOD COUNT 5.4 K/uL (4.8-10.8)
[2018-01-02 07:19] LABS: ALB/GLOB RATIO 0.8 (1.0-2.1); ALBUMIN 2.7 g/dL (3.5-5.0); ALT/SGPT 41 U/L (9-52); AST/SGOT 47 U/L (14-36); BLOOD UREA NITROGEN 24 mg/dL (7-17); CALCIUM 7.9 mg/dl (8.6-10.4); GFR NON-AFRICAN AMERICAN > 60
[2018-01-02] MEDS: Albuterol 0.042% Inhal Sol (1.25 mg/3 mL) UD INH SCH ×2 (07:51→19:23)
[2018-01-02] MEDS: Enoxaparin 40 mg Syringe SC SCH (10:27)
[2018-01-02] MEDS: Potassium & Sodium Phosphate PO SCH (10:27)
--- NOTE | 2018-01-02 10:42 | CP.PCM.PN ---
Subjective - Date & Time of Evaluation Date of Evaluation: 01/02/18 Time of Evaluation: 06:55 - Subjective Subjective: General Surgery: Dr Choudhary Pt S&E. NAEO. No further emesis. Has been tolerating liquids since lunch yesterday. Continues to have bowel movements. Objective - Vital Signs/Intake and Output Vital Signs (last 24 hours): Temp Pulse Resp BP Pulse Ox 98.3 F 97 H 20 130/71 97 01/02/18 08:00 01/02/18 08:00 01/02/18 08:00 01/02/18 10:26 01/02/18 08:00 Intake and Output: 01/02/18 01/02/18 06:59 18:59 Intake Total 1250 Balance 1250 - Medications Medications: Current Medications Acetaminophen (Tylenol 650mg/20.3ml Solution Ud) 650 mg PO Q6 PRN PRN Reason: Pain, moderate (4-7) Last Admin: 12/25/17 07:05 Dose: 650 mg Albuterol Sulfate (Albuterol 0.042% Inhal Maria De Jesus (1.25mg/3ml) Ud) 1.25 mg INH RQ8 [facility] Last Admin: 01/02/18 07:51 Dose: 1.25 mg Enalapril Maleate (Vasotec) 5 mg PO DAILY [facility] Last Admin: 01/02/18 10:26 Dose: 5 mg Enoxaparin Sodium (Lovenox) 40 mg SC DAILY [facility] Last Admin: 01/02/18 10:27 Dose: 40 mg Piperacillin Sod/Tazobactam (Sod 3.375 gm/ Sodium Chloride) 100 mls @ 200 mls/hr IVPB Q8H [facility]; Protocol Last Admin: 12/22/17 16:18 Dose: Not Given Amino Acids/Electrolytes/Dextrose (Clinimix 5/20 % "E" (1000 Ml)) 1,000 mls @ 83 mls/hr IV .Q12H3M [facility] Stop: 01/02/18 17:59 Last Admin: 01/02/18 06:37 Dose: 83 mls/hr Metoclopramide HCl (Reglan) 10 mg IVP Q6H PRN PRN Reason: Nausea/Vomiting Nitroglycerin (Nitro-Bid 2% Oint) 1 ea TOP Q6H PRN Last Admin: 12/26/17 06:03 Dose: 1 ea Pantoprazole Sodium (Protonix Inj) 40 mg IVP Q12 [facility] Last Admin: 01/02/18 10:27 Dose: 40 mg Phenol/Menthol (Phenaseptic 1.4% Throat [place]) 1 ml MT Q4H PRN PRN Reason: Pain, moderate (4-7) Potassium Phos/Sodium Phos (Neutra-Phos) 1 pkt PO DAILY [facility] Last Admin: 01/02/18 10:27 Dose: 1 pkt Vitamin A (Vitamin A & D Oint Ud Foilpak) 1 ea TOP DAILY PRN PRN Reason: Other Last Admin: 12/25/17 10:27 Dose: 1 ea - Labs Labs: 01/02/18 06:45 01/02/18 06:45 PT 13.5 SECONDS (9.7-12.2) H 12/23/17 14:27 INR 1.2 12/23/17 14:27 APTT 31 SECONDS (21-34) D 12/29/17 06:45 - Constitutional Appears: Non-toxic - Eye Exam Eye Exam: Normal appearance - Respiratory Exam Respiratory Exam: NORMAL BREATHING PATTERN - Cardiovascular Exam Cardiovascular Exam: REGULAR RHYTHM. absent: Tachycardia - GI/Abdominal Exam GI & Abdominal Exam: Soft. absent: Distended, Tenderness Additional comments: midline c/d/i - Psychiatric Exam Psychiatric exam: Normal Affect, Normal Mood Assessment and Plan - Assessment and Plan (Free Text) Assessment: 87F s/p ex-lap w/ ADELINE Plan: thus far tolerating CLD for past 24 hours will get bedside swallow eval possible adv of diet today pending results will d/w Dr Funmi Landeros, PGY4
--- NOTE | 2018-01-02 19:09 | PN ---
DATE: 01/02/2018 SUBJECTIVE: The patient is alert and oriented. A family member is by her side. PHYSICAL EXAMINATION: VITAL SIGNS: Afebrile. Her blood pressure 130/70, pulse 97, respiration 20, hemoglobin-oxygen saturation 97%. GENERAL: The patient is not in acute distress. Her vomiting has subsided and she is on a liquid diet. HEART: Her heart is regular. No gallop rhythm. LUNGS: Diminished breath sounds. Rhonchi decreased. ABDOMEN: Soft. Status postop. EXTREMITIES: Legs; no edema. IMPRESSION: Respiratory insufficiency, bronchitis, pneumonitis, abdominal pain status post bowel surgery for bowel obstruction, rheumatoid arthritis, electrolyte imbalance. PLAN: Continue with the current measures and specialist followup. She is on bronchodilator, vasodilators, oxygen therapy and measures recommended by surgeon and supportive measures. Faisal Fields MD
--- NOTE | 2018-01-02 21:08 | CP.PCM.PN ---
Subjective - Date & Time of Evaluation Date of Evaluation: 01/02/18 Time of Evaluation: 19:10 - Subjective Subjective: patient had an episode of vomiting following ingestion of jello. Hemoglobin was 10 today. Patient denies abdomenal pain. She does have generalized weakness. Patient evaluated by Dr. Fields who suggests continue current therapy. Objective - Vital Signs/Intake and Output Vital Signs (last 24 hours): Temp Pulse Resp BP Pulse Ox 98.1 F 85 18 104/71 100 01/02/18 15:00 01/02/18 16:00 01/02/18 15:00 01/02/18 15:00 01/02/18 15:00 - Medications Medications: Current Medications Acetaminophen (Tylenol 650mg/20.3ml Solution Ud) 650 mg PO Q6 PRN PRN Reason: Pain, moderate (4-7) Last Admin: 12/25/17 07:05 Dose: 650 mg Albuterol Sulfate (Albuterol 0.042% Inhal Maria De Jesus (1.25mg/3ml) Ud) 1.25 mg INH RQ8 [facility] Last Admin: 01/02/18 19:23 Dose: 1.25 mg Enalapril Maleate (Vasotec) 5 mg PO DAILY [facility] Last Admin: 01/02/18 10:26 Dose: 5 mg Enoxaparin Sodium (Lovenox) 40 mg SC DAILY [facility] Last Admin: 01/02/18 10:27 Dose: 40 mg Piperacillin Sod/Tazobactam (Sod 3.375 gm/ Sodium Chloride) 100 mls @ 200 mls/hr IVPB Q8H [facility]; Protocol Last Admin: 12/22/17 16:18 Dose: Not Given Metoclopramide HCl (Reglan) 10 mg IVP Q6H PRN PRN Reason: Nausea/Vomiting Last Admin: 01/02/18 18:47 Dose: 10 mg Nitroglycerin (Nitro-Bid 2% Oint) 1 ea TOP Q6H PRN Last Admin: 12/26/17 06:03 Dose: 1 ea Pantoprazole Sodium (Protonix Inj) 40 mg IVP Q12 [facility] Last Admin: 01/02/18 10:27 Dose: 40 mg Phenol/Menthol (Phenaseptic 1.4% Throat [place]) 1 ml MT Q4H PRN PRN Reason: Pain, moderate (4-7) Potassium Phos/Sodium Phos (Neutra-Phos) 1 pkt PO DAILY [facility] Last Admin: 01/02/18 10:27 Dose: 1 pkt Vitamin A (Vitamin A & D Oint Ud Foilpak) 1 ea TOP DAILY PRN PRN Reason: Other Last Admin: 12/25/17 10:27 Dose: 1 ea - Labs Labs: 01/02/18 06:45 01/02/18 06:45 PT 13.5 SECONDS (9.7-12.2) H 12/23/17 14:27 INR 1.2 12/23/17 14:27 APTT 31 SECONDS (21-34) D 12/29/17 06:45 - Constitutional Appears: Chronically Ill - Head Exam Head Exam: NORMOCEPHALIC - Eye Exam Eye Exam: Normal appearance Pupil Exam: NORMAL ACCOMODATION - ENT Exam ENT Exam: Normal Exam - Neck Exam Neck Exam: Normal Inspection - Respiratory Exam Respiratory Exam: Decreased Breath Sounds - Cardiovascular Exam Cardiovascular Exam: REGULAR RHYTHM - GI/Abdominal Exam GI & Abdominal Exam: Normal Bowel Sounds - Exam External exam: NORMAL EXTERNAL EXAM - Extremities Exam Extremities Exam: Normal Inspection - Back Exam Back Exam: NORMAL INSPECTION - Neurological Exam Neurological Exam: Oriented x3 - Psychiatric Exam Psychiatric exam: Depressed - Skin Skin Exam: Dry Assessment and Plan (1) Small bowel obstruction Status: Acute (2) Rheumatoid arthritis Status: Acute (3) Vomiting Status: Acute (4) Hypokalemia Status: Acute
[2018-01-03] MEDS: Albuterol 0.042% Inhal Sol (1.25 mg/3 mL) UD INH SCH ×3 (00:07→15:54)
[2018-01-03 06:44] LABS: BASO % 0.4 % (0.0-2.0); EOS # 0.1 K/uL (0.0-0.7); EOS % 1.5 % (0.0-4.0); HEMOGLOBIN 9.7 g/dL (11.0-16.0); LYMPH # 0.8 K/uL (1.0-4.3); LYMPH % 12.5 % (20.0-40.0); MEAN CELL VOLUME 93.1 fL (81.0-99.0); MEAN CORPUSCULAR HEMOGLOBIN 30.7 pg (27.0-31.0); MEAN CORPUSCULAR HGB CONC 32.9 g/dL (33.0-37.0); MEAN PLATELET VOLUME 11.2 fL (7.2-11.7); MONO # 0.7 K/uL (0.0-0.8); MONO % 11.5 % (0.0-10.0); NEUT # 4.7 K/uL (1.8-7.0); NEUT % 74.1 % (50.0-75.0); RBC 3.16 Mil/uL (3.80-5.20); RED CELL DISTRIBUTION WIDTH 16.1 % (11.5-14.5); WHITE BLOOD COUNT 6.4 K/uL (4.8-10.8)
[2018-01-03 06:58] LABS: BLOOD UREA NITROGEN 20 mg/dL (7-17); CALCIUM 8.2 mg/dl (8.6-10.4); GFR NON-AFRICAN AMERICAN > 60
[2018-01-03] MEDS: Enoxaparin 40 mg Syringe SC SCH (09:37)
[2018-01-03] MEDS: Potassium & Sodium Phosphate PO SCH (09:37)
--- NOTE | 2018-01-03 11:04 | CP.PCM.PN ---
Subjective - Date & Time of Evaluation Date of Evaluation: 01/03/18 Time of Evaluation: 07:30 - Subjective Subjective: surgery progress note for Dr. Choudhary Patient examined at bedside. Patient had 1 episode of liquid emesis overnight. Patient reports she feels well and wants to eat. Patient denies nausea, abdominal pain, constipation. She reports soft stool and flatus. Objective - Vital Signs/Intake and Output Vital Signs (last 24 hours): Temp Pulse Resp BP Pulse Ox 98.2 F 80 20 113/64 99 01/03/18 07:58 01/03/18 07:58 01/03/18 07:58 01/03/18 09:38 01/03/18 07:58 Intake and Output: 01/03/18 01/03/18 06:59 18:59 Intake Total 300 Balance 300 - Medications Medications: Current Medications Acetaminophen (Tylenol 650mg/20.3ml Solution Ud) 650 mg PO Q6 PRN PRN Reason: Pain, moderate (4-7) Last Admin: 12/25/17 07:05 Dose: 650 mg Albuterol Sulfate (Albuterol 0.042% Inhal Maria De Jesus (1.25mg/3ml) Ud) 1.25 mg INH RQ8 [facility] Last Admin: 01/03/18 07:48 Dose: 1.25 mg Enalapril Maleate (Vasotec) 5 mg PO DAILY [facility] Last Admin: 01/03/18 09:38 Dose: Not Given Enoxaparin Sodium (Lovenox) 40 mg SC DAILY [facility] Last Admin: 01/03/18 09:37 Dose: 40 mg Piperacillin Sod/Tazobactam (Sod 3.375 gm/ Sodium Chloride) 100 mls @ 200 mls/hr IVPB Q8H [facility]; Protocol Last Admin: 12/22/17 16:18 Dose: Not Given Metoclopramide HCl (Reglan) 10 mg IVP Q6H PRN PRN Reason: Nausea/Vomiting Last Admin: 01/02/18 18:47 Dose: 10 mg Nitroglycerin (Nitro-Bid 2% Oint) 1 ea TOP Q6H PRN Last Admin: 12/26/17 06:03 Dose: 1 ea Pantoprazole Sodium (Protonix Inj) 40 mg IVP Q12 [facility] Last Admin: 01/03/18 09:37 Dose: 40 mg Phenol/Menthol (Phenaseptic 1.4% Throat [place]) 1 ml MT Q4H PRN PRN Reason: Pain, moderate (4-7) Potassium Phos/Sodium Phos (Neutra-Phos) 1 pkt PO DAILY [facility] Last Admin: 01/03/18 09:37 Dose: 1 pkt Simethicone (Mylicon Chew Tab) 80 mg PO TID [facility] Vitamin A (Vitamin A & D Oint Ud Foilpak) 1 ea TOP DAILY PRN PRN Reason: Other Last Admin: 12/25/17 10:27 Dose: 1 ea - Labs Labs: 01/03/18 06:33 01/03/18 06:33 PT 13.5 SECONDS (9.7-12.2) H 12/23/17 14:27 INR 1.2 12/23/17 14:27 APTT 31 SECONDS (21-34) D 12/29/17 06:45 - Constitutional Appears: Non-toxic, No Acute Distress - Head Exam Head Exam: ATRAUMATIC, NORMAL INSPECTION, NORMOCEPHALIC - Eye Exam Eye Exam: EOMI, Normal appearance - ENT Exam ENT Exam: Mucous Membranes Moist, Normal Exam - Neck Exam Neck Exam: Normal Inspection - Respiratory Exam Respiratory Exam: Clear to Ausculation Bilateral, NORMAL BREATHING PATTERN - Cardiovascular Exam Cardiovascular Exam: RRR - GI/Abdominal Exam GI & Abdominal Exam: Soft, Normal Bowel Sounds. absent: Distended, Tenderness Additional comments: midline incision stapled. No erythema/drainage. - Extremities Exam Extremities Exam: Normal Inspection. absent: Calf Tenderness, Pedal Edema - Neurological Exam Neurological Exam: Alert, Awake - Psychiatric Exam Psychiatric exam: Normal Affect, Normal Mood - Skin Skin Exam: Dry, Intact, Normal Color, Warm Assessment and Plan - Assessment and Plan (Free Text) Assessment: 87 year old female s/p ex-lap w/ ADELINE, POD #18 Plan: -advanced from clears to mechanical soft, monitor toleration -simethicone TID -monitor bowel function -medical management per primary Will discuss with Dr. Funmi Evans, PGY-1
[2018-01-03] MEDS: Simethicone 80 mg Chewtab PO SCH ×2 (13:10→18:19)
--- NOTE | 2018-01-03 17:05 | PN ---
DATE: 01/03/2018 LOCATION: 563, Bed B. SUBJECTIVE: This is an 87-year-old female seen and examined in rounds without significant clinical changes without reported active bleeding with intermittent rate of dyspepsia, but no reported nausea or vomiting this morning. The entire chart is reviewed including but not limited to the most recent lab and radiology study results, current and the previous medication list, current and the previous medical events. Case discussed with the staff at length. The patient had been somewhat tolerating oral intake. LABORATORY DATA: Most recent lab results showed hemoglobin of 9.7, hematocrit 29.5, BUN of 20 with normal creatinine, calcium 8.2. The patient still having low albumin and low total protein. PHYSICAL EXAMINATION: GENERAL: An 87-year-old female. VITAL SIGNS: Afebrile with pulse of 84, respiratory rate 20 to 22, blood pressure of 118/62. HEENT: Showed pale, dry oral mucous membrane. Nonicteric sclerae. LUNGS: Few scattered crepitation. Decreased air entry at bases. HEART: Positive S1 and S2. ABDOMEN: Soft and mild generalized tiredness. No masses or organomegaly. No rebound tenderness or guarding, but abdominal distention. Abdominal miguel angel were in place, exposed to air. EXTREMITIES: In the lower extremities edematous changes. No clubbing or cyanosis. CENTRAL NERVOUS SYSTEM: No reported new neurological deficit, sensory or motor. IMPRESSION AND PLAN: 1. Reported recent history of bowel obstruction. 2. Re-exacerbation of peptic ulcer disease. 3. Anemia secondary to above. 4. Known history of rheumatoid arthritis. 5. Electrolyte imbalance. 6. Further recommendation to follow. Kelly Lindquist MD
[2018-01-03] MEDS: Acetaminophen 650mg/20.3ml solution UD PO PRN (18:21)
--- NOTE | 2018-01-03 22:21 | CP.PCM.PN ---
Subjective - Date & Time of Evaluation Date of Evaluation: 01/03/18 Time of Evaluation: 19:10 - Subjective Subjective: patient feels better today. She has not had any vomiting the past 24 hours. Today's hematocrit was 29.7. Patient encourage to eat. Denies fever, abdominal pain or nausea. Repeat labs in a.m. Objective - Vital Signs/Intake and Output Vital Signs (last 24 hours): Temp Pulse Resp BP Pulse Ox 98.2 F 80 20 149/77 97 01/03/18 16:00 01/03/18 16:00 01/03/18 16:00 01/03/18 16:00 01/03/18 16:00 - Medications Medications: Current Medications Acetaminophen (Tylenol 650mg/20.3ml Solution Ud) 650 mg PO Q6 PRN PRN Reason: Pain, moderate (4-7) Last Admin: 01/03/18 18:21 Dose: 650 mg Albuterol Sulfate (Albuterol 0.042% Inhal Maria De Jesus (1.25mg/3ml) Ud) 1.25 mg INH RQ8 [facility] Last Admin: 01/03/18 15:54 Dose: 1.25 mg Enalapril Maleate (Vasotec) 5 mg PO DAILY [facility] Last Admin: 01/03/18 09:38 Dose: Not Given Enoxaparin Sodium (Lovenox) 40 mg SC DAILY [facility] Last Admin: 01/03/18 09:37 Dose: 40 mg Piperacillin Sod/Tazobactam (Sod 3.375 gm/ Sodium Chloride) 100 mls @ 200 mls/hr IVPB Q8H [facility]; Protocol Last Admin: 12/22/17 16:18 Dose: Not Given Metoclopramide HCl (Reglan) 10 mg IVP Q6H PRN PRN Reason: Nausea/Vomiting Last Admin: 01/02/18 18:47 Dose: 10 mg Nitroglycerin (Nitro-Bid 2% Oint) 1 ea TOP Q6H PRN Last Admin: 12/26/17 06:03 Dose: 1 ea Pantoprazole Sodium (Protonix Inj) 40 mg IVP Q12 [facility] Last Admin: 01/03/18 21:10 Dose: 40 mg Phenol/Menthol (Phenaseptic 1.4% Throat [place]) 1 ml MT Q4H PRN PRN Reason: Pain, moderate (4-7) Simethicone (Mylicon Chew Tab) 80 mg PO TID [facility] Last Admin: 01/03/18 18:19 Dose: 80 mg Vitamin A (Vitamin A & D Oint Ud Foilpak) 1 ea TOP DAILY PRN PRN Reason: Other Last Admin: 12/25/17 10:27 Dose: 1 ea - Labs Labs: 01/03/18 06:33 01/03/18 06:33 PT 13.5 SECONDS (9.7-12.2) H 12/23/17 14:27 INR 1.2 12/23/17 14:27 APTT 31 SECONDS (21-34) D 12/29/17 06:45 - Constitutional Appears: Chronically Ill - Head Exam Head Exam: NORMOCEPHALIC - Eye Exam Eye Exam: Normal appearance Pupil Exam: NORMAL ACCOMODATION - ENT Exam ENT Exam: Mucous Membranes Dry - Neck Exam Neck Exam: Normal Inspection - Respiratory Exam Respiratory Exam: Decreased Breath Sounds - Cardiovascular Exam Cardiovascular Exam: REGULAR RHYTHM - GI/Abdominal Exam GI & Abdominal Exam: Normal Bowel Sounds - Rectal Exam Rectal Exam: Deferred - Exam External exam: NORMAL EXTERNAL EXAM - Extremities Exam Extremities Exam: Normal Inspection - Back Exam Back Exam: NORMAL INSPECTION - Neurological Exam Neurological Exam: Oriented x3 - Psychiatric Exam Psychiatric exam: Anxious - Skin Skin Exam: Dry Assessment and Plan (1) Small bowel obstruction Status: Acute (2) Rheumatoid arthritis Status: Acute (3) Vomiting Status: Acute (4) Hypokalemia Status: Acute
[2018-01-04] MEDS: Albuterol 0.042% Inhal Sol (1.25 mg/3 mL) UD INH SCH ×3 (01:13→16:11)
[2018-01-04 06:44] LABS: BASO % 0.8 % (0.0-2.0); EOS # 0.1 K/uL (0.0-0.7); EOS % 2.5 % (0.0-4.0); HEMOGLOBIN 9.3 g/dL (11.0-16.0); LYMPH # 0.8 K/uL (1.0-4.3); LYMPH % 24.6 % (20.0-40.0); MEAN CELL VOLUME 93.2 fL (81.0-99.0); MEAN CORPUSCULAR HEMOGLOBIN 30.7 pg (27.0-31.0); MEAN CORPUSCULAR HGB CONC 32.9 g/dL (33.0-37.0); MEAN PLATELET VOLUME 10.4 fL (7.2-11.7); MONO # 0.5 K/uL (0.0-0.8); MONO % 15.4 % (0.0-10.0); NEUT # 1.9 K/uL (1.8-7.0); NEUT % 56.7 % (50.0-75.0); RBC 3.05 Mil/uL (3.80-5.20); RED CELL DISTRIBUTION WIDTH 15.8 % (11.5-14.5); WHITE BLOOD COUNT 3.3 K/uL (4.8-10.8)
[2018-01-04 06:50] LABS: BLOOD UREA NITROGEN 20 mg/dL (7-17); GFR NON-AFRICAN AMERICAN > 60
--- NOTE | 2018-01-04 08:04 | CP.PCM.PN ---
Subjective - Date & Time of Evaluation Date of Evaluation: 01/04/18 Time of Evaluation: 09:51 - Subjective Subjective: General Surgery note for Dr. Choudhary Patient examined at bedside. No acute event overnight. Patient reports she feels well. She is tolerating diet and having regular normal BMs. Patient denies nausea/vomiting, diarrhea, abdominal pain, constipation. Objective - Vital Signs/Intake and Output Vital Signs (last 24 hours): Temp Pulse Resp BP Pulse Ox 97.8 F 71 18 134/73 100 01/04/18 07:25 01/04/18 07:25 01/04/18 07:25 01/04/18 07:25 01/04/18 07:25 - Medications Medications: Current Medications Acetaminophen (Tylenol 650mg/20.3ml Solution Ud) 650 mg PO Q6 PRN PRN Reason: Pain, moderate (4-7) Last Admin: 01/03/18 18:21 Dose: 650 mg Albuterol Sulfate (Albuterol 0.042% Inhal Maria De Jesus (1.25mg/3ml) Ud) 1.25 mg INH RQ8 [facility] Last Admin: 01/04/18 01:13 Dose: Not Given Enalapril Maleate (Vasotec) 5 mg PO DAILY [facility] Last Admin: 01/03/18 09:38 Dose: Not Given Enoxaparin Sodium (Lovenox) 40 mg SC DAILY [facility] Last Admin: 01/03/18 09:37 Dose: 40 mg Piperacillin Sod/Tazobactam (Sod 3.375 gm/ Sodium Chloride) 100 mls @ 200 mls/hr IVPB Q8H [facility]; Protocol Last Admin: 12/22/17 16:18 Dose: Not Given Metoclopramide HCl (Reglan) 10 mg IVP Q6H PRN PRN Reason: Nausea/Vomiting Last Admin: 01/02/18 18:47 Dose: 10 mg Nitroglycerin (Nitro-Bid 2% Oint) 1 ea TOP Q6H PRN Last Admin: 12/26/17 06:03 Dose: 1 ea Pantoprazole Sodium (Protonix Inj) 40 mg IVP Q12 [facility] Last Admin: 01/03/18 21:10 Dose: 40 mg Phenol/Menthol (Phenaseptic 1.4% Throat [place]) 1 ml MT Q4H PRN PRN Reason: Pain, moderate (4-7) Simethicone (Mylicon Chew Tab) 80 mg PO TID [facility] Last Admin: 01/03/18 18:19 Dose: 80 mg Vitamin A (Vitamin A & D Oint Ud Foilpak) 1 ea TOP DAILY PRN PRN Reason: Other Last Admin: 12/25/17 10:27 Dose: 1 ea - Labs Labs: 01/04/18 06:29 01/04/18 06:29 PT 13.5 SECONDS (9.7-12.2) H 12/23/17 14:27 INR 1.2 12/23/17 14:27 APTT 31 SECONDS (21-34) D 12/29/17 06:45 - Additional Findings Additional findings: - Constitutional Appears: Non-toxic, No Acute Distress - Head Exam Head Exam: ATRAUMATIC, NORMAL INSPECTION, NORMOCEPHALIC - Eye Exam Eye Exam: EOMI, Normal appearance - ENT Exam ENT Exam: Mucous Membranes Moist, Normal Exam - Neck Exam Neck Exam: Normal Inspection - Respiratory Exam Respiratory Exam: Clear to Ausculation Bilateral, NORMAL BREATHING PATTERN - Cardiovascular Exam Cardiovascular Exam: RRR - GI/Abdominal Exam GI & Abdominal Exam: Soft, Normal Bowel Sounds. absent: Distended, Tenderness Additional comments: midline incision stapled. No erythema/drainage. - Extremities Exam Extremities Exam: Normal Inspection. absent: Calf Tenderness, Pedal Edema - Neurological Exam Neurological Exam: Alert, Awake - Psychiatric Exam Psychiatric exam: Normal Affect, Normal Mood - Skin Skin Exam: Dry, Intact, Normal Color, Warm Assessment and Plan - Assessment and Plan (Free Text) Assessment: 87 year old female s/p ex-lap w/ ADELINE, POD #19 Plan: -soft diet -simethicone TID -monitor bowel function -medical management per primary -Further recommendations as per with Dr. Funmi Hollingsworth PGY2
[2018-01-04] MEDS: Simethicone 80 mg Chewtab PO SCH ×3 (09:52→17:39)
[2018-01-04] MEDS: Enoxaparin 40 mg Syringe SC SCH (09:53)
[2018-01-04] MEDS: Acetaminophen 650mg/20.3ml solution UD PO PRN (09:53)
--- NOTE | 2018-01-04 14:41 | PN ---
DATE: 01/04/2018 LOCATION: 563, bed B. SUBJECTIVE: This is an 87-year-old female seen and examined in rounds early today without reported immediate significant clinical changes, improving clinically and tolerating oral intake of regular diet as well as having regular bowel movement and passing gas. No reported hematemesis, chest pain or palpitation. The entire chart is reviewed including but not limited to the most recent lab and radiology study results, current and the previous medication list, current and the previous medical events. Today's lab showed hemoglobin of 9.3, hematocrit 28.4 with white blood cells 3.3 with normal platelet count, calcium 8, BUN 20. PHYSICAL EXAMINATION: GENERAL: An 87-year-old female. VITAL SIGNS: Afebrile, awake, and alert with a pulse of 76, respiratory rate 20 to 22, blood pressure of 130/72. HEENT: Showed pale, dry oral mucous membrane. Nonicteric sclerae. LUNGS: Few scattered crepitation. Decreased air entry at bases. HEART: Positive S1 and S2. ABDOMEN: With slight abdominal tenderness and distention. Bowel sounds are hypoactive. No mass or organomegaly. EXTREMITIES: With lower extremity edematous changes. No clubbing or cyanosis. NEUROLOGICAL: No reported new neurological deficits, sensory or motor. IMPRESSION: 1. Bowel obstruction with status post exploratory laparotomy. 2. Anemia, most likely secondary to above. 3. Known history of rheumatoid arthritis. 4. Re-exacerbation of peptic ulcer disease. SUGGESTIONS: 1. Continue current management. 2. Guaiac all the stools daily x3. 3. Follow up on the patient's cancer markers. Kelly Lindquist MD
--- NOTE | 2018-01-04 22:22 | CP.PCM.PN ---
Subjective - Date & Time of Evaluation Date of Evaluation: 01/04/18 Time of Evaluation: 17:05 - Subjective Subjective: patient alert and responsive. Patient eating very small quantities because of fear of vomiting. Significant drop and WBCs 3300. Will repeat CBC in a.m. Objective - Vital Signs/Intake and Output Vital Signs (last 24 hours): Temp Pulse Resp BP Pulse Ox 97.7 F 75 20 131/69 99 01/04/18 15:18 01/04/18 15:18 01/04/18 15:18 01/04/18 15:18 01/04/18 15:18 - Medications Medications: Current Medications Acetaminophen (Tylenol 650mg/20.3ml Solution Ud) 650 mg PO Q6 PRN PRN Reason: Pain, moderate (4-7) Last Admin: 01/04/18 09:53 Dose: 650 mg Albuterol Sulfate (Albuterol 0.042% Inhal Maria De Jesus (1.25mg/3ml) Ud) 1.25 mg INH RQ8 [facility] Last Admin: 01/04/18 16:11 Dose: 1.25 mg Enalapril Maleate (Vasotec) 5 mg PO DAILY [facility] Last Admin: 01/04/18 09:52 Dose: 5 mg Enoxaparin Sodium (Lovenox) 40 mg SC DAILY [facility] Last Admin: 01/04/18 09:53 Dose: 40 mg Piperacillin Sod/Tazobactam (Sod 3.375 gm/ Sodium Chloride) 100 mls @ 200 mls/hr IVPB Q8H [facility]; Protocol Last Admin: 12/22/17 16:18 Dose: Not Given Metoclopramide HCl (Reglan) 10 mg IVP Q6H PRN PRN Reason: Nausea/Vomiting Last Admin: 01/02/18 18:47 Dose: 10 mg Nitroglycerin (Nitro-Bid 2% Oint) 1 ea TOP Q6H PRN Last Admin: 12/26/17 06:03 Dose: 1 ea Pantoprazole Sodium (Protonix Inj) 40 mg IVP Q12 [facility] Last Admin: 01/04/18 21:09 Dose: 40 mg Phenol/Menthol (Phenaseptic 1.4% Throat [place]) 1 ml MT Q4H PRN PRN Reason: Pain, moderate (4-7) Simethicone (Mylicon Chew Tab) 80 mg PO TID [facility] Last Admin: 01/04/18 17:39 Dose: 80 mg - Labs Labs: 01/04/18 06:29 01/04/18 06:29 PT 13.5 SECONDS (9.7-12.2) H 12/23/17 14:27 INR 1.2 12/23/17 14:27 APTT 31 SECONDS (21-34) D 12/29/17 06:45 - Constitutional Appears: Chronically Ill - Head Exam Head Exam: NORMOCEPHALIC - Eye Exam Eye Exam: Normal appearance Pupil Exam: NORMAL ACCOMODATION - ENT Exam ENT Exam: Normal Exam - Neck Exam Neck Exam: Normal Inspection - Respiratory Exam Respiratory Exam: Decreased Breath Sounds - Cardiovascular Exam Cardiovascular Exam: REGULAR RHYTHM - GI/Abdominal Exam GI & Abdominal Exam: Soft - Rectal Exam Rectal Exam: Deferred - Exam External exam: NORMAL EXTERNAL EXAM - Extremities Exam Extremities Exam: Normal Inspection - Back Exam Back Exam: NORMAL INSPECTION - Neurological Exam Neurological Exam: Oriented x3 - Psychiatric Exam Psychiatric exam: Anxious - Skin Skin Exam: Dry Assessment and Plan (1) Small bowel obstruction Status: Acute (2) Rheumatoid arthritis Status: Acute (3) Vomiting Status: Acute (4) Hypokalemia Status: Acute
[2018-01-05] MEDS: Albuterol 0.042% Inhal Sol (1.25 mg/3 mL) UD INH SCH (01:05)
--- NOTE | 2018-01-05 07:15 | CP.PCM.PN ---
Subjective - Date & Time of Evaluation Date of Evaluation: 01/05/18 Time of Evaluation: 07:43 - Subjective Subjective: General Surgery note for Dr. Choudhary Patient examined at bedside. No acute event overnight. Patient requesting to go home. She is tolerating diet and having regular normal BMs. Patient denies fever/chills, cp, SOB, nausea/vomiting, abdominal pain, constipation, hematochezia, hematemesis. Objective - Vital Signs/Intake and Output Vital Signs (last 24 hours): Temp Pulse Resp BP Pulse Ox 97.9 F 84 20 130/73 97 01/05/18 00:00 01/05/18 00:00 01/05/18 00:00 01/05/18 00:00 01/05/18 00:00 Intake and Output: 01/05/18 01/05/18 06:59 18:59 Output Total 400 Balance -400 - Medications Medications: Current Medications Acetaminophen (Tylenol 650mg/20.3ml Solution Ud) 650 mg PO Q6 PRN PRN Reason: Pain, moderate (4-7) Last Admin: 01/04/18 09:53 Dose: 650 mg Enalapril Maleate (Vasotec) 5 mg PO DAILY [facility] Last Admin: 01/04/18 09:52 Dose: 5 mg Enoxaparin Sodium (Lovenox) 40 mg SC DAILY [facility] Last Admin: 01/04/18 09:53 Dose: 40 mg Piperacillin Sod/Tazobactam (Sod 3.375 gm/ Sodium Chloride) 100 mls @ 200 mls/hr IVPB Q8H [facility]; Protocol Last Admin: 12/22/17 16:18 Dose: Not Given Metoclopramide HCl (Reglan) 10 mg IVP Q6H PRN PRN Reason: Nausea/Vomiting Last Admin: 01/02/18 18:47 Dose: 10 mg Nitroglycerin (Nitro-Bid 2% Oint) 1 ea TOP Q6H PRN Last Admin: 12/26/17 06:03 Dose: 1 ea Pantoprazole Sodium (Protonix Inj) 40 mg IVP Q12 [facility] Last Admin: 01/04/18 21:09 Dose: 40 mg Phenol/Menthol (Phenaseptic 1.4% Throat [place]) 1 ml MT Q4H PRN PRN Reason: Pain, moderate (4-7) Simethicone (Mylicon Chew Tab) 80 mg PO TID [facility] Last Admin: 01/04/18 17:39 Dose: 80 mg - Labs Labs: 01/04/18 06:29 01/04/18 06:29 PT 13.5 SECONDS (9.7-12.2) H 12/23/17 14:27 INR 1.2 12/23/17 14:27 APTT 31 SECONDS (21-34) D 12/29/17 06:45 - Additional Findings Additional findings: - Constitutional Appears: Non-toxic, No Acute Distress - Head Exam Head Exam: ATRAUMATIC, NORMAL INSPECTION, NORMOCEPHALIC - Eye Exam Eye Exam: EOMI, Normal appearance - ENT Exam ENT Exam: Mucous Membranes Moist, Normal Exam - Neck Exam Neck Exam: Normal Inspection - Respiratory Exam Respiratory Exam: Clear to Ausculation Bilateral, NORMAL BREATHING PATTERN - Cardiovascular Exam Cardiovascular Exam: RRR - GI/Abdominal Exam GI & Abdominal Exam: Soft, Normal Bowel Sounds. absent: Distended, Tenderness Additional comments: midline incision stapled. No erythema/drainage. - Extremities Exam Extremities Exam: Normal Inspection. absent: Calf Tenderness, Pedal Edema - Neurological Exam Neurological Exam: Alert, Awake - Psychiatric Exam Psychiatric exam: Normal Affect, Normal Mood - Skin Skin Exam: Dry, Intact, Normal Color, Warm Assessment and Plan - Assessment and Plan (Free Text) Assessment: 87 year old female s/p ex-lap w/ ADELINE, POD #20 Plan: -soft diet -simethicone TID -medical management per primary -Patient clear for discharge to [facility] or home with home services from surgical standpoint -Further recommendations as per with Dr. Funmi Hollingsworth PGY2
[2018-01-05 07:37] LABS: BASO % 0.8 % (0.0-2.0); EOS # 0.1 K/uL (0.0-0.7); EOS % 1.8 % (0.0-4.0); HEMOGLOBIN 9.7 g/dL (11.0-16.0); LYMPH % 28.7 % (20.0-40.0); MEAN CELL VOLUME 93.4 fL (81.0-99.0); MEAN CORPUSCULAR HEMOGLOBIN 30.7 pg (27.0-31.0); MEAN CORPUSCULAR HGB CONC 32.9 g/dL (33.0-37.0); MEAN PLATELET VOLUME 11.2 fL (7.2-11.7); MONO # 0.5 K/uL (0.0-0.8); MONO % 13.2 % (0.0-10.0); NEUT % 55.5 % (50.0-75.0); RBC 3.16 Mil/uL (3.80-5.20); RED CELL DISTRIBUTION WIDTH 15.6 % (11.5-14.5); WHITE BLOOD COUNT 3.6 K/uL (4.8-10.8)
[2018-01-05 07:45] LABS: BLOOD UREA NITROGEN 16 mg/dL (7-17); CALCIUM 8.3 mg/dl (8.6-10.4); GFR NON-AFRICAN AMERICAN > 60
--- NOTE | 2018-01-05 09:17 | PN ---
DATE: 01/03/2018 SUBJECTIVE: The patient is alert, awake, and oriented. Her family is by her bedside. PHYSICAL EXAMINATION: GENERAL: She is not in acute distress. VITAL SIGNS: The patient is afebrile with blood pressure of 112/64, pulse 85, respirations 20 and hemoglobin oxygen saturation of 99%. HEART: Regular, no gallop rhythm. LUNGS: Diminished breath sounds over the lung bases, rhonchi decreased. ABDOMEN: Soft, status post OP. EXTREMITIES: Legs, detectable. LABORATORY DATA: Her white count is 6,400, hemoglobin 9.7, platelet 168,000, sodium 140, potassium 4.1, chloride 104, BUN 20 and creatinine 0.7. Abdominal ultrasound report did show echogenic liver which maybe seen in the settings of hepatic parenchymal disease or fatty liver, gallbladder sludge. IMPRESSION: Respiratory insufficiency, bronchitis, electrolyte imbalance, abdominal pain with vomiting and intestinal obstruction, status post surgery for bowel obstruction, rheumatoid arthritis and dyspepsia. PLAN: To continue with the current medical regimen and followup with specialists and PMD. Faisal Fields MD
[2018-01-05] MEDS: Enoxaparin 40 mg Syringe SC SCH (09:30)
[2018-01-05] MEDS: Simethicone 80 mg Chewtab PO SCH ×3 (09:30→18:00)
--- NOTE | 2018-01-05 15:19 | PN ---
DATE: 01/05/2018 LOCATION: 563, bed B. SUBJECTIVE: This is an 87-year-old female seen and examined in rounds, out of bed safely without any reported active bleeding, significant complaint of chest pain, palpitation, or shortness of breath. No reported chills or fever. No recently reported bowel movement. The entire chart is reviewed including but not limited to the most recent lab and radiology study results, current and the previous medication list, current and the previous medical events. Case discussed with the staff in the floor. The patient however denied any nausea or vomiting, but intermittent period of dyspepsia. Today's lab results showed hemoglobin of 9.7, hematocrit 29.5, white blood cells 3.6 with normal platelet count, but low calcium 8.3. PHYSICAL EXAMINATION: GENERAL: An 87-year-old female, awake, alert. VITAL SIGNS: Afebrile with pulse of 82, respiratory rate 20 to 22, and blood pressure 124/70. HEENT: Showed mildly dry, pale, oral mucous membrane, nonicteric sclerae. LUNGS: Few scattered crepitations. Decreased air entry at bases. HEART: Positive S1 and S2. ABDOMEN: Soft with slight distention, with slight generalized tenderness. Bowel sounds are present. No mass or organomegaly. No rebound tenderness or guarding. NEUROLOGIC: No reported new neurological deficits, sensory or motor. EXTREMITIES: Without edema, clubbing, or cyanosis. Keeping in mind that the patient is tolerating oral intake well and had regular bowel movement recently. IMPRESSION: 1. Status post exploratory laparotomy due to small bowel obstruction. 2. Re-exacerbation of peptic ulcer disease. 3. Anemia, most likely secondary to above. 4. Known history of rheumatoid arthritis. SUGGESTIONS: 1. Continue current management. 2. Iron one tablet p.o. daily for the following three to four weeks. 3. Followup on cancer markers. 4. Colace one tablet twice a day. 5. Carafate liquid 10 mL p.o. three times a day. 6. Further recommendation to follow. Kelly Lindquist MD
[2018-01-06 07:15] LABS: BLOOD UREA NITROGEN 14 mg/dL (7-17); GFR NON-AFRICAN AMERICAN > 60
--- NOTE | 2018-01-06 07:35 | CP.PCM.PN ---
Subjective - Date & Time of Evaluation Date of Evaluation: 01/06/18 Time of Evaluation: 07:33 - Subjective Subjective: Surgery Pt seen and examined. No acute events. Pt has BM. TOlerating diet. Denies nausea, vomiting, CP , SOB. Ambulates with help. Objective - Vital Signs/Intake and Output Vital Signs (last 24 hours): Temp Pulse Resp BP Pulse Ox 98.0 F 73 18 127/70 99 01/05/18 23:36 01/05/18 23:36 01/05/18 23:36 01/05/18 23:36 01/05/18 23:36 Intake and Output: 01/06/18 01/06/18 06:59 18:59 Intake Total 250 Output Total 200 Balance 50 - Medications Medications: Current Medications Acetaminophen (Tylenol 650mg/20.3ml Solution Ud) 650 mg PO Q6 PRN PRN Reason: Pain, moderate (4-7) Last Admin: 01/04/18 09:53 Dose: 650 mg Enalapril Maleate (Vasotec) 5 mg PO DAILY [facility] Last Admin: 01/05/18 09:36 Dose: 5 mg Enoxaparin Sodium (Lovenox) 40 mg SC DAILY [facility] Last Admin: 01/05/18 09:30 Dose: 40 mg Piperacillin Sod/Tazobactam (Sod 3.375 gm/ Sodium Chloride) 100 mls @ 200 mls/hr IVPB Q8H [facility]; Protocol Last Admin: 12/22/17 16:18 Dose: Not Given Metoclopramide HCl (Reglan) 10 mg IVP Q6H PRN PRN Reason: Nausea/Vomiting Last Admin: 01/02/18 18:47 Dose: 10 mg Nitroglycerin (Nitro-Bid 2% Oint) 1 ea TOP Q6H PRN Last Admin: 12/26/17 06:03 Dose: 1 ea Pantoprazole Sodium (Protonix Inj) 40 mg IVP Q12 [facility] Last Admin: 01/05/18 21:58 Dose: 40 mg Phenol/Menthol (Phenaseptic 1.4% Throat [place]) 1 ml MT Q4H PRN PRN Reason: Pain, moderate (4-7) Potassium Chloride (K-Dur 20 Meq Er Tab) 20 meq PO DAILY [facility] Simethicone (Mylicon Chew Tab) 80 mg PO TID [facility] Last Admin: 01/05/18 18:00 Dose: 80 mg - Labs Labs: 01/05/18 07:19 01/06/18 06:56 PT 13.5 SECONDS (9.7-12.2) H 12/23/17 14:27 INR 1.2 12/23/17 14:27 APTT 31 SECONDS (21-34) D 12/29/17 06:45 - Constitutional Appears: No Acute Distress - Head Exam Head Exam: ATRAUMATIC, NORMAL INSPECTION, NORMOCEPHALIC - Eye Exam Eye Exam: EOMI, Normal appearance, PERRL Pupil Exam: NORMAL ACCOMODATION, PERRL - ENT Exam ENT Exam: Mucous Membranes Moist, Normal Exam - Neck Exam Neck Exam: Full ROM, Normal Inspection. absent: Lymphadenopathy - Respiratory Exam Respiratory Exam: NORMAL BREATHING PATTERN - Cardiovascular Exam Cardiovascular Exam: REGULAR RHYTHM - GI/Abdominal Exam GI & Abdominal Exam: Soft. absent: Distended, Firm, Tenderness - Exam Exam: NORMAL INSPECTION - Extremities Exam Extremities Exam: Full ROM, Normal Capillary Refill, Normal Inspection. absent: Joint Swelling, Pedal Edema - Back Exam Back Exam: NORMAL INSPECTION - Neurological Exam Neurological Exam: Alert, Awake, CN II-XII Intact, Normal Gait, Oriented x3 - Psychiatric Exam Psychiatric exam: Normal Affect, Normal Mood - Skin Skin Exam: Dry, Intact, Normal Color, Warm Assessment and Plan - Assessment and Plan (Free Text) Assessment: 87 year old female s/p ex-lap w/ ADELINE, POD #21 Plan: -soft diet -simethicone TID -medical management per primary -Patient clear for discharge from surgical standpoint -Further recommendations as per with Dr. Choudhary
[2018-01-06] MEDS: Enoxaparin 40 mg Syringe SC SCH (09:26)
[2018-01-06] MEDS: Simethicone 80 mg Chewtab PO SCH ×3 (09:26→17:01)
[2018-01-06] MEDS: Potassium Chloride 20 mEq ER Tab PO SCH (09:26)
[2018-01-06] MEDS ORDERED: Albuterol 0.042% Inhal Sol (1.25 mg/3 mL) UD INH SCH (12:00)
[2018-01-06 13:53] LABS: BASO % 0.5 % (0.0-2.0); EOS % 1.2 % (0.0-4.0); HEMOGLOBIN 10.3 g/dL (11.0-16.0); LYMPH % 24.4 % (20.0-40.0); MEAN CELL VOLUME 93.2 fL (81.0-99.0); MEAN CORPUSCULAR HEMOGLOBIN 30.5 pg (27.0-31.0); MEAN CORPUSCULAR HGB CONC 32.7 g/dL (33.0-37.0); MEAN PLATELET VOLUME 10.7 fL (7.2-11.7); MONO # 0.4 K/uL (0.0-0.8); MONO % 9.6 % (0.0-10.0); NEUT # 2.5 K/uL (1.8-7.0); NEUT % 64.3 % (50.0-75.0); NRBC % 0.1 % (0.0-2.0); RBC 3.39 Mil/uL (3.80-5.20); RED CELL DISTRIBUTION WIDTH 15.6 % (11.5-14.5); WHITE BLOOD COUNT 3.9 K/uL (4.8-10.8)
[2018-01-06 16:18] VITALS: RESP 20
--- NOTE | 2018-01-06 17:44 | CP.PCM.PN ---
Subjective - Date & Time of Evaluation Date of Evaluation: 01/06/18 Time of Evaluation: 16:05 - Subjective Subjective: patient oriented in all 3 spheres. No nausea or vomiting today. WBC count 3600, hemoglobin 10. Patient denies any abdominal pain or discomfort. She did not vomit today. Arrangements made for homemaker services. If patient remains stable will discharge in am. Objective - Vital Signs/Intake and Output Vital Signs (last 24 hours): Temp Pulse Resp BP Pulse Ox 98.2 F 79 20 121/66 97 01/06/18 16:17 01/06/18 16:17 01/06/18 16:17 01/06/18 16:17 01/06/18 16:17 Intake and Output: 01/06/18 01/06/18 06:59 18:59 Intake Total 250 Output Total 200 Balance 50 - Medications Medications: Current Medications Acetaminophen (Tylenol 650mg/20.3ml Solution Ud) 650 mg PO Q6 PRN PRN Reason: Pain, moderate (4-7) Last Admin: 01/04/18 09:53 Dose: 650 mg Albuterol Sulfate (Albuterol 0.042% Inhal Maria De Jesus (1.25mg/3ml) Ud) 1.25 mg INH RQ12 [facility] Enalapril Maleate (Vasotec) 5 mg PO DAILY [facility] Last Admin: 01/06/18 09:26 Dose: 5 mg Enoxaparin Sodium (Lovenox) 40 mg SC DAILY [facility] Last Admin: 01/06/18 09:26 Dose: 40 mg Piperacillin Sod/Tazobactam (Sod 3.375 gm/ Sodium Chloride) 100 mls @ 200 mls/hr IVPB Q8H [facility]; Protocol Last Admin: 12/22/17 16:18 Dose: Not Given Metoclopramide HCl (Reglan) 10 mg IVP Q6H PRN PRN Reason: Nausea/Vomiting Last Admin: 01/02/18 18:47 Dose: 10 mg Nitroglycerin (Nitro-Bid 2% Oint) 1 ea TOP Q6H PRN Last Admin: 12/26/17 06:03 Dose: 1 ea Pantoprazole Sodium (Protonix Ec Tab) 40 mg PO Q12 [facility] Phenol/Menthol (Phenaseptic 1.4% Throat [place]) 1 ml MT Q4H PRN PRN Reason: Pain, moderate (4-7) Potassium Chloride (K-Dur 20 Meq Er Tab) 20 meq PO DAILY [facility] Last Admin: 01/06/18 09:26 Dose: 20 meq Simethicone (Mylicon Chew Tab) 80 mg PO TID [facility] Last Admin: 01/06/18 17:01 Dose: 80 mg - Labs Labs: 01/06/18 13:49 01/06/18 06:56 PT 13.5 SECONDS (9.7-12.2) H 12/23/17 14:27 INR 1.2 12/23/17 14:27 APTT 31 SECONDS (21-34) D 12/29/17 06:45 - Constitutional Appears: Chronically Ill - Head Exam Head Exam: NORMOCEPHALIC - Eye Exam Eye Exam: Normal appearance Pupil Exam: NORMAL ACCOMODATION - ENT Exam ENT Exam: Normal Exam - Neck Exam Neck Exam: Normal Inspection - Respiratory Exam Respiratory Exam: Decreased Breath Sounds - Cardiovascular Exam Cardiovascular Exam: REGULAR RHYTHM - GI/Abdominal Exam GI & Abdominal Exam: Normal Bowel Sounds - Rectal Exam Rectal Exam: Deferred - Exam External exam: NORMAL EXTERNAL EXAM - Extremities Exam Extremities Exam: Normal Inspection - Back Exam Back Exam: NORMAL INSPECTION - Neurological Exam Neurological Exam: Oriented x3 - Psychiatric Exam Psychiatric exam: Anxious Assessment and Plan (1) Small bowel obstruction Status: Acute (2) Rheumatoid arthritis Status: Acute (3) Vomiting Status: Acute (4) Hypokalemia Status: Acute
[2018-01-06] MEDS: Pantoprazole 40 mg EC Tab PO SCH ×2 (21:56→21:58)
[2018-01-07] MEDS: Nitroglycerin 2% Ointment Foilpak UD TOP PRN (01:41)
[2018-01-07 07:28] LABS: BLOOD UREA NITROGEN 14 mg/dL (7-17); CALCIUM 8.5 mg/dl (8.6-10.4); GFR NON-AFRICAN AMERICAN > 60
[2018-01-07] MEDS: Pantoprazole 40 mg EC Tab PO SCH (09:00)
[2018-01-07] MEDS: Enoxaparin 40 mg Syringe SC SCH (09:01)
[2018-01-07] MEDS: Simethicone 80 mg Chewtab PO SCH ×2 (09:01→13:02)
[2018-01-07] MEDS: Potassium Chloride 20 mEq ER Tab PO SCH (09:01)
--- NOTE | 2018-01-07 09:41 | CP.PCM.PN ---
Subjective - Date & Time of Evaluation Date of Evaluation: 01/07/18 Time of Evaluation: 06:35 - Subjective Subjective: Surgery progress not for Dr. Choudhary Patient examined at bedside. No acute events overnight. Patient reports she is eager to go home. She reports decreased appetite as she does not like the hospital food. Reports flatus and bowel movements, ambulating well, tolerating soft diet. Denies chest pain, SOB, nausea, vomiting, dysuria, constipation. Objective - Vital Signs/Intake and Output Vital Signs (last 24 hours): Temp Pulse Resp BP Pulse Ox 98.1 F 83 20 129/67 98 01/07/18 07:55 01/07/18 08:58 01/07/18 07:55 01/07/18 09:01 01/07/18 07:55 - Medications Medications: Current Medications Acetaminophen (Tylenol 650mg/20.3ml Solution Ud) 650 mg PO Q6 PRN PRN Reason: Pain, moderate (4-7) Last Admin: 01/04/18 09:53 Dose: 650 mg Albuterol Sulfate (Albuterol 0.042% Inhal Maria De Jesus (1.25mg/3ml) Ud) 1.25 mg INH RQ12 [facility] Last Admin: 01/07/18 07:45 Dose: 1.25 mg Enalapril Maleate (Vasotec) 5 mg PO DAILY [facility] Last Admin: 01/07/18 09:01 Dose: 5 mg Enoxaparin Sodium (Lovenox) 40 mg SC DAILY [facility] Last Admin: 01/07/18 09:01 Dose: 40 mg Piperacillin Sod/Tazobactam (Sod 3.375 gm/ Sodium Chloride) 100 mls @ 200 mls/hr IVPB Q8H [facility]; Protocol Last Admin: 12/22/17 16:18 Dose: Not Given Metoclopramide HCl (Reglan) 10 mg IVP Q6H PRN PRN Reason: Nausea/Vomiting Last Admin: 01/02/18 18:47 Dose: 10 mg Nitroglycerin (Nitro-Bid 2% Oint) 1 ea TOP Q6H PRN Last Admin: 01/07/18 01:41 Dose: 1 ea Pantoprazole Sodium (Protonix Ec Tab) 40 mg PO Q12 [facility] Last Admin: 01/07/18 09:00 Dose: 40 mg Phenol/Menthol (Phenaseptic 1.4% Throat [place]) 1 ml MT Q4H PRN PRN Reason: Pain, moderate (4-7) Potassium Chloride (K-Dur 20 Meq Er Tab) 20 meq PO DAILY [facility] Last Admin: 01/07/18 09:01 Dose: 20 meq Simethicone (Mylicon Chew Tab) 80 mg PO TID [facility] Last Admin: 01/07/18 09:01 Dose: 80 mg - Labs Labs: 01/06/18 13:49 01/07/18 06:36 PT 13.5 SECONDS (9.7-12.2) H 12/23/17 14:27 INR 1.2 12/23/17 14:27 APTT 31 SECONDS (21-34) D 12/29/17 06:45 - Constitutional Appears: Non-toxic, No Acute Distress - Head Exam Head Exam: ATRAUMATIC, NORMAL INSPECTION, NORMOCEPHALIC - Eye Exam Eye Exam: EOMI, Normal appearance - ENT Exam ENT Exam: Mucous Membranes Moist, Normal Exam - Neck Exam Neck Exam: Normal Inspection - Respiratory Exam Respiratory Exam: Clear to Ausculation Bilateral, NORMAL BREATHING PATTERN - Cardiovascular Exam Cardiovascular Exam: REGULAR RHYTHM. absent: Tachycardia - GI/Abdominal Exam GI & Abdominal Exam: Soft, Tenderness (suprapubic tenderness to palpation along incision), Normal Bowel Sounds. absent: Distended Additional comments: Midline incision healing well, no erythema/drainage. 2 miguel angel remain. - Extremities Exam Extremities Exam: Normal Inspection. absent: Calf Tenderness, Pedal Edema - Neurological Exam Neurological Exam: Alert, Awake, Normal Gait - Psychiatric Exam Psychiatric exam: Normal Affect, Normal Mood - Skin Skin Exam: Dry, Normal Color, Warm Assessment and Plan - Assessment and Plan (Free Text) Assessment: 87 year old female s/p ex-lap with ADELINE and small bowel resection Plan: -miguel angel removed -soft diet -simethicone TID -medical management per primary -Patient clear for discharge from surgical standpoint -Further recommendations per Dr. Choudhary will discuss w/ Dr. Funmi Evans, PGY-1
--- NOTE | 2018-01-07 10:13 | PN ---
DATE: 01/06/2018 LOCATION: 563, bed B. SUBJECTIVE: This is an 87-year-old female, seen and examined early in rounds without significant clinical changes or reported active bleeding. Appeared to be awake, alert and oriented. Somewhat tolerating oral intake. Had bowel movement recently. Denied any chest pain, palpitation, significant shortness of breath, nausea or vomiting, but mild dyspepsia. Ambulatory with some help. The entire chart is reviewed including but not limited to most recent lab and radiology study results, current and previous medication list, current and previous medical events. Today's lab results showed potassium 3.4, calcium 8. Rest of the rest of the lab results is still pending; however, the patient has persistent low hemoglobin and hematocrit with low white blood cells with sedimentation rate elevated to 74. PHYSICAL EXAMINATION: GENERAL: An 87-year-old female. VITAL SIGNS: Afebrile with a pulse of 72, respiratory rate 18-20, blood pressure 112/62. HEENT: Showed mildly pale, dry oral mucoid membrane. Nonicteric sclerae. LUNGS: Few scattered crepitation. Decreased air entry at bases. HEART: Positive S1 and S2. ABDOMEN: Soft with slight distention and mild generalized tenderness. Bowel sounds are hypoactive. No mass or organomegaly. No rebound tenderness or guarding. EXTREMITIES: Without significant clubbing, cyanosis or edema. NEUROLOGIC: No reported new neurological deficits, sensory or motor. IMPRESSION: 1. Reported recent history of small bowel obstruction, status post exploratory laparotomy. 2. Re-exacerbation of peptic ulcer disease. 3. Anemia, most likely secondary to above. 4. Known history of rheumatoid arthritis. SUGGESTIONS: 1. Continue current management. 2. Physical therapy. 3. Repeat stool for occult blood. Further recommendation to follow. Thank you for letting me participate in your patient's case management. Kelly Lindquist MD
--- NOTE | 2018-01-07 15:24 | CP.PCM.PN ---
Subjective - Date & Time of Evaluation Date of Evaluation: 01/07/18 Time of Evaluation: 15:24 - Subjective Subjective: PATIENT SEEN AND EXAMINED AT THE BEDSIDE Objective - Vital Signs/Intake and Output Vital Signs (last 24 hours): Temp Pulse Resp BP Pulse Ox 98.1 F 83 20 129/67 98 01/07/18 07:55 01/07/18 08:58 01/07/18 07:55 01/07/18 09:01 01/07/18 07:55 Intake and Output: 01/07/18 01/07/18 06:59 18:59 Intake Total 300 Balance 300 - Medications Medications: Current Medications Acetaminophen (Tylenol 650mg/20.3ml Solution Ud) 650 mg PO Q6 PRN PRN Reason: Pain, moderate (4-7) Last Admin: 01/04/18 09:53 Dose: 650 mg Albuterol Sulfate (Albuterol 0.042% Inhal Maria De Jesus (1.25mg/3ml) Ud) 1.25 mg INH RQ12 [facility] Last Admin: 01/07/18 07:45 Dose: 1.25 mg Enalapril Maleate (Vasotec) 5 mg PO DAILY [facility] Last Admin: 01/07/18 09:01 Dose: 5 mg Enoxaparin Sodium (Lovenox) 40 mg SC DAILY [facility] Last Admin: 01/07/18 09:01 Dose: 40 mg Piperacillin Sod/Tazobactam (Sod 3.375 gm/ Sodium Chloride) 100 mls @ 200 mls/hr IVPB Q8H [facility]; Protocol Last Admin: 12/22/17 16:18 Dose: Not Given Metoclopramide HCl (Reglan) 10 mg IVP Q6H PRN PRN Reason: Nausea/Vomiting Last Admin: 01/02/18 18:47 Dose: 10 mg Nitroglycerin (Nitro-Bid 2% Oint) 1 ea TOP Q6H PRN Last Admin: 01/07/18 01:41 Dose: 1 ea Pantoprazole Sodium (Protonix Ec Tab) 40 mg PO Q12 [facility] Last Admin: 01/07/18 09:00 Dose: 40 mg Phenol/Menthol (Phenaseptic 1.4% Throat [place]) 1 ml MT Q4H PRN PRN Reason: Pain, moderate (4-7) Potassium Chloride (K-Dur 20 Meq Er Tab) 20 meq PO DAILY [facility] Last Admin: 01/07/18 09:01 Dose: 20 meq Simethicone (Mylicon Chew Tab) 80 mg PO TID [facility] Last Admin: 01/07/18 13:02 Dose: 80 mg - Labs Labs: 01/06/18 13:49 01/07/18 06:36 PT 13.5 SECONDS (9.7-12.2) H 12/23/17 14:27 INR 1.2 12/23/17 14:27 APTT 31 SECONDS (21-34) D 12/29/17 06:45 Assessment and Plan - Assessment and Plan (Free Text) Assessment: FOLLOW UP WITH DR ELLIOTT IN HIS OFFICE IN 10 DAYS ---CALL FOR APPOINTMENT CONTINUE HOME MEDICATION NEW PRESCRIPTION GIVEN ENALAPRIL 5 MG PO DAILY [facility] PHYSICAL THERAPY CALL DR ELLIOTT OR GO TO THE EMERGENCY ROOM IF SYMPTOM RETURN OR WORSENING
[2018-01-07] MEDS ORDERED: Influenza Vaccine 60 MCG/0.5 ML SYR (3 yr & up) IM ONE (15:44)
[2018-01-07 15:53] VITALS: BP 137/74; PULSE 79; TEMP 98.2; O2SAT 99
--- NOTE | 2018-01-07 17:19 | PN ---
DATE: 01/07/2018 LOCATION: 563, bed B. SUBJECTIVE: This is an 87-year-old female seen and examined early in rounds, with staff in the floor with reported mildly elevated blood pressure but no reported nausea or vomiting, tolerating oral intake well. No reported significant complaint of shortness of breath, GI active bleeding. No chills or fever. PHYSICAL EXAMINATION: GENERAL: An 87-year-old female. VITAL SIGNS: Afebrile with pulse of 80, respiratory rate 20-22, blood pressure 120/64. HEENT: Showed dry oral mucoid membranes. Nonicteric sclerae. LUNGS: Few scattered crepitation. Decreased air entry at bases. HEART: Positive S1 and S2. ABDOMEN: Soft, with mild generalized slight tenderness. No mass or organomegaly. No rebound tenderness or guarding. EXTREMITIES: Without significant clubbing, cyanosis, or edema. NEUROLOGIC: No reported new neurological deficits, sensory or motor. LABORATORY DATA: Today's lab results showed blood calcium 8.5, and rest of lab results still pending. However the patient still has low hemoglobin and hematocrit. ASSESSMENT AND PLAN: 1. Recent history of small bowel obstruction, status post exploratory laparotomy. 2. Peptic ulcer disease. 3. Anemia. 4. Known history of rheumatoid arthritis. 5. Electrolyte imbalance with stable calcemia. RECOMMENDATIONS: 1. Continue current treatment. 2. Followup with the patient cancer markers. 3. Repeat stool for occult blood. Further recommendation to follow. Kelly Lindquist MD
--- NOTE | 2018-01-07 22:07 | CP.PCM.DIS ---
Provider - Provider Date of Admission: 12/13/17 17:24 Attending physician: Karlo Elliott MD Time Spent in preparation of Discharge (in minutes): 24 Diagnosis - Discharge Diagnosis (1) Small bowel obstruction Status: Acute (2) Rheumatoid arthritis Status: Acute (3) Vomiting Status: Acute (4) Hypokalemia Status: Acute Hospital Course - Lab Results Lab Results: Micro Results 12/15/17 14:30 Blood Blood Culture - Final NO GROWTH AFTER 5 DAYS 12/15/17 14:30 Blood Gram Stain - Final TEST NOT PERFORMED 12/15/17 16:32 Blood Blood Culture - Final NO GROWTH AFTER 5 DAYS 12/15/17 16:32 Blood Gram Stain - Final TEST NOT PERFORMED 12/15/17 19:45 Urine Urine Culture - Final 50-100,000 CFU/ML. MULTIPLE SPECIES. SUGGEST REPEAT SPECIMEN. Most Recent Lab Values WBC 3.9 K/uL (4.8-10.8) L 01/06/18 13:49 RBC 3.39 Mil/uL (3.80-5.20) L 01/06/18 13:49 Hgb 10.3 g/dL (11.0-16.0) L 01/06/18 13:49 Hct 31.6 % (34.0-47.0) L 01/06/18 13:49 MCV 93.2 fL (81.0-99.0) 01/06/18 13:49 MCH 30.5 pg (27.0-31.0) 01/06/18 13:49 MCHC 32.7 g/dL (33.0-37.0) L 01/06/18 13:49 RDW 15.6 % (11.5-14.5) H 01/06/18 13:49 Plt Count 164 K/uL (130-400) 01/06/18 13:49 MPV 10.7 fL (7.2-11.7) 01/06/18 13:49 Neut % (Auto) 64.3 % (50.0-75.0) 01/06/18 13:49 Lymph % (Auto) 24.4 % (20.0-40.0) 01/06/18 13:49 [place] % (Auto) 9.6 % (0.0-10.0) 01/06/18 13:49 Eos % (Auto) 1.2 % (0.0-4.0) 01/06/18 13:49 Baso % (Auto) 0.5 % (0.0-2.0) 01/06/18 13:49 Neut # (Auto) 2.5 K/uL (1.8-7.0) 01/06/18 13:49 Lymph # (Auto) 1.0 K/uL (1.0-4.3) 01/06/18 13:49 [place] # (Auto) 0.4 K/uL (0.0-0.8) 01/06/18 13:49 Eos # (Auto) 0.0 K/uL (0.0-0.7) 01/06/18 13:49 Baso # (Auto) 0.0 K/uL (0.0-0.2) 01/06/18 13:49 Neutrophils % (Manual) 86 % (50-75) H 12/19/17 10:56 Band Neutrophils % 3 % (0-2) H 12/18/17 06:27 Lymphocytes % (Manual) 10 % (20-40) L 12/19/17 10:56 Monocytes % (Manual) 4 % (0-10) 12/19/17 10:56 Differential Comment 12/20/17 10:03 Platelet Estimate Slightly decreased (NORMAL) L 12/19/17 10:56 Large Platelets Present 12/19/17 10:56 Polychromasia Slight 12/18/17 06:27 Hypochromasia (manual) Slight 12/19/17 10:56 Poikilocytosis (manual Slight 12/19/17 10:56 Anisocytosis (manual) Slight 12/19/17 10:56 Target Cells Slight 12/19/17 10:56 ESR 74 mm/hr (0-20) H 01/05/18 07:19 PT 13.5 SECONDS (9.7-12.2) H 12/23/17 14:27 INR 1.2 12/23/17 14:27 APTT 31 SECONDS (21-34) D 12/29/17 06:45 Puncture Site Rra 12/19/17 13:42 pCO2 35 mm/Hg (35-45) 12/19/17 13:42 pO2 111 mm/Hg (80-100) H 12/19/17 13:42 HCO3 24.5 mmol/L (21-28) 12/19/17 13:42 ABG pH 7.43 (7.35-7.45) 12/19/17 13:42 ABG Total CO2 24.3 mmol/L (22-28) 12/19/17 13:42 ABG O2 Saturation 99.3 % (95-98) H 12/19/17 13:42 ABG Base Excess -0.6 mmol/L (-2.0-3.0) 12/19/17 13:42 Beny Test Pos 12/19/17 13:42 ABG Potassium 3.6 mmol/L (3.6-5.2) 12/19/17 13:42 A-a O2 Difference 80.0 mm/Hg 12/15/17 14:35 Respiratory Index 0.8 12/15/17 14:35 Sodium 145.0 mmol/l (132-148) 12/19/17 13:42 Chloride 114.0 mmol/L (98-107) H 12/19/17 13:42 Glucose 188 mg/dl (65-105) H 12/19/17 13:42 Lactate 1.7 mmol/L (0.7-2.1) 12/19/17 13:42 Liter Flow 4.0 12/19/17 13:42 FiO2 32.0 % 12/15/17 14:35 Sodium 141 mmol/L (132-148) 01/07/18 06:36 Potassium 3.7 mmol/L (3.6-5.2) 01/07/18 06:36 Chloride 106 mmol/L (98-107) 01/07/18 06:36 Carbon Dioxide 29 mmol/L (22-30) 01/07/18 06:36 Anion Gap 11 (10-20) 01/07/18 06:36 BUN 14 mg/dL (7-17) 01/07/18 06:36 Creatinine 0.7 mg/dL (0.7-1.2) 01/07/18 06:36 Est GFR ( Amer) > 60 01/07/18 06:36 Est GFR (Non-Af Amer) > 60 01/07/18 06:36 POC Glucose (mg/dL) 130 mg/dL (65-110) H 01/07/18 11:06 Random Glucose 94 mg/dL (65-105) 01/07/18 06:36 Calcium 8.5 mg/dl (8.6-10.4) L 01/07/18 06:36 Phosphorus 2.7 mg/dL (2.5-4.5) 01/06/18 06:56 Magnesium 1.8 mg/dL (1.6-2.3) 01/06/18 06:56 Total Bilirubin 0.3 mg/dL (0.2-1.3) 01/02/18 06:45 AST 47 U/L (14-36) H 01/02/18 06:45 ALT 41 U/L (9-52) 01/02/18 06:45 Alkaline Phosphatase 108 U/L (38-126) 01/02/18 06:45 Total Creatine Kinase 91 U/L (30-135) 12/24/17 00:13 CK-MB (Mass) 6.44 ng/mL (0.0-3.38) H 12/24/17 00:13 Troponin I 1.0900 ng/mL (0.00-0.120) H* 12/24/17 07:01 NT-Pro-B Natriuret Pep 878 pg/mL (0-900) 12/16/17 06:59 Total Protein 6.0 g/dL (6.3-8.3) L 01/02/18 06:45 Albumin 2.7 g/dL (3.5-5.0) L 01/02/18 06:45 Globulin 3.3 gm/dL (2.2-3.9) 01/02/18 06:45 Albumin/Globulin Ratio 0.8 (1.0-2.1) L 01/02/18 06:45 Triglycerides 125 mg/dL (0-149) 12/27/17 07:12 Cholesterol 95 mg/dL (0-199) 12/27/17 07:12 LDL Cholesterol Direct 59 mg/dL (0-129) 12/27/17 07:12 HDL Cholesterol 33 mg/dL (30-70) 12/27/17 07:12 Phospholipids 198 mg/dL (151-264) 01/02/18 06:45 Lipase 41 U/L (23-300) 12/13/17 15:28 Carcinoembryonic Ag 1.6 ng/mL (0-3.0) 12/29/17 06:45 Free T4 1.32 ng/dL (0.78-2.19) 12/23/17 18:49 Free T3 pg/mL 1.94 pg/mL (2.77-5.27) L 12/23/17 18:49 TSH 3rd Generation 3.27 mIU/L (0.46-4.68) 12/23/17 18:49 Arterial Blood Potassium 3.6 mmol/L (3.6-5.2) 12/19/17 13:42 Urine Color Yellow (YELLOW) 12/28/17 08:37 Urine Clarity Clear (Clear) 12/28/17 08:37 Urine pH 8.0 (5.0-8.0) 12/28/17 08:37 Ur Specific [place] 1.010 (1.003-1.030) 12/28/17 08:37 Urine Protein Negative mg/dL (NEGATIVE) 12/28/17 08:37 Urine Glucose (UA) 2+ mg/dL (Normal) H 12/28/17 08:37 Urine Ketones Negative mg/dL (NEGATIVE) 12/28/17 08:37 Urine Blood Negative (NEGATIVE) 12/28/17 08:37 Urine Nitrate Negative (NEGATIVE) 12/28/17 08:37 Urine Bilirubin Negative (NEGATIVE) 12/28/17 08:37 Urine Urobilinogen Normal mg/dL (0.2-1.0) 12/28/17 08:37 Ur Leukocyte Esterase Neg Gavino/uL (Negative) 12/28/17 08:37 Urine WBC (Auto) 1 /hpf (0-5) 12/28/17 08:37 Urine RBC (Auto) 1 /hpf (0-3) 12/28/17 08:37 Ur Squamous Epith Cells 1 /hpf (0-5) 12/28/17 08:37 Urine Bacteria Rare (<OCC) 12/28/17 08:37 Hyaline Casts 0-2 /lpf (0-2) 12/26/17 16:57 Urine Collection Time 24 HRS 12/31/17 02:42 Urine Total Volume 2200 mL 12/31/17 02:42 Ur Urea Nitrogen 24 Hr 11.79 g/24hr (12-20) L 12/31/17 02:42 Cycl Citrul Peptide IgG >250 Units H 12/16/17 07:24 C. difficile Ag & Toxin Negative (NEGATIVE) 12/26/17 08:23 Blood Type AB POSITIVE 12/28/17 16:38 Antibody Screen Negative 12/28/17 16:38 Discharge Exam - Head Exam Head Exam: ATRAUMATIC, NORMAL INSPECTION, NORMOCEPHALIC - Eye Exam Eye Exam: Normal appearance Pupil Exam: NORMAL ACCOMODATION - ENT Exam ENT Exam: Normal Exam - Neck Exam Neck exam: Normal Inspection - Respiratory Exam Respiratory Exam: Decreased Breath Sounds - GI/Abdominal Exam GI & Abdominal Exam: Normal Bowel Sounds - Rectal Exam Rectal Exam: Deferred - Exam External exam: NORMAL EXTERNAL EXAM - Extremities Exam Extremities exam: normal inspection - Back Exam Back exam: NORMAL INSPECTION - Neurological Exam Neurological exam: Oriented x3 - Psychiatric Exam Psychiatric exam: Anxious - Skin Skin Exam: Dry Discharge Plan - Discharge Medications Prescriptions: Enalapril Maleate [Vasotec] 5 mg PO DAILY 30 Days tab - Follow Up Plan Condition: FAIR Disposition: HOME/ ROUTINE Instructions: Hypokalemia (DC), Rheumatoid Arthritis (DC), Small Bowel Obstruction (DC), Enalapril, Hypokalemia (DC), Hypokalemia (GEN), Community Acquired Pneumonia (DC), Bacterial Pneumonia (DC) Additional Instructions: FOLLOW UP WITH DR ELLIOTT IN HIS OFFICE IN 10 DAYS ---CALL FOR APPOINTMENT FOLLOW UP WITH DR REESE IN HIS OFFICE--PLEASE CALL FOR APPOINTMENT CONTINUE HOME MEDICATION NEW PRESCRIPTION GIVEN ENALAPRIL 5 MG PO DAILY ACTIVITY TOLERATED CALL DR ELLIOTT OR GO TO THE EMERGENCY ROOM IF SYMPTOM RETURN OR WORSENING Referrals: Karlo Elliott MD [Staff Provider] - Igor Reese Jr., MD [Staff Provider] - Faisal Fields MD [Staff Provider] -
--- NOTE | 2018-01-08 10:39 | PN ---
DATE: 01/07/2018 SUBJECTIVE: The patient is alert, oriented, sitting in chair. Her family is by her side. PHYSICAL EXAMINATION: GENERAL: The patient is not in acute distress. VITAL SIGNS: She is afebrile, with blood pressure of 120/66, pulse 82, and hemoglobin-oxygen saturation of 98% on room air, and her respirations are 20 per minute. HEART: Regular, no gallop rhythm. LUNGS: Diminished breath sounds over lung bases. Rhonchi decreased. ABDOMEN: Soft, status post surgery. EXTREMITIES: There is no leg edema. LABORATORY DATA: Blood sugar is 130. Sodium 141, potassium 3.7, BUN 14, and creatinine 0.7. There are no acute changes in her radiological testing. IMPRESSION: 1. Respiratory insufficiency. 2. Bronchitis. 3. Hypertensive cardiovascular disease. 4. Rheumatoid arthritis. 5. Bowel obstruction. 6. Status post surgery for bowel obstruction. PLAN: To continue with her current medications including bronchodilators and vasodilators, and medications prescribed by other specialists, and surgical followup discussed with family. Faisal Fields MD
--- NOTE | 2018-01-08 12:10 | PN ---
DATE: 01/06/2018 SUBJECTIVE: The patient is alert, oriented. She is sitting in a chair. Her family is by her bedside. PHYSICAL EXAMINATION: VITAL SIGNS: The patient is afebrile with blood pressure 106/60, pulse 76, respiration 18, hemoglobin-oxygen saturation of 100% on room air. GENERAL: She is not in distress. HEART: Her heart is regular. No gallop, rhythm. LUNGS: Diminished breath sounds over the lung bases. Rhonchi decreased. ABDOMEN: Soft, status postop for bowel obstruction. EXTREMITIES: Legs, no edema. Signs of rheumatoid arthritis in the joints present. LABORATORY DATA: Her serum sodium is 141, potassium 3.4, chloride 104, BUN 14, creatinine 0.7, blood sugar 133, and magnesium is reported as 1.8, phosphorus is 2.7. The patient is on potassium therapy. IMPRESSION: Respiratory insufficiency, bronchitis, rheumatoid arthritis, hypertensive cardiovascular disease, abdominal pain with vomiting status post bowel surgery for bowel obstruction. PLAN: To continue with the current medication including bronchodilators, potassium and recommendations of consultants and continue with the current measures. Faisal Fields MD
== END 2018-01-07 16:49 | disposition home health service (06) | DRG 329 ==
LOC: C.ER 14:42 → C.9E 17:24 → C.5S 21:42
PROVIDERS: ADMIT Internal Medicine; ATTEND Internal Medicine
PROC: 0D9670Z Drainage of Stomach with Drainage Device, Via Natural or Artificial Opening (ICD-10-PCS; 2017-12-13)
PROC: 0DN80ZZ Release Small Intestine, Open Approach (ICD-10-PCS; 2017-12-16)
PROC: 0DT80ZZ Resection of Small Intestine, Open Approach (ICD-10-PCS; principal; 2017-12-16 14:00)
PROC: 02HV33Z Insertion of Infusion Device into Superior Vena Cava, Percutaneous Approach (ICD-10-PCS; 2017-12-27)
PROC: 3E0436Z Introduction of Nutritional Substance into Central Vein, Percutaneous Approach (ICD-10-PCS; 2017-12-27)
PROC: 30233N1 Transfusion of Nonautologous Red Blood Cells into Peripheral Vein, Percutaneous Approach (ICD-10-PCS; 2017-12-29)
DX: K56.50 Intestinal adhesions [bands], unspecified as to partial versus complete obstruction (principal); I97.191 Other postprocedural cardiac functional disturbances following other surgery; I21.4 Non-ST elevation (NSTEMI) myocardial infarction; J18.9 Pneumonia, unspecified organism; J44.0 Chronic obstructive pulmonary disease with (acute) lower respiratory infection; J98.11 Atelectasis; J44.1 Chronic obstructive pulmonary disease with (acute) exacerbation; K92.2 Gastrointestinal hemorrhage, unspecified; R11.10 Vomiting, unspecified; I11.9 Hypertensive heart disease without heart failure; K56.7 Ileus, unspecified; I27.20 Pulmonary hypertension, unspecified; E87.6 Hypokalemia; G89.18 Other acute postprocedural pain; M06.9 Rheumatoid arthritis, unspecified; I48.0 Paroxysmal atrial fibrillation; D64.9 Anemia, unspecified; R06.89 Other abnormalities of breathing; I95.1 Orthostatic hypotension; K27.9 Peptic ulcer, site unspecified, unspecified as acute or chronic, without hemorrhage or perforation; M19.90 Unspecified osteoarthritis, unspecified site; M81.0 Age-related osteoporosis without current pathological fracture; Z23 Encounter for immunization

== ENCOUNTER 2018-05-02 09:06 | Outpatient (CLI) | payer MEDICARE, OTHER | END 2018-05-02 09:07 | disposition home or self-care (01) | LOC: C.CTH 09:06 | DX: R10.9 Unspecified abdominal pain (principal) ==